=== PATIENT | female | born 1945 | race Caucasian/White ===

== ENCOUNTER 2016-09-24 10:52 | Emergency (ER) | payer MEDICARE, OTHER ==
[~2016-09-24] VITALS: Ht 152.4 cm; Wt 66.0 kg
[2016-09-24 11:04] VITALS: Ht 152.4 cm; Wt 66.0 kg
--- NOTE | 2016-09-24 12:03 | RADRPT ---
PROCEDURE: US Lower extremity Venous. CLINICAL INDICATION: Calf swelling TECHNIQUE: Multiple sonographic images of the bilateral lower extremity deep venous system was obt ained utilizing grayscale, color-flow, compressive sonography and doppler imaging with augmentation. The images were reviewed on a PACS workstation. COMPARISON: None. FINDINGS: There is normal compressibility and flow within the right common femoral, deep femoral, superficial femoral and popliteal veins. Normal respiratory variation and augmentation is seen. There is normal color flow and compressibility of right posterior tibial and peroneal veins IMPRESSION: No sonographic evidence for right lower extremity deep venous thrombosis. RPTAT: HH .Tariq Reddy MD, MD Date Time Electronically viewed and signed by .Tariq Reddy MD, on 09/24/2016 12:03 .W/
[2016-09-24 12:44] LABS: BASOPHILS % 0.6 % (0.0-2.0); EOSINOPHILS # 0.2 10^3/ul (0.0-0.5); HEMATOCRIT 32.8 % (37.0-47.0); HEMOGLOBIN 11.1 g/dl (12.0-16.0); LYMPHOCYTES % 39.5 % (15.0-51.0); MEAN CORPUSCULAR HEMOGLOBIN 31.2 pg (29.0-33.0); MEAN CORPUSCULAR HGB CONC 33.8 g/dl (32.0-37.0); MEAN CORPUSCULAR VOLUME 92.3 fl (82.0-101.0); MEAN PLATELET VOLUME 8.7 fl (7.4-10.4); MONOCYTE # 0.5 10^3/ul (0.3-0.9); MONOCYTES % 10.4 % (0.0-11.0); NEUTROPHIL # 2.4 10^3/ul (1.6-7.5); NEUTROPHILS % 46.5 % (39.0-77.0); PLATELET COUNT 156 10^3/UL (140-440); RED BLOOD COUNT 3.55 10^6/ul (4.20-5.40); RED CELL DISTRIBUTION WIDTH 16.1 % (11.5-14.5); UNCORRECTED WBC 5.1 10^3/ul (4.8-10.8); WHITE BLOOD COUNT 5.1 10^3/ul (4.8-10.8)
[2016-09-24 12:51] LABS: INR 0.92; PROTIME 12.4 Sec (12.2-14.2)
[2016-09-24 12:52] LABS: PARTIAL THROMBOPLASTIN TIME 28.2 Sec (25.0-35.0)
[2016-09-24 12:53] LABS: CONDITION 1; LH ANALYZER COMMENTS 1
[2016-09-24 12:55] LABS: CREATININE 4.75 mg/dl (0.44-1.00)
[2016-09-24 12:56] LABS: CALCIUM 8.5 mg/dl (8.4-10.2)
[2016-09-24] MEDS ORDERED: ALLO100T PO (13:06)
[2016-09-24] MEDS ORDERED: LYR75 PO (13:06)
[2016-09-24] MEDS ORDERED: ATOR40TA68 PO (13:06)
[2016-09-24] MEDS ORDERED: LANT3I SC (13:06)
[2016-09-24 13:08] LABS: POTASSIUM 6.4 mmol/L (3.5-5.1)
[2016-09-24] MEDS ORDERED: IBUP-1542 PO (13:19)
--- NOTE | 2016-09-24 13:21 | ERD ---
ER Documentation Chief Complaint Date/Time DATE: 09/24/16 TIME: 13:19 Chief Complaint RIGHT LEG SWOLLEN- DIALYSIS PT HPI 71-year-old female comes to the emergency department complaining of right leg pain. Patient states she has had a painful swollen right leg for some time now , possibly up to months. She reports no trauma. She reports that she is on ongoing swelling and saw her doctor and then became concerned and came to the emergency department for evaluation. She reports no new trauma, no fevers no chills no redness. ROS All systems reviewed and are negative except as per history of present illness. Medications Home Meds Active Scripts Ibuprofen* (Motrin*) 600 Mg Tab, 600 MG PO Q6H Y for PAIN AND OR ELEVATED TEMP, #30 TAB Prov:ADRIANO SOW 09/24/16 Reported Medications Pregabalin* (Lyrica*) 75 Mg Capsule, 75 MG PO DAILY, #60 09/24/16 Insulin Glargine* (Lantus*) 100 Unit/Ml Soln, SC DAILY, #1 VIAL 09/24/16 Allopurinol* (Allopurinol*) 100 Mg Tablet, 100 MG PO QHS, #90 09/24/16 Atorvastatin* (Atorvastatin*) 40 Mg Tablet, 40 MG PO QHS, #60 09/24/16 Allergies Allergies: Coded Allergies: No Known Allergy (Unverified , 09/24/16) PMhx/Soc Medical and Surgical Hx: Unable to obtain Hx Alcohol Use: No Hx Substance Use: No Hx Tobacco Use: No Smoking Status: Never smoker FmHx Noncontributory for chief complaint Physical Exam Vitals Vital Signs Date Time Temp Pulse Resp B/P Pulse Ox O2 Delivery O2 Flow Rate FiO2 09/24/16 13:27 98.3 71 20 170/58 97 Room Air 09/24/16 11:04 97.6 71 19 179/76 98 Physical Exam GENERAL: The patient is well developed and appropriate for usual state of health in no apparent distress HEENT: Pupils equal, round, and reactive to light. EOMI. There is no scleral icterus. NECK: C-spine is soft and supple, there is no meningismus. There is no cervical lymphadenopathy. LUNGS: Clear to auscultation bilaterally. There are no rales, wheezes or rhonchi. HEART: Regular rate and rhythm, no murmurs, clicks, rubs or gallops. ABDOMEN: Soft, non-tender, non-distended. There are bowel sounds in all four quadrants. No rebound or guarding. EXTREMITIES: The right lower extremity is just slightly more swollen than the left. There is no Homans sign. There is no evidence of infection or trauma. The other extremities appear normal NEURO: The patient moves all four extremities with 5/5 strength. Cranial nerves II - XII are intact. Normal gait. Alert and oriented SKIN: There is no apparent rash or petechiae. HEME/LYMPHATIC: There is no evidence of excessive bruising or lymphedema. PSYCHIATRIC: The patient does not appear anxious or depressed. PULSES: strong and equal bilaterally including the RLE w no pulse deficit. Result Diagram: 09/24/16 1215 09/24/16 1215 Results 24 hrs Laboratory Tests Test 09/24/16 12:15 Activated Partial Thromboplast Time 28.2Sec Anion Gap 19 Basophils # 0.010^3/ul Basophils % 0.6% Blood Morphology Comment Blood Urea Nitrogen 54mg/dl Calcium Level 8.5mg/dl Carbon Dioxide Level 30mmol/L Chloride Level 95mmol/L Creatinine 4.75mg/dl Eosinophils # 0.210^3/ul Eosinophils % 3.0% Glucose Level 229mg/dl Hematocrit 32.8% Hemoglobin 11.1g/dl INR International Normalized Ratio 0.92 Lymphocytes # 2.010^3/ul Lymphocytes % 39.5% Mean Corpuscular Hemoglobin 31.2pg Mean Corpuscular Hemoglobin Concent 33.8g/dl Mean Corpuscular Volume 92.3fl Mean Platelet Volume 8.7fl Monocytes # 0.510^3/ul Monocytes % 10.4% Neutrophils # 2.410^3/ul Neutrophils % 46.5% Nucleated Red Blood Cells # 0.010^3/ul Nucleated Red Blood Cells % 0.0/100WBC Platelet Count 67501^3/UL Potassium Level 6.4mmol/L Prothrombin Time 12.4Sec Prothrombin Time Ratio 1.0 Red Blood Count 3.5510^6/ul Red Cell Distribution Width 16.1% Sodium Level 138mmol/L White Blood Count 5.110^3/ul Procedures/MDM Patient was taken to a room, seen and evaluated. Comfort measures were initiated. Diagnostic tests were ordered and reviewed. 3 LEAD RHYTHM STRIP: Normal sinus rhythm without ectopy 12 lead EKG interpreted by myself: Rate/rhythm: Normal sinus rhythm [place]/intervals: Normal Ischemia: Nonspecific ST and T-wave changes with no ST elevation Impression: Nonspecific EKG RADIOLOGY: reviewed with the radiologist REEVALUATION: Patient remained comfortable and well-appearing MEDICAL DECISION MAKIN-year-old dialysis dependent patient presents the emergency department with right lower extremity edema that is subacute/chronic in nature. DVT has been ruled out, patient does not seem to have claudication based on clinical presentation and based on a normal arterial study. Patient is no evidence of active infection. Patient is due for dialysis tomorrow and feels fine. At this time, patient appears to be clinically well and is appropriate for outpatient care. Departure Diagnosis: Primary Impression: Pain of right leg Condition: Stable Patient Instructions: Possible Causes of Low Back or Leg Pain Referrals: GISSELL URRUTIA (PCP) Additional Instructions: See your doctor for follow-up as discussed. Take a copy of your test results, if appropriate, to this follow-up visit. See your doctor or return here if your symptoms do not improve as expected. At any time, please return to the emergency department for any change or worsening in her symptoms. ADRIANO SOW Sep 24, 2016 13:21
[2016-09-24 14:59] VITALS: BP 176/98; PULSE 74; RESP 19; TEMP 98.6
--- NOTE | 2016-09-24 15:00 | RADRPT ---
PROCEDURE: US bilateral lower extremity arteries. CLINICAL INDICATION: Bilateral leg pain. Claudication that interferes significantly with the herbert ent's lifestyle. TECHNIQUE: Multiple longitudinal and transverse images of the bilateral lower extremity arteries w ere obtained with jones scale, pulsed Doppler, and color Doppler imaging. COMPARISON: No prior studies are available for comparison. FINDINGS: Right PUTTY REMOVER:141 cm/sec PSFA:130 cm/sec MSFA:174 cm/sec DSFA:118 cm/sec POP:160 cm/sec COMMUNITY DEVELOPMENT SPECIALIST:62 cm/sec DPA:62 cm/sec Left PUTTY REMOVER:127 cm/sec PSFA:100 cm/sec MSFA:92 cm/sec DSFA:92 cm/sec POP:106 cm/sec COMMUNITY DEVELOPMENT SPECIALIST:96 cm/sec DPA:33 cm/sec The right ankle-brachial index is 1.1 and the left ankle-brachial index is 1.0. There is normal triphasic flow throughout both lower extremity arterial systems. There is no signif icant plaque, stenosis, or occlusion. IMPRESSION: 1. Normal bilateral lower extremity arterial Doppler. RPTAT: QQ .Vnetura Long MD, MD Date Time Electronically viewed and signed by .Ventura Long MD, on 09/24/2016 15:00 .R/
== END 2016-09-24 14:59 | disposition home or self-care (01) ==
LOC: E/R 10:52
DX: M79.604 Pain in right leg (principal); Z79.4 Long term (current) use of insulin
CPT/HCPCS: 36415; 80048; 85025; 85610; 85730; 93005; 93923; 93971

== ENCOUNTER 2016-12-09 09:17 | Inpatient (IN) | payer MEDICARE, OTHER ==
[~2016-12-09] VITALS: Ht 162.6 cm; Wt 65.0 kg
[2016-12-09] VITALS (11 sets, daily range): BP systolic 100–131; BP diastolic 49–62; PULSE 80–95; RESP 18; Ht 162.6 cm; Wt 65.0 kg
[~2016-12-09 09:17] MED LIST: ALLO100T PO; ATOR40TA68 PO; IBUP-1542 PO; LANT3I SC; LYR75 PO
[2016-12-09] MEDS ORDERED: VANCOMYCIN 1 GM (PMX) 250 ML IVPB STA (09:59)
[2016-12-09] MEDS ORDERED: SODIUM CHLORIDE 0.9% 1L BAG IV* STA (09:59)
[2016-12-09] MEDS ORDERED: PIPER-TAZO 3.375 GM IV (PMX) 100 ML IVPB STA (09:59)
[2016-12-09] MEDS ORDERED: ACETAMINOPHEN 500 MG TAB PO STA (10:03)
[2016-12-09] MEDS ORDERED: TRAM-40 PO (10:14)
[2016-12-09] MEDS ORDERED: ASPI81TA3 PO (10:15)
[2016-12-09] MEDS ORDERED: MULT-542 PO (10:15)
[2016-12-09] MEDS ORDERED: CHOL100062 PO (10:15)
[2016-12-09] MEDS ORDERED: CYAN100080 PO (10:16)
[2016-12-09] MEDS ORDERED: DOCU-159 PO (10:16)
[2016-12-09] MEDS ORDERED: NPH SQ (10:17)
[2016-12-09] MEDS ORDERED: LANT3I SC (10:17)
[2016-12-09] MEDS ORDERED: FAMOTIDINE 20 MG INJ IV STA (10:37)
[2016-12-09] MEDS ORDERED: PANTOPRAZOLE 40 MG INJ IV STA (10:37)
[2016-12-09 10:41] LABS: ADD SCAN DIFF NO
[2016-12-09 10:48] LABS: BASOPHILS % 0.2 % (0.0-2.0); EOSINOPHILS # 0.1 10^3/ul (0.0-0.5); EOSINOPHILS % 0.8 % (0.0-7.0); HEMATOCRIT 31.4 % (37.0-47.0); HEMOGLOBIN 10.5 g/dl (12.0-16.0); LYMPHOCYTES # 1.1 10^3/ul (0.8-2.9); LYMPHOCYTES % 8.3 % (15.0-51.0); MEAN CORPUSCULAR HEMOGLOBIN 31.6 pg (29.0-33.0); MEAN CORPUSCULAR HGB CONC 33.4 g/dl (32.0-37.0); MEAN CORPUSCULAR VOLUME 94.6 fl (82.0-101.0); MEAN PLATELET VOLUME 10.5 fl (7.4-10.4); MONOCYTE # 0.9 10^3/ul (0.3-0.9); NEUTROPHIL # 10.9 10^3/ul (1.6-7.5); NEUTROPHILS % 83.2 % (39.0-77.0); PLATELET COUNT 208 10^3/UL (140-415); RED BLOOD COUNT 3.32 10^6/ul (4.20-5.40); RED CELL DISTRIBUTION WIDTH 14.7 % (11.5-14.5); WHITE BLOOD COUNT 13.1 10^3/ul (4.8-10.8)
--- NOTE | 2016-12-09 10:51 | RADRPT ---
PROCEDURE: XR Chest. CLINICAL INDICATION: Chest pain, sepsis TECHNIQUE: Single frontal view of the chest was obtained. COMPARISON: None FINDINGS: The heart is within normal limits. The thoracic aorta is calcified. There is a right upper lobe infiltrate. There is also possible mild right lower lobe infiltrate. T here are ill-defined nodular opacities seen in the left mid lung. There is no pleural effusion or pneumothorax. RPTAT: AA IMPRESSION: Right upper lobe infiltrate and possible mild right lower lobe infiltrate. Ill-defined nodular opacities in the left mid lung. Neoplasm is not excluded. Follow-up CT chest i s recommended. Calcified aorta consistent with atherosclerotic disease. .Roni Sanchez MD, MD Date Time Electronically viewed and signed by .Roni Sanchez MD, on 12/09/2016 10:51 .S/
[2016-12-09 11:03] LABS: ALBUMIN/GLOBULIN RATIO 1.21; BILIRUBIN,INDIRECT 0.2 mg/dl (0-1.1); BILIRUBIN,TOTAL 0.2 mg/dl (0.2-1.3); CREATININE 6.89 mg/dl (0.44-1.00); TOTAL PROTEIN 7.3 g/dl (6.1-8.1)
[2016-12-09 11:04] LABS: CALCIUM 8.4 mg/dl (8.4-10.2)
[2016-12-09 11:09] LABS: ADD UMIC YES; URINE BILIRUBIN (Dip) NEGATIVE (NEGATIVE); URINE BLOOD (Dip) TRACE (NEGATIVE); URINE COLOR LT. YELLOW (YELLOW); URINE GLUCOSE (Dip) NEGATIVE (NEGATIVE); URINE KETONES (Dip) NEGATIVE (NEGATIVE); URINE LEUKOCYTE ESTERASE (Dip) NEGATIVE (NEGATIVE); URINE NITRITE (Dip) NEGATIVE (NEGATIVE); URINE TOTAL PROTEIN (Dip) 2+ (NEGATIVE); URINE UROBILINOGEN (Dip) 0.2 E.U./dL (0.1-1.0)
[2016-12-09 11:09] LABS: POTASSIUM 6.5 mmol/L (3.5-5.1)
[2016-12-09] MEDS ORDERED: NA BICARBONATE 8.4% 50 ML SYG IV STA (11:14)
[2016-12-09] MEDS ORDERED: NA POLYST SULFON 15 GM/60 ML BTL PO STA (11:14)
[2016-12-09] MEDS ORDERED: ALBUTEROL 0.5% (NEB) 2.5 MG/0.5 ML AMP INH STA (11:14)
[2016-12-09] MEDS ORDERED: CA GLUCONATE (GM) 10% 10ML INJ IV STA (11:14)
[2016-12-09 11:15] LABS: TROPONIN-I 0.109 ng/ml (0.00-0.12)
[2016-12-09 11:16] LABS: INR 1.01; PROTIME 13.3 Sec (12.2-14.2)
[2016-12-09 11:17] LABS: PARTIAL THROMBOPLASTIN TIME 26.9 Sec (25.0-35.0)
[2016-12-09 11:28] LABS: BACTERIA,URINE RARE; URINE RBCS 0-2 /HPF (0)
--- NOTE | 2016-12-09 11:42 | ERA ---
ER Documentation Chief Complaint Date/Time DATE: 12/09/16 TIME: 11:15 Chief Complaint sore throat and headache with fever since last night. no cough no dysuria HPI This is a 71-year-old Panamanian-speaking female with a known history of end-stage renal disease on hemodialysis every Friday and Friday. Her print press operator is Dr. Cho and she usually receives dialysis around 11:30 AM. Her last full run of dialysis was on Friday, 2 days prior to arrival. The patient presents to the emergency department today complaining generalized myalgias, bandlike headache, sore throat and a productive cough that have been present for roughly 12 hours. The patient awoke this morning with a fever at 2 AM of 103. Tylenol was given by her [id number]. Repeat temperature just prior to arrival taken on the auricle was 104. Tylenol had again been administered by her [id number]. The patient had been placed in a cold shower and continued to have a reductive cough and had hemoptysis of bright red blood of roughly the size of a quarter. She has not had any recent hospitalizations or travel. She denies any night sweats or weight loss. Patient denies any palpitation or chest pain or pressure. She has been compliant with her medications. She is an insulin-dependent diabetic and denies any polyuria or polydipsia. She does make a small amount of urine and has not complained of any frequency urgency or dysuria. She takes 81 mg on a daily basis of aspirin. She receives her dialysis that [facility]. ROS All systems reviewed and are negative except as per history of present illness. Medications Home Meds Reported Medications Insulin Glargine* (Lantus*) 100 Unit/Ml Soln, 10-30 UNIT SC DAILY, #1 VIAL 12/09/16 Insulin Human Nph (Novolin-N) 100 Units/Ml Susp, 0-30 UNIT SQ AC MEALS 12/09/16 Docusate Sodium* (Docusate Sodium*) 100 Mg Capsule, 100 MG PO BID, #60 CAP 12/09/16 Cyanocobalamin* (Vitamin B-12*) 1,000 Mcg Tablet.sa, 1000 MCG PO DAILY, TAB 12/09/16 Multivitamin* (Daily Value*) 1 Each Tablet, 1 TAB PO DAILY, TAB 12/09/16 Cholecalciferol* (Vitamin D3*) 1,000 Unit Tablet, 2000 UNIT PO DAILY, TAB 12/09/16 Aspirin* (Aspirin* Chew) 81 Mg Tab.chew, 81 MG PO DAILY, TAB.CHEW 12/09/16 Tramadol Hcl* (Ultram*) 50 Mg Tablet, 50 MG PO QHS Y for PAIN, TAB 12/09/16 Pregabalin* (Lyrica*) 75 Mg Capsule, 75 MG PO BID, #60 09/24/16 Allopurinol* (Allopurinol*) 100 Mg Tablet, 100 MG PO QHS, #90 09/24/16 Atorvastatin* (Atorvastatin*) 40 Mg Tablet, 40 MG PO QHS, #60 09/24/16 Discontinued Scripts Ibuprofen* (Motrin*) 600 Mg Tab, 600 MG PO Q6H Y for PAIN AND OR ELEVATED TEMP, #30 TAB Prov:ADRIANO SOW 09/24/16 Allergies Allergies: Coded Allergies: No Known Allergy (Unverified , 12/09/16) PMhx/Soc History of Surgery: Yes (dialysis catheter) Anesthesia Reaction: No Hx 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 Disorder: No Hx Respiratory Disorders: No Hx Cardiac Disorders: Yes (htn) Hx Psychiatric Problems: No Hx Miscellaneous Medical Probl: Yes (ESRD with dialysis (MWF), dm, neuropathy) Hx Alcohol Use: No Hx Substance Use: No Hx Tobacco Use: No Smoking Status: Never smoker Physical Exam Vitals Vital Signs Date Time Temp Pulse Resp B/P Pulse Ox O2 Delivery O2 Flow Rate FiO2 12/09/16 10:01 99.7 83 18 148/60 95 12/09/16 09:28 100.3 85 20 148/64 98 Physical Exam Constitutional:Well-developed. Well-nourished. HEENT:Normocephalic. Atraumatic.Pupils were equal round reactive to light. Moist mucous membranes.No tonsillar exudates. Neck: No nuchal rigidity. No lymphadenopathy. No posterior cervical spine tenderness or step-offs. Respiratory: Not using accessory muscles of respiration. Rhonchi heard in the right upper lung base with an inspiratory wheeze in the right upper lung base. No stridor. Cardiovascular: Regular rate regular rhythm.No murmurs. No rubs were appreciated.S1, S2 normal. Distal pulses are palpable 2+ bilaterally. GI: Abdomen was soft. Nontender. Non Distended. No pulsatile abdominal masses or bruits. No rebound. No guarding. Bowel sounds were present and normal. Muscle skeletal: Full range of motion of both the upper and lower extremities bilaterally.Normal muscle tone.No assymetrical calf tenderness or swelling. Skin: No petechia, no purpura. No lesions on the palms or the soles of the feet. No maculopapular rash. Positive thrill and bruit of the left upper extremity AV fistula NEURO: Patient was alert, awake, orientated x3.No facial droop. Gait observed and normal with no ataxia.Speech had regular rate and rhythm. No focal neurological deficits. Result Diagram: 12/09/16 0945 12/09/16 0945 Results 24 hrs Laboratory Tests Test 12/09/16 09:45 12/09/16 10:48 White Blood Count 13.110^3/ul Red Blood Count 3.3210^6/ul Hemoglobin 10.5g/dl Hematocrit 31.4% Mean Corpuscular Volume 94.6fl Mean Corpuscular Hemoglobin 31.6pg Mean Corpuscular Hemoglobin Concent 33.4g/dl Red Cell Distribution Width 14.7% Platelet Count 96006^3/UL Mean Platelet Volume 10.5fl Neutrophils % 83.2% Lymphocytes % 8.3% Monocytes % 7.0% Eosinophils % 0.8% Basophils % 0.2% Nucleated Red Blood Cells % 0.0/100WBC Neutrophils # 10.910^3/ul Lymphocytes # 1.110^3/ul Monocytes # 0.910^3/ul Eosinophils # 0.110^3/ul Basophils # 0.010^3/ul Nucleated Red Blood Cells # 0.010^3/ul Prothrombin Time 13.3Sec Prothrombin Time Ratio 1.0 INR International Normalized Ratio 1.01 Activated Partial Thromboplast Time 26.9Sec Sodium Level 134mmol/L Potassium Level 6.5mmol/L Chloride Level 98mmol/L Carbon Dioxide Level 23mmol/L Anion Gap 20 Blood Urea Nitrogen 88mg/dl Creatinine 6.89mg/dl Glucose Level 240mg/dl Lactic Acid Level 1.4mmol/L Calcium Level 8.4mg/dl Total Bilirubin 0.2mg/dl Direct Bilirubin 0.00mg/dl Indirect Bilirubin 0.2mg/dl Aspartate Amino Transf (AST/SGOT) 32IU/L Alanine Aminotransferase (ALT/SGPT) 19IU/L Alkaline Phosphatase 146IU/L Troponin I 0.109ng/ml Total Protein 7.3g/dl Albumin 4.0g/dl Globulin 3.30g/dl Albumin/Globulin Ratio 1.21 Amylase Level 108U/L Lipase 127U/L Urine Color LT. YELLOW Urine Clarity CLEAR Urine pH 7.0 Urine Specific [place] <=1.005 Urine Ketones NEGATIVE Urine Nitrite NEGATIVE Urine Bilirubin NEGATIVE Urine Urobilinogen 0.2 E.U./dL Urine Leukocyte Esterase NEGATIVE Urine Microscopic RBC 0-2/HPF Urine Microscopic WBC NONE SEEN/HPF Urine Epithelial Cells RARE Urine Bacteria RARE Urine Hemoglobin TRACE Urine Glucose NEGATIVE% Urine Total Protein 2+ Current Medications Medications (Trade) Dose Ordered Sig/Zaynab Route PRN Reason Start Time Stop Time Status Last Admin Dose Admin Sodium Chloride 2020 ml 2,020 ml BOLUS OVER 2 HOURS STAT IV* 12/09/16 09:59 12/09/16 10:04 DC 12/09/16 10:10 Vancomycin HCl 250 ml @ 125 mls/hr ONCE STAT IVPB 12/09/16 09:59 12/09/16 11:58 DC 12/09/16 10:58 Piperacillin Sod/ Tazobactam Sod (Zosyn 3.375gm/ 100 ml (Pmx)) 100 ml @ 200 mls/hr ONCE STAT IVPB 12/09/16 09:59 12/09/16 10:28 DC 12/09/16 10:11 Acetaminophen (Tylenol Tab) 1,000 mg ONCE STAT PO 12/09/16 10:03 12/09/16 10:06 DC Famotidine (Pepcid Iv) 20 mg ONCE STAT IV 12/09/16 10:37 12/09/16 10:38 DC 12/09/16 10:57 Pantoprazole (Protonix Iv) 40 mg ONCE STAT IV 12/09/16 10:37 12/09/16 10:38 DC 12/09/16 10:57 Sodium Polystyrene Sulfonate (Kayexalate) 30 gm ONCE STAT PO 12/09/16 11:14 12/09/16 11:20 DC Albuterol (Proventil 0.5% (Neb)) 15 mg ONCE STAT INH 12/09/16 11:14 12/09/16 11:20 DC Sodium Bicarbonate (Na Bicarb 8.4% Syg) 50 ml ONCE STAT IV 12/09/16 11:14 12/09/16 11:20 DC Calcium Gluconate (Ca Gluc) 1 gm ONCE STAT IV 12/09/16 11:14 12/09/16 11:22 DC Ondansetron HCl (Zofran Inj) 4 mg ER BRIDGE PRN IV NAUSEA AND/OR VOMITING 12/09/16 12:00 12/10/16 11:59 Acetaminophen (Tylenol Tab) 650 mg ER BRIDGE PRN PO MILD PAIN/FEVER 12/09/16 12:00 12/10/16 11:59 IV Flush 10 ml 10 ml STK-MED ONCE .ROUTE 12/09/16 11:51 12/09/16 11:52 DC Sodium Chloride (NS) 100 ml @ ud STK-MED ONCE .ROUTE 12/09/16 11:51 12/09/16 11:52 DC Iodixanol (Visipaque Locm) 100 ml STK-MED ONCE .ROUTE 12/09/16 11:51 12/09/16 11:52 DC Iodixanol (Visipaque Locm) 50 ml STK-MED ONCE .ROUTE 12/09/16 11:51 12/09/16 11:52 DC Procedures/MDM The patient presented to the emergency department with a presentation of hemoptysis. My differential diagnosis included but was not limited to peptic ulcer disease, gastric or esophageal erosions, lung cancer, tuberculosis, bronchitis, pneumonia. IV access was established by nursing staff. The patient been placed in a centrifugal wax molder continuous pulse oximetry. I obtained a chest radiograph due to the abnormal findings on the patient's respiratory examination. The chest radiograph reviewed by myself and the radiologist indicated the following: Right upper lobe infiltrate and possible mild right lower lobe infiltrate. Ill-defined nodular opacities in the left mid lung. Neoplasm is not excluded. Follow-up CT chest is recommended. Calcified aorta consistent with atherosclerotic disease. The patient presented to the emergency department with SIRS criteria of a well- documented history of fever but was afebrile upon arrival of antipyretics had just been given and the patient had leukocytosis of greater than 12,000. Therefore I did obtain a lactic acid but this was normal. However the patient was still treated for sepsis given that the patient had to sirs criteria plus a documented infection of pneumonia. The patient's infectious symptoms have not stabilized and the patient is at risk of rapid decompensation. The patient will be admitted for careful hydration, antibiotic therapy, and infectious source control. Severe Sepsis Assessment: Infectious Source: Pneumonia End organ damage indicated by: External Grinder > 2.0 INR > 1.5 Plt < 100 Severe Sepsis Managment: Blood Cultures X 2 before broad spectrum antibiotics initiated within 3 hours of recognition. 30 ml/kg NS bolus the patient was not given a complete 30 cc/kg bolus of normal saline due to the patient having a history of renal failure and concern for fluid overload Initial Lactate: normal Repeat Lactate not indicated as initial < 2.0 Septic Shock Assessment (1 hour post 30 ml/kg fluid bolus): Hypotension (SBP < 90 or 40 mmHg drop, MAP < 65): No Lactic acid > 4.0 No I considered further perfusion assessment with CVP measurement, SCVO2, bedside ultrasound volume assessment, passive leg raise, trial of further fluid bolus. And preceded with IV fluids The patient was hyperkalemic with a potassium of 6.5. The patient did not have peaked T waves on the EKG given that the patient has a history of renal failure this was treated with Kayexalate, an amp of bicarbonate amp of calcium chloride and albuterol. The patient will be admitted in serious condition under the care of Dr. Marcano. I will obtain a CT scan of the patient's chest for further evaluation to the possible neoplasm. The patient did not have any hematemesis that could suggest an upper GI bleed but was prophylactically given IV Pepcid and IV Protonix. The patient remained hemodynamically stable while in the emergency department and did not experience any hemoptysis while in the ER. 12 Lead EKG tracing ordered and reviewed by myself showed: Sinus rhythm 93 bpm and no arrhythmia. NC interval normal. QRS duration normal. Incomplete right bundle branch block with left axis deviation. Premature atrial complexes No ST segment elevation No ST segment depression. No changes consistent with acute ischemia. I did obtain a CT scan of the chest. This was done with IV contrast. The patient does have a known history of renal failure but will be undergoing emergent hemodialysis. I have placed a consult to her print press operator Dr. De La Cruz and Dr. Love is taking call for Dr. De La Cruz. I spoke with Kate at 12: 16 PM and he kindly stated he will arrange for emergent hemodialysis. CT scan showed that there is no evidence of a pulmonary embolism. The patient had already been started on broad-spectrum antibiotics for suspected healthcare acquired pneumonia given that she goes to a dialysis center on a regular basis. She was given IV vancomycin and IV Zosyn The patient had hyperglycemia without ketosis and did not require insulin while in the emergency department. Hypoglycemia was corrected with gentle IV hydration. Critical Care: Time: 55 minutes Treatments/Evaluations: Close monitoring and treatment of unstable vital signs, cardiorespiratory, and neurologic status, while maintaining tight balance of fluid, respiratory, and cardiac interventions. Time does not include performing any of the above billable procedures. Departure Diagnosis: Primary Impression: Pneumonia Qualified Code: J18.9 - Pneumonia of right upper lobe due to infectious organism Additional Impressions: Hyperkalemia Hyperglycemia without ketosis Sepsis Qualified Code: A41.9 - Sepsis, due to unspecified organism Condition: Serious JOSE RREYESA Dec 09, 2016 11:27
[2016-12-09] MEDS ORDERED: IODIXANOL LOCM 50 ML BTL ONE (11:51)
[2016-12-09] MEDS ORDERED: SOD CHLORIDE 0.9% 100 ML ONE (11:51)
[2016-12-09] MEDS ORDERED: IODIXANOL LOCM 100 ML BTL ONE (11:51)
[2016-12-09] MEDS ORDERED: ACETAMINOPHEN 325 MG TAB PO PRN (12:00)
[2016-12-09] MEDS ORDERED: ONDANSETRON 4 MG INJ IV PRN (12:00)
--- NOTE | 2016-12-09 12:42 | RADRPT ---
PROCEDURE: CTA Chest with contrast and with 3-D reconstructions CLINICAL INDICATION: Chest pain TECHNIQUE: The study was performed utilizing multidetector CT scanner. Direct spiral axial section s were obtained from the thoracic inlet to the upper abdomen with the use of intravenous contrast ma terial. Sagittal, coronal and 3-D reformations were obtained. The images were reviewed on a PACS wor kstation. DLP 491.04 mGycm CTDIvol 14.08, 13.28 mGy COMPARISON: No prior studies are available for comparison. FINDINGS: There are no pulmonary emboli. There are multifocal patchy and confluent ground-glass opacities throughout all lobes of the bilater al lungs consistent with multifocal pneumonia. There is no pleural fluid. There is no pneumothorax. Heart size is within normal limits. There is no pericardial fluid. There are atherosclerotic calcif ications involving the coronary arteries. There is mild narrowing at the origin of the SMA and bilat eral renal arteries. There are no enlarged axillary or mediastinal lymph nodes. There are calcificat ions in the right pulmonary hilum as well as in the spleen, likely from prior granulomatous disease. Thyroid gland is heterogeneous and sub-centimeter hypodensities are noted in the lower pole of the l eft thyroid lobe. The visualized portions of the upper abdomen demonstrate a 1.2 cm simple cyst projecting off the upp er pole of the left kidney. There are surgical clips in the gallbladder fossa consistent with prior cholecystectomy. IMPRESSION: No CT evidence for pulmonary embolus. Multifocal patchy and confluent opacities bilaterally consistent with multifocal pneumonia. Heterogeneous thyroid gland with sub-centimeter hypodensities in the left lobe can be further evalua tien with a non emergent thyroid sonogram. Status post cholecystectomy. RPTAT: EE Physician Dionicio Date Time Electronically viewed and signed by Physician Dionicio on 12/09/2016 12:41 /
--- NOTE | 2016-12-09 12:43 | RADRPT ---
PROCEDURE: CT Chest. CLINICAL INDICATION: productive cough with small amount of blood TECHNIQUE: CT scan of the chest without contrast was performed on multislice CT scanner. The herbert ent was scanned without administration of intravenous contrast. 3-D sagittal and coronal reformatte d images were obtained from the axial source images. CTDIvol 395.96 mGy DLP 10.59 mGy-cm COMPARISON: None FINDINGS: There are no pulmonary emboli. There are multifocal patchy and confluent ground-glass opacities throughout all lobes of the bilater al lungs consistent with multifocal pneumonia. There is no pleural fluid. There is no pneumothorax. Heart size is within normal limits. There is no pericardial fluid. There are atherosclerotic calcif ications involving the coronary arteries. There is mild narrowing at the origin of the SMA and bilat eral renal arteries. There are no enlarged axillary or mediastinal lymph nodes. There are calcificat ions in the right pulmonary hilum as well as in the spleen, likely from prior granulomatous disease. Thyroid gland is heterogeneous and sub-centimeter hypodensities are noted in the lower pole of the l eft thyroid lobe. The visualized portions of the upper abdomen demonstrate a 1.2 cm simple cyst projecting off the upp er pole of the left kidney. There are surgical clips in the gallbladder fossa consistent with prior cholecystectomy. IMPRESSION: No CT evidence for pulmonary embolus. Multifocal patchy and confluent opacities bilaterally consistent with multifocal pneumonia. Heterogeneous thyroid gland with sub-centimeter hypodensities in the left lobe can be further evalua tien with a non emergent thyroid sonogram. Status post cholecystectomy. RPTAT: EE Physician Dionicio Date Time Electronically viewed and signed by David Rhodes Physician on 12/09/2016 12:42 /
[2016-12-09] MEDS ORDERED: SOD CHLORIDE 0.9% 1,000 ML IV SCH (17:06)
[2016-12-09] MEDS ORDERED: BISACODYL 10 MG SUPP PR PRN (17:30)
[2016-12-09] MEDS ORDERED: VANCOMYCIN IV PER PHARMACY XX SCH (17:30)
[2016-12-09] MEDS ORDERED: MAGNESIUM HYDROXIDE 30ML CUP PO PRN (17:30)
[2016-12-09] MEDS ORDERED: NACL 0.9% 3 ML SYG IV SCH (17:30)
[2016-12-09] MEDS ORDERED: DOCUSATE SODIUM 100 MG CAP PO PRN (17:30)
[2016-12-09] MEDS ORDERED: GLUCOSE GEL 15 GRAM TUBE PO PRN ×2 (18:00)
[2016-12-09] MEDS ORDERED: GLUCOSE GEL 15 GRAM TUBE BUCCAL PRN (18:00)
[2016-12-09] MEDS ORDERED: GLUCAGON 1 MG INJ IM PRN (18:00)
[2016-12-09] MEDS ORDERED: DEXTROSE 50% 50 ML SYRINGE IV PRN ×2 (18:00)
[2016-12-09] MEDS: INSULIN ASPART [NOVOLOG] 3 ML PEN SC SCH ×2 (18:27→20:34)
[2016-12-09 18:42] LABS: POTASSIUM 5.9 mmol/L (3.5-5.1)
[2016-12-09 18:44] LABS: CREATININE 7.24 mg/dl (0.44-1.00)
[2016-12-09 18:45] LABS: CALCIUM 8.5 mg/dl (8.4-10.2)
[2016-12-09 18:54] LABS: CK-MB 5.28 ng/ml (0.0-2.4)
[2016-12-09 19:04] LABS: TROPONIN-I 0.78 ng/ml (0.00-0.12)
[2016-12-09] MEDS ORDERED: INSULIN GLARGINE [LANtus] 3 ML PEN SC SCH (20:00)
[2016-12-09] MEDS: ALLOPURINOL 100 MG TAB PO SCH (20:19)
[2016-12-09] MEDS: ATORVASTATIN 40 MG TAB PO SCH (20:19)
[2016-12-09] MEDS: DOCUSATE SODIUM 100 MG CAP PO SCH (20:20)
[2016-12-09] MEDS: ACETAMINOPHEN 325 MG TAB PO PRN (20:20)
[2016-12-09] MEDS: FAMOTIDINE 20 MG TAB PO SCH (20:20)
[2016-12-09] MEDS: HEPARIN 5,000 UNIT/0.5 ML VIAL SC SCH (20:35)
[2016-12-09] MEDS ORDERED: PREGABALIN 75 MG CAP PO SCH (21:00)
--- NOTE | 2016-12-09 21:02 | HP ---
DATE OF ADMISSION: 12/09/2016 PRIMARY CARE PHYSICIAN: Unknown. OUTPATIENT ESCORT BLIND: Dr. Cho CHIEF COMPLAINT ON ADMISSION: Fevers. HISTORY OF PRESENT ILLNESS: This is a 71-year-old female with history of end-stage renal disease on hemodialysis for the past 2 years, she now has a left upper extremity fistula; diabetes mellitus, i nsulin requiring; diabetic neuropathy; coronary artery disease and hyperlipidemia who presented in [facility] emergency department with reported fevers. According to the family member at the bedside, who is the son with whom she is living, the patient has been having upper respiratory infection symptoms f or the past 3 to 5 days. Apparently she was having some chest congestion, cough for the past 3 to 4 days. She started having fevers over the past 24 hours at least. Upon presentation here, she has a T-max of 100.3. The patient has been having an ongoing cough and started having hemoptysis, blood while coughing. According to the son at the bedside, no episodes of nausea, vomiting, hematochezia or melena. The patient seems to have chills currently at the bedside actually, and she does not fe el well. She is primarily Icelandic speaking. She denies any chest pain or chest pressure. She santy es any shortness of breath. She actually reports chest pain after coughing only. She is currently now afebrile. She is on IV antibiotics, IV fluids. She is a dialysis patient and has missed dialys is today so far. Her potassium is 6.5. Her agriscience technology instructor has been contacted for urgent dialysis topati boateng. She is otherwise hemodynamically stable. According to the son, she does have a history of chastity nary artery disease diagnosed around the time she started dialysis, and at first they were thinking about coronary artery bypass surgery, but then they were told that the patient is on dialysis and di d not need it anymore from what they are reporting. She is being admitted to telemetry with diagnos ed pneumonia and bronchitis on CAT scan. ALLERGIES: NO KNOWN ALLERGIES. PAST MEDICAL HISTORY: 1. End-stage renal disease on hemodialysis. 2. Diabetes mellitus, insulin requiring. 3. Diabetic neuropathy. 4. Likely diabetic nephropathy. 5. Coronary artery disease. 6. Hyperlipidemia. PAST SURGICAL HISTORY: Status post left upper extremity fistula placement 2 years ago. SOCIAL HISTORY: The patient lives with her son. No history of alcohol or tobacco use. REVIEW OF SYSTEMS: As per HPI. Again, most of it was obtained with the son translating. OUTPATIENT MEDICATIONS: 1. Atorvastatin 40 mg p.o. at bedtime. 2. Aspirin 81 mg p.o. daily. 3. Lyrica 75 mg p.o. b.i.d. 4. Tramadol 50 mg p.o. at bedtime p.r.n. pain. 5. Colace 100 mg p.o. b.i.d. 6. Lantus currently taking 7 units subcutaneously at bedtime. 7. Sliding scale insulin with Novolin N. 8. Vitamin D3 2000 units p.o. daily. 9. Vitamin B12 1000 mcg p.o. daily. 10. Multivitamin 1 tablet p.o. daily. 11. Allopurinol 100 mg p.o. at bedtime. PHYSICAL EXAMINATION: VITAL SIGNS: Temperature is 99.6 with a T-max of 100.3; heart rate of 104, sinus rhythm; respirator y rate of 20; blood pressure 143/54. The patient is satting 100% on 2 L nasal cannula. GENERAL: She is alert. She is oriented x4. She is primarily Icelandic speaking. She seems to be in some distress, seemingly having chills. HEENT: Pupils are equally round and reactive to light. Extraocular muscles are intact. Anicteric sclerae. NECK: No JVD, no thyromegaly noted. HEART: Regular rate and rhythm. Slightly tachycardic at time. LUNGS: She has decreased breath sounds at the bases, otherwise good air movement. No wheezes heard . No crackles or rales. ABDOMEN: Soft, nontender, nondistended. Bowel sounds are present. EXTREMITIES: She has a left upper extremity fistula for dialysis access. No edema, clubbing or cya nosis noted. NEUROLOGIC: Grossly intact with generalized weakness, 4+/5 muscle strength. LABORATORY DATA: White blood cell count is 13.1, hemoglobin 10.5, hematocrit 31.4, platelet count o f 208. She has a slight left shift with a neutrophil percentage of 83.2. Chemistry with sodium of 134, potassium 6.5, chloride 98, bicarbonate 23, BUN 88, creatinine 6.89, glucose of 240. Lactic ac id is up to 4.0. Calcium 8.4. Total bilirubin 0.2, AST 32, ALT 19, alkaline phosphatase 146. Trop onin 0.109. Total protein of 7.3, albumin 4.0, amylase 108, lipase 127. INR is 1.01, PT 13.3, PTT 26.9. Urinalysis is grossly mostly negative. EKG on admission shows sinus rhythm with possible PACs. No acute ST or T-wave abnormalities. RADIOLOGICAL DATA: 1. Chest x-ray shows right upper lobe infiltrate; possible mild right lower lobe infiltrate; ill-de fined nodular opacity, left mid lung. 2. Subsequent CT angiogram of the chest showed no evidence of pulmonary embolus. Multifocal patchy and confluent opacity bilaterally consistent with multifocal pneumonia. Status post cholecystectom y and heterogenous thyroid gland with subcentimeter hypodensity in the left lobe. Recommendation fo r thyroid sonogram on a nonurgent basis. ASSESSMENT AND PLAN: This is a 71-year-old female with: 1. Multifocal pneumonia and bronchitis with ongoing systemic inflammatory response syndrome and als o known end-stage renal disease. The patient will be maintained on vancomycin and Zosyn for broad s pectrum since she is a dialysis patient. She may actually have healthcare-associated pneumonia. Co ntinue gentle hydration at this point, and she is due for dialysis today, which will be arranged wit h her agriscience technology instructor. She is currently hemodynamically stable for a telemetry bed. Blood cultures ar e pending. Lactic acid, latest one was 4.0. We will continue to trend it. 2. End-stage renal disease on hemodialysis. She is due for dialysis today on an urgent basis. Her potassium is 6.5. 3. Hyperkalemia has been treated already in the ER. Will repeat her labs and planning for dialysis today. 4. Diabetes mellitus, insulin requiring. Will resume sliding scale insulin and Lantus at 5 units s ubQ at bedtime. Monitor her blood sugars and check hemoglobin A1c with a.m. labs. 5. Hyperlipidemia. Will check fasting lipid panel in the morning. Continue statin therapy. 6. Coronary artery disease. Will check a second set of cardiac enzymes 8 hours apart and monitor o n telemetry for now. She has no signs of acute coronary syndrome. 7. Diabetic neuropathy. Continue Lyrica. 8. Prophylaxis. Pepcid for GI prophylaxis and heparin subQ for DVT prophylaxis. DISPOSITION: Admit to telemetry inpatient with urgent dialysis to be done today. Dictated By: JOSHUA CORDOVA/DEEPALI Conf#: [id number] DID#: [id number]
[2016-12-09] MEDS ORDERED: PIPER-TAZO 3.375 GM IV (PMX) 100 ML IVPB SCH (22:00)
[2016-12-09] MEDS: PIPER-TAZO 2.25 GM (PMX) 50 ML IVPB SCH (22:20)
[2016-12-10] VITALS (31 sets, daily range): BP systolic 100–159; BP diastolic 48–78; PULSE 74–91; RESP 11–26
[2016-12-10 01:00] LABS: TROPONIN-I 8.01 ng/ml (0.00-0.12)
[2016-12-10] MEDS: PIPER-TAZO 2.25 GM (PMX) 50 ML IVPB SCH ×3 (05:40→22:33)
[2016-12-10] MEDS: traMADol 50 MG TAB PO PRN (05:45)
[2016-12-10 07:47] LABS: ADD SCAN DIFF NO
[2016-12-10 07:54] LABS: BASOPHILS % 0.3 % (0.0-2.0); EOSINOPHILS # 0.1 10^3/ul (0.0-0.5); EOSINOPHILS % 0.4 % (0.0-7.0); HEMATOCRIT 26.7 % (37.0-47.0); HEMOGLOBIN 8.9 g/dl (12.0-16.0); LYMPHOCYTES # 1.9 10^3/ul (0.8-2.9); LYMPHOCYTES % 16.3 % (15.0-51.0); MEAN CORPUSCULAR HGB CONC 33.3 g/dl (32.0-37.0); MEAN PLATELET VOLUME 10.6 fl (7.4-10.4); MONOCYTE # 1.1 10^3/ul (0.3-0.9); NEUTROPHIL # 8.6 10^3/ul (1.6-7.5); NEUTROPHILS % 73.5 % (39.0-77.0); PLATELET COUNT 172 10^3/UL (140-415); RED BLOOD COUNT 2.87 10^6/ul (4.20-5.40); RED CELL DISTRIBUTION WIDTH 15.1 % (11.5-14.5); WHITE BLOOD COUNT 11.7 10^3/ul (4.8-10.8)
[2016-12-10 08:19] LABS: CK-MB 16.9 ng/ml (0.0-2.4)
[2016-12-10 08:25] LABS: TROPONIN-I 17.3 ng/ml (0.00-0.12)
[2016-12-10 08:30] LABS: ALBUMIN 3.2 g/dl (3.3-4.9)
[2016-12-10 08:33] LABS: ALBUMIN/GLOBULIN RATIO 1.06; BILIRUBIN,INDIRECT 0.7 mg/dl (0-1.1); BILIRUBIN,TOTAL 0.7 mg/dl (0.2-1.3); CREATININE 4.64 mg/dl (0.44-1.00); TOTAL PROTEIN 6.2 g/dl (6.1-8.1)
[2016-12-10 08:34] LABS: CALCIUM 7.7 mg/dl (8.4-10.2); CHOL/HDL RATIO 2.2 RATIO; MAGNESIUM 1.9 mg/dl (1.7-2.5)
[2016-12-10] MEDS: DOCUSATE SODIUM 100 MG CAP PO SCH ×2 (08:43→22:28)
[2016-12-10] MEDS: PREGABALIN 25 MG CAP PO SCH ×2 (08:43→22:27)
[2016-12-10] MEDS: FAMOTIDINE 20 MG TAB PO SCH ×2 (08:43→22:28)
[2016-12-10] MEDS: MULTIVITAMINS THERAPEUTIC TAB PO SCH (08:43)
[2016-12-10] MEDS: CHOLECALCIFEROL 1,000 UNIT TAB PO SCH (08:43)
[2016-12-10] MEDS: CYANOCOBALAMIN 500 MCG TAB PO SCH (08:43)
[2016-12-10] MEDS: HEPARIN 5,000 UNIT/0.5 ML VIAL SC SCH (08:44)
[2016-12-10] MEDS: ASPIRIN 81 MG TAB PO SCH (08:48)
[2016-12-10] MEDS: INSULIN ASPART [NOVOLOG] 3 ML PEN SC SCH ×2 (08:52→12:11)
[2016-12-10 13:40] LABS: CK-MB 11.5 ng/ml (0.0-2.4)
[2016-12-10 13:45] LABS: TROPONIN-I 18.2 ng/ml (0.00-0.12)
[2016-12-10] MEDS ORDERED: LIDOCAINE 1% (MDV) 20 ML INJ ONE (14:05)
[2016-12-10] MEDS ORDERED: NITROGLYCERIN (IC) 100 MCG/ML INJ ONE (14:06)
[2016-12-10] MEDS ORDERED: IODIXANOL LOCM 100 ML BTL ONE (14:06)
[2016-12-10] MEDS ORDERED: VERAPAMIL 5 MG INJ ONE (14:06)
[2016-12-10] MEDS ORDERED: FENTAnyl 50 MCG/ML VIAL ONE (14:38)
[2016-12-10] MEDS ORDERED: MIDAZOLAM 1 MG/ML 2 ML INJ ONE (14:38)
--- NOTE | 2016-12-10 14:49 | RADRPT ---
Echocardiogram Report Patient Name: BENNY SCHNEIDER Gender: Female Date: 1945 Study Date: 10-Dec-2016 Reproductive Endocrinologist: Tyrone Hua [facility] Location: 5540 Ref. Physician: MICHELLE MATSON Quality: Good Procedures: Transthoracic echocardiogram with complete 2D, M-Mode, and doppler examination. Indications: elevated troponin. 2D/M Mode Doppler Measurement Value Normal Ranges Measurement Value Normal Ranges LVIDd 2D 4.8 3.5 - 5.6 cm AV Peak Shashank 1.7 m/sec LVIDs 2D 3.0 2.1 - 4.1 cm AV Peak PG 11.0 mmHg FS 2D 38.2 % LVOT Peak Shashank 0.9 m/sec LVPWd 2D 0.8 0.6 - 1.1 cm LVOT Peak PG 4.0 mmHg IVSd 2D 1.0 0.6 - 1.1 cm MV E Peak Shashank 0.9 m/sec IVS/LVPW 2D 1.2 MV A Peak Shashank 1.1 m/sec AoR Diam 2D 2.8 2.0 - 3.7 cm MV E/A 0.9 LA/Ao 2D 1 0 - 1 MV Decel Time 148 msec EDV 2D 113.0 cm3 MV E/A 0.9 ESV 2D 26.7 cm3 TR Peak Shashank 3.5 m/sec LA Dimen 2D 3.6 2.3 - 4.0 cm TR Peak PG 49.0 mmHg RVSP 52.0 mmHg Findings Left Ventricle: Normal left ventricular systolic function. Normal left ventricular cavity size. Normal left ventricular wall thickness. Ejection fraction is visually estimated at 55 %. Tissue Doppler/Mitral Doppler indices are consistent with impaired relaxation (Stage I diastolic dysfunction). Right Ventricle: Normal right ventricular size. Normal right ventricular systolic function. Left Atrium: The left atrium is normal in size. Right Atrium: The right atrium is normal in size. Mitral Valve: Normal appearance and function of the mitral valve with trace physiologic regurgitation. Aortic Valve: No significant aortic stenosis or insufficiency. Aortic cusps appear mildly calcified. Tricuspid Valve: Normal appearance of the tricuspid valve. Estimated peak PA systolic pressure 52 mmHg. There is moderate tricuspid regurgitation. Pulmonic Valve: Normal pulmonic valve appearance. Pericardium: Normal pericardium with no significant pericardial effusion. Aorta: Normal aortic root. IVC: Normal size and normal respiratory collapse consistent with normal right atrial pressure. Conclusions Normal left ventricular systolic function. Normal left ventricular cavity size. Normal left ventricular wall thickness. Ejection fraction is visually estimated at 55 %. Tissue Doppler/Mitral Doppler indices are consistent with impaired relaxation (Stage I diastolic dysfunction). Normal right ventricular size. Normal right ventricular systolic function. The left atrium is normal in size. The right atrium is normal in size. Estimated peak PA systolic pressure 52 mmHg. There is moderate tricuspid regurgitation. No significant aortic stenosis or insufficiency. Normal appearance and function of the mitral valve with trace physiologic regurgitation. Normal pericardium with no significant pericardial effusion. Electronically Signed By: Xiang Krishna 10-Dec-2016 14:48:51 -0700 Patient Name: BENNY SCHNEIDER Study Date: 10-Dec-2016 [id number]
--- NOTE | 2016-12-10 15:56 | PN ---
Date/Time of Note Date/Time of Note DATE: 12/10/16 TIME: 15:51 Assessment/Plan VTE Prophylaxis VTE Prophylaxis Intervention: heparin Lines/Catheters IV C[facility]ter Type (from [facility]): Peripheral IV Urinary Cath still in place: No Assessment/Plan Assessment/Plan 71-year-old female with: 1. NSTEMI with reported CAD s/p angiogram with evidence of triple-vessel disease including distal left main Appreciate assistance from Dr Krishna, Patient will need CABG once cleared by ID To be transferred to ICU on Heparin gtt 2. Multifocal pneumonia and bronchitis, likely HCAP Continue vancomycin and Zosyn for broad spectrum Gentle hydration Blood cultures NGTD 3. End-stage renal disease on hemodialysis. S/p HD yesterday, next HD per Nephrology. 4. Hyperkalemia resolved post HD. 5. Diabetes mellitus, insulin requiring. A1c 7.9 Continue SSI, increase Lantus back up to 7units subQ at bedtime and add Tradjenta Will also add premeal insulin per DM education recommendations 6. Hyperlipidemia. Continue statin therapy. 7. Diabetic neuropathy. Continue Lyrica. Prophylaxis. Pepcid for GI prophylaxis and heparin subQ for DVT prophylaxis. DISPOSITION: Admit to telemetry inpatient with urgent dialysis to be done today. Subjective 24 Hr Interval Summary Free Text/Dictation Patient stable post Angio with multiple vessel disease and will require CABG once treated for PNA Afebrile today Going to ICU and to be placed on Heparin gtt Exam/Review of Systems Vital Signs Vitals Vital Signs Date Time Temp Pulse Resp B/P Pulse Ox O2 Delivery O2 Flow Rate FiO2 12/10/16 12:35 98.2 57 20 112/56 97 12/10/16 10:39 Nasal Cannula 2.0 12/09/16 12:56 21 Intake and Output 12/09/16 12/09/16 12/10/16 14:59 22:59 06:59 Intake Total 400 ml Output Total 2500 ml Balance -2100 ml Exam Constitutional: alert, oriented, well developed Respiratory: diminished breath sounds (slightly bases bilaterally ), normal air movement Cardiovascular: nl pulses, regular rate and rhythm Gastrointestinal: non-tender, soft Musculoskeletal: nl extremities to inspection Extremities: normal pulses, other (no edema, clubibng or cyanosis ) 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: TUBE FORMER OPERATOR II-XII intact, nl mental status, nl speech, other ( generalised weakness ) Results Result Diagram: 12/10/1622 12/10/16 0622 Results 24 hrs Laboratory Tests Test 12/09/16 17:30 12/09/16 18:20 12/09/16 20:24 12/09/16 22:30 Sodium Level 136 Potassium Level 5.9 H Chloride Level 98 Carbon Dioxide Level 20 L Anion Gap 24 H Blood Urea Nitrogen 87 H Creatinine 7.24 H Glucose Level 314 H Lactic Acid Level 4.1 *H Calcium Level 8.5 Creatine Kinase 209 H 375 #H Creatine Kinase Index 2.5 5.9 Creatinine Kinase MB (Mass) 5.28 H 22.00 H Troponin I 0.780 *H 8.010 *H Bedside Glucose 279 H 269 H Test 12/10/16 06:22 12/10/16 07:20 12/10/16 11:30 12/10/16 12:55 White Blood Count 11.7 H Red Blood Count 2.87 L Hemoglobin 8.9 L Hematocrit 26.7 L Mean Corpuscular Volume 93.0 Mean Corpuscular Hemoglobin 31.0 Mean Corpuscular Hemoglobin Concent 33.3 Red Cell Distribution Width 15.1 H Platelet Count 172 Mean Platelet Volume 10.6 H Neutrophils % 73.5 Lymphocytes % 16.3 Monocytes % 9.0 Eosinophils % 0.4 Basophils % 0.3 Nucleated Red Blood Cells % 0.0 Neutrophils # 8.6 H Lymphocytes # 1.9 Monocytes # 1.1 H Eosinophils # 0.1 Basophils # 0.0 Nucleated Red Blood Cells # 0.0 Sodium Level 134 L Potassium Level 4.0 Chloride Level 96 L Carbon Dioxide Level 28 Anion Gap 14 # Blood Urea Nitrogen 47 #H Creatinine 4.64 #H Glucose Level 175 # Hemoglobin A1c 7.9 H Lactic Acid Level 0.8 Calcium Level 7.7 L Magnesium Level 1.9 Total Bilirubin 0.7 Direct Bilirubin 0.00 Indirect Bilirubin 0.7 Aspartate Amino Transf (AST/SGOT) 97 H Alanine Aminotransferase (ALT/SGPT) 36 Alkaline Phosphatase 97 Creatine Kinase 410 H 384 H Creatine Kinase Index 4.1 3.0 Creatinine Kinase MB (Mass) 16.90 H 11.50 H Troponin I 17.300 *H 18.200 *H Total Protein 6.2 # Albumin 3.2 L Globulin 3.00 Albumin/Globulin Ratio 1.06 Triglycerides Level 101 Cholesterol Level 93 L LDL Cholesterol, Calculated 31 HDL Cholesterol 42 Cholesterol/HDL Ratio 2.2 Bedside Glucose 177 195 Medications Medications Current Medications Ondansetron HCl (Zofran Inj) 4 mg Q6H PRN IV NAUSEA AND/OR VOMITING; Start at 17:30 Acetaminophen (Tylenol Tab) 650 mg Q6H PRN PO PAIN LEVEL 1-3 OR FEVER Last administered on 12/09/16 20:20; Admin Dose 650 MG; Start 12/09/16 at 17:30 Docusate Sodium (Colace) 100 mg Q12H PRN PO CONSTIPATION; Start 12/09/16 at 17: 30 Magnesium Hydroxide (Milk Of Mag) 30 ml DAILY PRN PO CONSTIPATION; Start at 17:30 Bisacodyl (Dulcolax Supp) 10 mg DAILY PRN MD CONSTIPATION; Start 12/09/16 at 17 :30 Famotidine (Pepcid) 20 mg Q12 PO Last administered on 12/10/16 08:43; Admin Dose 20 MG; Start 12/09/16 at 21:00 Heparin Sodium (Porcine) (Heparin (5000 Units/0.5 ml)) 5,000 unit Q12 SC Last administered on 12/10/16 08:44; Admin Dose 5,000 UNIT; Start 12/09/16 at 21:00 Allopurinol (Zyloprim) 100 mg QHS PO Last administered on 12/09/16 20:19; Admin Dose 100 MG; Start 12/09/16 at 21:00 Aspirin (Aspirin) 81 mg DAILY PO Last administered on 12/10/16 08:48; Admin Dose 81 MG; Start 12/10/16 at 09:00 Atorvastatin Calcium (Lipitor) 40 mg QHS PO Last administered on 12/09/16 20: 19; Admin Dose 40 MG; Start 12/09/16 at 21:00 Cholecalciferol (Vitamin D) 2,000 unit DAILY PO Last administered on 12/10/16 08:43; Admin Dose 2,000 UNIT; Start 12/10/16 at 09:00 Cyanocobalamin (Vitamin B12) 1,000 mcg DAILY PO Last administered on 12/10/16 08:43; Admin Dose 1,000 MCG; Start 12/10/16 at 09:00 Docusate Sodium (Colace) 100 mg BID PO Last administered on 12/10/16 08:43; Admin Dose 100 MG; Start 12/09/16 at 21:00 Multivitamins Therapeutic (Theragran) 1 tab DAILY PO Last administered on 08:43; Admin Dose 1 TAB; Start 12/10/16 at 09:00 Tramadol HCl (Ultram) 25 mg Q8 PRN PO PAIN Last administered on 12/10/16 05:45 ; Admin Dose 25 MG; Start 12/09/16 at 17:30 Insulin Glargine (Lantus) 5 unit DAILY@20 SC Last administered on 12/09/16 20: 33; Admin Dose 5 UNIT; Start 12/09/16 at 20:00 Miscellaneous Information 1 ea NOTE XX ; Start 12/09/16 at 18:00 Glucose (Glutose) 15 gm Q15M PRN PO DECREASED GLUCOSE; Start 12/09/16 at 18:00 Glucose (Glutose) 22.5 gm Q15M PRN PO DECREASED GLUCOSE; Start 12/09/16 at 18: 00 Dextrose (D50w Syringe) 25 ml Q15M PRN IV DECREASED GLUCOSE; Start 12/09/16 at 18:00 Dextrose (D50w Syringe) 50 ml Q15M PRN IV DECREASED GLUCOSE; Start 12/09/16 at 18:00 Glucagon (Glucagen) 1 mg Q15M PRN IM DECREASED GLUCOSE; Start 12/09/16 at 18:00 Glucose 15 gm 15 gm Q15M PRN BUCCAL DECREASED GLUCOSE; Start 12/09/16 at 18:00 Piperacillin Sod/ Tazobactam Sod (Zosyn 2.25gm/ 50ml (Pmx)) 50 ml @ 100 mls/hr Q8 IVPB Last administered on 12/10/16 05:40; Admin Dose 100 MLS/HR; Start at 22:00 Pregabalin (Lyrica) 75 mg BID PO Last administered on 12/10/16 08:43; Admin Dose 75 MG; Start 12/10/16 at 09:00 Miscellaneous Information (* Miscellaneous Pharmacy Order) HOLD all METFORMIN ... ONCE ONCE XX ; Start 12/10/16 at 16:00; Stop 12/10/16 at 16:01; Status JOSHUA HUSSEIN Dec 10, 2016 15:56
--- NOTE | 2016-12-10 16:21 | CONS ---
Date/Time of Note Date/Time of Note DATE: 12/10/16 TIME: 16:17 Assessment/Plan Assessment/Plan Additional Assessment/Plan Non-ST elevation ND Triple-vessel coronary artery disease including distal left main Preserved ejection fraction Diabetes Hypertension Pneumonia End-stage renal disease on hemodialysis -Patient status post cardiac catheterization with evidence of triple-vessel disease including distal left main. In discussion with patient's son, patient was recommended bypass surgery a few years ago but patient never followed up for further care. Would continue aspirin, statin therapy, beta-rob as blood pressure and heart rate permits. IV heparin, CT surgery evaluation. Antibiotics as per infectious disease. Consultation Date/Type/Reason Admit Date/Time Dec 09, 2016 at 11:49 Type of Consultation: cv Reason for Consultation Elevated troponin Hx of Present Illness This is a 71-year-old female with past medical history of coronary artery disease, end-stage renal disease on hemodialysis who presents with fevers chills , cough and chest pain. Symptoms have been progressing over the past 2-3 days. Patient also complaining of intermittent episodes of shortness of breath. Chest pain has been worsening over the past 24 hours and for this reason she came to the emergency room for further evaluation and care. She does feel better since her admission. She does complain of exertional chest pain prior to this episode. At times fatigue and shortness of breath. 12 point review of systems was performed with all pertinent positives and negatives mentioned above and all else is negative Past Medical History Medical History: coronary artery disease, diabetes, high cholesterol, hypertension, renal disease Past Surgical History Fistula Family History Significant Family History: no pertinent family hx Social History Alcohol Use: none Smoking Status: Never smoker Other Social History Lives at home Exam/Review of Systems Vital Signs Vitals Vital Signs Date Time Temp Pulse Resp B/P Pulse Ox O2 Delivery O2 Flow Rate FiO2 12/10/16 12:35 98.2 57 20 112/56 97 12/10/16 10:39 Nasal Cannula 2.0 12/09/16 12:56 21 Intake and Output 12/09/16 12/09/16 12/10/16 15:00 23:00 07:00 Intake Total 400 ml Output Total 2500 ml Balance -2100 ml Exam No apparent distress Constitutional: alert, oriented Head: normocephalic Neck: supple Respiratory: other (Coarse breath sounds bilaterally with scattered rhonchi, no wheezing) Cardiovascular: other (S1-S2 heard), regular rate and rhythm, systolic murmur Gastrointestinal: bowel sounds, non-tender, other (No guarding), soft Extremities: edema (Trace), other (No cyanosis) Results Result Diagram: 12/10/1622 12/10/16 0622 Results 24 hrs Laboratory Tests Test 12/09/16 17:30 12/09/16 18:20 12/09/16 20:24 12/09/16 22:30 Sodium Level 136 Potassium Level 5.9 H Chloride Level 98 Carbon Dioxide Level 20 L Anion Gap 24 H Blood Urea Nitrogen 87 H Creatinine 7.24 H Glucose Level 314 H Lactic Acid Level 4.1 *H Calcium Level 8.5 Creatine Kinase 209 H 375 #H Creatine Kinase Index 2.5 5.9 Creatinine Kinase MB (Mass) 5.28 H 22.00 H Troponin I 0.780 *H 8.010 *H Bedside Glucose 279 H 269 H Test 12/10/16 06:22 12/10/16 07:20 12/10/16 11:30 12/10/16 12:55 White Blood Count 11.7 H Red Blood Count 2.87 L Hemoglobin 8.9 L Hematocrit 26.7 L Mean Corpuscular Volume 93.0 Mean Corpuscular Hemoglobin 31.0 Mean Corpuscular Hemoglobin Concent 33.3 Red Cell Distribution Width 15.1 H Platelet Count 172 Mean Platelet Volume 10.6 H Neutrophils % 73.5 Lymphocytes % 16.3 Monocytes % 9.0 Eosinophils % 0.4 Basophils % 0.3 Nucleated Red Blood Cells % 0.0 Neutrophils # 8.6 H Lymphocytes # 1.9 Monocytes # 1.1 H Eosinophils # 0.1 Basophils # 0.0 Nucleated Red Blood Cells # 0.0 Sodium Level 134 L Potassium Level 4.0 Chloride Level 96 L Carbon Dioxide Level 28 Anion Gap 14 # Blood Urea Nitrogen 47 #H Creatinine 4.64 #H Glucose Level 175 # Hemoglobin A1c 7.9 H Lactic Acid Level 0.8 Calcium Level 7.7 L Magnesium Level 1.9 Total Bilirubin 0.7 Direct Bilirubin 0.00 Indirect Bilirubin 0.7 Aspartate Amino Transf (AST/SGOT) 97 H Alanine Aminotransferase (ALT/SGPT) 36 Alkaline Phosphatase 97 Creatine Kinase 410 H 384 H Creatine Kinase Index 4.1 3.0 Creatinine Kinase MB (Mass) 16.90 H 11.50 H Troponin I 17.300 *H 18.200 *H Total Protein 6.2 # Albumin 3.2 L Globulin 3.00 Albumin/Globulin Ratio 1.06 Triglycerides Level 101 Cholesterol Level 93 L LDL Cholesterol, Calculated 31 HDL Cholesterol 42 Cholesterol/HDL Ratio 2.2 Bedside Glucose 177 195 Medications Medications Current Medications Ondansetron HCl (Zofran Inj) 4 mg Q6H PRN IV NAUSEA AND/OR VOMITING; Start at 17:30 Acetaminophen (Tylenol Tab) 650 mg Q6H PRN PO PAIN LEVEL 1-3 OR FEVER Last administered on 12/09/16 20:20; Admin Dose 650 MG; Start 12/09/16 at 17:30 Docusate Sodium (Colace) 100 mg Q12H PRN PO CONSTIPATION; Start 12/09/16 at 17: 30 Magnesium Hydroxide (Milk Of Mag) 30 ml DAILY PRN PO CONSTIPATION; Start at 17:30 Bisacodyl (Dulcolax Supp) 10 mg DAILY PRN [place] CONSTIPATION; Start 12/09/16 at 17 :30 Famotidine (Pepcid) 20 mg Q12 PO Last administered on 12/10/16 08:43; Admin Dose 20 MG; Start 12/09/16 at 21:00 Heparin Sodium (Porcine) (Heparin (5000 Units/0.5 ml)) 5,000 unit Q12 SC Last administered on 12/10/16 08:44; Admin Dose 5,000 UNIT; Start 12/09/16 at 21:00 Allopurinol (Zyloprim) 100 mg QHS PO Last administered on 12/09/16 20:19; Admin Dose 100 MG; Start 12/09/16 at 21:00 Aspirin (Aspirin) 81 mg DAILY PO Last administered on 12/10/16 08:48; Admin Dose 81 MG; Start 12/10/16 at 09:00 Atorvastatin Calcium (Lipitor) 40 mg QHS PO Last administered on 12/09/16 20: 19; Admin Dose 40 MG; Start 12/09/16 at 21:00 Cholecalciferol (Vitamin D) 2,000 unit DAILY PO Last administered on 12/10/16 08:43; Admin Dose 2,000 UNIT; Start 12/10/16 at 09:00 Cyanocobalamin (Vitamin B12) 1,000 mcg DAILY PO Last administered on 12/10/16 08:43; Admin Dose 1,000 MCG; Start 12/10/16 at 09:00 Docusate Sodium (Colace) 100 mg BID PO Last administered on 12/10/16 08:43; Admin Dose 100 MG; Start 12/09/16 at 21:00 Multivitamins Therapeutic (Theragran) 1 tab DAILY PO Last administered on 08:43; Admin Dose 1 TAB; Start 12/10/16 at 09:00 Tramadol HCl (Ultram) 25 mg Q8 PRN PO PAIN Last administered on 12/10/16 05:45 ; Admin Dose 25 MG; Start 12/09/16 at 17:30 Insulin Glargine (Lantus) 5 unit DAILY@20 SC Last administered on 12/09/16 20: 33; Admin Dose 5 UNIT; Start 12/09/16 at 20:00 Miscellaneous Information 1 ea NOTE XX ; Start 12/09/16 at 18:00 Glucose (Glutose) 15 gm Q15M PRN PO DECREASED GLUCOSE; Start 12/09/16 at 18:00 Glucose (Glutose) 22.5 gm Q15M PRN PO DECREASED GLUCOSE; Start 12/09/16 at 18: 00 Dextrose (D50w Syringe) 25 ml Q15M PRN IV DECREASED GLUCOSE; Start 12/09/16 at 18:00 Dextrose (D50w Syringe) 50 ml Q15M PRN IV DECREASED GLUCOSE; Start 12/09/16 at 18:00 Glucagon (Glucagen) 1 mg Q15M PRN IM DECREASED GLUCOSE; Start 12/09/16 at 18:00 Glucose 15 gm 15 gm Q15M PRN BUCCAL DECREASED GLUCOSE; Start 12/09/16 at 18:00 Piperacillin Sod/ Tazobactam Sod (Zosyn 2.25gm/ 50ml (Pmx)) 50 ml @ 100 mls/hr Q8 IVPB Last administered on 12/10/16 05:40; Admin Dose 100 MLS/HR; Start at 22:00 Pregabalin (Lyrica) 75 mg BID PO Last administered on 12/10/16 08:43; Admin Dose 75 MG; Start 12/10/16 at 09:00 Procedures Procedures ECG demonstrates sinus rhythm at 93 bpm, incomplete right bundle branch block with QRS 102 ms, nonspecific STT wave abnormalities Xiang Krishna DO Dec 10, 2016 16:21
[2016-12-10 17:11] LABS: ADD SCAN DIFF NO
[2016-12-10 17:26] LABS: INR 1.17; PT RATIO 1.2
[2016-12-10 17:49] LABS: BASOPHILS % 0.3 % (0.0-2.0); EOSINOPHILS # 0.2 10^3/ul (0.0-0.5); EOSINOPHILS % 1.7 % (0.0-7.0); HEMATOCRIT 26.4 % (37.0-47.0); HEMOGLOBIN 8.6 g/dl (12.0-16.0); LYMPHOCYTES # 2.4 10^3/ul (0.8-2.9); LYMPHOCYTES % 20.9 % (15.0-51.0); MEAN CORPUSCULAR HEMOGLOBIN 31.3 pg (29.0-33.0); MEAN CORPUSCULAR HGB CONC 32.6 g/dl (32.0-37.0); MEAN PLATELET VOLUME 10.5 fl (7.4-10.4); MONOCYTE # 1.1 10^3/ul (0.3-0.9); MONOCYTES % 9.8 % (0.0-11.0); NEUTROPHIL # 7.6 10^3/ul (1.6-7.5); NEUTROPHILS % 66.9 % (39.0-77.0); PLATELET COUNT 148 10^3/UL (140-415); RED BLOOD COUNT 2.75 10^6/ul (4.20-5.40); RED CELL DISTRIBUTION WIDTH 15.3 % (11.5-14.5); WHITE BLOOD COUNT 11.3 10^3/ul (4.8-10.8)
--- NOTE | 2016-12-10 18:07 | CARRPT ---
DATE OF PROCEDURE: 12/10/2016 PROCEDURE PERFORMED: 1. Left heart catheterization. 2. Right and left coronary angiogram. 3. Interpretation and supervision of right and left coronary angiogram. 4. Left ventricular pressure measurements. 5. Right radial artery approach. PATIENT HISTORY: This is a 71-year-old female who presents with a non-ST elevation myocardial infarction. HEMODYNAMIC FINDINGS: 1. LV pressure was 120/4 with an EDP of 22. 2. Aortic pressure was 114/56. CORONARY ANATOMY: Left main is a medium caliber vessel with a distal 60% stenosis. Circumflex is a medium caliber vessel with an ostial of 40% to 50% stenosis. Mid vessel 20% stenosis. After the first medium caliber obtuse marginal, the true circumflex has 90% diffuse area of stenosis. The first medium caliber obtuse marginal with a proximal 40% stenosis. Left main is a medium caliber vessel with an ostial of 70% stenosis. LAD is a medium caliber vessel with ostial 60% to 70% stenosis, mid 80% stenosis, distal 20% stenosis. RCA is a medium caliber vessel and is dominant. There is a proximal 20% stenosis and a mid 80% to 90% stenosis. The ostium of the PDA has a 90% stenosis. DESCRIPTION OF PROCEDURE: The patient was brought to the analytical lab analyst after informed consent. The patient was prepped and draped as per protocol. Right radial access was obtained. The patient with significant tortuosity noted in the right subclavian and for this reason, a Glidewire was used to navigate this severe tortuosity. Using a 5-Trinidadian JL3.5 diagnostic catheter to engage the left main, angiogram was performed. We next used a 5-Trinidadian JR4 catheter into the left ventricle. Pressure measurements were obtained as well as pullback. We next engaged the RCA and angiogram was performed. The patient with triple vessel disease including distal left main disease, no intervention was performed within this setting. All catheters and wires were removed. The patient was transferred to recovery in stable condition with no immediate complications. DIAGNOSES: 1. Myocardial infarction. 2. Obstructive coronary artery disease. COMPLICATIONS: None. ESTIMATED BLOOD LOSS: Minimal. RECOMMENDATIONS: CT surgery evaluation for coronary artery bypass graft. Dictated By: SONU FARRIS/DEEPALI Conf#: [id number] DID#: [id number] MTDD
[2016-12-10 18:15] LABS: PARTIAL THROMBOPLASTIN TIME 132.9 Sec (25.0-35.0)
--- NOTE | 2016-12-10 20:03 | PN ---
Date/Time of Note Date/Time of Note DATE: 12/10/16 TIME: 20:01 Assessment/Plan Lines/Catheters IV Catheter Type (from Nrs): Peripheral IV Leroy in Place (from Nrs): No Assessment/Plan Assessment/Plan 71 year old female with ESRD, DM admitted with fevers, bilateral pneumonia and ruled in for NSTEMI with troponin up to 18. CT chest shows diffuse patchy infiltrates bilaterally. I discussed with son and his the risks and benefits of surgery. At this time would wait at least a week for lungs to improve and pneumonia to resolve. Continue abx and will discuss with team. Exam/Review of Systems Vital Signs Vitals Vital Signs Date Time Temp Pulse Resp B/P Pulse Ox O2 Delivery O2 Flow Rate FiO2 12/10/16 18:17 80 21 154/62 98 Room Air 12/10/16 16:17 98.0 12/10/16 10:39 2.0 12/09/16 12:56 21 Intake and Output 12/09/16 12/09/16 12/10/16 15:00 23:00 07:00 Intake Total 400 ml Output Total 2500 ml Balance -2100 ml Results Result Diagram: 12/10/16 1703 12/10/16 0622 LAKEISHA MURO MD Dec 10, 2016 20:03
[2016-12-10] MEDS: INSULIN GLARGINE [LANtus] 3 ML PEN SC SCH (22:12)
[2016-12-10] MEDS: ALLOPURINOL 100 MG TAB PO SCH (22:27)
[2016-12-10] MEDS: ATORVASTATIN 40 MG TAB PO SCH (22:27)
[2016-12-10] MEDS: HEPARIN 25000 UNITS/250 ML 250 ML IV SCH (22:52)
[2016-12-10] MEDS: HEPARIN 1000 UNITS/ML 10 ML INJ IV PRN (23:09)
[2016-12-11] VITALS (47 sets, daily range): BP systolic 87–159; BP diastolic 35–96; PULSE 66–81; RESP 10–25
[2016-12-11] MEDS: traMADol 50 MG TAB PO PRN (05:46)
[2016-12-11 05:49] LABS: ADD SCAN DIFF NO
[2016-12-11] MEDS: PIPER-TAZO 2.25 GM (PMX) 50 ML IVPB SCH ×3 (06:00→21:47)
[2016-12-11 06:06] LABS: BASOPHILS % 0.2 % (0.0-2.0); EOSINOPHILS # 0.2 10^3/ul (0.0-0.5); EOSINOPHILS % 2.7 % (0.0-7.0); HEMATOCRIT 25.5 % (37.0-47.0); HEMOGLOBIN 8.3 g/dl (12.0-16.0); LYMPHOCYTES # 2.3 10^3/ul (0.8-2.9); LYMPHOCYTES % 28.3 % (15.0-51.0); MEAN CORPUSCULAR HEMOGLOBIN 30.7 pg (29.0-33.0); MEAN CORPUSCULAR HGB CONC 32.5 g/dl (32.0-37.0); MEAN CORPUSCULAR VOLUME 94.4 fl (82.0-101.0); MEAN PLATELET VOLUME 10.8 fl (7.4-10.4); MONOCYTE # 0.9 10^3/ul (0.3-0.9); MONOCYTES % 11.4 % (0.0-11.0); NEUTROPHIL # 4.6 10^3/ul (1.6-7.5); NEUTROPHILS % 57.3 % (39.0-77.0); PLATELET COUNT 155 10^3/UL (140-415); RED CELL DISTRIBUTION WIDTH 14.7 % (11.5-14.5)
[2016-12-11 06:17] LABS: POTASSIUM 4.3 mmol/L (3.5-5.1)
[2016-12-11 06:20] LABS: CALCIUM 7.6 mg/dl (8.4-10.2); CREATININE 7.17 mg/dl (0.44-1.00)
[2016-12-11 06:59] LABS: PHOSPHORUS 7.5 mg/dl (2.5-4.9)
[2016-12-11] MEDS: INSULIN ASPART [NOVOLOG] 3 ML PEN SC SCH ×10 (08:14→20:29)
[2016-12-11] MEDS: METOPROLOL (XL) 50 MG TAB PO SCH ×2 (08:56→21:00)
[2016-12-11] MEDS: DOCUSATE SODIUM 100 MG CAP PO SCH ×2 (08:58→20:59)
[2016-12-11] MEDS: MULTIVITAMINS THERAPEUTIC TAB PO SCH (08:58)
[2016-12-11] MEDS: CYANOCOBALAMIN 500 MCG TAB PO SCH (08:58)
[2016-12-11] MEDS: FAMOTIDINE 20 MG TAB PO SCH ×2 (08:58→20:59)
[2016-12-11] MEDS: CHOLECALCIFEROL 1,000 UNIT TAB PO SCH (08:58)
[2016-12-11] MEDS: LINAGLIPTIN 5 MG TABLET PO SCH (08:58)
[2016-12-11] MEDS: ASPIRIN 81 MG TAB PO SCH (08:58)
[2016-12-11] MEDS: PREGABALIN 25 MG CAP PO SCH (08:58)
--- NOTE | 2016-12-11 09:33 | PN ---
Date/Time of Note Date/Time of Note DATE: 12/11/16 TIME: 09:22 Assessment/Plan VTE Prophylaxis VTE Prophylaxis Intervention: other (on Hepain gtt for AMI) Lines/Catheters IV Catheter Type (from Nrs): Peripheral IV Urinary Cath still in place: No Assessment/Plan Assessment/Plan 71-year-old female with: 1. NSTEMI with reported CAD s/p angiogram with evidence of triple-vessel disease including distal left main Appreciate assistance from Dr Krishna, follow up cardiac recommendations today Patient will need CABG once cleared by ID and recovered from PNA, appreciate evaluation and recs from Dr Trinh On Heparin gtt 2. Multifocal pneumonia and bronchitis, likely HCAP Continue vancomycin and Zosyn for broad spectrum WBC trending back down to normal, afebrile, will get sputum cx if possible Blood cultures NGTD ID consult 3. End-stage renal disease on hemodialysis. HD today Nephrology following. 4. Hyperkalemia resolved post HD. 5. Diabetes mellitus, insulin requiring. A1c 7.9 Continue SSI, increase Lantus back up to 7units subQ at bedtime premeal insulin and Tradjenta per DM education recommendations. 6. Hyperlipidemia. Continue statin therapy. 7. Diabetic neuropathy. Continue Lyrica. Prophylaxis. Pepcid for GI prophylaxis and on Heparin gtt now DISPOSITION: in ICU on heparin gtt, ID consult pending, remains stable on Heparin gtt. Subjective 24 Hr Interval Summary Free Text/Dictation Patient doing better this AM Some cough and mild chest pain No further complaints, on Heparin gtt and HD today Exam/Review of Systems Vital Signs Vitals Vital Signs Date Time Temp Pulse Resp B/P Pulse Ox O2 Delivery O2 Flow Rate FiO2 12/11/16 08:00 97.6 71 18 136/52 100 Nasal Cannula 2.0 12/09/16 12:56 21 Intake and Output 12/10/16 12/10/16 12/11/16 15:00 23:00 07:00 Intake Total 150 ml 114 ml Balance 150 ml 114 ml Exam Constitutional: alert, oriented, well developed Respiratory: diminished breath sounds (bases bilaterally ), normal air movement Cardiovascular: nl pulses, regular rate and rhythm Gastrointestinal: non-tender, soft Musculoskeletal: nl extremities to inspection Extremities: normal pulses, other (no edema. clubbing or cyanosis ) 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: KNOT CUTTER II-XII intact, nl mental status, nl speech, other ( genralised weakness, getting better ) Results Result Diagram: 12/11/16 0520 12/11/16 0520 Results 24 hrs Laboratory Tests Test 12/10/16 11:30 12/10/16 12:55 12/10/16 17:03 12/10/16 20:35 Bedside Glucose 195 Creatine Kinase 384 H Creatine Kinase Index 3.0 Creatinine Kinase MB (Mass) 11.50 H Troponin I 18.200 *H White Blood Count 11.3 H Red Blood Count 2.75 L Hemoglobin 8.6 L Hematocrit 26.4 L Mean Corpuscular Volume 96.0 Mean Corpuscular Hemoglobin 31.3 Mean Corpuscular Hemoglobin Concent 32.6 Red Cell Distribution Width 15.3 H Platelet Count 148 Mean Platelet Volume 10.5 H Neutrophils % 66.9 Lymphocytes % 20.9 Monocytes % 9.8 Eosinophils % 1.7 Basophils % 0.3 Nucleated Red Blood Cells % 0.0 Neutrophils # 7.6 H Lymphocytes # 2.4 Monocytes # 1.1 H Eosinophils # 0.2 Basophils # 0.0 Nucleated Red Blood Cells # 0.0 Prothrombin Time 15.0 H Prothrombin Time Ratio 1.2 INR International Normalized Ratio 1.17 Activated Partial Thromboplast Time 132.9 *H 36.0 H Test 12/10/16 22:09 12/11/16 05:20 12/11/16 07:41 Bedside Glucose 230 H 209 White Blood Count 8.0 # Red Blood Count 2.70 L Hemoglobin 8.3 L Hematocrit 25.5 L Mean Corpuscular Volume 94.4 Mean Corpuscular Hemoglobin 30.7 Mean Corpuscular Hemoglobin Concent 32.5 Red Cell Distribution Width 14.7 H Platelet Count 155 Mean Platelet Volume 10.8 H Neutrophils % 57.3 Lymphocytes % 28.3 Monocytes % 11.4 H Eosinophils % 2.7 Basophils % 0.2 Nucleated Red Blood Cells % 0.0 Neutrophils # 4.6 Lymphocytes # 2.3 Monocytes # 0.9 Eosinophils # 0.2 Basophils # 0.0 Nucleated Red Blood Cells # 0.0 Activated Partial Thromboplast Time 72.5 *H Sodium Level 136 Potassium Level 4.3 Chloride Level 96 L Carbon Dioxide Level 27 Anion Gap 17 H Blood Urea Nitrogen 64 H Creatinine 7.17 #H Glucose Level 184 Calcium Level 7.6 L Phosphorus Level 7.5 H Magnesium Level 2.0 Random Vancomycin Level 6.6 Medications Medications Current Medications Ondansetron HCl (Zofran Inj) 4 mg Q6H PRN IV NAUSEA AND/OR VOMITING; Start at 17:30 Acetaminophen (Tylenol Tab) 650 mg Q6H PRN PO PAIN LEVEL 1-3 OR FEVER Last administered on 12/09/16 20:20; Admin Dose 650 MG; Start 12/09/16 at 17:30 Docusate Sodium (Colace) 100 mg Q12H PRN PO CONSTIPATION; Start 12/09/16 at 17: 30 Magnesium Hydroxide (Milk Of Mag) 30 ml DAILY PRN PO CONSTIPATION; Start at 17:30 Bisacodyl (Dulcolax Supp) 10 mg DAILY PRN [place] CONSTIPATION; Start 12/09/16 at 17 :30 Famotidine (Pepcid) 20 mg Q12 PO Last administered on 12/11/16 08:58; Admin Dose 20 MG; Start 12/09/16 at 21:00 Allopurinol (Zyloprim) 100 mg QHS PO Last administered on 12/10/16 22:27; Admin Dose 100 MG; Start 12/09/16 at 21:00 Aspirin (Aspirin) 81 mg DAILY PO Last administered on 12/11/16 08:58; Admin Dose 81 MG; Start 12/10/16 at 09:00 Atorvastatin Calcium (Lipitor) 40 mg QHS PO Last administered on 12/10/16 22: 27; Admin Dose 40 MG; Start 12/09/16 at 21:00 Cholecalciferol (Vitamin D) 2,000 unit DAILY PO Last administered on 12/11/16 08:58; Admin Dose 2,000 UNIT; Start 12/10/16 at 09:00 Cyanocobalamin (Vitamin B12) 1,000 mcg DAILY PO Last administered on 12/11/16 08:58; Admin Dose 1,000 MCG; Start 12/10/16 at 09:00 Docusate Sodium (Colace) 100 mg BID PO Last administered on 12/11/16 08:58; Admin Dose 100 MG; Start 12/09/16 at 21:00 Multivitamins Therapeutic (Theragran) 1 tab DAILY PO Last administered on 08:58; Admin Dose 1 TAB; Start 12/10/16 at 09:00 Tramadol HCl (Ultram) 25 mg Q8 PRN PO PAIN Last administered on 12/11/16 05:46 ; Admin Dose 25 MG; Start 12/09/16 at 17:30 Miscellaneous Information 1 ea NOTE XX ; Start 12/09/16 at 18:00 Glucose (Glutose) 15 gm Q15M PRN PO DECREASED GLUCOSE; Start 12/09/16 at 18:00 Glucose (Glutose) 22.5 gm Q15M PRN PO DECREASED GLUCOSE; Start 12/09/16 at 18: 00 Dextrose (D50w Syringe) 25 ml Q15M PRN IV DECREASED GLUCOSE; Start 12/09/16 at 18:00 Dextrose (D50w Syringe) 50 ml Q15M PRN IV DECREASED GLUCOSE; Start 12/09/16 at 18:00 Glucagon (Glucagen) 1 mg Q15M PRN IM DECREASED GLUCOSE; Start 12/09/16 at 18:00 Glucose 15 gm 15 gm Q15M PRN BUCCAL DECREASED GLUCOSE; Start 12/09/16 at 18:00 Piperacillin Sod/ Tazobactam Sod (Zosyn 2.25gm/ 50ml (Pmx)) 50 ml @ 100 mls/hr Q8 IVPB Last administered on 12/11/16 06:00; Admin Dose 100 MLS/HR; Start at 22:00 Pregabalin (Lyrica) 75 mg BID PO Last administered on 12/11/16 08:58; Admin Dose 75 MG; Start 12/10/16 at 09:00 Insulin Glargine (Lantus) 7 unit DAILY@20 SC Last administered on 12/10/16 22: 12; Admin Dose 7 UNIT; Start 12/10/16 at 20:00 Linagliptin (Tradjenta) 5 mg DAILY PO Last administered on 12/11/16 08:58; Admin Dose 5 MG; Start 12/11/16 at 09:00 Metoprolol Succinate (Toprol Xl) 50 mg BID PO ; Start 12/11/16 at 07:01 JOSHUA MATSON Dec 11, 2016 09:33
--- NOTE | 2016-12-11 12:59 | CONS ---
Date/Time of Note Date/Time of Note DATE: 12/11/16 TIME: 12:58 Assessment/Plan Assessment/Plan Additional Assessment/Plan on-ST elevation ID Triple-vessel coronary artery disease including distal left main Preserved ejection fraction Diabetes Hypertension Pneumonia End-stage renal disease on hemodialysis -Patient to undergo CABG once infection issues resolve. Continue aspirin, statin therapy, beta-rob as heart rate and blood pressure permits, continue IV heparin. Fluid management via hemodialysis as per our nephrology colleagues. Consultation Date/Type/Reason Admit Date/Time Dec 09, 2016 at 11:49 Initial Consult Date Type of Consultation: cv 24 HR Interval Summary Free Text/Dictation Chest pain has improved, cough and shortness of breath is better. Denies dizziness, lightheadedness or palpitations Exam/Review of Systems Vital Signs Vitals Vital Signs Date Time Temp Pulse Resp B/P Pulse Ox O2 Delivery O2 Flow Rate FiO2 12/11/16 12:00 98.0 69 18 117/53 100 Nasal Cannula 2.0 12/09/16 12:56 21 Intake and Output 12/10/16 12/10/16 12/11/16 15:00 23:00 07:00 Intake Total 150 ml 171.5 ml Balance 150 ml 171.5 ml Exam Starting hemodialysis, no apparent distress Constitutional: alert, oriented Head: normocephalic Neck: supple Respiratory: other (Coarse breath sounds bilaterally, no wheezing) Cardiovascular: other (S1-S2 heard), regular rate and rhythm Gastrointestinal: bowel sounds, non-tender, other (No guarding), soft Extremities: other (Trace edema, no cyanosis) Results Result Diagram: 12/11/16 0520 12/11/16 0520 Results 24 hrs Laboratory Tests Test 12/10/16 17:03 12/10/16 20:35 12/10/16 22:09 12/11/16 05:20 White Blood Count 11.3 H 8.0 # Red Blood Count 2.75 L 2.70 L Hemoglobin 8.6 L 8.3 L Hematocrit 26.4 L 25.5 L Mean Corpuscular Volume 96.0 94.4 Mean Corpuscular Hemoglobin 31.3 30.7 Mean Corpuscular Hemoglobin Concent 32.6 32.5 Red Cell Distribution Width 15.3 H 14.7 H Platelet Count 148 155 Mean Platelet Volume 10.5 H 10.8 H Neutrophils % 66.9 57.3 Lymphocytes % 20.9 28.3 Monocytes % 9.8 11.4 H Eosinophils % 1.7 2.7 Basophils % 0.3 0.2 Nucleated Red Blood Cells % 0.0 0.0 Neutrophils # 7.6 H 4.6 Lymphocytes # 2.4 2.3 Monocytes # 1.1 H 0.9 Eosinophils # 0.2 0.2 Basophils # 0.0 0.0 Nucleated Red Blood Cells # 0.0 0.0 Prothrombin Time 15.0 H Prothrombin Time Ratio 1.2 INR International Normalized Ratio 1.17 Activated Partial Thromboplast Time 132.9 *H 36.0 H 72.5 *H Bedside Glucose 230 H Sodium Level 136 Potassium Level 4.3 Chloride Level 96 L Carbon Dioxide Level 27 Anion Gap 17 H Blood Urea Nitrogen 64 H Creatinine 7.17 #H Glucose Level 184 Calcium Level 7.6 L Phosphorus Level 7.5 H Magnesium Level 2.0 Random Vancomycin Level 6.6 Test 12/11/16 07:41 12/11/16 11:54 Bedside Glucose 209 176 Medications Medications Current Medications Ondansetron HCl (Zofran Inj) 4 mg Q6H PRN IV NAUSEA AND/OR VOMITING; Start at 17:30 Acetaminophen (Tylenol Tab) 650 mg Q6H PRN PO PAIN LEVEL 1-3 OR FEVER Last administered on 12/09/16 20:20; Admin Dose 650 MG; Start 12/09/16 at 17:30 Docusate Sodium (Colace) 100 mg Q12H PRN PO CONSTIPATION; Start 12/09/16 at 17: 30 Magnesium Hydroxide (Milk Of Mag) 30 ml DAILY PRN PO CONSTIPATION; Start at 17:30 Bisacodyl (Dulcolax Supp) 10 mg DAILY PRN [place] CONSTIPATION; Start 12/09/16 at 17 :30 Famotidine (Pepcid) 20 mg Q12 PO Last administered on 12/11/16 08:58; Admin Dose 20 MG; Start 12/09/16 at 21:00 Allopurinol (Zyloprim) 100 mg QHS PO Last administered on 12/10/16 22:27; Admin Dose 100 MG; Start 12/09/16 at 21:00 Aspirin (Aspirin) 81 mg DAILY PO Last administered on 12/11/16 08:58; Admin Dose 81 MG; Start 12/10/16 at 09:00 Atorvastatin Calcium (Lipitor) 40 mg QHS PO Last administered on 12/10/16 22: 27; Admin Dose 40 MG; Start 12/09/16 at 21:00 Cholecalciferol (Vitamin D) 2,000 unit DAILY PO Last administered on 12/11/16 08:58; Admin Dose 2,000 UNIT; Start 12/10/16 at 09:00 Cyanocobalamin (Vitamin B12) 1,000 mcg DAILY PO Last administered on 12/11/16 08:58; Admin Dose 1,000 MCG; Start 12/10/16 at 09:00 Docusate Sodium (Colace) 100 mg BID PO Last administered on 12/11/16 08:58; Admin Dose 100 MG; Start 12/09/16 at 21:00 Multivitamins Therapeutic (Theragran) 1 tab DAILY PO Last administered on 08:58; Admin Dose 1 TAB; Start 12/10/16 at 09:00 Tramadol HCl (Ultram) 25 mg Q8 PRN PO PAIN Last administered on 12/11/16 05:46 ; Admin Dose 25 MG; Start 12/09/16 at 17:30 Miscellaneous Information 1 ea NOTE XX ; Start 12/09/16 at 18:00 Glucose (Glutose) 15 gm Q15M PRN PO DECREASED GLUCOSE; Start 12/09/16 at 18:00 Glucose (Glutose) 22.5 gm Q15M PRN PO DECREASED GLUCOSE; Start 12/09/16 at 18: 00 Dextrose (D50w Syringe) 25 ml Q15M PRN IV DECREASED GLUCOSE; Start 12/09/16 at 18:00 Dextrose (D50w Syringe) 50 ml Q15M PRN IV DECREASED GLUCOSE; Start 12/09/16 at 18:00 Glucagon (Glucagen) 1 mg Q15M PRN IM DECREASED GLUCOSE; Start 12/09/16 at 18:00 Glucose 15 gm 15 gm Q15M PRN BUCCAL DECREASED GLUCOSE; Start 12/09/16 at 18:00 Piperacillin Sod/ Tazobactam Sod (Zosyn 2.25gm/ 50ml (Pmx)) 50 ml @ 100 mls/hr Q8 IVPB Last administered on 12/11/16 06:00; Admin Dose 100 MLS/HR; Start at 22:00 Insulin Glargine (Lantus) 7 unit DAILY@20 SC Last administered on 12/10/16 22: 12; Admin Dose 7 UNIT; Start 12/10/16 at 20:00 Linagliptin (Tradjenta) 5 mg DAILY PO Last administered on 12/11/16 08:58; Admin Dose 5 MG; Start 12/11/16 at 09:00 Metoprolol Succinate (Toprol Xl) 50 mg BID PO ; Start 12/11/16 at 07:01 Pregabalin 75 mg 75 mg BID PO ; Start 12/11/16 at 21:00 Vancomycin HCl/ Sodium Chloride (Vancocin/NS) 250 ml @ 83.333 mls/ hr ONCE IVPB ; Start 12/11/16 at 13:30; Stop 12/11/16 at 15:30 Xiang Krishna DO Dec 11, 2016 12:59
[2016-12-11] MEDS ORDERED: VANCOMYCIN 1.25 GM in SOD CHLORIDE 0.9% 250 ML IVPB SCH (13:30)
--- NOTE | 2016-12-11 15:54 | CONS ---
DATE OF ADMISSION: 12/09/2016 DATE OF CONSULTATION: 12/11/2016 TYPE OF CONSULTATION: Infectious Disease. REASON FOR CONSULTATION: Antibiotic management. HISTORY OF PRESENT ILLNESS: Shadia Mazariegos is a 71-year-old female who was admitted with fevers and is being seen for antibiotic management. Her past problems include: 1. End-stage renal disease on hemodialysis. 2. Insulin-dependent diabetes mellitus. 3. Diabetic neuropathy. 4. Diabetic nephropathy. 5. Coronary artery disease. 6. Hyperlipidemia. 7. Status post left upper extremity fistula placement 2 years ago. The patient now has a left upper extremity fistula. She presents to the emergency room with fevers as well as upper respiratory tract infection symptoms of infection for the past 3 to 5 days. She esquivel d cough and congestion and a temperature of 100.3. She had ongoing cough. She began to have hemopt ysis while coughing. She had chills. She primarily speaks Upper Sorbian. She reports no shortness of br eath. She missed dialysis on 12/09/2016 when she came to the emergency room. She required urgent d ialysis today. She was admitted with diagnosis of pneumonia and bronchitis on CAT scan. On admissi on, white count 13.1, H and H of 10.5 and 31.4, platelet count 208,000. She had a slight left shift with 83% neutrophils. BUN and creatinine were 88/6.89, glucose 240, lactic acid 4.0. Urinalysis i s mostly negative. Chest x-ray showed a right upper lobe infiltrate, possible right mild right lowe r lobe infiltrate, ill-defined nodular opacity in the left mid lung. A CT angiogram of the chest sh owed no evidence of pulmonary embolus. Multifocal patchy and confluent opacities bilaterally consis tent with multifocal pneumonia. She is status post cholecystectomy, has a heterogenous thyroid glan d with subcentimeter hypodensity in the left lobe. Recommendation for thyroid sonogram on a nonurge nt basis. PAST MEDICAL HISTORY: Operations as outlined. FAMILY HISTORY: Noncontributory. SOCIAL HISTORY: She does not smoke, drink, or abuse drugs. ALLERGIES: NONE TO PENICILLIN, SULFA, OR FOODS. MEDICATIONS: Per chart. REVIEW OF SYSTEMS: As per HPI. PHYSICAL EXAMINATION: GENERAL: The patient is a well-developed, well-nourished female who looks chronically ill, in no ac [place] distress. VITAL SIGNS: On admission, her temperature was 100.3. Currently, she is afebrile. SKIN: Without generalized rash. HEENT: Within normal limits. NECK: Supple. LYMPH NODES: None palpable. CHEST: Decreased breath sounds at the bases. HEART: Without murmur or gallop. ABDOMEN: Soft, nontender, without organosplenomegaly or masses. EXTREMITIES: She has a left upper extremity fistula for dialysis access. There is no cyanosis, clu bbing, or edema. RECTAL AND GENITAL: Deferred. NEUROLOGIC: No focal neurological abnormalities. IMPRESSION AND PLAN: The patient presents with multifocal pneumonia and bronchitis with ongoing sys temic inflammatory response as well as end-stage renal disease. She is started on vancomycin and Zo syn. She was also seen in consultation by Dr. Krishna in cardiology consultation for chest pain whic h she had and improved. She is on statins, beta rob, aspirin, heparin. We will continue vancom ycin and Zosyn. I will dictate my findings to Dr. Marcano. Dictated By: CLIFFORD SNYDER MD, JD/DEEPALI Conf#: [id number] DID#: [id number]
[2016-12-11] MEDS: INSULIN GLARGINE [LANtus] 3 ML PEN SC SCH (20:27)
[2016-12-11] MEDS: ALLOPURINOL 100 MG TAB PO SCH (20:59)
[2016-12-11] MEDS: ATORVASTATIN 40 MG TAB PO SCH (20:59)
[2016-12-11] MEDS: PREGABALIN 75 MG CAP PO SCH (21:01)
[2016-12-11] MEDS: ACETAMINOPHEN 325 MG TAB PO PRN (21:47)
[2016-12-11] MEDS: ARTIFICIAL TEARS 15 ML OPH BOTH EYES PRN (21:48)
--- NOTE | 2016-12-11 23:59 | CONS ---
Date/Time of Note Date/Time of Note DATE: 12/11/16 TIME: 23:57 Consultation Date/Type/Reason Admit Date/Time Dec 09, 2016 at 11:49 Type of Consultation: NEPHROLOGY Hx of Present Illness This patient has ESRD on dialysis and we did dialysis today and removed 3000 cc fluid and she had cardiac cath yesterday she feels ok i spokeot both sons at bedisde ESRD on dialysis s/p cardiac cath yesterday next dialysis will be friday renal diet Past Medical History Medical History: coronary artery disease, diabetes, high cholesterol, hypertension, renal disease Social History Alcohol Use: none Smoking Status: Never smoker Exam/Review of Systems Vital Signs Vitals Vital Signs Date Time Temp Pulse Resp B/P Pulse Ox O2 Delivery O2 Flow Rate FiO2 12/11/16 20:00 75 12/11/16 20:00 98.3 19 95/38 100 Nasal Cannula 12/11/16 20:00 2.0 12/09/16 12:56 21 Intake and Output 12/10/16 12/10/16 12/11/16 15:00 23:00 07:00 Intake Total 150 ml 171.5 ml Balance 150 ml 171.5 ml Results Result Diagram: 12/11/16 0520 12/11/16 0520 Results 24 hrs Laboratory Tests Test 12/11/16 05:20 12/11/16 07:41 12/11/16 11:54 12/11/16 13:15 White Blood Count 8.0 # Red Blood Count 2.70 L Hemoglobin 8.3 L Hematocrit 25.5 L Mean Corpuscular Volume 94.4 Mean Corpuscular Hemoglobin 30.7 Mean Corpuscular Hemoglobin Concent 32.5 Red Cell Distribution Width 14.7 H Platelet Count 155 Mean Platelet Volume 10.8 H Neutrophils % 57.3 Lymphocytes % 28.3 Monocytes % 11.4 H Eosinophils % 2.7 Basophils % 0.2 Nucleated Red Blood Cells % 0.0 Neutrophils # 4.6 Lymphocytes # 2.3 Monocytes # 0.9 Eosinophils # 0.2 Basophils # 0.0 Nucleated Red Blood Cells # 0.0 Activated Partial Thromboplast Time 72.5 *H 57.9 H Sodium Level 136 Potassium Level 4.3 Chloride Level 96 L Carbon Dioxide Level 27 Anion Gap 17 H Blood Urea Nitrogen 64 H Creatinine 7.17 #H Glucose Level 184 Calcium Level 7.6 L Phosphorus Level 7.5 H Magnesium Level 2.0 Random Vancomycin Level 6.6 Bedside Glucose 209 176 Troponin I 16.200 *H Test 12/11/16 14:57 12/11/16 17:42 12/11/16 20:19 12/11/16 21:15 Bedside Glucose 190 166 189 Activated Partial Thromboplast Time 54.5 H Medications Medications Current Medications Ondansetron HCl (Zofran Inj) 4 mg Q6H PRN IV NAUSEA AND/OR VOMITING; Start at 17:30 Acetaminophen (Tylenol Tab) 650 mg Q6H PRN PO PAIN LEVEL 1-3 OR FEVER Last administered on 12/11/16 21:47; Admin Dose 650 MG; Start 12/09/16 at 17:30 Docusate Sodium (Colace) 100 mg Q12H PRN PO CONSTIPATION; Start 12/09/16 at 17: 30 Magnesium Hydroxide (Milk Of Mag) 30 ml DAILY PRN PO CONSTIPATION; Start at 17:30 Bisacodyl (Dulcolax Supp) 10 mg DAILY PRN [place] CONSTIPATION; Start 12/09/16 at 17 :30 Famotidine (Pepcid) 20 mg Q12 PO Last administered on 12/11/16 20:59; Admin Dose 20 MG; Start 12/09/16 at 21:00 Allopurinol (Zyloprim) 100 mg QHS PO Last administered on 12/11/16 20:59; Admin Dose 100 MG; Start 12/09/16 at 21:00 Aspirin (Aspirin) 81 mg DAILY PO Last administered on 12/11/16 08:58; Admin Dose 81 MG; Start 12/10/16 at 09:00 Atorvastatin Calcium (Lipitor) 40 mg QHS PO Last administered on 12/11/16 20: 59; Admin Dose 40 MG; Start 12/09/16 at 21:00 Cholecalciferol (Vitamin D) 2,000 unit DAILY PO Last administered on 12/11/16 08:58; Admin Dose 2,000 UNIT; Start 12/10/16 at 09:00 Cyanocobalamin (Vitamin B12) 1,000 mcg DAILY PO Last administered on 12/11/16 08:58; Admin Dose 1,000 MCG; Start 12/10/16 at 09:00 Docusate Sodium (Colace) 100 mg BID PO Last administered on 12/11/16 20:59; Admin Dose 100 MG; Start 12/09/16 at 21:00 Multivitamins Therapeutic (Theragran) 1 tab DAILY PO Last administered on 08:58; Admin Dose 1 TAB; Start 12/10/16 at 09:00 Tramadol HCl (Ultram) 25 mg Q8 PRN PO PAIN Last administered on 12/11/16 05:46 ; Admin Dose 25 MG; Start 12/09/16 at 17:30 Miscellaneous Information 1 ea NOTE XX ; Start 12/09/16 at 18:00 Glucose (Glutose) 15 gm Q15M PRN PO DECREASED GLUCOSE; Start 12/09/16 at 18:00 Glucose (Glutose) 22.5 gm Q15M PRN PO DECREASED GLUCOSE; Start 12/09/16 at 18: 00 Dextrose (D50w Syringe) 25 ml Q15M PRN IV DECREASED GLUCOSE; Start 12/09/16 at 18:00 Dextrose (D50w Syringe) 50 ml Q15M PRN IV DECREASED GLUCOSE; Start 12/09/16 at 18:00 Glucagon (Glucagen) 1 mg Q15M PRN IM DECREASED GLUCOSE; Start 12/09/16 at 18:00 Glucose 15 gm 15 gm Q15M PRN BUCCAL DECREASED GLUCOSE; Start 12/09/16 at 18:00 Piperacillin Sod/ Tazobactam Sod (Zosyn 2.25gm/ 50ml (Pmx)) 50 ml @ 100 mls/hr Q8 IVPB Last administered on 12/11/16 21:47; Admin Dose 100 MLS/HR; Start at 22:00 Insulin Glargine (Lantus) 7 unit DAILY@20 SC Last administered on 12/11/16 20: 27; Admin Dose 7 UNIT; Start 12/10/16 at 20:00 Linagliptin (Tradjenta) 5 mg DAILY PO Last administered on 12/11/16 08:58; Admin Dose 5 MG; Start 12/11/16 at 09:00 Metoprolol Succinate (Toprol Xl) 50 mg BID PO ; Start 12/11/16 at 07:01 Pregabalin (Lyrica) 75 mg BID PO Last administered on 12/11/16 21:01; Admin Dose 75 MG; Start 12/11/16 at 21:00 Eye Lubricant (Artificial Tears Oph) 2 drop Q6H PRN BOTH EYES DRY EYES Last administered on 12/11/16t 21:48; Admin Dose 2 DROP; Start 12/11/16 at 20:30 ARNULFO GIORDANO MD Dec 11, 2016 23:59
[2016-12-12] VITALS (22 sets, daily range): BP systolic 105–150; BP diastolic 40–58; PULSE 61–75; RESP 11–20
[2016-12-12 05:41] LABS: ADD SCAN DIFF NO
[2016-12-12] MEDS: PIPER-TAZO 2.25 GM (PMX) 50 ML IVPB SCH ×3 (05:42→22:02)
[2016-12-12 05:55] LABS: BASOPHILS % 0.6 % (0.0-2.0); EOSINOPHILS # 0.4 10^3/ul (0.0-0.5); EOSINOPHILS % 9.1 % (0.0-7.0); HEMATOCRIT 28.8 % (37.0-47.0); HEMOGLOBIN 9.2 g/dl (12.0-16.0); LYMPHOCYTES # 1.4 10^3/ul (0.8-2.9); LYMPHOCYTES % 28.8 % (15.0-51.0); MEAN CORPUSCULAR HEMOGLOBIN 30.7 pg (29.0-33.0); MEAN CORPUSCULAR HGB CONC 31.9 g/dl (32.0-37.0); MEAN PLATELET VOLUME 11.8 fl (7.4-10.4); MONOCYTE # 0.7 10^3/ul (0.3-0.9); MONOCYTES % 15.2 % (0.0-11.0); NEUTROPHIL # 2.2 10^3/ul (1.6-7.5); NEUTROPHILS % 46.1 % (39.0-77.0); RED CELL DISTRIBUTION WIDTH 14.7 % (11.5-14.5); WHITE BLOOD COUNT 4.8 10^3/ul (4.8-10.8)
[2016-12-12 06:08] LABS: POTASSIUM 4.2 mmol/L (3.5-5.1)
[2016-12-12 06:11] LABS: PHOSPHORUS 6.7 mg/dl (2.5-4.9)
[2016-12-12 06:11] LABS: CALCIUM 8.1 mg/dl (8.4-10.2); CREATININE 5.63 mg/dl (0.44-1.00)
[2016-12-12 06:12] LABS: MAGNESIUM 2.1 mg/dl (1.7-2.5)
[2016-12-12] MEDS: HEPARIN 25000 UNITS/250 ML 250 ML IV SCH ×2 (06:13→20:11)
[2016-12-12 06:23] LABS: PLATELET COUNT 111 10^3/UL (140-415)
[2016-12-12] MEDS: DOCUSATE SODIUM 100 MG CAP PO SCH ×2 (08:02→20:44)
[2016-12-12] MEDS: FAMOTIDINE 20 MG TAB PO SCH (08:02)
[2016-12-12] MEDS: ASPIRIN 81 MG TAB PO SCH (08:02)
[2016-12-12] MEDS: LINAGLIPTIN 5 MG TABLET PO SCH (08:02)
[2016-12-12] MEDS: CHOLECALCIFEROL 1,000 UNIT TAB PO SCH (08:02)
[2016-12-12] MEDS: PREGABALIN 75 MG CAP PO SCH ×2 (08:02→20:44)
[2016-12-12] MEDS: MULTIVITAMINS THERAPEUTIC TAB PO SCH (08:02)
[2016-12-12] MEDS: CYANOCOBALAMIN 500 MCG TAB PO SCH (08:03)
[2016-12-12] MEDS: METOPROLOL (XL) 50 MG TAB PO SCH ×2 (08:03→20:45)
[2016-12-12] MEDS: INSULIN ASPART [NOVOLOG] 3 ML PEN SC SCH ×7 (08:05→20:43)
[2016-12-12] MEDS ORDERED: BISACODYL (EC) 5 MG TAB PO PRN (10:00)
[2016-12-12] MEDS: POLYETHYLENE GLYCOL 17 GM PACKET PO SCH ×2 (10:00→20:44)
[2016-12-12] MEDS ORDERED: MAGNESIUM HYDROXIDE 30ML CUP PO PRN (10:00)
--- NOTE | 2016-12-12 10:03 | PN ---
Date/Time of Note Date/Time of Note DATE: 12/12/16 TIME: 09:43 Assessment/Plan VTE Prophylaxis VTE Prophylaxis Intervention: heparin (gtt) Lines/Catheters IV Catheter Type (from [facility]): Peripheral IV Urinary Cath still in place: No Assessment/Plan Assessment/Plan 71-year-old female with: 1. NSTEMI with reported CAD s/p angiogram with evidence of triple-vessel disease including distal left main Appreciate assistance from Dr Krishna, follow up cardiac recommendations today Patient will need CABG once recovered from PNA, appreciate evaluation and recs from Dr Trinh, plan for CABG 12/17 if ID clears patient. On Heparin gtt 2. Multifocal pneumonia and bronchitis, likely HCAP Continue vancomycin and Zosyn for broad spectrum WBC trended back down to normal, afebrile, Sputum cx if possible Blood cultures NGTD Appreciate ID recommendations 3. End-stage renal disease on hemodialysis. Next HD tomorrow Nephrology following. 4. Hyperkalemia resolved post HD. 5. Diabetes mellitus, insulin requiring. A1c 7.9 Continue SSI, increase Lantus back up to 7units subQ at bedtime premeal insulin and Tradjenta per DM education recommendations. 6. Hyperlipidemia. Continue statin therapy. 7. Diabetic neuropathy. Continue Lyrica. Prophylaxis. Pepcid for GI prophylaxis and on heparin gtt now. DISPOSITION: on Heparin gtt and awaiting CABG next week hopefully. Transfer to [facility] if OK with cardiology. Subjective 24 Hr Interval Summary Free Text/Dictation Patient doing well today VSS and s/p HD yesterday On Heparin gtt for now IV abx for PNA Exam/Review of Systems Vital Signs Vitals Vital Signs Date Time Temp Pulse Resp B/P Pulse Ox O2 Delivery O2 Flow Rate FiO2 12/12/16 08:00 67 12/12/16 08:00 Nasal Cannula 2.0 12/12/16 06:00 15 146/54 100 12/12/16 04:00 96.5 12/09/16 12:56 21 Intake and Output 12/11/16 12/11/16 12/12/16 15:00 23:00 07:00 Intake Total 1033.0 ml 675.0 ml 169.5 ml Output Total 3500 ml Balance -2467.0 ml 675.0 ml 169.5 ml Exam Constitutional: alert, frail, oriented Respiratory: diminished breath sounds, normal air movement Cardiovascular: regular rate and rhythm Gastrointestinal: non-tender, soft Musculoskeletal: nl extremities to inspection Extremities: normal pulses, other (no edema, clubbing or cyanosis ) 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, nl mental status, nl speech, nl strength Results Result Diagram: 12/12/16 0520 12/12/16 0500 Results 24 hrs Laboratory Tests Test 12/11/16 11:54 12/11/16 13:15 12/11/16 14:57 12/11/16 17:42 Bedside Glucose 176 190 166 Activated Partial Thromboplast Time 57.9 H Troponin I 16.200 *H Test 12/11/16 20:19 12/11/16 21:15 12/12/16 05:00 12/12/16 05:20 Bedside Glucose 189 Activated Partial Thromboplast Time 54.5 H 47.9 H Sodium Level 137 Potassium Level 4.2 Chloride Level 100 Carbon Dioxide Level 26 Anion Gap 15 Blood Urea Nitrogen 41 #H Creatinine 5.63 H Glucose Level 158 Calcium Level 8.1 L White Blood Count 4.8 # Red Blood Count 3.00 L Hemoglobin 9.2 L Hematocrit 28.8 L Mean Corpuscular Volume 96.0 Mean Corpuscular Hemoglobin 30.7 Mean Corpuscular Hemoglobin Concent 31.9 L Red Cell Distribution Width 14.7 H Platelet Count 111 #L Mean Platelet Volume 11.8 H Neutrophils % 46.1 Lymphocytes % 28.8 Monocytes % 15.2 H Eosinophils % 9.1 H Basophils % 0.6 Nucleated Red Blood Cells % 0.0 Neutrophils # 2.2 Lymphocytes # 1.4 Monocytes # 0.7 Eosinophils # 0.4 Basophils # 0.0 Nucleated Red Blood Cells # 0.0 Phosphorus Level 6.7 H Magnesium Level 2.1 Test 12/12/16 07:56 Bedside Glucose 161 Medications Medications Current Medications Ondansetron HCl (Zofran Inj) 4 mg Q6H PRN IV NAUSEA AND/OR VOMITING; Start at 17:30 Acetaminophen (Tylenol Tab) 650 mg Q6H PRN PO PAIN LEVEL 1-3 OR FEVER Last administered on 12/11/16t 21:47; Admin Dose 650 MG; Start 12/09/16 at 17:30 Docusate Sodium (Colace) 100 mg Q12H PRN PO CONSTIPATION; Start 12/09/16 at 17: 30 Magnesium Hydroxide (Milk Of Mag) 30 ml DAILY PRN PO CONSTIPATION; Start at 17:30 Bisacodyl (Dulcolax Supp) 10 mg DAILY PRN [place] CONSTIPATION; Start 12/09/16 at 17 :30 Famotidine (Pepcid) 20 mg Q12 PO Last administered on 12/12/16 08:02; Admin Dose 20 MG; Start 12/09/16 at 21:00 Allopurinol (Zyloprim) 100 mg QHS PO Last administered on 12/11/16 20:59; Admin Dose 100 MG; Start 12/09/16 at 21:00 Aspirin (Aspirin) 81 mg DAILY PO Last administered on 12/12/16 08:02; Admin Dose 81 MG; Start 12/10/16 at 09:00 Atorvastatin Calcium (Lipitor) 40 mg QHS PO Last administered on 12/11/16 20: 59; Admin Dose 40 MG; Start 12/09/16 at 21:00 Cholecalciferol (Vitamin D) 2,000 unit DAILY PO Last administered on 12/12/16 08:02; Admin Dose 2,000 UNIT; Start 12/10/16 at 09:00 Cyanocobalamin (Vitamin B12) 1,000 mcg DAILY PO Last administered on 12/12/16 08:03; Admin Dose 1,000 MCG; Start 12/10/16 at 09:00 Docusate Sodium (Colace) 100 mg BID PO Last administered on 12/12/16 08:02; Admin Dose 100 MG; Start 12/09/16 at 21:00 Multivitamins Therapeutic (Theragran) 1 tab DAILY PO Last administered on 08:02; Admin Dose 1 TAB; Start 12/10/16 at 09:00 Tramadol HCl (Ultram) 25 mg Q8 PRN PO PAIN Last administered on 12/11/16 05:46 ; Admin Dose 25 MG; Start 12/09/16 at 17:30 Miscellaneous Information 1 ea NOTE XX ; Start 12/09/16 at 18:00 Glucose (Glutose) 15 gm Q15M PRN PO DECREASED GLUCOSE; Start 12/09/16 at 18:00 Glucose (Glutose) 22.5 gm Q15M PRN PO DECREASED GLUCOSE; Start 12/09/16 at 18: 00 Dextrose (D50w Syringe) 25 ml Q15M PRN IV DECREASED GLUCOSE; Start 12/09/16 at 18:00 Dextrose (D50w Syringe) 50 ml Q15M PRN IV DECREASED GLUCOSE; Start 12/09/16 at 18:00 Glucagon (Glucagen) 1 mg Q15M PRN IM DECREASED GLUCOSE; Start 12/09/16 at 18:00 Glucose 15 gm 15 gm Q15M PRN BUCCAL DECREASED GLUCOSE; Start 12/09/16 at 18:00 Piperacillin Sod/ Tazobactam Sod (Zosyn 2.25gm/ 50ml (Pmx)) 50 ml @ 100 mls/hr Q8 IVPB Last administered on 12/12/16 05:42; Admin Dose 100 MLS/HR; Start at 22:00 Insulin Glargine (Lantus) 7 unit DAILY@20 SC Last administered on 12/11/16 20: 27; Admin Dose 7 UNIT; Start 12/10/16 at 20:00 Linagliptin (Tradjenta) 5 mg DAILY PO Last administered on 12/12/16 08:02; Admin Dose 5 MG; Start 12/11/16 at 09:00 Metoprolol Succinate (Toprol Xl) 50 mg BID PO Last administered on 12/12/16 08 :03; Admin Dose 50 MG; Start 12/11/16 at 07:01 Pregabalin (Lyrica) 75 mg BID PO Last administered on 12/12/16 08:02; Admin Dose 75 MG; Start 12/11/16 at 21:00 Eye Lubricant (Artificial Tears Oph) 2 drop Q6H PRN BOTH EYES DRY EYES Last administered on 12/11/16 21:48; Admin Dose 2 DROP; Start 12/11/16 at 20:30 JOSHUA MATSON Dec 12, 2016 09:53
--- NOTE | 2016-12-12 11:44 | PN ---
DATE: 12/12/2016 INFECTIOUS DISEASE PROGRESS NOTE SUBJECTIVE: No events overnight. The patient is awake, lying comfortably in bed. Denies pain. No fevers. WBC 4.8, H and H 9.7 and 28.8, platelets 111. INDWELLINGS: Left chest Port-A-Cath. ANTIMICROBIALS: The patient is on: 1. IV vancomycin. 2. IV Zosyn. PHYSICAL EXAMINATION: GENERAL: This is a fragile, elderly woman, who is alert, in no distress. HEENT: Head atraumatic, normocephalic. Sclerae are anicteric. Buccal mucosa dry. NECK: Supple. CHEST: Chest rise is symmetrical. Breath sounds diminished to the bases. HEART: S1, S2. ABDOMEN: Soft, bowel tones present. EXTREMITIES: Without cyanosis. A left AV fistula, with dressing intact. ASSESSMENT: 1. Sepsis. 2. Bilateral multifocal pneumonia. Remains on vancomycin and Zosyn, with white blood cell count tr acing down. 3. End-stage renal disease, hemodialysis dependent. 4. Diabetes. 5. Non-ST elevation myocardial infarction, status post angiogram. Cardiology follows. PLAN: The patient remains stable, on appropriate antimicrobials. White blood cell count is tracing down. We will continue her on the current regimen. Dictated By: ED OWENS MICROMATIC HONE OPERATOR for CLIFFORD HONG/DEEPALI Conf#: [id number] DID#: [id number]
--- NOTE | 2016-12-12 13:42 | CONS ---
Date/Time of Note Date/Time of Note DATE: 12/12/16 TIME: 13:40 Assessment/Plan Assessment/Plan Additional Assessment/Plan Non-ST elevation ME Triple-vessel coronary artery disease including distal left main Preserved ejection fraction Diabetes Hypertension Pneumonia End-stage renal disease on hemodialysis -Patient to undergo CABG once infection issues resolve. Continue aspirin, statin therapy, beta-rob as heart rate and blood pressure permits, continue IV heparin. Fluid management via hemodialysis as per our nephrology colleagues. Consultation Date/Type/Reason Admit Date/Time Dec 09, 2016 at 11:49 Type of Consultation: cv 24 HR Interval Summary Free Text/Dictation Shortness of breath is improving, denies chest pain Exam/Review of Systems Vital Signs Vitals Vital Signs Date Time Temp Pulse Resp B/P Pulse Ox O2 Delivery O2 Flow Rate FiO2 12/12/16 13:00 66 15 111/40 100 Nasal Cannula 2.0 12/12/16 12:00 98.6 12/09/16 12:56 21 Intake and Output 12/11/16 12/11/16 12/12/16 15:00 23:00 07:00 Intake Total 1033.0 ml 675.0 ml 169.5 ml Output Total 3500 ml Balance -2467.0 ml 675.0 ml 169.5 ml Exam No apparent distress Constitutional: alert, oriented Head: normocephalic Neck: supple Respiratory: other (Coarse breath sounds bilaterally, no wheezing) Cardiovascular: other (S1-S2 heard), regular rate and rhythm Gastrointestinal: bowel sounds, non-tender, other (No guarding), soft Extremities: edema (Trace), other (No cyanosis) Results Result Diagram: 12/12/16 0520 12/12/16 0500 Results 24 hrs Laboratory Tests Test 12/11/16 14:57 12/11/16 17:42 12/11/16 20:19 12/11/16 21:15 Bedside Glucose 190 166 189 Activated Partial Thromboplast Time 54.5 H Test 12/12/16 05:00 12/12/16 05:20 12/12/16 07:56 12/12/16 11:44 Sodium Level 137 Potassium Level 4.2 Chloride Level 100 Carbon Dioxide Level 26 Anion Gap 15 Blood Urea Nitrogen 41 #H Creatinine 5.63 H Glucose Level 158 Calcium Level 8.1 L White Blood Count 4.8 # Red Blood Count 3.00 L Hemoglobin 9.2 L Hematocrit 28.8 L Mean Corpuscular Volume 96.0 Mean Corpuscular Hemoglobin 30.7 Mean Corpuscular Hemoglobin Concent 31.9 L Red Cell Distribution Width 14.7 H Platelet Count 111 #L Mean Platelet Volume 11.8 H Neutrophils % 46.1 Lymphocytes % 28.8 Monocytes % 15.2 H Eosinophils % 9.1 H Basophils % 0.6 Nucleated Red Blood Cells % 0.0 Neutrophils # 2.2 Lymphocytes # 1.4 Monocytes # 0.7 Eosinophils # 0.4 Basophils # 0.0 Nucleated Red Blood Cells # 0.0 Activated Partial Thromboplast Time 47.9 H Phosphorus Level 6.7 H Magnesium Level 2.1 Bedside Glucose 161 215 Test 12/12/16 12:18 Activated Partial Thromboplast Time 71.8 *H Medications Medications Current Medications Ondansetron HCl (Zofran Inj) 4 mg Q6H PRN IV NAUSEA AND/OR VOMITING; Start at 17:30 Acetaminophen (Tylenol Tab) 650 mg Q6H PRN PO PAIN LEVEL 1-3 OR FEVER Last administered on 12/11/16 21:47; Admin Dose 650 MG; Start 12/09/16 at 17:30 Docusate Sodium (Colace) 100 mg Q12H PRN PO CONSTIPATION; Start 12/09/16 at 17: 30 Bisacodyl (Dulcolax Supp) 10 mg DAILY PRN [place] CONSTIPATION; Start 12/09/16 at 17 :30 Allopurinol (Zyloprim) 100 mg QHS PO Last administered on 12/11/16 20:59; Admin Dose 100 MG; Start 12/09/16 at 21:00 Aspirin (Aspirin) 81 mg DAILY PO Last administered on 12/12/16 08:02; Admin Dose 81 MG; Start 12/10/16 at 09:00 Atorvastatin Calcium (Lipitor) 40 mg QHS PO Last administered on 12/11/16 20: 59; Admin Dose 40 MG; Start 12/09/16 at 21:00 Cholecalciferol (Vitamin D) 2,000 unit DAILY PO Last administered on 12/12/16 08:02; Admin Dose 2,000 UNIT; Start 12/10/16 at 09:00 Cyanocobalamin (Vitamin B12) 1,000 mcg DAILY PO Last administered on 12/12/16 08:03; Admin Dose 1,000 MCG; Start 12/10/16 at 09:00 Docusate Sodium (Colace) 100 mg BID PO Last administered on 12/12/16 08:02; Admin Dose 100 MG; Start 12/09/16 at 21:00 Multivitamins Therapeutic (Theragran) 1 tab DAILY PO Last administered on 08:02; Admin Dose 1 TAB; Start 12/10/16 at 09:00 Tramadol HCl (Ultram) 25 mg Q8 PRN PO PAIN Last administered on 12/11/16 05:46 ; Admin Dose 25 MG; Start 12/09/16 at 17:30 Miscellaneous Information 1 ea NOTE XX ; Start 12/09/16 at 18:00 Glucose (Glutose) 15 gm Q15M PRN PO DECREASED GLUCOSE; Start 12/09/16 at 18:00 Glucose (Glutose) 22.5 gm Q15M PRN PO DECREASED GLUCOSE; Start 12/09/16 at 18: 00 Dextrose (D50w Syringe) 25 ml Q15M PRN IV DECREASED GLUCOSE; Start 12/09/16 at 18:00 Dextrose (D50w Syringe) 50 ml Q15M PRN IV DECREASED GLUCOSE; Start 12/09/16 at 18:00 Glucagon (Glucagen) 1 mg Q15M PRN IM DECREASED GLUCOSE; Start 12/09/16 at 18:00 Glucose 15 gm 15 gm Q15M PRN BUCCAL DECREASED GLUCOSE; Start 12/09/16 at 18:00 Piperacillin Sod/ Tazobactam Sod (Zosyn 2.25gm/ 50ml (Pmx)) 50 ml @ 100 mls/hr Q8 IVPB Last administered on 12/12/16 13:29; Admin Dose 100 MLS/HR; Start at 22:00 Insulin Glargine (Lantus) 7 unit DAILY@20 SC Last administered on 12/11/16 20: 27; Admin Dose 7 UNIT; Start 12/10/16 at 20:00 Linagliptin (Tradjenta) 5 mg DAILY PO Last administered on 12/12/16 08:02; Admin Dose 5 MG; Start 12/11/16 at 09:00 Metoprolol Succinate (Toprol Xl) 50 mg BID PO Last administered on 12/12/16 08 :03; Admin Dose 50 MG; Start 12/11/16 at 07:01 Pregabalin (Lyrica) 75 mg BID PO Last administered on 12/12/16 08:02; Admin Dose 75 MG; Start 12/11/16 at 21:00 Eye Lubricant (Artificial Tears Oph) 2 drop Q6H PRN BOTH EYES DRY EYES Last administered on 12/11/16 21:48; Admin Dose 2 DROP; Start 12/11/16 at 20:30 Bisacodyl (Dulcolax) 5 mg DAILY PRN PO CONSTIPATION Last administered on 10:15; Admin Dose 5 MG; Start 12/12/16 at 10:00 Polyethylene Glycol (Miralax) 17 gm BID PO ; Start 12/12/16 at 10:00 Magnesium Hydroxide (Milk Of Mag) 30 ml DAILY PRN PO CONSTIPATION; Start at 10:00 Famotidine (Pepcid) 20 mg DAILY PO ; Start 12/13/16 at 09:00 Miscellaneous Information (*Rx Drug Level Order Reminder*) 1 ONCE ONCE XX ; Start 12/13/16 at 05:00; Stop 12/13/16 at 05:01 Xiang Krishna DO Dec 12, 2016 13:42
--- NOTE | 2016-12-12 17:45 | CONS ---
Date/Time of Note Date/Time of Note DATE: 12/12/16 TIME: 17:44 Assessment/Plan Assessment/Plan Chief Complaint/Hosp Course - ESRD Hemodialysis dependent - ANEMIA - HYPERTENSION - NSTEMI - PNEMONIA - DIABETES - CAD PLAN: Had dialysis yesterday Tolerated well Plan noted for CABG once her infection clears up Continue with antibiotics Plan for dialysis in AM Follow up with H/H Problems: Consultation Date/Type/Reason Admit Date/Time Dec 09, 2016 at 11:49 Initial Consult Date Type of Consultation: NEPHROLOGY Reason for Consultation ESRD on Hemodialysis 24 HR Interval Summary Constitutional: improved Exam/Review of Systems Vital Signs Vitals Vital Signs Date Time Temp Pulse Resp B/P Pulse Ox O2 Delivery O2 Flow Rate FiO2 12/12/16 16:00 63 12/12/16 15:00 12 124/50 100 Nasal Cannula 2.0 12/12/16 12:00 98.6 12/09/16 12:56 21 Intake and Output 12/11/16 12/11/16 12/12/16 15:00 23:00 07:00 Intake Total 1033.0 ml 675.0 ml 169.5 ml Output Total 3500 ml Balance -2467.0 ml 675.0 ml 169.5 ml Exam Constitutional: alert, oriented Psych: no complaints Head: normocephalic Eyes: nl conjunctiva Neck: supple Respiratory: crackles/rales Cardiovascular: edema, regular rate and rhythm, systolic murmur Gastrointestinal: soft Results Result Diagram: 12/12/16 0520 12/12/16 0500 Results 24 hrs Laboratory Tests Test 12/11/16 20:19 12/11/16 21:15 12/12/16 05:00 12/12/16 05:20 Bedside Glucose 189 Activated Partial Thromboplast Time 54.5 H 47.9 H Sodium Level 137 Potassium Level 4.2 Chloride Level 100 Carbon Dioxide Level 26 Anion Gap 15 Blood Urea Nitrogen 41 #H Creatinine 5.63 H Glucose Level 158 Calcium Level 8.1 L White Blood Count 4.8 # Red Blood Count 3.00 L Hemoglobin 9.2 L Hematocrit 28.8 L Mean Corpuscular Volume 96.0 Mean Corpuscular Hemoglobin 30.7 Mean Corpuscular Hemoglobin Concent 31.9 L Red Cell Distribution Width 14.7 H Platelet Count 111 #L Mean Platelet Volume 11.8 H Neutrophils % 46.1 Lymphocytes % 28.8 Monocytes % 15.2 H Eosinophils % 9.1 H Basophils % 0.6 Nucleated Red Blood Cells % 0.0 Neutrophils # 2.2 Lymphocytes # 1.4 Monocytes # 0.7 Eosinophils # 0.4 Basophils # 0.0 Nucleated Red Blood Cells # 0.0 Phosphorus Level 6.7 H Magnesium Level 2.1 Test 12/12/16 07:56 12/12/16 11:44 12/12/16 12:18 12/12/16 16:53 Bedside Glucose 161 215 261 H Activated Partial Thromboplast Time 71.8 *H Medications Medications Current Medications Ondansetron HCl (Zofran Inj) 4 mg Q6H PRN IV NAUSEA AND/OR VOMITING; Start at 17:30 Acetaminophen (Tylenol Tab) 650 mg Q6H PRN PO PAIN LEVEL 1-3 OR FEVER Last administered on 12/11/16 21:47; Admin Dose 650 MG; Start 12/09/16 at 17:30 Docusate Sodium (Colace) 100 mg Q12H PRN PO CONSTIPATION; Start 12/09/16 at 17: 30 Bisacodyl (Dulcolax Supp) 10 mg DAILY PRN [place] CONSTIPATION; Start 12/09/16 at 17 :30 Allopurinol (Zyloprim) 100 mg QHS PO Last administered on 12/11/16 20:59; Admin Dose 100 MG; Start 12/09/16 at 21:00 Aspirin (Aspirin) 81 mg DAILY PO Last administered on 12/12/16 08:02; Admin Dose 81 MG; Start 12/10/16 at 09:00 Atorvastatin Calcium (Lipitor) 40 mg QHS PO Last administered on 12/11/16 20: 59; Admin Dose 40 MG; Start 12/09/16 at 21:00 Cholecalciferol (Vitamin D) 2,000 unit DAILY PO Last administered on 12/12/16 08:02; Admin Dose 2,000 UNIT; Start 12/10/16 at 09:00 Cyanocobalamin (Vitamin B12) 1,000 mcg DAILY PO Last administered on 12/12/16 08:03; Admin Dose 1,000 MCG; Start 12/10/16 at 09:00 Docusate Sodium (Colace) 100 mg BID PO Last administered on 12/12/16 08:02; Admin Dose 100 MG; Start 12/09/16 at 21:00 Multivitamins Therapeutic (Theragran) 1 tab DAILY PO Last administered on 08:02; Admin Dose 1 TAB; Start 12/10/16 at 09:00 Tramadol HCl (Ultram) 25 mg Q8 PRN PO PAIN Last administered on 12/11/16 05:46 ; Admin Dose 25 MG; Start 12/09/16 at 17:30 Miscellaneous Information 1 ea NOTE XX ; Start 12/09/16 at 18:00 Glucose (Glutose) 15 gm Q15M PRN PO DECREASED GLUCOSE; Start 12/09/16 at 18:00 Glucose (Glutose) 22.5 gm Q15M PRN PO DECREASED GLUCOSE; Start 12/09/16 at 18: 00 Dextrose (D50w Syringe) 25 ml Q15M PRN IV DECREASED GLUCOSE; Start 12/09/16 at 18:00 Dextrose (D50w Syringe) 50 ml Q15M PRN IV DECREASED GLUCOSE; Start 12/09/16 at 18:00 Glucagon (Glucagen) 1 mg Q15M PRN IM DECREASED GLUCOSE; Start 12/09/16 at 18:00 Glucose 15 gm 15 gm Q15M PRN BUCCAL DECREASED GLUCOSE; Start 12/09/16 at 18:00 Piperacillin Sod/ Tazobactam Sod (Zosyn 2.25gm/ 50ml (Pmx)) 50 ml @ 100 mls/hr Q8 IVPB Last administered on 12/12/16 13:29; Admin Dose 100 MLS/HR; Start at 22:00 Insulin Glargine (Lantus) 7 unit DAILY@20 SC Last administered on 12/11/16 20: 27; Admin Dose 7 UNIT; Start 12/10/16 at 20:00 Linagliptin (Tradjenta) 5 mg DAILY PO Last administered on 12/12/16 08:02; Admin Dose 5 MG; Start 12/11/16 at 09:00 Metoprolol Succinate (Toprol Xl) 50 mg BID PO Last administered on 12/12/16 08 :03; Admin Dose 50 MG; Start 12/11/16 at 07:01 Pregabalin (Lyrica) 75 mg BID PO Last administered on 12/12/16 08:02; Admin Dose 75 MG; Start 12/11/16 at 21:00 Eye Lubricant (Artificial Tears Oph) 2 drop Q6H PRN BOTH EYES DRY EYES Last administered on 12/11/16 21:48; Admin Dose 2 DROP; Start 12/11/16 at 20:30 Bisacodyl (Dulcolax) 5 mg DAILY PRN PO CONSTIPATION Last administered on 10:15; Admin Dose 5 MG; Start 12/12/16 at 10:00 Polyethylene Glycol (Miralax) 17 gm BID PO ; Start 12/12/16 at 10:00 Magnesium Hydroxide (Milk Of Mag) 30 ml DAILY PRN PO CONSTIPATION; Start at 10:00 Famotidine (Pepcid) 20 mg DAILY PO ; Start 12/13/16 at 09:00 Miscellaneous Information (*Rx Drug Level Order Reminder*) 1 ONCE ONCE XX ; Start 12/13/16 at 05:00; Stop 12/13/16 at 05:01 TANIA THAPA MD Dec 12, 2016 17:45
[2016-12-12] MEDS: ACETAMINOPHEN 325 MG TAB PO PRN (18:54)
[2016-12-12] MEDS: INSULIN GLARGINE [LANtus] 3 ML PEN SC SCH (20:17)
[2016-12-12] MEDS: ATORVASTATIN 40 MG TAB PO SCH (20:44)
[2016-12-12] MEDS: ALLOPURINOL 100 MG TAB PO SCH (20:44)
[2016-12-13] VITALS (19 sets, daily range): BP systolic 122–154; BP diastolic 54–73; PULSE 66–77; RESP 16–18
[2016-12-13] MEDS: HEPARIN 25000 UNITS/250 ML 250 ML IV SCH (03:37)
[2016-12-13] MEDS: PIPER-TAZO 2.25 GM (PMX) 50 ML IVPB SCH ×3 (05:55→22:19)
[2016-12-13 07:17] LABS: ADD SCAN DIFF NO
[2016-12-13 07:23] LABS: BASOPHILS % 0.4 % (0.0-2.0); EOSINOPHILS # 0.4 10^3/ul (0.0-0.5); EOSINOPHILS % 7.7 % (0.0-7.0); HEMOGLOBIN 8.6 g/dl (12.0-16.0); LYMPHOCYTES # 1.3 10^3/ul (0.8-2.9); LYMPHOCYTES % 27.2 % (15.0-51.0); MEAN CORPUSCULAR HGB CONC 33.1 g/dl (32.0-37.0); MEAN CORPUSCULAR VOLUME 93.9 fl (82.0-101.0); MEAN PLATELET VOLUME 10.6 fl (7.4-10.4); MONOCYTE # 0.6 10^3/ul (0.3-0.9); MONOCYTES % 12.3 % (0.0-11.0); NEUTROPHIL # 2.5 10^3/ul (1.6-7.5); PLATELET COUNT 159 10^3/UL (140-415); RED BLOOD COUNT 2.77 10^6/ul (4.20-5.40); RED CELL DISTRIBUTION WIDTH 14.2 % (11.5-14.5); WHITE BLOOD COUNT 4.8 10^3/ul (4.8-10.8)
[2016-12-13 07:37] LABS: POTASSIUM 4.1 mmol/L (3.5-5.1)
[2016-12-13 07:40] LABS: CREATININE 7.85 mg/dl (0.44-1.00)
[2016-12-13 07:41] LABS: CALCIUM 7.7 mg/dl (8.4-10.2)
[2016-12-13 08:56] LABS: PHOSPHORUS 7.8 mg/dl (2.5-4.9)
[2016-12-13] MEDS: METOPROLOL (XL) 50 MG TAB PO SCH ×2 (09:00→20:55)
[2016-12-13] MEDS: DOCUSATE SODIUM 100 MG CAP PO SCH ×2 (09:00→20:52)
[2016-12-13] MEDS: ASPIRIN 81 MG TAB PO SCH (09:00)
[2016-12-13] MEDS: POLYETHYLENE GLYCOL 17 GM PACKET PO SCH ×2 (09:01→20:52)
[2016-12-13] MEDS: FAMOTIDINE 20 MG TAB PO SCH (09:01)
[2016-12-13] MEDS: MULTIVITAMINS THERAPEUTIC TAB PO SCH (09:01)
[2016-12-13] MEDS: CYANOCOBALAMIN 500 MCG TAB PO SCH (09:02)
[2016-12-13] MEDS: CHOLECALCIFEROL 1,000 UNIT TAB PO SCH (09:02)
[2016-12-13] MEDS: LINAGLIPTIN 5 MG TABLET PO SCH (09:02)
[2016-12-13] MEDS: PREGABALIN 75 MG CAP PO SCH ×2 (09:03→20:54)
[2016-12-13] MEDS: INSULIN ASPART [NOVOLOG] 3 ML PEN SC SCH ×7 (09:05→21:03)
--- NOTE | 2016-12-13 11:42 | PN ---
Date/Time of Note Date/Time of Note DATE: 12/13/16 TIME: 11:27 Assessment/Plan VTE Prophylaxis VTE Prophylaxis Intervention: other (on Heparin gtt ) Lines/Catheters IV Catheter Type (from Nrs): Peripheral IV Urinary Cath still in place: No Assessment/Plan Assessment/Plan 71-year-old female with: 1. NSTEMI with reported CAD s/p angiogram with evidence of triple-vessel disease including distal left main Appreciate assistance from Dr Krishna, follow up cardiac recommendations today Patient will need CABG once recovered from pneumonia, appreciate evaluation and recs from Dr Trinh, plan for CABG 12/17 if ID clears patient. On Heparin gtt 2. Multifocal pneumonia and bronchitis, likely HCAP Continue vancomycin and Zosyn for broad spectrum coverage WBC trended back down to normal, afebrile, Sputum cx if possible Blood cultures NGTD Appreciate ID recommendations 3. End-stage renal disease on hemodialysis. Getting HD today. On M/W/F Nephrology following. 4. Diabetes mellitus, insulin requiring. A1c 7.9 Appreciate recommendations from clinical educator. Continue SSI, change Lantus to 5 units subQ bid, premeal insulin and Tradjenta per DM education recommendations. 5. Hyperlipidemia. Continue statin therapy. 6. Diabetic neuropathy. Continue Lyrica. Prophylaxis. Pepcid for GI prophylaxis and on heparin gtt now. DISPOSITION: on Heparin gtt and awaiting CABG next week hopefully. On Telemetry and remains stable. Subjective 24 Hr Interval Summary Free Text/Dictation Patient doing well on RA and afebrile, non complaints and tolerating HD well In heparin gtt currently Exam/Review of Systems Vital Signs Vitals Vital Signs Date Time Temp Pulse Resp B/P Pulse Ox O2 Delivery O2 Flow Rate FiO2 12/13/16 11:22 98.0 71 18 127/59 96 12/12/16 18:48 Room Air 12/12/16 18:00 2.0 12/09/16 12:56 21 Intake and Output 12/12/16 12/12/16 12/13/16 14:59 22:59 06:59 Intake Total 687.5 ml 383.0 ml 388.0 ml Balance 687.5 ml 383.0 ml 388.0 ml Exam Constitutional: alert, oriented, other (tamazight speaking ), well developed Respiratory: diminished breath sounds (bases slightly ) Cardiovascular: nl pulses, regular rate and rhythm Gastrointestinal: non-tender, soft Musculoskeletal: nl extremities to inspection Extremities: normal pulses, other (no edema, clubibng or cyanosis ) 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: DOCTOR OF OSTEOPATHY II-XII intact, nl mental status, nl speech, nl strength Results Result Diagram: 12/13/16 0655 12/13/16 0655 Results 24 hrs Laboratory Tests Test 12/12/16 11:44 12/12/16 12:18 12/12/16 16:53 12/12/16 19:30 Bedside Glucose 215 261 H Activated Partial Thromboplast Time 71.8 *H 76.5 *H Test 12/12/16 20:42 12/13/16 02:20 12/13/16 06:55 12/13/16 08:18 Bedside Glucose 148 158 Activated Partial Thromboplast Time 77.2 *H White Blood Count 4.8 Red Blood Count 2.77 L Hemoglobin 8.6 L Hematocrit 26.0 L Mean Corpuscular Volume 93.9 Mean Corpuscular Hemoglobin 31.0 Mean Corpuscular Hemoglobin Concent 33.1 Red Cell Distribution Width 14.2 Platelet Count 159 # Mean Platelet Volume 10.6 H Neutrophils % 52.0 Lymphocytes % 27.2 Monocytes % 12.3 H Eosinophils % 7.7 H Basophils % 0.4 Nucleated Red Blood Cells % 0.0 Neutrophils # 2.5 Lymphocytes # 1.3 Monocytes # 0.6 Eosinophils # 0.4 Basophils # 0.0 Nucleated Red Blood Cells # 0.0 Sodium Level 136 Potassium Level 4.1 Chloride Level 98 Carbon Dioxide Level 25 Anion Gap 17 H Blood Urea Nitrogen 57 H Creatinine 7.85 #H Glucose Level 174 Calcium Level 7.7 L Phosphorus Level 7.8 H Magnesium Level 2.0 Random Vancomycin Level 16.7 Test 12/13/16 10:22 Activated Partial Thromboplast Time 64.1 H Medications Medications Current Medications Ondansetron HCl (Zofran Inj) 4 mg Q6H PRN IV NAUSEA AND/OR VOMITING; Start at 17:30 Acetaminophen (Tylenol Tab) 650 mg Q6H PRN PO PAIN LEVEL 1-3 OR FEVER Last administered on 12/12/16t 18:54; Admin Dose 650 MG; Start 12/09/16 at 17:30 Docusate Sodium (Colace) 100 mg Q12H PRN PO CONSTIPATION; Start 12/09/16 at 17: 30 Bisacodyl (Dulcolax Supp) 10 mg DAILY PRN [place] CONSTIPATION; Start 12/09/16 at 17 :30 Allopurinol (Zyloprim) 100 mg QHS PO Last administered on 12/12/16 20:44; Admin Dose 100 MG; Start 12/09/16 at 21:00 Aspirin (Aspirin) 81 mg DAILY PO Last administered on 12/13/16 09:00; Admin Dose 81 MG; Start 12/10/16 at 09:00 Atorvastatin Calcium (Lipitor) 40 mg QHS PO Last administered on 12/12/16 20: 44; Admin Dose 40 MG; Start 12/09/16 at 21:00 Cholecalciferol (Vitamin D) 2,000 unit DAILY PO Last administered on 12/13/16 09:02; Admin Dose 2,000 UNIT; Start 12/10/16 at 09:00 Cyanocobalamin (Vitamin B12) 1,000 mcg DAILY PO Last administered on 12/13/16 09:02; Admin Dose 1,000 MCG; Start 12/10/16 at 09:00 Docusate Sodium (Colace) 100 mg BID PO Last administered on 12/13/16 09:00; Admin Dose 100 MG; Start 12/09/16 at 21:00 Multivitamins Therapeutic (Theragran) 1 tab DAILY PO Last administered on 09:01; Admin Dose 1 TAB; Start 12/10/16 at 09:00 Tramadol HCl (Ultram) 25 mg Q8 PRN PO PAIN Last administered on 12/11/16 05:46 ; Admin Dose 25 MG; Start 12/09/16 at 17:30 Miscellaneous Information 1 ea NOTE XX ; Start 12/09/16 at 18:00 Glucose (Glutose) 15 gm Q15M PRN PO DECREASED GLUCOSE; Start 12/09/16 at 18:00 Glucose (Glutose) 22.5 gm Q15M PRN PO DECREASED GLUCOSE; Start 12/09/16 at 18: 00 Dextrose (D50w Syringe) 25 ml Q15M PRN IV DECREASED GLUCOSE; Start 12/09/16 at 18:00 Dextrose (D50w Syringe) 50 ml Q15M PRN IV DECREASED GLUCOSE; Start 12/09/16 at 18:00 Glucagon (Glucagen) 1 mg Q15M PRN IM DECREASED GLUCOSE; Start 12/09/16 at 18:00 Glucose 15 gm 15 gm Q15M PRN BUCCAL DECREASED GLUCOSE; Start 12/09/16 at 18:00 Piperacillin Sod/ Tazobactam Sod (Zosyn 2.25gm/ 50ml (Pmx)) 50 ml @ 100 mls/hr Q8 IVPB Last administered on 12/13/16 05:55; Admin Dose 100 MLS/HR; Start at 22:00 Linagliptin (Tradjenta) 5 mg DAILY PO Last administered on 12/13/16 09:02; Admin Dose 5 MG; Start 12/11/16 at 09:00 Metoprolol Succinate (Toprol Xl) 50 mg BID PO Last administered on 12/12/16 20 :45; Admin Dose 50 MG; Start 12/11/16 at 07:01 Pregabalin (Lyrica) 75 mg BID PO Last administered on 12/13/16 09:03; Admin Dose 75 MG; Start 12/11/16 at 21:00 Eye Lubricant (Artificial Tears Oph) 2 drop Q6H PRN BOTH EYES DRY EYES Last administered on 12/11/16 21:48; Admin Dose 2 DROP; Start 12/11/16 at 20:30 Bisacodyl (Dulcolax) 5 mg DAILY PRN PO CONSTIPATION Last administered on 10:15; Admin Dose 5 MG; Start 12/12/16 at 10:00 Polyethylene Glycol (Miralax) 17 gm BID PO Last administered on 12/13/16 09:01 ; Admin Dose 17 GM; Start 12/12/16 at 10:00 Magnesium Hydroxide (Milk Of Mag) 30 ml DAILY PRN PO CONSTIPATION; Start at 10:00 Famotidine (Pepcid) 20 mg DAILY PO Last administered on 12/13/16 09:01; Admin Dose 20 MG; Start 12/13/16 at 09:00 Insulin Glargine (Lantus) 5 unit BID SC ; Start 12/13/16 at 12:00 JOSHUA MATSON Dec 13, 2016 11:42
--- NOTE | 2016-12-13 11:57 | CONS ---
Date/Time of Note Date/Time of Note DATE: 12/13/16 TIME: 11:55 Assessment/Plan Assessment/Plan Chief Complaint/Hosp Course - ESRD Hemodialysis dependent - ANEMIA - HYPERTENSION - NSTEMI - PNEMONIA - DIABETES - CAD PLAN: On Bedside dialysis Tolerating well Plan noted for CABG once her infection clears up ( Probably by Friday ) Continue with antibiotics Plan for next HD on Friday Follow up with H/H Problems: Consultation Date/Type/Reason Admit Date/Time Dec 09, 2016 at 11:49 Type of Consultation: NEPHROLOGY Reason for Consultation ESRD on Dialysis 24 HR Interval Summary Constitutional: improved, no complaints Exam/Review of Systems Vital Signs Vitals Vital Signs Date Time Temp Pulse Resp B/P Pulse Ox O2 Delivery O2 Flow Rate FiO2 12/13/16 11:22 98.0 71 18 127/59 96 12/12/16 18:48 Room Air 12/12/16 18:00 2.0 12/09/16 12:56 21 Intake and Output 12/12/16 12/12/16 12/13/16 15:00 23:00 07:00 Intake Total 587.0 ml 382.5 ml 378.0 ml Balance 587.0 ml 382.5 ml 378.0 ml Exam Constitutional: alert, oriented Psych: no complaints Head: normocephalic Eyes: nl conjunctiva Respiratory: crackles/rales Cardiovascular: systolic murmur Gastrointestinal: soft Results Result Diagram: 12/13/16 0655 12/13/16 0655 Results 24 hrs Laboratory Tests Test 12/12/16 12:18 12/12/16 16:53 12/12/16 19:30 12/12/16 20:42 Activated Partial Thromboplast Time 71.8 *H 76.5 *H Bedside Glucose 261 H 148 Test 12/13/16 02:20 12/13/16 06:55 12/13/16 08:18 12/13/16 10:22 Activated Partial Thromboplast Time 77.2 *H 64.1 H White Blood Count 4.8 Red Blood Count 2.77 L Hemoglobin 8.6 L Hematocrit 26.0 L Mean Corpuscular Volume 93.9 Mean Corpuscular Hemoglobin 31.0 Mean Corpuscular Hemoglobin Concent 33.1 Red Cell Distribution Width 14.2 Platelet Count 159 # Mean Platelet Volume 10.6 H Neutrophils % 52.0 Lymphocytes % 27.2 Monocytes % 12.3 H Eosinophils % 7.7 H Basophils % 0.4 Nucleated Red Blood Cells % 0.0 Neutrophils # 2.5 Lymphocytes # 1.3 Monocytes # 0.6 Eosinophils # 0.4 Basophils # 0.0 Nucleated Red Blood Cells # 0.0 Sodium Level 136 Potassium Level 4.1 Chloride Level 98 Carbon Dioxide Level 25 Anion Gap 17 H Blood Urea Nitrogen 57 H Creatinine 7.85 #H Glucose Level 174 Calcium Level 7.7 L Phosphorus Level 7.8 H Magnesium Level 2.0 Random Vancomycin Level 16.7 Bedside Glucose 158 Medications Medications Current Medications Ondansetron HCl (Zofran Inj) 4 mg Q6H PRN IV NAUSEA AND/OR VOMITING; Start at 17:30 Acetaminophen (Tylenol Tab) 650 mg Q6H PRN PO PAIN LEVEL 1-3 OR FEVER Last administered on 12/12/16 18:54; Admin Dose 650 MG; Start 12/09/16 at 17:30 Docusate Sodium (Colace) 100 mg Q12H PRN PO CONSTIPATION; Start 12/09/16 at 17: 30 Bisacodyl (Dulcolax Supp) 10 mg DAILY PRN [place] CONSTIPATION; Start 12/09/16 at 17 :30 Allopurinol (Zyloprim) 100 mg QHS PO Last administered on 12/12/16 20:44; Admin Dose 100 MG; Start 12/09/16 at 21:00 Aspirin (Aspirin) 81 mg DAILY PO Last administered on 12/13/16 09:00; Admin Dose 81 MG; Start 12/10/16 at 09:00 Atorvastatin Calcium (Lipitor) 40 mg QHS PO Last administered on 12/12/16 20: 44; Admin Dose 40 MG; Start 12/09/16 at 21:00 Cholecalciferol (Vitamin D) 2,000 unit DAILY PO Last administered on 12/13/16 09:02; Admin Dose 2,000 UNIT; Start 12/10/16 at 09:00 Cyanocobalamin (Vitamin B12) 1,000 mcg DAILY PO Last administered on 12/13/16 09:02; Admin Dose 1,000 MCG; Start 12/10/16 at 09:00 Docusate Sodium (Colace) 100 mg BID PO Last administered on 12/13/16 09:00; Admin Dose 100 MG; Start 12/09/16 at 21:00 Multivitamins Therapeutic (Theragran) 1 tab DAILY PO Last administered on 09:01; Admin Dose 1 TAB; Start 12/10/16 at 09:00 Tramadol HCl (Ultram) 25 mg Q8 PRN PO PAIN Last administered on 12/11/16 05:46 ; Admin Dose 25 MG; Start 12/09/16 at 17:30 Miscellaneous Information 1 ea NOTE XX ; Start 12/09/16 at 18:00 Glucose (Glutose) 15 gm Q15M PRN PO DECREASED GLUCOSE; Start 12/09/16 at 18:00 Glucose (Glutose) 22.5 gm Q15M PRN PO DECREASED GLUCOSE; Start 12/09/16 at 18: 00 Dextrose (D50w Syringe) 25 ml Q15M PRN IV DECREASED GLUCOSE; Start 12/09/16 at 18:00 Dextrose (D50w Syringe) 50 ml Q15M PRN IV DECREASED GLUCOSE; Start 12/09/16 at 18:00 Glucagon (Glucagen) 1 mg Q15M PRN IM DECREASED GLUCOSE; Start 12/09/16 at 18:00 Glucose 15 gm 15 gm Q15M PRN BUCCAL DECREASED GLUCOSE; Start 12/09/16 at 18:00 Piperacillin Sod/ Tazobactam Sod (Zosyn 2.25gm/ 50ml (Pmx)) 50 ml @ 100 mls/hr Q8 IVPB Last administered on 12/13/16 05:55; Admin Dose 100 MLS/HR; Start at 22:00 Linagliptin (Tradjenta) 5 mg DAILY PO Last administered on 12/13/16 09:02; Admin Dose 5 MG; Start 12/11/16 at 09:00 Metoprolol Succinate (Toprol Xl) 50 mg BID PO Last administered on 12/12/16 20 :45; Admin Dose 50 MG; Start 12/11/16 at 07:01 Pregabalin (Lyrica) 75 mg BID PO Last administered on 12/13/16 09:03; Admin Dose 75 MG; Start 12/11/16 at 21:00 Eye Lubricant (Artificial Tears Oph) 2 drop Q6H PRN BOTH EYES DRY EYES Last administered on 12/11/16 21:48; Admin Dose 2 DROP; Start 12/11/16 at 20:30 Bisacodyl (Dulcolax) 5 mg DAILY PRN PO CONSTIPATION Last administered on 10:15; Admin Dose 5 MG; Start 12/12/16 at 10:00 Polyethylene Glycol (Miralax) 17 gm BID PO Last administered on 12/13/16 09:01 ; Admin Dose 17 GM; Start 12/12/16 at 10:00 Magnesium Hydroxide (Milk Of Mag) 30 ml DAILY PRN PO CONSTIPATION; Start at 10:00 Famotidine (Pepcid) 20 mg DAILY PO Last administered on 12/13/16 09:01; Admin Dose 20 MG; Start 12/13/16 at 09:00 Insulin Glargine (Lantus) 5 unit BID SC ; Start 12/13/16 at 12:00 TANIA THAPA MD Dec 13, 2016 11:56
--- NOTE | 2016-12-13 12:50 | CONS ---
Date/Time of Note Date/Time of Note DATE: 12/13/16 TIME: 12:48 Assessment/Plan Assessment/Plan Additional Assessment/Plan Non-ST elevation NM Triple-vessel coronary artery disease including distal left main Preserved ejection fraction Diabetes Hypertension Pneumonia End-stage renal disease on hemodialysis -Patient to undergo CABG once infection issues resolve. Continue aspirin, statin therapy, beta-rob as heart rate and blood pressure permits, continue IV heparin. Fluid management via hemodialysis as per our nephrology colleagues. Patient tentatively planned for CABG on December 17. Consultation Date/Type/Reason Admit Date/Time Dec 09, 2016 at 11:49 Type of Consultation: cv 24 HR Interval Summary Free Text/Dictation Feeling better, less shortness of breath. Denies chest pain, still with cough Exam/Review of Systems Vital Signs Vitals Vital Signs Date Time Temp Pulse Resp B/P Pulse Ox O2 Delivery O2 Flow Rate FiO2 12/13/16 12:07 69 12/13/16 11:22 98.0 18 127/59 96 12/12/16 18:48 Room Air 12/12/16 18:00 2.0 12/09/16 12:56 21 Intake and Output 12/12/16 12/12/16 12/13/16 15:00 23:00 07:00 Intake Total 587.0 ml 382.5 ml 378.0 ml Balance 587.0 ml 382.5 ml 378.0 ml Exam No apparent distress, undergoing hemodialysis Constitutional: alert, oriented Head: normocephalic Neck: supple Respiratory: other (Coarse breath sounds bilaterally, no wheezing) Cardiovascular: other (S1-S2 heard), regular rate and rhythm Gastrointestinal: bowel sounds, non-tender, other (No guarding), soft Extremities: edema (Trace), other (No cyanosis) Results Result Diagram: 12/13/16 0655 12/13/16 0655 Results 24 hrs Laboratory Tests Test 12/12/16 16:53 12/12/16 19:30 12/12/16 20:42 12/13/16 02:20 Bedside Glucose 261 H 148 Activated Partial Thromboplast Time 76.5 *H 77.2 *H Test 12/13/16 06:55 12/13/16 08:18 12/13/16 10:22 12/13/16 12:00 White Blood Count 4.8 Red Blood Count 2.77 L Hemoglobin 8.6 L Hematocrit 26.0 L Mean Corpuscular Volume 93.9 Mean Corpuscular Hemoglobin 31.0 Mean Corpuscular Hemoglobin Concent 33.1 Red Cell Distribution Width 14.2 Platelet Count 159 # Mean Platelet Volume 10.6 H Neutrophils % 52.0 Lymphocytes % 27.2 Monocytes % 12.3 H Eosinophils % 7.7 H Basophils % 0.4 Nucleated Red Blood Cells % 0.0 Neutrophils # 2.5 Lymphocytes # 1.3 Monocytes # 0.6 Eosinophils # 0.4 Basophils # 0.0 Nucleated Red Blood Cells # 0.0 Sodium Level 136 Potassium Level 4.1 Chloride Level 98 Carbon Dioxide Level 25 Anion Gap 17 H Blood Urea Nitrogen 57 H Creatinine 7.85 #H Glucose Level 174 Calcium Level 7.7 L Phosphorus Level 7.8 H Magnesium Level 2.0 Random Vancomycin Level 16.7 Bedside Glucose 158 229 H Activated Partial Thromboplast Time 64.1 H Medications Medications Current Medications Ondansetron HCl (Zofran Inj) 4 mg Q6H PRN IV NAUSEA AND/OR VOMITING; Start at 17:30 Acetaminophen (Tylenol Tab) 650 mg Q6H PRN PO PAIN LEVEL 1-3 OR FEVER Last administered on 12/12/16 18:54; Admin Dose 650 MG; Start 12/09/16 at 17:30 Docusate Sodium (Colace) 100 mg Q12H PRN PO CONSTIPATION; Start 12/09/16 at 17: 30 Bisacodyl (Dulcolax Supp) 10 mg DAILY PRN [place] CONSTIPATION; Start 12/09/16 at 17 :30 Allopurinol (Zyloprim) 100 mg QHS PO Last administered on 12/12/16 20:44; Admin Dose 100 MG; Start 12/09/16 at 21:00 Aspirin (Aspirin) 81 mg DAILY PO Last administered on 12/13/16 09:00; Admin Dose 81 MG; Start 12/10/16 at 09:00 Atorvastatin Calcium (Lipitor) 40 mg QHS PO Last administered on 12/12/16 20: 44; Admin Dose 40 MG; Start 12/09/16 at 21:00 Cholecalciferol (Vitamin D) 2,000 unit DAILY PO Last administered on 12/13/16 09:02; Admin Dose 2,000 UNIT; Start 12/10/16 at 09:00 Cyanocobalamin (Vitamin B12) 1,000 mcg DAILY PO Last administered on 12/13/16 09:02; Admin Dose 1,000 MCG; Start 12/10/16 at 09:00 Docusate Sodium (Colace) 100 mg BID PO Last administered on 12/13/16 09:00; Admin Dose 100 MG; Start 12/09/16 at 21:00 Multivitamins Therapeutic (Theragran) 1 tab DAILY PO Last administered on 09:01; Admin Dose 1 TAB; Start 12/10/16 at 09:00 Tramadol HCl (Ultram) 25 mg Q8 PRN PO PAIN Last administered on 12/11/16 05:46 ; Admin Dose 25 MG; Start 12/09/16 at 17:30 Miscellaneous Information 1 ea NOTE XX ; Start 12/09/16 at 18:00 Glucose (Glutose) 15 gm Q15M PRN PO DECREASED GLUCOSE; Start 12/09/16 at 18:00 Glucose (Glutose) 22.5 gm Q15M PRN PO DECREASED GLUCOSE; Start 12/09/16 at 18: 00 Dextrose (D50w Syringe) 25 ml Q15M PRN IV DECREASED GLUCOSE; Start 12/09/16 at 18:00 Dextrose (D50w Syringe) 50 ml Q15M PRN IV DECREASED GLUCOSE; Start 12/09/16 at 18:00 Glucagon (Glucagen) 1 mg Q15M PRN IM DECREASED GLUCOSE; Start 12/09/16 at 18:00 Glucose 15 gm 15 gm Q15M PRN BUCCAL DECREASED GLUCOSE; Start 12/09/16 at 18:00 Piperacillin Sod/ Tazobactam Sod (Zosyn 2.25gm/ 50ml (Pmx)) 50 ml @ 100 mls/hr Q8 IVPB Last administered on 12/13/16 05:55; Admin Dose 100 MLS/HR; Start at 22:00 Linagliptin (Tradjenta) 5 mg DAILY PO Last administered on 12/13/16 09:02; Admin Dose 5 MG; Start 12/11/16 at 09:00 Metoprolol Succinate (Toprol Xl) 50 mg BID PO Last administered on 12/12/16 20 :45; Admin Dose 50 MG; Start 12/11/16 at 07:01 Pregabalin (Lyrica) 75 mg BID PO Last administered on 12/13/16 09:03; Admin Dose 75 MG; Start 12/11/16 at 21:00 Eye Lubricant (Artificial Tears Oph) 2 drop Q6H PRN BOTH EYES DRY EYES Last administered on 12/11/16 21:48; Admin Dose 2 DROP; Start 12/11/16 at 20:30 Bisacodyl (Dulcolax) 5 mg DAILY PRN PO CONSTIPATION Last administered on 10:15; Admin Dose 5 MG; Start 12/12/16 at 10:00 Polyethylene Glycol (Miralax) 17 gm BID PO Last administered on 12/13/16 09:01 ; Admin Dose 17 GM; Start 12/12/16 at 10:00 Magnesium Hydroxide (Milk Of Mag) 30 ml DAILY PRN PO CONSTIPATION; Start at 10:00 Famotidine (Pepcid) 20 mg DAILY PO Last administered on 12/13/16 09:01; Admin Dose 20 MG; Start 12/13/16 at 09:00 Insulin Glargine (Lantus) 5 unit BID SC ; Start 12/13/16 at 12:00 Xiang Krishna DO Dec 13, 2016 12:49
[2016-12-13] MEDS: INSULIN GLARGINE [LANtus] 3 ML PEN SC SCH ×2 (14:21→21:02)
--- NOTE | 2016-12-13 15:41 | PN ---
DATE: 12/13/2016 SUBJECTIVE: Patient is alert, in hemodialysis, looks comfortable, still with cough, but overall doi ng better. No fevers. WBC today 4.8, platelets 159, no shift, no bands. INDWELLINGS: AV fistula. MICROBIOLOGY: Sputum culture negative. ANTIMICROBIALS: The patient is on: 1. Vancomycin. 2. Zosyn. PHYSICAL EXAMINATION: GENERAL: Fragile, elderly woman who is alert, in no distress. HEENT: Head atraumatic, normocephalic. Sclerae anicteric. Buccal mucosa pink, dry. NECK: Supple. CHEST: Rise symmetrical. Breath sounds diminished to bases. HEART: S1, S2. ABDOMEN: Soft, bowel tones present. EXTREMITIES: Without cyanosis. ASSESSMENT: 1. Resolving sepsis. 2. Pneumonia. 3. End-stage renal disease, on hemodialysis. 4. Diabetes. 5. Non-ST elevation myocardial infarction, status post angiography. PLAN: The patient remains stable, overall improving on current antimicrobials. No fevers. Culture s have been negative. Pending CABG next week. Cleared from ID standpoint. Dictated By: ED OWENS HOUSING INSPECTOR for CLIFFORD SNYDER MD NI/NTS Conf#: [id number] DID#: [id number]
[2016-12-13] MEDS ORDERED: VANCOMYCIN 1 GM in NS 250 ML IVPB SCH (18:00)
[2016-12-13] MEDS: ATORVASTATIN 40 MG TAB PO SCH (20:53)
[2016-12-13] MEDS: ACETAMINOPHEN 325 MG TAB PO PRN (20:53)
[2016-12-13] MEDS: ALLOPURINOL 100 MG TAB PO SCH (20:53)
[2016-12-13] MEDS: ARTIFICIAL TEARS 15 ML OPH BOTH EYES PRN (22:35)
[2016-12-14] VITALS (15 sets, daily range): BP systolic 119–152; BP diastolic 58–70; PULSE 60–111; RESP 18–20
[2016-12-14] MEDS: PIPER-TAZO 2.25 GM (PMX) 50 ML IVPB SCH ×3 (05:37→22:00)
[2016-12-14] MEDS: HEPARIN 25000 UNITS/250 ML 250 ML IV SCH ×2 (08:29→16:21)
[2016-12-14 08:31] LABS: POTASSIUM 4.1 mmol/L (3.5-5.1)
[2016-12-14] MEDS: PREGABALIN 75 MG CAP PO SCH ×2 (08:31→20:30)
[2016-12-14] MEDS: DOCUSATE SODIUM 100 MG CAP PO SCH ×2 (08:31→20:28)
[2016-12-14] MEDS: ASPIRIN 81 MG TAB PO SCH (08:31)
[2016-12-14] MEDS: FAMOTIDINE 20 MG TAB PO SCH (08:32)
[2016-12-14] MEDS: MULTIVITAMINS THERAPEUTIC TAB PO SCH (08:32)
[2016-12-14 08:34] LABS: CREATININE 6.43 mg/dl (0.44-1.00)
[2016-12-14] MEDS: METOPROLOL (XL) 50 MG TAB PO SCH ×2 (08:34→20:31)
[2016-12-14] MEDS: LINAGLIPTIN 5 MG TABLET PO SCH (08:34)
[2016-12-14 08:35] LABS: CALCIUM 8.4 mg/dl (8.4-10.2)
[2016-12-14] MEDS: CHOLECALCIFEROL 1,000 UNIT TAB PO SCH (08:35)
[2016-12-14] MEDS: CYANOCOBALAMIN 500 MCG TAB PO SCH (08:35)
[2016-12-14] MEDS: INSULIN ASPART [NOVOLOG] 3 ML PEN SC SCH ×7 (08:39→20:28)
[2016-12-14] MEDS: INSULIN GLARGINE [LANtus] 3 ML PEN SC SCH ×2 (08:40→20:39)
[2016-12-14] MEDS: POLYETHYLENE GLYCOL 17 GM PACKET PO SCH ×2 (08:41→20:29)
[2016-12-14 09:05] LABS: PHOSPHORUS 6.9 mg/dl (2.5-4.9)
--- NOTE | 2016-12-14 10:27 | CONS ---
Date/Time of Note Date/Time of Note DATE: 12/14/16 TIME: 10:25 Assessment/Plan Assessment/Plan Chief Complaint/Hosp Course Non-ST elevation CO Triple-vessel coronary artery disease including distal left main Preserved ejection fraction Diabetes Hypertension Pneumonia End-stage renal disease on hemodialysis Preserved LV function Problems: Additional Assessment/Plan 1) CABG tentatively Friday 2) continue beta rob Consultation Date/Type/Reason Admit Date/Time Dec 09, 2016 at 11:49 Initial Consult Date Type of Consultation: cv 24 HR Interval Summary Free Text/Dictation no chest pain, no sob, no palpitations, earlier NSVT was noted, 7 beats Detailed Summary Respiratory: no complaints Cardiovascular: no complaints Gastrointestinal: no complaints Musculoskeletal: no complaints Skin: no complaints Neurologic: no complaints Exam/Review of Systems Vital Signs Vitals Vital Signs Date Time Temp Pulse Resp B/P Pulse Ox O2 Delivery O2 Flow Rate FiO2 12/14/16 08:15 63 12/14/16 07:47 97.5 19 152/70 99 12/14/16 06:52 Room Air 12/12/16 18:00 2.0 Intake and Output 12/13/16 12/13/16 12/14/16 15:00 23:00 07:00 Intake Total 550 ml 920 ml 230 ml Output Total 3500 ml 3000 ml Balance -2950 ml -2080 ml 230 ml Exam Constitutional: alert, oriented Head: atraumatic, normocephalic ENMT: nl external ears & nose Neck: supple Respiratory: clear to auscultation Cardiovascular: regular rate and rhythm Gastrointestinal: soft Musculoskeletal: nl extremities to inspection Results Result Diagram: 12/13/16 0655 12/14/16 0609 Results 24 hrs Laboratory Tests Test 12/13/16 12:00 12/13/16 15:00 12/13/16 17:52 12/13/16 20:50 Bedside Glucose 229 H 260 H 210 Activated Partial Thromboplast Time 58.5 H Test 12/14/16 02:50 12/14/16 06:09 12/14/16 07:43 Bedside Glucose 174 160 Activated Partial Thromboplast Time 69.5 H Sodium Level 143 Potassium Level 4.1 Chloride Level 101 Carbon Dioxide Level 26 Anion Gap 20 H Blood Urea Nitrogen 40 #H Creatinine 6.43 H Glucose Level 185 Calcium Level 8.4 Phosphorus Level 6.9 H Magnesium Level 2.0 Medications Medications Current Medications Ondansetron HCl (Zofran Inj) 4 mg Q6H PRN IV NAUSEA AND/OR VOMITING; Start at 17:30 Acetaminophen (Tylenol Tab) 650 mg Q6H PRN PO PAIN LEVEL 1-3 OR FEVER Last administered on 12/13/16 20:53; Admin Dose 650 MG; Start 12/09/16 at 17:30 Docusate Sodium (Colace) 100 mg Q12H PRN PO CONSTIPATION; Start 12/09/16 at 17: 30 Bisacodyl (Dulcolax Supp) 10 mg DAILY PRN [place] CONSTIPATION; Start 12/09/16 at 17 :30 Allopurinol (Zyloprim) 100 mg QHS PO Last administered on 12/13/16 20:53; Admin Dose 100 MG; Start 12/09/16 at 21:00 Aspirin (Aspirin) 81 mg DAILY PO Last administered on 12/14/16 08:31; Admin Dose 81 MG; Start 12/10/16 at 09:00 Atorvastatin Calcium (Lipitor) 40 mg QHS PO Last administered on 12/13/16 20: 53; Admin Dose 40 MG; Start 12/09/16 at 21:00 Cholecalciferol (Vitamin D) 2,000 unit DAILY PO Last administered on 12/14/16 08:35; Admin Dose 2,000 UNIT; Start 12/10/16 at 09:00 Cyanocobalamin (Vitamin B12) 1,000 mcg DAILY PO Last administered on 12/14/16 08:35; Admin Dose 1,000 MCG; Start 12/10/16 at 09:00 Docusate Sodium (Colace) 100 mg BID PO Last administered on 12/14/16 08:31; Admin Dose 100 MG; Start 12/09/16 at 21:00 Multivitamins Therapeutic (Theragran) 1 tab DAILY PO Last administered on 08:32; Admin Dose 1 TAB; Start 12/10/16 at 09:00 Tramadol HCl (Ultram) 25 mg Q8 PRN PO PAIN Last administered on 12/11/16 05:46 ; Admin Dose 25 MG; Start 12/09/16 at 17:30 Miscellaneous Information 1 ea NOTE XX ; Start 12/09/16 at 18:00 Glucose (Glutose) 15 gm Q15M PRN PO DECREASED GLUCOSE; Start 12/09/16 at 18:00 Glucose (Glutose) 22.5 gm Q15M PRN PO DECREASED GLUCOSE; Start 12/09/16 at 18: 00 Dextrose (D50w Syringe) 25 ml Q15M PRN IV DECREASED GLUCOSE; Start 12/09/16 at 18:00 Dextrose (D50w Syringe) 50 ml Q15M PRN IV DECREASED GLUCOSE; Start 12/09/16 at 18:00 Glucagon (Glucagen) 1 mg Q15M PRN IM DECREASED GLUCOSE; Start 12/09/16 at 18:00 Glucose 15 gm 15 gm Q15M PRN BUCCAL DECREASED GLUCOSE; Start 12/09/16 at 18:00 Piperacillin Sod/ Tazobactam Sod (Zosyn 2.25gm/ 50ml (Pmx)) 50 ml @ 100 mls/hr Q8 IVPB Last administered on 12/14/16 05:37; Admin Dose 100 MLS/HR; Start 12/09 at 22:00 Linagliptin (Tradjenta) 5 mg DAILY PO Last administered on 12/14/16 08:34; Admin Dose 5 MG; Start 12/11/16 at 09:00 Metoprolol Succinate (Toprol Xl) 50 mg BID PO Last administered on 12/14/16 08: 34; Admin Dose 50 MG; Start 12/11/16 at 07:01 Pregabalin (Lyrica) 75 mg BID PO Last administered on 12/14/16 08:31; Admin Dose 75 MG; Start 12/11/16 at 21:00 Eye Lubricant (Artificial Tears Oph) 2 drop Q6H PRN BOTH EYES DRY EYES Last administered on 12/13/16 22:35; Admin Dose 2 DROP; Start 12/11/16 at 20:30 Bisacodyl (Dulcolax) 5 mg DAILY PRN PO CONSTIPATION Last administered on 10:15; Admin Dose 5 MG; Start 12/12/16 at 10:00 Polyethylene Glycol (Miralax) 17 gm BID PO Last administered on 12/13/16 20:52 ; Admin Dose 17 GM; Start 12/12/16 at 10:00 Magnesium Hydroxide (Milk Of Mag) 30 ml DAILY PRN PO CONSTIPATION; Start at 10:00 Famotidine (Pepcid) 20 mg DAILY PO Last administered on 12/14/16 08:32; Admin Dose 20 MG; Start 12/13/16 at 09:00 Insulin Glargine 5 unit 5 unit BID SC Last administered on 12/14/16 08:40; Admin Dose 5 UNIT; Start 12/13/16 at 12:00 Vancomycin HCl (Vancocin) 250 ml @ 125 mls/hr Q96H IVPB Last administered on 18:34; Admin Dose 125 MLS/HR; Start 12/13/16 at 18:00 CARLITO CAPELLAN MD Dec 14, 2016 10:26
--- NOTE | 2016-12-14 10:31 | PN ---
Date/Time of Note Date/Time of Note DATE: 12/14/16 TIME: 10:27 Assessment/Plan VTE Prophylaxis VTE Prophylaxis Intervention: SCD's Lines/Catheters IV Catheter Type (from Nrs): Peripheral IV Urinary Cath still in place: No Assessment/Plan Assessment/Plan 71-year-old female with: 1. NSTEMI with reported CAD s/p angiogram with evidence of triple-vessel disease including distal left main Appreciate assistance from Dr Krishna, plan to remeian on Heparin gtt until CABG , so far plan for CABG 12/17, discussed with ID. Appreciate evaluation and recs from Dr Trinh. 2. Multifocal pneumonia and bronchitis, likely HCAP Continue vancomycin and Zosyn for broad spectrum coverage WBC trended back down to normal, afebrile, Sputum cx with GNR, on RA and stable Blood cultures negatives Appreciate ID recommendations 3. End-stage renal disease on hemodialysis. On M/W/F Nephrology following. 4. Diabetes mellitus, insulin requiring. A1c 7.9. BG stable. Appreciate recommendations from simulation educator. Continue SSI, change Lantus to 5 units subQ bid, premeal insulin and Tradjenta per DM education recommendations. 5. Hyperlipidemia. Continue statin therapy. 6. Diabetic neuropathy. Continue Lyrica. Prophylaxis. Pepcid for GI prophylaxis and on heparin gtt now. DISPOSITION: on Heparin gtt and awaiting CABG next week hopefully. On Telemetry and remains stable. Subjective 24 Hr Interval Summary Free Text/Dictation Patient doing well, on IV abx No complaints today and on Heparin gtt On RA and hopefully CABG 12/17 Exam/Review of Systems Vital Signs Vitals Vital Signs Date Time Temp Pulse Resp B/P Pulse Ox O2 Delivery O2 Flow Rate FiO2 12/14/16 08:15 63 12/14/16 07:47 97.5 19 152/70 99 12/14/16 06:52 Room Air 12/12/16 18:00 2.0 Intake and Output 12/13/16 12/13/16 12/14/16 15:00 23:00 07:00 Intake Total 550 ml 920 ml 230 ml Output Total 3500 ml 3000 ml Balance -2950 ml -2080 ml 230 ml Exam Constitutional: alert, oriented, other (czech speaking ) Respiratory: clear to auscultation, normal air movement Cardiovascular: nl pulses, regular rate and rhythm Gastrointestinal: non-tender, soft Musculoskeletal: nl extremities to inspection Extremities: normal pulses, other (no edema, clubbing or cyanosis ) 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: ABSORPTION OPERATOR II-XII intact, nl mental status, nl speech, nl strength Results Result Diagram: 12/13/16 0655 12/14/16 0609 Results 24 hrs Laboratory Tests Test 12/13/16 12:00 12/13/16 15:00 12/13/16 17:52 12/13/16 20:50 Bedside Glucose 229 H 260 H 210 Activated Partial Thromboplast Time 58.5 H Test 12/14/16 02:50 12/14/16 06:09 12/14/16 07:43 Bedside Glucose 174 160 Activated Partial Thromboplast Time 69.5 H Sodium Level 143 Potassium Level 4.1 Chloride Level 101 Carbon Dioxide Level 26 Anion Gap 20 H Blood Urea Nitrogen 40 #H Creatinine 6.43 H Glucose Level 185 Calcium Level 8.4 Phosphorus Level 6.9 H Magnesium Level 2.0 Medications Medications Current Medications Ondansetron HCl (Zofran Inj) 4 mg Q6H PRN IV NAUSEA AND/OR VOMITING; Start at 17:30 Acetaminophen (Tylenol Tab) 650 mg Q6H PRN PO PAIN LEVEL 1-3 OR FEVER Last administered on 12/13/16 20:53; Admin Dose 650 MG; Start 12/09/16 at 17:30 Docusate Sodium (Colace) 100 mg Q12H PRN PO CONSTIPATION; Start 12/09/16 at 17: 30 Bisacodyl (Dulcolax Supp) 10 mg DAILY PRN [place] CONSTIPATION; Start 12/09/16 at 17 :30 Allopurinol (Zyloprim) 100 mg QHS PO Last administered on 12/13/16 20:53; Admin Dose 100 MG; Start 12/09/16 at 21:00 Aspirin (Aspirin) 81 mg DAILY PO Last administered on 12/14/16 08:31; Admin Dose 81 MG; Start 12/10/16 at 09:00 Atorvastatin Calcium (Lipitor) 40 mg QHS PO Last administered on 12/13/16 20: 53; Admin Dose 40 MG; Start 12/09/16 at 21:00 Cholecalciferol (Vitamin D) 2,000 unit DAILY PO Last administered on 12/14/16 08:35; Admin Dose 2,000 UNIT; Start 12/10/16 at 09:00 Cyanocobalamin (Vitamin B12) 1,000 mcg DAILY PO Last administered on 12/14/16 08:35; Admin Dose 1,000 MCG; Start 12/10/16 at 09:00 Docusate Sodium (Colace) 100 mg BID PO Last administered on 12/14/16 08:31; Admin Dose 100 MG; Start 12/09/16 at 21:00 Multivitamins Therapeutic (Theragran) 1 tab DAILY PO Last administered on 08:32; Admin Dose 1 TAB; Start 12/10/16 at 09:00 Tramadol HCl (Ultram) 25 mg Q8 PRN PO PAIN Last administered on 12/11/16 05:46 ; Admin Dose 25 MG; Start 12/09/16 at 17:30 Miscellaneous Information 1 ea NOTE XX ; Start 12/09/16 at 18:00 Glucose (Glutose) 15 gm Q15M PRN PO DECREASED GLUCOSE; Start 12/09/16 at 18:00 Glucose (Glutose) 22.5 gm Q15M PRN PO DECREASED GLUCOSE; Start 12/09/16 at 18: 00 Dextrose (D50w Syringe) 25 ml Q15M PRN IV DECREASED GLUCOSE; Start 12/09/16 at 18:00 Dextrose (D50w Syringe) 50 ml Q15M PRN IV DECREASED GLUCOSE; Start 12/09/16 at 18:00 Glucagon (Glucagen) 1 mg Q15M PRN IM DECREASED GLUCOSE; Start 12/09/16 at 18:00 Glucose 15 gm 15 gm Q15M PRN BUCCAL DECREASED GLUCOSE; Start 12/09/16 at 18:00 Piperacillin Sod/ Tazobactam Sod (Zosyn 2.25gm/ 50ml (Pmx)) 50 ml @ 100 mls/hr Q8 IVPB Last administered on 12/14/16 05:37; Admin Dose 100 MLS/HR; Start 12/09 at 22:00 Linagliptin (Tradjenta) 5 mg DAILY PO Last administered on 12/14/16 08:34; Admin Dose 5 MG; Start 12/11/16 at 09:00 Metoprolol Succinate (Toprol Xl) 50 mg BID PO Last administered on 12/14/16 08: 34; Admin Dose 50 MG; Start 12/11/16 at 07:01 Pregabalin (Lyrica) 75 mg BID PO Last administered on 12/14/16 08:31; Admin Dose 75 MG; Start 12/11/16 at 21:00 Eye Lubricant (Artificial Tears Oph) 2 drop Q6H PRN BOTH EYES DRY EYES Last administered on 12/13/16 22:35; Admin Dose 2 DROP; Start 12/11/16 at 20:30 Bisacodyl (Dulcolax) 5 mg DAILY PRN PO CONSTIPATION Last administered on 10:15; Admin Dose 5 MG; Start 12/12/16 at 10:00 Polyethylene Glycol (Miralax) 17 gm BID PO Last administered on 12/13/16 20:52 ; Admin Dose 17 GM; Start 12/12/16 at 10:00 Magnesium Hydroxide (Milk Of Mag) 30 ml DAILY PRN PO CONSTIPATION; Start at 10:00 Famotidine (Pepcid) 20 mg DAILY PO Last administered on 12/14/16 08:32; Admin Dose 20 MG; Start 12/13/16 at 09:00 Insulin Glargine 5 unit 5 unit BID SC Last administered on 12/14/16 08:40; Admin Dose 5 UNIT; Start 12/13/16 at 12:00 Vancomycin HCl (Vancocin) 250 ml @ 125 mls/hr Q96H IVPB Last administered on 18:34; Admin Dose 125 MLS/HR; Start 12/13/16 at 18:00 JOSHUA MATSON Dec 14, 2016 10:31
--- NOTE | 2016-12-14 10:34 | RADRPT ---
PROCEDURE: XR Chest. CLINICAL INDICATION: Follow-up of pneumonia in a 71-year-old female. TECHNIQUE: Single frontal view of the chest was obtained COMPARISON: Chest x-ray 12/09/2016 10:30 a.m. FINDINGS: The soft tissues are normal. There are degenerative osteophytes in the thoracic spine. The heart i s mildly enlarged. The cardiomediastinal silhouette and hilar structures are normal. The pulmonary vasculature is increased. There are vascular calcifications in the left-sided aorta. There are bilat eral mixed interstitial and alveolar infiltrates extending from the perihilar areas which are slight ly worse in the left lung and right. There is some clearing of confluent infiltrate in the lower as pect of the right upper lobe compared to the prior study. The costophrenic angles are normal. IMPRESSION: 1. Cardiomegaly with shifting asymmetric interstitial pulmonary edema. 2. Resolution of the nodular infiltrate in the lower aspect of the right upper lobe when compared t o 12/09/2016. 3. Atherosclerotic vascular disease. 4. Interval improvement of the pulmonary hyperinflation seen on the prior study. RPTAT:AAJJ Physician Casie Date Time Electronically viewed and signed by Physician Casie on 12/14/2016 10:34 JM/
--- NOTE | 2016-12-14 11:03 | CONS ---
Date/Time of Note Date/Time of Note DATE: 12/14/16 TIME: 11:01 Assessment/Plan Assessment/Plan Chief Complaint/Hosp Course - ESRD Hemodialysis dependent - ANEMIA - HYPERTENSION - NSTEMI - PNEMONIA - DIABETES - CAD PLAN: Had bedside dialysis yesterday Tolerated well Plan noted for CABG once her infection clears up ( Probably by Friday ) Continue with antibiotics Plan for next HD on Friday Follow up with H/H Problems: Consultation Date/Type/Reason Admit Date/Time Dec 09, 2016 at 11:49 Type of Consultation: NEPHROLOGY Reason for Consultation ESRD 24 HR Interval Summary Constitutional: improved, no complaints Exam/Review of Systems Vital Signs Vitals Vital Signs Date Time Temp Pulse Resp B/P Pulse Ox O2 Delivery O2 Flow Rate FiO2 12/14/16 08:15 63 12/14/16 07:47 97.5 19 152/70 99 12/14/16 06:52 Room Air 12/12/16 18:00 2.0 Intake and Output 12/13/16 12/13/16 12/14/16 15:00 23:00 07:00 Intake Total 550 ml 920 ml 230 ml Output Total 3500 ml 3000 ml Balance -2950 ml -2080 ml 230 ml Exam Constitutional: alert, oriented Psych: no complaints Head: normocephalic Neck: supple Respiratory: crackles/rales Cardiovascular: systolic murmur Gastrointestinal: soft Results Result Diagram: 12/13/16 0655 12/14/16 0609 Results 24 hrs Laboratory Tests Test 12/13/16 12:00 12/13/16 15:00 12/13/16 17:52 12/13/16 20:50 Bedside Glucose 229 H 260 H 210 Activated Partial Thromboplast Time 58.5 H Test 12/14/16 02:50 12/14/16 06:09 12/14/16 07:43 Bedside Glucose 174 160 Activated Partial Thromboplast Time 69.5 H Sodium Level 143 Potassium Level 4.1 Chloride Level 101 Carbon Dioxide Level 26 Anion Gap 20 H Blood Urea Nitrogen 40 #H Creatinine 6.43 H Glucose Level 185 Calcium Level 8.4 Phosphorus Level 6.9 H Magnesium Level 2.0 Medications Medications Current Medications Ondansetron HCl (Zofran Inj) 4 mg Q6H PRN IV NAUSEA AND/OR VOMITING; Start at 17:30 Acetaminophen (Tylenol Tab) 650 mg Q6H PRN PO PAIN LEVEL 1-3 OR FEVER Last administered on 12/13/16 20:53; Admin Dose 650 MG; Start 12/09/16 at 17:30 Docusate Sodium (Colace) 100 mg Q12H PRN PO CONSTIPATION; Start 12/09/16 at 17: 30 Bisacodyl (Dulcolax Supp) 10 mg DAILY PRN [place] CONSTIPATION; Start 12/09/16 at 17 :30 Allopurinol (Zyloprim) 100 mg QHS PO Last administered on 12/13/16 20:53; Admin Dose 100 MG; Start 12/09/16 at 21:00 Aspirin (Aspirin) 81 mg DAILY PO Last administered on 12/14/16 08:31; Admin Dose 81 MG; Start 12/10/16 at 09:00 Atorvastatin Calcium (Lipitor) 40 mg QHS PO Last administered on 12/13/16 20: 53; Admin Dose 40 MG; Start 12/09/16 at 21:00 Cholecalciferol (Vitamin D) 2,000 unit DAILY PO Last administered on 12/14/16 08:35; Admin Dose 2,000 UNIT; Start 12/10/16 at 09:00 Cyanocobalamin (Vitamin B12) 1,000 mcg DAILY PO Last administered on 12/14/16 08:35; Admin Dose 1,000 MCG; Start 12/10/16 at 09:00 Docusate Sodium (Colace) 100 mg BID PO Last administered on 12/14/16 08:31; Admin Dose 100 MG; Start 12/09/16 at 21:00 Multivitamins Therapeutic (Theragran) 1 tab DAILY PO Last administered on 08:32; Admin Dose 1 TAB; Start 12/10/16 at 09:00 Tramadol HCl (Ultram) 25 mg Q8 PRN PO PAIN Last administered on 12/11/16 05:46 ; Admin Dose 25 MG; Start 12/09/16 at 17:30 Miscellaneous Information 1 ea NOTE XX ; Start 12/09/16 at 18:00 Glucose (Glutose) 15 gm Q15M PRN PO DECREASED GLUCOSE; Start 12/09/16 at 18:00 Glucose (Glutose) 22.5 gm Q15M PRN PO DECREASED GLUCOSE; Start 12/09/16 at 18: 00 Dextrose (D50w Syringe) 25 ml Q15M PRN IV DECREASED GLUCOSE; Start 12/09/16 at 18:00 Dextrose (D50w Syringe) 50 ml Q15M PRN IV DECREASED GLUCOSE; Start 12/09/16 at 18:00 Glucagon (Glucagen) 1 mg Q15M PRN IM DECREASED GLUCOSE; Start 12/09/16 at 18:00 Glucose 15 gm 15 gm Q15M PRN BUCCAL DECREASED GLUCOSE; Start 12/09/16 at 18:00 Piperacillin Sod/ Tazobactam Sod (Zosyn 2.25gm/ 50ml (Pmx)) 50 ml @ 100 mls/hr Q8 IVPB Last administered on 12/14/16 05:37; Admin Dose 100 MLS/HR; Start 12/09 at 22:00 Linagliptin (Tradjenta) 5 mg DAILY PO Last administered on 12/14/16 08:34; Admin Dose 5 MG; Start 12/11/16 at 09:00 Metoprolol Succinate (Toprol Xl) 50 mg BID PO Last administered on 12/14/16 08: 34; Admin Dose 50 MG; Start 12/11/16 at 07:01 Pregabalin (Lyrica) 75 mg BID PO Last administered on 12/14/16 08:31; Admin Dose 75 MG; Start 12/11/16 at 21:00 Eye Lubricant (Artificial Tears Oph) 2 drop Q6H PRN BOTH EYES DRY EYES Last administered on 12/13/16 22:35; Admin Dose 2 DROP; Start 12/11/16 at 20:30 Bisacodyl (Dulcolax) 5 mg DAILY PRN PO CONSTIPATION Last administered on 10:15; Admin Dose 5 MG; Start 12/12/16 at 10:00 Polyethylene Glycol (Miralax) 17 gm BID PO Last administered on 12/13/16 20:52 ; Admin Dose 17 GM; Start 12/12/16 at 10:00 Magnesium Hydroxide (Milk Of Mag) 30 ml DAILY PRN PO CONSTIPATION; Start at 10:00 Famotidine (Pepcid) 20 mg DAILY PO Last administered on 12/14/16 08:32; Admin Dose 20 MG; Start 12/13/16 at 09:00 Insulin Glargine 5 unit 5 unit BID SC Last administered on 12/14/16 08:40; Admin Dose 5 UNIT; Start 12/13/16 at 12:00 Vancomycin HCl (Vancocin) 250 ml @ 125 mls/hr Q96H IVPB Last administered on 18:34; Admin Dose 125 MLS/HR; Start 12/13/16 at 18:00 TANIA THAPA MD Dec 14, 2016 11:03
[2016-12-14] MEDS: HEPARIN 1000 UNITS/ML 10 ML INJ IV PRN (16:20)
[2016-12-14] MEDS ORDERED: EPOETIN 4000 UNITS/1 ML INJ (ESRD) SC SCH (17:00)
--- NOTE | 2016-12-14 20:18 | CONS ---
Date/Time of Note Date/Time of Note DATE: 12/14/16 TIME: 20:17 Assessment/Plan Assessment/Plan Chief Complaint/Hosp Course SUBJECTIVE: Patient is alert, feels better. No fevers. INDWELLINGS: AV fistula. MICROBIOLOGY: Sputum culture negative. ANTIMICROBIALS: The patient is on: 1. Vancomycin. 2. Zosyn. PHYSICAL EXAMINATION: GENERAL: Fragile, elderly woman who is alert, in no distress. HEENT: Head atraumatic, normocephalic. Sclerae anicteric. Buccal mucosa pink , dry. NECK: Supple. CHEST: Rise symmetrical. Breath sounds diminished to bases. HEART: S1, S2. ABDOMEN: Soft, bowel tones present. EXTREMITIES: Without cyanosis. ASSESSMENT: 1. Resolving sepsis. 2. Pneumonia. 3. End-stage renal disease, on hemodialysis. 4. Diabetes. 5. Non-ST elevation myocardial infarction, status post angiography. PLAN: Improving on current antimicrobials. No fevers. Cultures have been negative. Pending CABG next week. Cleared from ID standpoint. DW staff/family at bedside Problems: Consultation Date/Type/Reason Admit Date/Time Dec 09, 2016 at 11:49 Initial Consult Date Type of Consultation: ID Exam/Review of Systems Vital Signs Vitals Vital Signs Date Time Temp Pulse Resp B/P Pulse Ox O2 Delivery O2 Flow Rate FiO2 12/14/16 19:52 98.2 65 20 143/65 99 12/14/16 06:52 Room Air 12/12/16 18:00 2.0 Intake and Output 12/13/16 12/13/16 12/14/16 15:00 23:00 07:00 Intake Total 550 ml 920 ml 230 ml Output Total 3500 ml 3000 ml Balance -2950 ml -2080 ml 230 ml Results Result Diagram: 12/13/16 0655 12/14/16 0609 Results 24 hrs Laboratory Tests Test 12/13/16 20:50 12/14/16 02:50 12/14/16 06:09 12/14/16 07:43 Bedside Glucose 210 174 160 Activated Partial Thromboplast Time 69.5 H Sodium Level 143 Potassium Level 4.1 Chloride Level 101 Carbon Dioxide Level 26 Anion Gap 20 H Blood Urea Nitrogen 40 #H Creatinine 6.43 H Glucose Level 185 Calcium Level 8.4 Phosphorus Level 6.9 H Magnesium Level 2.0 Test 12/14/16 11:14 12/14/16 13:50 12/14/16 15:20 12/14/16 18:02 Bedside Glucose 209 171 Activated Partial Thromboplast Time 32.6 35.7 H Medications Medications Current Medications Ondansetron HCl (Zofran Inj) 4 mg Q6H PRN IV NAUSEA AND/OR VOMITING; Start at 17:30 Acetaminophen (Tylenol Tab) 650 mg Q6H PRN PO PAIN LEVEL 1-3 OR FEVER Last administered on 12/13/16 20:53; Admin Dose 650 MG; Start 12/09/16 at 17:30 Docusate Sodium (Colace) 100 mg Q12H PRN PO CONSTIPATION; Start 12/09/16 at 17: 30 Bisacodyl (Dulcolax Supp) 10 mg DAILY PRN [place] CONSTIPATION; Start 12/09/16 at 17 :30 Allopurinol (Zyloprim) 100 mg QHS PO Last administered on 12/13/16 20:53; Admin Dose 100 MG; Start 12/09/16 at 21:00 Aspirin (Aspirin) 81 mg DAILY PO Last administered on 12/14/16 08:31; Admin Dose 81 MG; Start 12/10/16 at 09:00 Atorvastatin Calcium (Lipitor) 40 mg QHS PO Last administered on 12/13/16 20: 53; Admin Dose 40 MG; Start 12/09/16 at 21:00 Cholecalciferol (Vitamin D) 2,000 unit DAILY PO Last administered on 12/14/16 08:35; Admin Dose 2,000 UNIT; Start 12/10/16 at 09:00 Cyanocobalamin (Vitamin B12) 1,000 mcg DAILY PO Last administered on 12/14/16 08:35; Admin Dose 1,000 MCG; Start 12/10/16 at 09:00 Docusate Sodium (Colace) 100 mg BID PO Last administered on 12/14/16 08:31; Admin Dose 100 MG; Start 12/09/16 at 21:00 Multivitamins Therapeutic (Theragran) 1 tab DAILY PO Last administered on 08:32; Admin Dose 1 TAB; Start 12/10/16 at 09:00 Tramadol HCl (Ultram) 25 mg Q8 PRN PO PAIN Last administered on 12/11/16 05:46 ; Admin Dose 25 MG; Start 12/09/16 at 17:30 Miscellaneous Information 1 ea NOTE XX ; Start 12/09/16 at 18:00 Glucose (Glutose) 15 gm Q15M PRN PO DECREASED GLUCOSE; Start 12/09/16 at 18:00 Glucose (Glutose) 22.5 gm Q15M PRN PO DECREASED GLUCOSE; Start 12/09/16 at 18: 00 Dextrose (D50w Syringe) 25 ml Q15M PRN IV DECREASED GLUCOSE; Start 12/09/16 at 18:00 Dextrose (D50w Syringe) 50 ml Q15M PRN IV DECREASED GLUCOSE; Start 12/09/16 at 18:00 Glucagon (Glucagen) 1 mg Q15M PRN IM DECREASED GLUCOSE; Start 12/09/16 at 18:00 Glucose 15 gm 15 gm Q15M PRN BUCCAL DECREASED GLUCOSE; Start 12/09/16 at 18:00 Piperacillin Sod/ Tazobactam Sod (Zosyn 2.25gm/ 50ml (Pmx)) 50 ml @ 100 mls/hr Q8 IVPB Last administered on 12/14/16 13:27; Admin Dose 100 MLS/HR; Start 12/09 at 22:00 Linagliptin (Tradjenta) 5 mg DAILY PO Last administered on 12/14/16 08:34; Admin Dose 5 MG; Start 12/11/16 at 09:00 Metoprolol Succinate (Toprol Xl) 50 mg BID PO Last administered on 12/14/16 08: 34; Admin Dose 50 MG; Start 12/11/16 at 07:01 Pregabalin (Lyrica) 75 mg BID PO Last administered on 12/14/16 08:31; Admin Dose 75 MG; Start 12/11/16 at 21:00 Eye Lubricant (Artificial Tears Oph) 2 drop Q6H PRN BOTH EYES DRY EYES Last administered on 12/13/16 22:35; Admin Dose 2 DROP; Start 12/11/16 at 20:30 Bisacodyl (Dulcolax) 5 mg DAILY PRN PO CONSTIPATION Last administered on 10:15; Admin Dose 5 MG; Start 12/12/16 at 10:00 Polyethylene Glycol (Miralax) 17 gm BID PO Last administered on 12/13/16 20:52 ; Admin Dose 17 GM; Start 12/12/16 at 10:00 Magnesium Hydroxide (Milk Of Mag) 30 ml DAILY PRN PO CONSTIPATION; Start at 10:00 Famotidine (Pepcid) 20 mg DAILY PO Last administered on 12/14/16 08:32; Admin Dose 20 MG; Start 12/13/16 at 09:00 Insulin Glargine 5 unit 5 unit BID SC Last administered on 12/14/16 08:40; Admin Dose 5 UNIT; Start 12/13/16 at 12:00 Vancomycin HCl (Vancocin) 250 ml @ 125 mls/hr Q96H IVPB Last administered on 18:34; Admin Dose 125 MLS/HR; Start 12/13/16 at 18:00 Epoetin Louis (Epogen (Esrd)) 8,000 units TuThSa@17 SC Last administered on 18:04; Admin Dose 8,000 UNITS; Start 12/14/16 at 17:00 ED OWENS NP Dec 14, 2016 20:18
[2016-12-14] MEDS: ALLOPURINOL 100 MG TAB PO SCH (20:29)
[2016-12-14] MEDS: ACETAMINOPHEN 325 MG TAB PO PRN (20:30)
[2016-12-14] MEDS: ATORVASTATIN 40 MG TAB PO SCH (20:30)
[2016-12-14] MEDS: ARTIFICIAL TEARS 15 ML OPH BOTH EYES PRN (20:34)
[2016-12-15] VITALS (12 sets, daily range): BP systolic 110–141; BP diastolic 42–63; PULSE 58–80; RESP 16–20
[2016-12-15] MEDS: HEPARIN 25000 UNITS/250 ML 250 ML IV SCH ×3 (01:18→17:40)
[2016-12-15] MEDS: PIPER-TAZO 2.25 GM (PMX) 50 ML IVPB SCH (05:29)
[2016-12-15] MEDS: ASPIRIN 81 MG TAB PO SCH (09:57)
[2016-12-15] MEDS: PREGABALIN 75 MG CAP PO SCH ×2 (09:57→21:37)
[2016-12-15] MEDS: MULTIVITAMINS THERAPEUTIC TAB PO SCH (09:57)
[2016-12-15] MEDS: FAMOTIDINE 20 MG TAB PO SCH (09:57)
[2016-12-15] MEDS: METOPROLOL (XL) 50 MG TAB PO SCH ×2 (09:59→21:33)
[2016-12-15] MEDS: CHOLECALCIFEROL 1,000 UNIT TAB PO SCH (10:01)
[2016-12-15] MEDS: CYANOCOBALAMIN 500 MCG TAB PO SCH (10:01)
[2016-12-15] MEDS: LINAGLIPTIN 5 MG TABLET PO SCH (10:01)
[2016-12-15] MEDS: ACETAMINOPHEN 325 MG TAB PO PRN ×2 (10:04→21:32)
[2016-12-15] MEDS: INSULIN ASPART [NOVOLOG] 3 ML PEN SC SCH ×7 (10:10→21:00)
[2016-12-15] MEDS: INSULIN GLARGINE [LANtus] 3 ML PEN SC SCH ×2 (10:19→21:35)
[2016-12-15] MEDS: DOCUSATE SODIUM 100 MG CAP PO SCH ×2 (10:19→21:00)
[2016-12-15] MEDS: POLYETHYLENE GLYCOL 17 GM PACKET PO SCH ×2 (10:20→21:00)
--- NOTE | 2016-12-15 10:54 | PN ---
Date/Time of Note Date/Time of Note DATE: 12/15/16 TIME: 10:49 Assessment/Plan VTE Prophylaxis VTE Prophylaxis Intervention: other (on heparin gtt ) Lines/Catheters IV Catheter Type (from Nrs): Peripheral IV Urinary Cath still in place: No Assessment/Plan Assessment/Plan 71-year-old female with: 1. NSTEMI with reported CAD s/p angiogram with evidence of triple-vessel disease including distal left main Appreciate assistance from Dr Krishna, plan to remeian on Heparin gtt until CABG , so far plan for CABG 12/17, discussed with ID and cleared per ID . Appreciate evaluation and recs from Dr Trinh. 2. Multifocal pneumonia and bronchitis, likely HCAP Continue vancomycin and Zosyn for broad spectrum coverage WBC trended back down to normal, afebrile, Sputum cx with Enterobacter, on RA and repeat CXR better and stable Blood cultures negatives Appreciate ID recommendations 3. End-stage renal disease on hemodialysis. On // Nephrology following. 4. Diabetes mellitus, insulin requiring. A1c 7.9. BG stable. Appreciate recommendations from life skills educator. Continue SSI, change Lantus to 5 units subQ bid, premeal insulin and Tradjenta per DM education recommendations. 5. Hyperlipidemia. Continue statin therapy. 6. Diabetic neuropathy. Continue Lyrica. Prophylaxis. Pepcid for GI prophylaxis and on heparin gtt now. DISPOSITION: on Heparin gtt and awaiting CABG Friday hopefully. On Telemetry and remains stable. Subjective 24 Hr Interval Summary Free Text/Dictation Patient doing well No complaints today, on RA On HD // Exam/Review of Systems Vital Signs Vitals Vital Signs Date Time Temp Pulse Resp B/P Pulse Ox O2 Delivery O2 Flow Rate FiO2 12/15/16 08:25 80 12/15/16 07:56 97.3 18 140/42 99 12/14/16 06:52 Room Air 12/12/16 18:00 2.0 Intake and Output 12/14/16 12/14/16 12/15/16 15:00 23:00 07:00 Intake Total 1130 ml 50 ml Balance 1130 ml 50 ml Exam Constitutional: alert, oriented, well developed Respiratory: clear to auscultation, normal air movement, other (on RA) Cardiovascular: nl pulses, regular rate and rhythm Gastrointestinal: non-tender, soft Musculoskeletal: nl extremities to inspection Extremities: normal pulses, other (no edema, clubbing or cyanosis ) 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: NIGHT STOCKER II-XII intact, nl mental status, nl speech, nl strength Results Result Diagram: 12/13/16 0655 12/14/16 0609 Results 24 hrs Laboratory Tests Test 12/14/16 11:14 12/14/16 13:50 12/14/16 15:20 12/14/16 18:02 Bedside Glucose 209 171 Activated Partial Thromboplast Time 32.6 35.7 H Test 12/14/16 20:27 12/14/16 22:45 12/15/16 07:14 12/15/16 07:26 Bedside Glucose 149 172 Activated Partial Thromboplast Time 98.0 *H 53.1 H Medications Medications Current Medications Ondansetron HCl (Zofran Inj) 4 mg Q6H PRN IV NAUSEA AND/OR VOMITING; Start at 17:30 Acetaminophen (Tylenol Tab) 650 mg Q6H PRN PO PAIN LEVEL 1-3 OR FEVER Last administered on 12/15/16 10:04; Admin Dose 650 MG; Start 12/09/16 at 17:30 Docusate Sodium (Colace) 100 mg Q12H PRN PO CONSTIPATION; Start 12/09/16 at 17: 30 Bisacodyl (Dulcolax Supp) 10 mg DAILY PRN [place] CONSTIPATION; Start 12/09/16 at 17 :30 Allopurinol (Zyloprim) 100 mg QHS PO Last administered on 12/14/16 20:29; Admin Dose 100 MG; Start 12/09/16 at 21:00 Aspirin (Aspirin) 81 mg DAILY PO Last administered on 12/15/16 09:57; Admin Dose 81 MG; Start 12/10/16 at 09:00 Atorvastatin Calcium (Lipitor) 40 mg QHS PO Last administered on 12/14/16 20:30 ; Admin Dose 40 MG; Start 12/09/16 at 21:00 Cholecalciferol (Vitamin D) 2,000 unit DAILY PO Last administered on 12/15/16 10:01; Admin Dose 2,000 UNIT; Start 12/10/16 at 09:00 Cyanocobalamin (Vitamin B12) 1,000 mcg DAILY PO Last administered on 12/15/16 10:01; Admin Dose 1,000 MCG; Start 12/10/16 at 09:00 Docusate Sodium (Colace) 100 mg BID PO Last administered on 12/14/16 20:28; Admin Dose 100 MG; Start 12/09/16 at 21:00 Multivitamins Therapeutic (Theragran) 1 tab DAILY PO Last administered on 09:57; Admin Dose 1 TAB; Start 12/10/16 at 09:00 Tramadol HCl (Ultram) 25 mg Q8 PRN PO PAIN Last administered on 12/11/16 05:46 ; Admin Dose 25 MG; Start 12/09/16 at 17:30 Miscellaneous Information 1 ea NOTE XX ; Start 12/09/16 at 18:00 Glucose (Glutose) 15 gm Q15M PRN PO DECREASED GLUCOSE; Start 12/09/16 at 18:00 Glucose (Glutose) 22.5 gm Q15M PRN PO DECREASED GLUCOSE; Start 12/09/16 at 18: 00 Dextrose (D50w Syringe) 25 ml Q15M PRN IV DECREASED GLUCOSE; Start 12/09/16 at 18:00 Dextrose (D50w Syringe) 50 ml Q15M PRN IV DECREASED GLUCOSE; Start 12/09/16 at 18:00 Glucagon (Glucagen) 1 mg Q15M PRN IM DECREASED GLUCOSE; Start 12/09/16 at 18:00 Glucose 15 gm 15 gm Q15M PRN BUCCAL DECREASED GLUCOSE; Start 12/09/16 at 18:00 Piperacillin Sod/ Tazobactam Sod (Zosyn 2.25gm/ 50ml (Pmx)) 50 ml @ 100 mls/hr Q8 IVPB Last administered on 12/15/16 05:29; Admin Dose 100 MLS/HR; Start 12/09 at 22:00 Linagliptin (Tradjenta) 5 mg DAILY PO Last administered on 12/15/16 10:01; Admin Dose 5 MG; Start 12/11/16 at 09:00 Metoprolol Succinate (Toprol Xl) 50 mg BID PO Last administered on 12/15/16 09: 59; Admin Dose 50 MG; Start 12/11/16 at 07:01 Pregabalin (Lyrica) 75 mg BID PO Last administered on 12/15/16 09:57; Admin Dose 75 MG; Start 12/11/16 at 21:00 Eye Lubricant (Artificial Tears Oph) 2 drop Q6H PRN BOTH EYES DRY EYES Last administered on 12/14/16 20:34; Admin Dose 2 DROP; Start 12/11/16 at 20:30 Bisacodyl (Dulcolax) 5 mg DAILY PRN PO CONSTIPATION Last administered on 10:15; Admin Dose 5 MG; Start 12/12/16 at 10:00 Polyethylene Glycol (Miralax) 17 gm BID PO Last administered on 12/14/16 20:29 ; Admin Dose 17 GM; Start 12/12/16 at 10:00 Magnesium Hydroxide (Milk Of Mag) 30 ml DAILY PRN PO CONSTIPATION; Start at 10:00 Famotidine (Pepcid) 20 mg DAILY PO Last administered on 12/15/16 09:57; Admin Dose 20 MG; Start 12/13/16 at 09:00 Insulin Glargine 5 unit 5 unit BID SC Last administered on 12/15/16 10:19; Admin Dose 5 UNIT; Start 12/13/16 at 12:00 Vancomycin HCl (Vancocin) 250 ml @ 125 mls/hr Q96H IVPB Last administered on 18:34; Admin Dose 125 MLS/HR; Start 12/13/16 at 18:00 Epoetin Louis (Epogen (Esrd)) 8,000 units TuThSa@17 SC Last administered on 18:04; Admin Dose 8,000 UNITS; Start 12/14/16 at 17:00 JOSHUA MATSON Dec 15, 2016 10:54
[2016-12-15] MEDS ORDERED: AMIKACIN IV PER PHARMACY XX SCH (12:30)
[2016-12-15] MEDS ORDERED: AMIKACIN 425 MG in SOD CHLORIDE 0.9% 100 ML IVPB ONE (14:00)
[2016-12-15] MEDS ORDERED: LEVOFLOXACIN 250 MG TAB PO SCH (14:00)
--- NOTE | 2016-12-15 14:08 | CONS ---
Date/Time of Note Date/Time of Note DATE: 12/15/16 TIME: 14:06 Assessment/Plan Assessment/Plan Additional Assessment/Plan Non-ST elevation [place] Triple-vessel coronary artery disease including distal left main Preserved ejection fraction Diabetes Hypertension Pneumonia End-stage renal disease on hemodialysis -Patient with progressive improvement. Continue IV heparin until planned CABG. Continue aspirin, statin, beta-rob. Fluid management via hemodialysis as per our nephrology colleagues Consultation Date/Type/Reason Admit Date/Time Dec 09, 2016 at 11:49 Type of Consultation: cv 24 HR Interval Summary Free Text/Dictation Denies shortness of breath or chest pain. Feeling better Exam/Review of Systems Vital Signs Vitals Vital Signs Date Time Temp Pulse Resp B/P Pulse Ox O2 Delivery O2 Flow Rate FiO2 12/15/16 12:08 69 12/15/16 12:03 98.2 19 135/63 99 12/14/16 06:52 Room Air 12/12/16 18:00 2.0 Intake and Output 12/14/16 12/14/16 12/15/16 15:00 23:00 07:00 Intake Total 1130 ml 50 ml Balance 1130 ml 50 ml Exam No apparent distress, eating lunch Constitutional: alert, oriented Head: normocephalic Neck: supple Respiratory: other (Coarse breath sounds bilaterally, no wheezing) Cardiovascular: other (S1-S2 heard), regular rate and rhythm Gastrointestinal: bowel sounds, non-tender, other (No guarding), soft Extremities: edema (Trace), other (No cyanosis) Results Result Diagram: 12/13/16 0655 12/14/16 0609 Results 24 hrs Laboratory Tests Test 12/14/16 15:20 12/14/16 18:02 12/14/16 20:27 12/14/16 22:45 Activated Partial Thromboplast Time 35.7 H 98.0 *H Bedside Glucose 171 149 Test 12/15/16 07:14 12/15/16 07:26 12/15/16 11:33 Activated Partial Thromboplast Time 53.1 H Bedside Glucose 172 281 H Medications Medications Current Medications Ondansetron HCl (Zofran Inj) 4 mg Q6H PRN IV NAUSEA AND/OR VOMITING; Start at 17:30 Acetaminophen (Tylenol Tab) 650 mg Q6H PRN PO PAIN LEVEL 1-3 OR FEVER Last administered on 12/15/16 10:04; Admin Dose 650 MG; Start 12/09/16 at 17:30 Docusate Sodium (Colace) 100 mg Q12H PRN PO CONSTIPATION; Start 12/09/16 at 17: 30 Bisacodyl (Dulcolax Supp) 10 mg DAILY PRN [place] CONSTIPATION; Start 12/09/16 at 17 :30 Allopurinol (Zyloprim) 100 mg QHS PO Last administered on 12/14/16 20:29; Admin Dose 100 MG; Start 12/09/16 at 21:00 Aspirin (Aspirin) 81 mg DAILY PO Last administered on 12/15/16 09:57; Admin Dose 81 MG; Start 12/10/16 at 09:00 Atorvastatin Calcium (Lipitor) 40 mg QHS PO Last administered on 12/14/16 20:30 ; Admin Dose 40 MG; Start 12/09/16 at 21:00 Cholecalciferol (Vitamin D) 2,000 unit DAILY PO Last administered on 12/15/16 10:01; Admin Dose 2,000 UNIT; Start 12/10/16 at 09:00 Cyanocobalamin (Vitamin B12) 1,000 mcg DAILY PO Last administered on 12/15/16 10:01; Admin Dose 1,000 MCG; Start 12/10/16 at 09:00 Docusate Sodium (Colace) 100 mg BID PO Last administered on 12/14/16 20:28; Admin Dose 100 MG; Start 12/09/16 at 21:00 Multivitamins Therapeutic (Theragran) 1 tab DAILY PO Last administered on 09:57; Admin Dose 1 TAB; Start 12/10/16 at 09:00 Tramadol HCl (Ultram) 25 mg Q8 PRN PO PAIN Last administered on 12/11/16 05:46 ; Admin Dose 25 MG; Start 12/09/16 at 17:30 Miscellaneous Information 1 ea NOTE XX ; Start 12/09/16 at 18:00 Glucose (Glutose) 15 gm Q15M PRN PO DECREASED GLUCOSE; Start 12/09/16 at 18:00 Glucose (Glutose) 22.5 gm Q15M PRN PO DECREASED GLUCOSE; Start 12/09/16 at 18: 00 Dextrose (D50w Syringe) 25 ml Q15M PRN IV DECREASED GLUCOSE; Start 12/09/16 at 18:00 Dextrose (D50w Syringe) 50 ml Q15M PRN IV DECREASED GLUCOSE; Start 12/09/16 at 18:00 Glucagon (Glucagen) 1 mg Q15M PRN IM DECREASED GLUCOSE; Start 12/09/16 at 18:00 Glucose (Glutose) 15 gm Q15M PRN BUCCAL DECREASED GLUCOSE; Start 12/09/16 at 18 :00 Linagliptin (Tradjenta) 5 mg DAILY PO Last administered on 12/15/16 10:01; Admin Dose 5 MG; Start 12/11/16 at 09:00 Metoprolol Succinate (Toprol Xl) 50 mg BID PO Last administered on 12/15/16 09: 59; Admin Dose 50 MG; Start 12/11/16 at 07:01 Pregabalin (Lyrica) 75 mg BID PO Last administered on 12/15/16 09:57; Admin Dose 75 MG; Start 12/11/16 at 21:00 Eye Lubricant (Artificial Tears Oph) 2 drop Q6H PRN BOTH EYES DRY EYES Last administered on 12/14/16 20:34; Admin Dose 2 DROP; Start 12/11/16 at 20:30 Bisacodyl (Dulcolax) 5 mg DAILY PRN PO CONSTIPATION Last administered on 10:15; Admin Dose 5 MG; Start 12/12/16 at 10:00 Polyethylene Glycol (Miralax) 17 gm BID PO Last administered on 12/14/16 20:29 ; Admin Dose 17 GM; Start 12/12/16 at 10:00 Magnesium Hydroxide (Milk Of Mag) 30 ml DAILY PRN PO CONSTIPATION; Start at 10:00 Famotidine (Pepcid) 20 mg DAILY PO Last administered on 12/15/16 09:57; Admin Dose 20 MG; Start 12/13/16 at 09:00 Insulin Glargine (Lantus) 5 unit BID SC Last administered on 12/15/16 10:19; Admin Dose 5 UNIT; Start 12/13/16 at 12:00 Epoetin Louis (Epogen (Esrd)) 8,000 units TuThSa@17 SC Last administered on 18:04; Admin Dose 8,000 UNITS; Start 12/14/16 at 17:00 Levofloxacin (Levaquin) 250 mg Q48H PO ; Start 12/15/16 at 14:00 Amikacin Sulfate AMIKACIN PER PHARMACY NOTE XX ; Start 12/15/16 at 12:30 Amikacin Sulfate/ Sodium Chloride (Amikacin/NS) 101.7 ml @ 102 mls/hr ONCE ONCE IVPB ; Start 12/15/16 at 14:00; Stop 12/15/16 at 14:59 Xiang Krishna DO Dec 15, 2016 14:08
--- NOTE | 2016-12-15 18:03 | CONS ---
Date/Time of Note Date/Time of Note DATE: 12/15/16 TIME: 18:01 Assessment/Plan Assessment/Plan Chief Complaint/Hosp Course SUBJECTIVE: Patient is alert, feels better. No fevers. INDWELLINGS: AV fistula. MICROBIOLOGY: Sputum culture + Enterobacter. ANTIMICROBIALS: The patient is on: 1. Vancomycin. 2. Zosyn. PHYSICAL EXAMINATION: GENERAL: Fragile, elderly woman who is alert, in no distress. HEENT: Head atraumatic, normocephalic. Sclerae anicteric. Buccal mucosa pink , dry. NECK: Supple. CHEST: Rise symmetrical. Breath sounds diminished to bases. HEART: S1, S2. ABDOMEN: Soft, bowel tones present. EXTREMITIES: Without cyanosis. ASSESSMENT: 1. Resolving sepsis. 2. Pneumonia. 3. End-stage renal disease, on hemodialysis. 4. Diabetes. 5. Non-ST elevation myocardial infarction, status post angiography. PLAN: Improving, change abx to Amikacin and Levaquin. Pending CABG next week. Cleared from ID standpoint. DW staff Problems: Consultation Date/Type/Reason Admit Date/Time Dec 09, 2016 at 11:49 Type of Consultation: ID Exam/Review of Systems Vital Signs Vitals Vital Signs Date Time Temp Pulse Resp B/P Pulse Ox O2 Delivery O2 Flow Rate FiO2 12/15/16 16:09 58 12/15/16 16:01 97.3 18 121/60 98 12/14/16 06:52 Room Air 12/12/16 18:00 2.0 Intake and Output 12/14/16 12/14/16 12/15/16 15:00 23:00 07:00 Intake Total 1130 ml 50 ml Balance 1130 ml 50 ml Results Result Diagram: 12/13/16 0655 12/14/16 0609 Results 24 hrs Laboratory Tests Test 12/14/16 18:02 12/14/16 20:27 12/14/16 22:45 12/15/16 07:14 Bedside Glucose 171 149 Activated Partial Thromboplast Time 98.0 *H 53.1 H Test 12/15/16 07:26 12/15/16 11:33 12/15/16 16:20 12/15/16 17:25 Bedside Glucose 172 281 H 163 Activated Partial Thromboplast Time 52.8 H Medications Medications Current Medications Ondansetron HCl (Zofran Inj) 4 mg Q6H PRN IV NAUSEA AND/OR VOMITING; Start at 17:30 Acetaminophen (Tylenol Tab) 650 mg Q6H PRN PO PAIN LEVEL 1-3 OR FEVER Last administered on 12/15/16 10:04; Admin Dose 650 MG; Start 12/09/16 at 17:30 Docusate Sodium (Colace) 100 mg Q12H PRN PO CONSTIPATION; Start 12/09/16 at 17: 30 Bisacodyl (Dulcolax Supp) [address] CONSTIPATION; Start 12/09/16 at 17 :30 Allopurinol (Zyloprim) 100 mg QHS PO Last administered on 12/14/16 20:29; Admin Dose 100 MG; Start 12/09/16 at 21:00 Aspirin (Aspirin) 81 mg DAILY PO Last administered on 12/15/16 09:57; Admin Dose 81 MG; Start 12/10/16 at 09:00 Atorvastatin Calcium (Lipitor) 40 mg QHS PO Last administered on 12/14/16 20:30 ; Admin Dose 40 MG; Start 12/09/16 at 21:00 Cholecalciferol (Vitamin D) 2,000 unit DAILY PO Last administered on 12/15/16 10:01; Admin Dose 2,000 UNIT; Start 12/10/16 at 09:00 Cyanocobalamin (Vitamin B12) 1,000 mcg DAILY PO Last administered on 12/15/16 10:01; Admin Dose 1,000 MCG; Start 12/10/16 at 09:00 Docusate Sodium (Colace) 100 mg BID PO Last administered on 12/14/16 20:28; Admin Dose 100 MG; Start 12/09/16 at 21:00 Multivitamins Therapeutic (Theragran) 1 tab DAILY PO Last administered on 09:57; Admin Dose 1 TAB; Start 12/10/16 at 09:00 Tramadol HCl (Ultram) 25 mg Q8 PRN PO PAIN Last administered on 12/11/16 05:46 ; Admin Dose 25 MG; Start 12/09/16 at 17:30 Miscellaneous Information 1 ea NOTE XX ; Start 12/09/16 at 18:00 Glucose (Glutose) 15 gm Q15M PRN PO DECREASED GLUCOSE; Start 12/09/16 at 18:00 Glucose (Glutose) 22.5 gm Q15M PRN PO DECREASED GLUCOSE; Start 12/09/16 at 18: 00 Dextrose (D50w Syringe) 25 ml Q15M PRN IV DECREASED GLUCOSE; Start 12/09/16 at 18:00 Dextrose (D50w Syringe) 50 ml Q15M PRN IV DECREASED GLUCOSE; Start 12/09/16 at 18:00 Glucagon (Glucagen) 1 mg Q15M PRN IM DECREASED GLUCOSE; Start 12/09/16 at 18:00 Glucose (Glutose) 15 gm Q15M PRN BUCCAL DECREASED GLUCOSE; Start 12/09/16 at 18 :00 Linagliptin (Tradjenta) 5 mg DAILY PO Last administered on 12/15/16 10:01; Admin Dose 5 MG; Start 12/11/16 at 09:00 Metoprolol Succinate (Toprol Xl) 50 mg BID PO Last administered on 12/15/16 09: 59; Admin Dose 50 MG; Start 12/11/16 at 07:01 Pregabalin (Lyrica) 75 mg BID PO Last administered on 12/15/16 09:57; Admin Dose 75 MG; Start 12/11/16 at 21:00 Eye Lubricant (Artificial Tears Oph) 2 drop Q6H PRN BOTH EYES DRY EYES Last administered on 12/14/16 20:34; Admin Dose 2 DROP; Start 12/11/16 at 20:30 Bisacodyl (Dulcolax) 5 mg DAILY PRN PO CONSTIPATION Last administered on 10:15; Admin Dose 5 MG; Start 12/12/16 at 10:00 Polyethylene Glycol (Miralax) 17 gm BID PO Last administered on 12/14/16 20:29 ; Admin Dose 17 GM; Start 12/12/16 at 10:00 Magnesium Hydroxide (Milk Of Mag) 30 ml DAILY PRN PO CONSTIPATION; Start at 10:00 Famotidine (Pepcid) 20 mg DAILY PO Last administered on 12/15/16 09:57; Admin Dose 20 MG; Start 12/13/16 at 09:00 Insulin Glargine (Lantus) 5 unit BID SC Last administered on 12/15/16 10:19; Admin Dose 5 UNIT; Start 12/13/16 at 12:00 Epoetin Louis (Epogen (Esrd)) 8,000 units TuThSa@17 SC Last administered on 18:04; Admin Dose 8,000 UNITS; Start 12/14/16 at 17:00 Levofloxacin (Levaquin) 250 mg Q48H PO Last administered on 12/15/16 14:39; Admin Dose 250 MG; Start 12/15/16 at 14:00 Amikacin Sulfate (Amikacin Iv Per Pharmacy) AMIKACIN PER PHARMACY NOTE XX ; Start 12/15/16 at 12:30 ED OWENS NP Dec 15, 2016 18:02
[2016-12-15] MEDS: ATORVASTATIN 40 MG TAB PO SCH (21:32)
[2016-12-15] MEDS: ALLOPURINOL 100 MG TAB PO SCH (21:37)
[2016-12-15] MEDS: ARTIFICIAL TEARS 15 ML OPH BOTH EYES PRN (21:37)
[2016-12-16] VITALS (16 sets, daily range): BP systolic 98–146; BP diastolic 45–75; PULSE 55–68; RESP 16–20
[2016-12-16 07:09] LABS: ADD SCAN DIFF NO
[2016-12-16 07:15] LABS: BASOPHILS % 0.6 % (0.0-2.0); EOSINOPHILS # 0.4 10^3/ul (0.0-0.5); EOSINOPHILS % 5.2 % (0.0-7.0); HEMATOCRIT 24.9 % (37.0-47.0); HEMOGLOBIN 8.3 g/dl (12.0-16.0); LYMPHOCYTES # 2.4 10^3/ul (0.8-2.9); LYMPHOCYTES % 33.7 % (15.0-51.0); MEAN CORPUSCULAR HEMOGLOBIN 31.1 pg (29.0-33.0); MEAN CORPUSCULAR HGB CONC 33.3 g/dl (32.0-37.0); MEAN CORPUSCULAR VOLUME 93.3 fl (82.0-101.0); MEAN PLATELET VOLUME 10.5 fl (7.4-10.4); MONOCYTE # 0.8 10^3/ul (0.3-0.9); MONOCYTES % 11.2 % (0.0-11.0); NEUTROPHIL # 3.4 10^3/ul (1.6-7.5); NEUTROPHILS % 47.1 % (39.0-77.0); PLATELET COUNT 208 10^3/UL (140-415); RED BLOOD COUNT 2.67 10^6/ul (4.20-5.40); RED CELL DISTRIBUTION WIDTH 14.1 % (11.5-14.5); WHITE BLOOD COUNT 7.2 10^3/ul (4.8-10.8)
[2016-12-16 07:40] LABS: POTASSIUM 4.5 mmol/L (3.5-5.1)
[2016-12-16 07:41] LABS: PHOSPHORUS 8.7 mg/dl (2.5-4.9)
[2016-12-16 07:43] LABS: CREATININE 8.85 mg/dl (0.44-1.00)
[2016-12-16] MEDS: MULTIVITAMINS THERAPEUTIC TAB PO SCH (08:31)
[2016-12-16] MEDS: DOCUSATE SODIUM 100 MG CAP PO SCH ×2 (08:31→21:00)
[2016-12-16] MEDS: FAMOTIDINE 20 MG TAB PO SCH (08:31)
[2016-12-16] MEDS: ASPIRIN 81 MG TAB PO SCH (08:31)
[2016-12-16] MEDS: METOPROLOL (XL) 50 MG TAB PO SCH ×2 (08:32→21:00)
[2016-12-16] MEDS: LINAGLIPTIN 5 MG TABLET PO SCH (08:32)
[2016-12-16] MEDS: CYANOCOBALAMIN 500 MCG TAB PO SCH (08:32)
[2016-12-16] MEDS: CHOLECALCIFEROL 1,000 UNIT TAB PO SCH (08:32)
[2016-12-16] MEDS: PREGABALIN 75 MG CAP PO SCH ×2 (08:34→21:07)
[2016-12-16] MEDS: INSULIN GLARGINE [LANtus] 3 ML PEN SC SCH ×2 (08:39→21:16)
[2016-12-16] MEDS: INSULIN ASPART [NOVOLOG] 3 ML PEN SC SCH ×7 (08:40→21:00)
[2016-12-16] MEDS: POLYETHYLENE GLYCOL 17 GM PACKET PO SCH ×2 (08:41→21:00)
[2016-12-16] MEDS: HEPARIN 25000 UNITS/250 ML 250 ML IV SCH ×2 (09:26→19:26)
--- NOTE | 2016-12-16 09:30 | CONS ---
Date/Time of Note Date/Time of Note DATE: 12/16/16 TIME: 09:28 Assessment/Plan Assessment/Plan Chief Complaint/Hosp Course - ESRD Hemodialysis dependent - ANEMIA - HYPERTENSION - NSTEMI - PNEMONIA - DIABETES - CAD PLAN: Bedside dialysis Plan noted for CABG once her infection clears up ( Probably by Friday ) Continue with antibiotics Follow up with H/H EPOGEN to keep Hgb ~ 10 Problems: Consultation Date/Type/Reason Admit Date/Time Dec 09, 2016 at 11:49 Type of Consultation: NEPHROLOGY Reason for Consultation ESRD on dialysis 24 HR Interval Summary Constitutional: improved, no complaints Exam/Review of Systems Vital Signs Vitals Vital Signs Date Time Temp Pulse Resp B/P Pulse Ox O2 Delivery O2 Flow Rate FiO2 12/16/16 09:06 65 12/16/16 07:35 97.3 16 133/65 97 12/14/16 06:52 Room Air 12/12/16 18:00 2.0 Intake and Output 12/15/16 12/15/16 12/16/16 15:00 23:00 07:00 Intake Total 1020 ml 210 ml Output Total 900 ml Balance 120 ml 210 ml Exam Constitutional: alert, oriented Psych: no complaints Head: normocephalic Eyes: nl conjunctiva Neck: supple Respiratory: crackles/rales Cardiovascular: regular rate and rhythm, systolic murmur Gastrointestinal: soft Results Result Diagram: 12/16/16 0655 12/16/16 0655 Results 24 hrs Laboratory Tests Test 12/15/16 11:33 12/15/16 16:20 12/15/16 17:25 12/15/16 21:29 Bedside Glucose 281 H 163 153 Activated Partial Thromboplast Time 52.8 H Test 12/15/16 23:43 12/16/16 06:55 12/16/16 08:14 Activated Partial Thromboplast Time 61.0 H 173.0 *H White Blood Count 7.2 # Red Blood Count 2.67 L Hemoglobin 8.3 L Hematocrit 24.9 L Mean Corpuscular Volume 93.3 Mean Corpuscular Hemoglobin 31.1 Mean Corpuscular Hemoglobin Concent 33.3 Red Cell Distribution Width 14.1 Platelet Count 208 # Mean Platelet Volume 10.5 H Neutrophils % 47.1 Lymphocytes % 33.7 Monocytes % 11.2 H Eosinophils % 5.2 Basophils % 0.6 Nucleated Red Blood Cells % 0.0 Neutrophils # 3.4 Lymphocytes # 2.4 Monocytes # 0.8 Eosinophils # 0.4 Basophils # 0.0 Nucleated Red Blood Cells # 0.0 Sodium Level 133 L Potassium Level 4.5 Chloride Level 99 Carbon Dioxide Level 20 L Anion Gap 19 H Blood Urea Nitrogen 68 H Creatinine 8.85 H Glucose Level 115 Calcium Level 8.0 L Phosphorus Level 8.7 H Magnesium Level 2.0 Bedside Glucose 145 Medications Medications Current Medications Ondansetron HCl (Zofran Inj) 4 mg Q6H PRN IV NAUSEA AND/OR VOMITING; Start at 17:30 Acetaminophen (Tylenol Tab) 650 mg Q6H PRN PO PAIN LEVEL 1-3 OR FEVER Last administered on 12/15/16 21:32; Admin Dose 650 MG; Start 12/09/16 at 17:30 Docusate Sodium (Colace) 100 mg Q12H PRN PO CONSTIPATION; Start 12/09/16 at 17: 30 Bisacodyl (Dulcolax Supp) 10 mg DAILY PRN [place] CONSTIPATION; Start 12/09/16 at 17 :30 Allopurinol (Zyloprim) 100 mg QHS PO Last administered on 12/15/16 21:37; Admin Dose 100 MG; Start 12/09/16 at 21:00 Aspirin (Aspirin) 81 mg DAILY PO Last administered on 12/16/16 08:31; Admin Dose 81 MG; Start 12/10/16 at 09:00 Atorvastatin Calcium (Lipitor) 40 mg QHS PO Last administered on 12/15/16 21:32 ; Admin Dose 40 MG; Start 12/09/16 at 21:00 Cholecalciferol (Vitamin D) 2,000 unit DAILY PO Last administered on 12/16/16 08:32; Admin Dose 2,000 UNIT; Start 12/10/16 at 09:00 Cyanocobalamin (Vitamin B12) 1,000 mcg DAILY PO Last administered on 12/16/16 08:32; Admin Dose 1,000 MCG; Start 12/10/16 at 09:00 Docusate Sodium (Colace) 100 mg BID PO Last administered on 12/16/16 08:31; Admin Dose 100 MG; Start 12/09/16 at 21:00 Multivitamins Therapeutic (Theragran) 1 tab DAILY PO Last administered on 08:31; Admin Dose 1 TAB; Start 12/10/16 at 09:00 Tramadol HCl (Ultram) 25 mg Q8 PRN PO PAIN Last administered on 12/11/16 05:46 ; Admin Dose 25 MG; Start 12/09/16 at 17:30 Miscellaneous Information 1 ea NOTE XX ; Start 12/09/16 at 18:00 Glucose (Glutose) 15 gm Q15M PRN PO DECREASED GLUCOSE; Start 12/09/16 at 18:00 Glucose (Glutose) 22.5 gm Q15M PRN PO DECREASED GLUCOSE; Start 12/09/16 at 18: 00 Dextrose (D50w Syringe) 25 ml Q15M PRN IV DECREASED GLUCOSE; Start 12/09/16 at 18:00 Dextrose (D50w Syringe) 50 ml Q15M PRN IV DECREASED GLUCOSE; Start 12/09/16 at 18:00 Glucagon (Glucagen) 1 mg Q15M PRN IM DECREASED GLUCOSE; Start 12/09/16 at 18:00 Glucose (Glutose) 15 gm Q15M PRN BUCCAL DECREASED GLUCOSE; Start 12/09/16 at 18 :00 Linagliptin (Tradjenta) 5 mg DAILY PO Last administered on 12/16/16 08:32; Admin Dose 5 MG; Start 12/11/16 at 09:00 Metoprolol Succinate (Toprol Xl) 50 mg BID PO Last administered on 12/16/16 08: 32; Admin Dose 50 MG; Start 12/11/16 at 07:01 Pregabalin (Lyrica) 75 mg BID PO Last administered on 12/16/16 08:34; Admin Dose 75 MG; Start 12/11/16 at 21:00 Eye Lubricant (Artificial Tears Oph) 2 drop Q6H PRN BOTH EYES DRY EYES Last administered on 12/15/16 21:37; Admin Dose 2 DROP; Start 12/11/16 at 20:30 Bisacodyl (Dulcolax) 5 mg DAILY PRN PO CONSTIPATION Last administered on 10:15; Admin Dose 5 MG; Start 12/12/16 at 10:00 Polyethylene Glycol (Miralax) 17 gm BID PO Last administered on 12/14/16 20:29 ; Admin Dose 17 GM; Start 12/12/16 at 10:00 Magnesium Hydroxide (Milk Of Mag) 30 ml DAILY PRN PO CONSTIPATION; Start at 10:00 Famotidine (Pepcid) 20 mg DAILY PO Last administered on 12/16/16 08:31; Admin Dose 20 MG; Start 12/13/16 at 09:00 Insulin Glargine (Lantus) 5 unit BID SC Last administered on 12/16/16 08:39; Admin Dose 5 UNIT; Start 12/13/16 at 12:00 Epoetin Louis (Epogen (Esrd)) 8,000 units TuThSa@17 SC Last administered on 18:04; Admin Dose 8,000 UNITS; Start 12/14/16 at 17:00 Levofloxacin (Levaquin) 250 mg Q48H PO Last administered on 12/15/16 14:39; Admin Dose 250 MG; Start 12/15/16 at 14:00 Amikacin Sulfate (Amikacin Iv Per Pharmacy) AMIKACIN PER PHARMACY NOTE XX ; Start 12/15/16 at 12:30 TANIA THAPA MD Dec 16, 2016 09:30
--- NOTE | 2016-12-16 11:05 | PN ---
Date/Time of Note Date/Time of Note DATE: 12/16/16 TIME: 10:58 Assessment/Plan VTE Prophylaxis VTE Prophylaxis Intervention: other (on Heparin gtt ) Lines/Catheters IV [facility] Type (from [facility]): Peripheral IV Urinary Cath still in place: No Assessment/Plan Assessment/Plan 71-year-old female with: 1. NSTEMI with reported CAD s/p angiogram with evidence of triple-vessel disease including distal left main Appreciate assistance from Dr Krishna, plan to remain on Heparin gtt until CABG, which is planned for tomorrow 12/17 so far, discussed with ID and cleared per ID . Appreciate evaluation and recs from Dr Trinh. 2. Multifocal pneumonia and bronchitis, likely HCAP. Blood cultures negatives Antibiotics changed to Levaquin and Amikacin per ID, WBC trended back down to normal, afebrile, Sputum cx with Enterobacter, on RA and repeat CXR better and stable Appreciate ID recommendations 3. End-stage renal disease on hemodialysis. On M/W/F Nephrology following. HD today 4. Diabetes mellitus, insulin requiring. A1c 7.9. BG stable. Appreciate recommendations from visual educator. Continue SSI, change Lantus to 5 units subQ bid, premeal insulin and Tradjenta per DM education recommendations. 5. Chronic Anemia: patient likely to require transfusion marvin operatively 6. Hyperlipidemia. Continue statin therapy. 7. Diabetic neuropathy. Continue Lyrica. Prophylaxis. Pepcid for GI prophylaxis and on heparin gtt now. DISPOSITION: on Heparin gtt and awaiting CABG Tomorrow hopefully. On Telemetry and remains stable. Subjective 24 Hr Interval Summary Free Text/Dictation Patient remains stable, HD today and plan for CABG tomorrow Stable form respiratory standpoint Exam/Review of Systems Vital Signs Vitals Vital Signs Date Time Temp Pulse Resp B/P Pulse Ox O2 Delivery O2 Flow Rate FiO2 12/16/16 09:06 65 12/16/16 07:35 97.3 16 133/65 97 12/14/16 06:52 Room Air 12/12/16 18:00 2.0 Intake and Output 12/15/16 12/15/16 12/16/16 15:00 23:00 07:00 Intake Total 1020 ml 210 ml Output Total 900 ml Balance 120 ml 210 ml Exam Constitutional: alert, oriented, other (monegasque speaking ), well developed Respiratory: clear to auscultation, normal air movement Cardiovascular: nl pulses, regular rate and rhythm Gastrointestinal: non-tender, soft Musculoskeletal: nl extremities to inspection, other (no edema, clubbing or cyanosis ) Extremities: normal pulses 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, nl mental status, nl speech, nl strength Results Result Diagram: 12/16/16 0655 12/16/16 0655 Results 24 hrs Laboratory Tests Test 12/15/16 11:33 12/15/16 16:20 12/15/16 17:25 12/15/16 21:29 Bedside Glucose 281 H 163 153 Activated Partial Thromboplast Time 52.8 H Test 12/15/16 23:43 12/16/16 06:55 12/16/16 08:14 Activated Partial Thromboplast Time 61.0 H 173.0 *H White Blood Count 7.2 # Red Blood Count 2.67 L Hemoglobin 8.3 L Hematocrit 24.9 L Mean Corpuscular Volume 93.3 Mean Corpuscular Hemoglobin 31.1 Mean Corpuscular Hemoglobin Concent 33.3 Red Cell Distribution Width 14.1 Platelet Count 208 # Mean Platelet Volume 10.5 H Neutrophils % 47.1 Lymphocytes % 33.7 Monocytes % 11.2 H Eosinophils % 5.2 Basophils % 0.6 Nucleated Red Blood Cells % 0.0 Neutrophils # 3.4 Lymphocytes # 2.4 Monocytes # 0.8 Eosinophils # 0.4 Basophils # 0.0 Nucleated Red Blood Cells # 0.0 Sodium Level 133 L Potassium Level 4.5 Chloride Level 99 Carbon Dioxide Level 20 L Anion Gap 19 H Blood Urea Nitrogen 68 H Creatinine 8.85 H Glucose Level 115 Calcium Level 8.0 L Phosphorus Level 8.7 H Magnesium Level 2.0 Bedside Glucose 145 Medications Medications Current Medications Ondansetron HCl (Zofran Inj) 4 mg Q6H PRN IV NAUSEA AND/OR VOMITING; Start at 17:30 Acetaminophen (Tylenol Tab) 650 mg Q6H PRN PO PAIN LEVEL 1-3 OR FEVER Last administered on 12/15/16t 21:32; Admin Dose 650 MG; Start 12/09/16 at 17:30 Docusate Sodium (Colace) 100 mg Q12H PRN PO CONSTIPATION; Start 12/09/16 at 17: 30 Bisacodyl (Dulcolax Supp) 10 mg DAILY PRN [place] CONSTIPATION; Start 12/09/16 at 17 :30 Allopurinol (Zyloprim) 100 mg QHS PO Last administered on 12/15/16 21:37; Admin Dose 100 MG; Start 12/09/16 at 21:00 Aspirin (Aspirin) 81 mg DAILY PO Last administered on 12/16/16 08:31; Admin Dose 81 MG; Start 12/10/16 at 09:00 Atorvastatin Calcium (Lipitor) 40 mg QHS PO Last administered on 12/15/16 21:32 ; Admin Dose 40 MG; Start 12/09/16 at 21:00 Cholecalciferol (Vitamin D) 2,000 unit DAILY PO Last administered on 12/16/16 08:32; Admin Dose 2,000 UNIT; Start 12/10/16 at 09:00 Cyanocobalamin (Vitamin B12) 1,000 mcg DAILY PO Last administered on 12/16/16 08:32; Admin Dose 1,000 MCG; Start 12/10/16 at 09:00 Docusate Sodium (Colace) 100 mg BID PO Last administered on 12/16/16 08:31; Admin Dose 100 MG; Start 12/09/16 at 21:00 Multivitamins Therapeutic (Theragran) 1 tab DAILY PO Last administered on 08:31; Admin Dose 1 TAB; Start 12/10/16 at 09:00 Tramadol HCl (Ultram) 25 mg Q8 PRN PO PAIN Last administered on 12/11/16 05:46 ; Admin Dose 25 MG; Start 12/09/16 at 17:30 Miscellaneous Information 1 ea NOTE XX ; Start 12/09/16 at 18:00 Glucose (Glutose) 15 gm Q15M PRN PO DECREASED GLUCOSE; Start 12/09/16 at 18:00 Glucose (Glutose) 22.5 gm Q15M PRN PO DECREASED GLUCOSE; Start 12/09/16 at 18: 00 Dextrose (D50w Syringe) 25 ml Q15M PRN IV DECREASED GLUCOSE; Start 12/09/16 at 18:00 Dextrose (D50w Syringe) 50 ml Q15M PRN IV DECREASED GLUCOSE; Start 12/09/16 at 18:00 Glucagon (Glucagen) 1 mg Q15M PRN IM DECREASED GLUCOSE; Start 12/09/16 at 18:00 Glucose (Glutose) 15 gm Q15M PRN BUCCAL DECREASED GLUCOSE; Start 12/09/16 at 18 :00 Linagliptin (Tradjenta) 5 mg DAILY PO Last administered on 12/16/16 08:32; Admin Dose 5 MG; Start 12/11/16 at 09:00 Metoprolol Succinate (Toprol Xl) 50 mg BID PO Last administered on 12/16/16 08: 32; Admin Dose 50 MG; Start 12/11/16 at 07:01 Pregabalin (Lyrica) 75 mg BID PO Last administered on 12/16/16 08:34; Admin Dose 75 MG; Start 12/11/16 at 21:00 Eye Lubricant (Artificial Tears Oph) 2 drop Q6H PRN BOTH EYES DRY EYES Last administered on 12/15/16 21:37; Admin Dose 2 DROP; Start 12/11/16 at 20:30 Bisacodyl (Dulcolax) 5 mg DAILY PRN PO CONSTIPATION Last administered on 10:15; Admin Dose 5 MG; Start 12/12/16 at 10:00 Polyethylene Glycol (Miralax) 17 gm BID PO Last administered on 12/14/16 20:29 ; Admin Dose 17 GM; Start 12/12/16 at 10:00 Magnesium Hydroxide (Milk Of Mag) 30 ml DAILY PRN PO CONSTIPATION; Start at 10:00 Famotidine (Pepcid) 20 mg DAILY PO Last administered on 12/16/16 08:31; Admin Dose 20 MG; Start 12/13/16 at 09:00 Insulin Glargine (Lantus) 5 unit BID SC Last administered on 12/16/16 08:39; Admin Dose 5 UNIT; Start 12/13/16 at 12:00 Epoetin Louis (Epogen (Esrd)) 8,000 units TuThSa@17 SC Last administered on 18:04; Admin Dose 8,000 UNITS; Start 12/14/16 at 17:00 Levofloxacin (Levaquin) 250 mg Q48H PO Last administered on 12/15/16 14:39; Admin Dose 250 MG; Start 12/15/16 at 14:00 Amikacin Sulfate (Amikacin Iv Per Pharmacy) AMIKACIN PER PHARMACY NOTE XX ; Start 12/15/16 at 12:30 JOSHUA MATSON Dec 16, 2016 11:04
--- NOTE | 2016-12-16 12:28 | RADRPT ---
PROCEDURE: XR Chest. CLINICAL INDICATION: Shortness of breath. TECHNIQUE: Single frontal view. COMPARISON: 12/14/2016. FINDINGS: There is mild interstitial disease bilaterally consistent with pulmonary edema, unchanged. The lung s are otherwise clear. The heart is mildly enlarged. There is calcification in the aorta consistent with atherosclerosis. There is no pleural effusion. There is no pneumothorax. IMPRESSION: 1. Mild pulmonary edema, unchanged. 2. Mild cardiomegaly and atherosclerosis. RPTAT: QQ .Ventura Long MD, MD Date Time Electronically viewed and signed by .Ventura Long MD, MD on 12/16/2016 12:28 .R/
--- NOTE | 2016-12-16 14:37 | CONS ---
Date/Time of Note Date/Time of Note DATE: 12/16/16 TIME: 14:36 Assessment/Plan Assessment/Plan Chief Complaint/Hosp Course SUBJECTIVE: Patient is alert, feels better. No fevers. INDWELLINGS: AV fistula. MICROBIOLOGY: Sputum culture + Enterobacter. ANTIMICROBIALS: The patient is on: 1. Amikacin. 2. Cipro. PHYSICAL EXAMINATION: GENERAL: Fragile, elderly woman who is alert, in no distress. HEENT: Head atraumatic, normocephalic. Sclerae anicteric. Buccal mucosa pink , dry. NECK: Supple. CHEST: Rise symmetrical. Breath sounds diminished to bases. HEART: S1, S2. ABDOMEN: Soft, bowel tones present. EXTREMITIES: Without cyanosis. ASSESSMENT: 1. Resolving sepsis. 2. Pneumonia. 3. End-stage renal disease, on hemodialysis. 4. Diabetes. 5. Non-ST elevation myocardial infarction, status post angiography. PLAN: Improving, continue abx. Pending CABG DW staff Problems: Consultation Date/Type/Reason Admit Date/Time Dec 09, 2016 at 11:49 Type of Consultation: id Exam/Review of Systems Vital Signs Vitals Vital Signs Date Time Temp Pulse Resp B/P Pulse Ox O2 Delivery O2 Flow Rate FiO2 12/16/16 12:15 60 12/16/16 11:38 97.6 16 116/75 100 12/14/16 06:52 Room Air 12/12/16 18:00 2.0 Intake and Output 12/15/16 12/15/16 12/16/16 15:00 23:00 07:00 Intake Total 1020 ml 210 ml Output Total 900 ml Balance 120 ml 210 ml Results Result Diagram: 12/16/16 0655 12/16/16 0655 Results 24 hrs Laboratory Tests Test 12/15/16 16:20 12/15/16 17:25 12/15/16 21:29 12/15/16 23:43 Activated Partial Thromboplast Time 52.8 H 61.0 H Bedside Glucose 163 153 Test 12/16/16 06:55 12/16/16 08:14 12/16/16 12:14 White Blood Count 7.2 # Red Blood Count 2.67 L Hemoglobin 8.3 L Hematocrit 24.9 L Mean Corpuscular Volume 93.3 Mean Corpuscular Hemoglobin 31.1 Mean Corpuscular Hemoglobin Concent 33.3 Red Cell Distribution Width 14.1 Platelet Count 208 # Mean Platelet Volume 10.5 H Neutrophils % 47.1 Lymphocytes % 33.7 Monocytes % 11.2 H Eosinophils % 5.2 Basophils % 0.6 Nucleated Red Blood Cells % 0.0 Neutrophils # 3.4 Lymphocytes # 2.4 Monocytes # 0.8 Eosinophils # 0.4 Basophils # 0.0 Nucleated Red Blood Cells # 0.0 Activated Partial Thromboplast Time 173.0 *H Sodium Level 133 L Potassium Level 4.5 Chloride Level 99 Carbon Dioxide Level 20 L Anion Gap 19 H Blood Urea Nitrogen 68 H Creatinine 8.85 H Glucose Level 115 Calcium Level 8.0 L Phosphorus Level 8.7 H Magnesium Level 2.0 Bedside Glucose 145 197 Medications Medications Current Medications Ondansetron HCl (Zofran Inj) 4 mg Q6H PRN IV NAUSEA AND/OR VOMITING; Start at 17:30 Acetaminophen (Tylenol Tab) 650 mg Q6H PRN PO PAIN LEVEL 1-3 OR FEVER Last administered on 12/15/16 21:32; Admin Dose 650 MG; Start 12/09/16 at 17:30 Docusate Sodium (Colace) 100 mg Q12H PRN PO CONSTIPATION; Start 12/09/16 at 17: 30 Bisacodyl (Dulcolax Supp) 10 mg DAILY PRN [place] CONSTIPATION; Start 12/09/16 at 17 :30 Allopurinol (Zyloprim) 100 mg QHS PO Last administered on 12/15/16 21:37; Admin Dose 100 MG; Start 12/09/16 at 21:00 Aspirin (Aspirin) 81 mg DAILY PO Last administered on 12/16/16 08:31; Admin Dose 81 MG; Start 12/10/16 at 09:00 Atorvastatin Calcium (Lipitor) 40 mg QHS PO Last administered on 12/15/16 21:32 ; Admin Dose 40 MG; Start 12/09/16 at 21:00 Cholecalciferol (Vitamin D) 2,000 unit DAILY PO Last administered on 12/16/16 08:32; Admin Dose 2,000 UNIT; Start 12/10/16 at 09:00 Cyanocobalamin (Vitamin B12) 1,000 mcg DAILY PO Last administered on 12/16/16 08:32; Admin Dose 1,000 MCG; Start 12/10/16 at 09:00 Docusate Sodium (Colace) 100 mg BID PO Last administered on 12/16/16 08:31; Admin Dose 100 MG; Start 12/09/16 at 21:00 Multivitamins Therapeutic (Theragran) 1 tab DAILY PO Last administered on 08:31; Admin Dose 1 TAB; Start 12/10/16 at 09:00 Tramadol HCl (Ultram) 25 mg Q8 PRN PO PAIN Last administered on 12/11/16 05:46 ; Admin Dose 25 MG; Start 12/09/16 at 17:30 Miscellaneous Information 1 ea NOTE XX ; Start 12/09/16 at 18:00 Glucose (Glutose) 15 gm Q15M PRN PO DECREASED GLUCOSE; Start 12/09/16 at 18:00 Glucose (Glutose) 22.5 gm Q15M PRN PO DECREASED GLUCOSE; Start 12/09/16 at 18: 00 Dextrose (D50w Syringe) 25 ml Q15M PRN IV DECREASED GLUCOSE; Start 12/09/16 at 18:00 Dextrose (D50w Syringe) 50 ml Q15M PRN IV DECREASED GLUCOSE; Start 12/09/16 at 18:00 Glucagon (Glucagen) 1 mg Q15M PRN IM DECREASED GLUCOSE; Start 12/09/16 at 18:00 Glucose (Glutose) 15 gm Q15M PRN BUCCAL DECREASED GLUCOSE; Start 12/09/16 at 18 :00 Linagliptin (Tradjenta) 5 mg DAILY PO Last administered on 12/16/16 08:32; Admin Dose 5 MG; Start 12/11/16 at 09:00 Metoprolol Succinate (Toprol Xl) 50 mg BID PO Last administered on 12/16/16 08: 32; Admin Dose 50 MG; Start 12/11/16 at 07:01 Pregabalin (Lyrica) 75 mg BID PO Last administered on 12/16/16 08:34; Admin Dose 75 MG; Start 12/11/16 at 21:00 Eye Lubricant (Artificial Tears Oph) 2 drop Q6H PRN BOTH EYES DRY EYES Last administered on 12/15/16 21:37; Admin Dose 2 DROP; Start 12/11/16 at 20:30 Bisacodyl (Dulcolax) 5 mg DAILY PRN PO CONSTIPATION Last administered on 10:15; Admin Dose 5 MG; Start 12/12/16 at 10:00 Polyethylene Glycol (Miralax) 17 gm BID PO Last administered on 12/14/16 20:29 ; Admin Dose 17 GM; Start 12/12/16 at 10:00 Magnesium Hydroxide (Milk Of Mag) 30 ml DAILY PRN PO CONSTIPATION; Start at 10:00 Famotidine (Pepcid) 20 mg DAILY PO Last administered on 12/16/16 08:31; Admin Dose 20 MG; Start 12/13/16 at 09:00 Insulin Glargine (Lantus) 5 unit BID SC Last administered on 12/16/16 08:39; Admin Dose 5 UNIT; Start 12/13/16 at 12:00 Epoetin Louis (Epogen (Esrd)) 8,000 units TuThSa@17 SC Last administered on 18:04; Admin Dose 8,000 UNITS; Start 12/14/16 at 17:00 Levofloxacin (Levaquin) 250 mg Q48H PO Last administered on 12/15/16 14:39; Admin Dose 250 MG; Start 12/15/16 at 14:00 Amikacin Sulfate (Amikacin Iv Per Pharmacy) AMIKACIN PER PHARMACY NOTE XX ; Start 12/15/16 at 12:30 ED OWENS NP Dec 16, 2016 14:36
--- NOTE | 2016-12-16 14:45 | PN ---
Date/Time of Note Date/Time of Note DATE: 12/16/16 TIME: 14:45 Assessment/Plan Lines/Catheters IV Catheter Type (from Nrs): Peripheral IV Leroy in Place (from Nrsg): No Assessment/Plan Assessment/Plan pt feels better, cleared by ID, cxr improved will plan for CABG in AM Exam/Review of Systems Vital Signs Vitals Vital Signs Date Time Temp Pulse Resp B/P Pulse Ox O2 Delivery O2 Flow Rate FiO2 12/16/16 12:15 60 12/16/16 11:38 97.6 16 116/75 100 12/14/16 06:52 Room Air 12/12/16 18:00 2.0 Intake and Output 12/15/16 12/15/16 12/16/16 15:00 23:00 07:00 Intake Total 1020 ml 210 ml Output Total 900 ml Balance 120 ml 210 ml Results Result Diagram: 12/16/16 0655 12/16/16 0655 LAKEISHA MURO MD Dec 16, 2016 14:45
--- NOTE | 2016-12-16 16:22 | CONS ---
DATE OF ADMISSION: 12/09/2016 DATE OF CONSULTATION: 12/10/2016 REQUESTING PHYSICIAN: Dr. Krishna. CONSULTING PHYSICIAN: Chaitanya Trinh MD. REASON FOR CONSULTATION: Evaluate for coronary revascularization. HISTORY OF PRESENT ILLNESS: The patient is a 71-year-old female with end-stage renal disease, on he modialysis who presented with respiratory tract infections and had a troponin done which showed elev ation to 18. She underwent coronary angiogram which shows severe 3-vessel coronary artery disease. She was admitted and treated for bilateral pulmonary infiltrates and pneumonia. PAST MEDICAL HISTORY: Significant for end-stage renal disease, on hemodialysis; diabetes; diabetic neuropathy; coronary artery disease; hyperlipidemia. PAST SURGICAL HISTORY: Status post left upper extremity fistula placed 2 years ago. SOCIAL HISTORY: She lives with her son. No alcohol or tobacco use. REVIEW OF SYSTEMS: A 12-point review of systems was performed. Her only complaint is shortness of breath. OUTPATIENT MEDICATIONS: Included: 1. Atorvastatin. 2. Aspirin. 3. Lyrica. 4. Tramadol. 5. Colace. 6. Lantus. 7. Multivitamins. 8. Allopurinol. She has been on antibiotics since admission. PHYSICAL EXAMINATION: GENERAL APPEARANCE: The patient is awake, alert. VITAL SIGNS: Temperature is 99, sinus rhythm at 80, respiratory rate is 20, blood pressure 140/60. HEENT: Pupils equal, round, react to light. NECK: Supple, no adenopathy, no bruits. LUNGS: Clear to auscultation except for the bases which have rales. ABDOMEN: Soft, nontender. EXTREMITIES: She has a left upper extremity fistula. NEUROLOGIC: Grossly intact. No weakness. 4/5 muscle strength. ASSESSMENT AND PLAN: This is a 71-year-old female with end-stage renal failure, status post non-ST elevation myocardial infarction. She will need coronary revascularization. Because of diffuse patc hy infiltrates seen on the CAT scan, I would recommend 1 weeks' worth of antibiotics prior to surger y. Once her pneumonia has cleared up we would recommend coronary artery bypass grafting. I explain ed the benefits, the risks, alternatives to her son; the risks are but not limited to bleeding, infe ction, stroke, myocardial infarction, respiratory failure and . He translated this to his [facility] er, and they agreed to surgery in a weeks' time. Dictated By: CHAITANYA BELLA/DEEPALI Conf#: [id number] DID#: [id number]
[2016-12-16] MEDS: ACETAMINOPHEN 325 MG TAB PO PRN (21:06)
[2016-12-16] MEDS: ARTIFICIAL TEARS 15 ML OPH BOTH EYES PRN (21:07)
[2016-12-16] MEDS: ATORVASTATIN 40 MG TAB PO SCH (21:07)
[2016-12-16] MEDS: ALLOPURINOL 100 MG TAB PO SCH (21:08)
[2016-12-16] MEDS ORDERED: ALBUMIN HUMAN 25% 100 ML IV ONE (23:00)
[2016-12-17] VITALS (58 sets, daily range): BP systolic 87–147; BP diastolic 34–67; PULSE 63–93; RESP 10–29; TEMP 97.9–99.9
[2016-12-17] MEDS ORDERED: PHENYLephrine 20MG IN 250 ML 250 ML IV ONE (06:30)
[2016-12-17] MEDS ORDERED: NORepinephrine 8MG/250 ML (PMX 250 ML IV ONE (06:30)
[2016-12-17] MEDS ORDERED: INSULIN REGULAR, HUMAN 100 UNIT in SOD CHLORIDE 0.9% 99 ML IVPB ONE ×2 (06:30)
[2016-12-17] MEDS ORDERED: EPINEPHrine 4 MG in DEXTROSE 5% 246 ML IV ONE (06:30)
[2016-12-17] MEDS ORDERED: ASPIRIN 600 MG SUPP PR ONE (06:30)
[2016-12-17] MEDS ORDERED: HEPARIN (10000 UNITS/ML) 10,000 UNIT, MILRINONE LACTATE 10 MG in SOD CHLORIDE 0.9% 1,00... SC ONE (06:30)
[2016-12-17] MEDS ORDERED: MILRINONE LACTATE 2 MG in SOD CHLORIDE 0.9% 50 ML IV ONE (06:30)
[2016-12-17] MEDS ORDERED: HEPARIN 1000 UNITS/ML 10 ML INJ ONE ×3 (06:38→08:45)
[2016-12-17] MEDS ORDERED: VANCOMYCIN 1 GM INJ ONE (06:38)
[2016-12-17] MEDS ORDERED: THROMBIN 5000 UNIT VIAL ONE (06:38)
[2016-12-17] MEDS ORDERED: GELATIN SIZE 100 SPONGE ONE (06:38)
[2016-12-17] MEDS ORDERED: PAPAVERINE 60 MG INJ ONE (06:38)
--- NOTE | 2016-12-17 06:52 | HPN ---
Date/Time of Note Date/Time of Note DATE: 12/17/16 TIME: 06:52 Interval H&P Admission Note Pt. seen H&P reviewed: Systems changes noted below improved pulmonary status LAKEISHA MURO MD Dec 17, 2016 06:52
[2016-12-17] MEDS ORDERED: DOPamine-D5W 1.6 MG/ML 250 ML ONE (07:00)
[2016-12-17] MEDS ORDERED: NA BICARBONATE 8.4% 50 ML SYG ONE ×2 (07:00→07:19)
[2016-12-17] MEDS ORDERED: NITROGLYCERIN 50 MG/D5W 250 ML BTL ONE (07:00)
[2016-12-17] MEDS ORDERED: INSULIN REGULAR, HUMAN 100 UNIT/1 ML 3ML VIAL ONE (07:00)
[2016-12-17] MEDS ORDERED: AMINOCAPROIC ACID 5 GM INJ ONE ×4 (07:16→10:29)
[2016-12-17] MEDS ORDERED: ALBUMIN HUMAN 25% 300 ML ONE (07:16)
[2016-12-17] MEDS ORDERED: CA CHLORIDE 10% 10 ML SYRINGE ONE (07:17)
[2016-12-17] MEDS ORDERED: POTASSIUM CHLORIDE 40 MEQ INJ ONE (07:18)
[2016-12-17] MEDS ORDERED: LIDOCAINE 100 MG SYRINGE ONE (07:19)
[2016-12-17] MEDS ORDERED: MAGNESIUM SULFATE (MG) 50% 10 ML INJ ONE (07:19)
[2016-12-17] MEDS ORDERED: PHENYLephrine 10 MG INJ ONE (07:20)
[2016-12-17] MEDS ORDERED: PHENYLephrine (100 MCG/ML) 5ML SYG ONE ×3 (07:20→10:28)
[2016-12-17] MEDS ORDERED: MIDAZOLAM 5 ML ONE ×2 (07:21→09:18)
[2016-12-17 07:33] LABS: ADD SCAN DIFF NO
[2016-12-17 07:41] LABS: BASOPHIL # 0.1 10^3/ul (0.0-0.1); BASOPHILS % 0.7 % (0.0-2.0); EOSINOPHILS # 0.3 10^3/ul (0.0-0.5); EOSINOPHILS % 4.3 % (0.0-7.0); HEMATOCRIT 26.4 % (37.0-47.0); HEMOGLOBIN 8.7 g/dl (12.0-16.0); LYMPHOCYTES % 30.3 % (15.0-51.0); MEAN CORPUSCULAR HEMOGLOBIN 30.7 pg (29.0-33.0); MEAN CORPUSCULAR VOLUME 93.3 fl (82.0-101.0); MEAN PLATELET VOLUME 10.9 fl (7.4-10.4); MONOCYTE # 0.9 10^3/ul (0.3-0.9); MONOCYTES % 13.4 % (0.0-11.0); NEUTROPHIL # 3.3 10^3/ul (1.6-7.5); NEUTROPHILS % 48.6 % (39.0-77.0); PLATELET COUNT 213 10^3/UL (140-415); RED BLOOD COUNT 2.83 10^6/ul (4.20-5.40); RED CELL DISTRIBUTION WIDTH 14.3 % (11.5-14.5); WHITE BLOOD COUNT 6.7 10^3/ul (4.8-10.8)
[2016-12-17] MEDS ORDERED: MANNITOL 25% 150 ML ONE (07:50)
[2016-12-17 08:05] LABS: POTASSIUM 4.3 mmol/L (3.5-5.1)
[2016-12-17 08:08] LABS: CREATININE 6.26 mg/dl (0.44-1.00)
[2016-12-17 08:09] LABS: CALCIUM 8.6 mg/dl (8.4-10.2)
[2016-12-17] MEDS ORDERED: CEFAZOLIN 1 GM INJ ONE ×2 (08:26→10:29)
[2016-12-17] MEDS: PREGABALIN 75 MG CAP PO SCH ×2 (09:00→21:00)
[2016-12-17] MEDS: METOPROLOL (XL) 50 MG TAB PO SCH ×2 (09:00→21:00)
[2016-12-17] MEDS: ASPIRIN 81 MG TAB PO SCH (09:00)
[2016-12-17] MEDS ORDERED: FUROSEMIDE 20 MG INJ ONE (09:07)
[2016-12-17] MEDS ORDERED: FUROSEMIDE 10 ML ONE ×2 (09:32→10:58)
--- NOTE | 2016-12-17 10:13 | CONS ---
Date/Time of Note Date/Time of Note DATE: 12/17/16 TIME: 10:10 Assessment/Plan Assessment/Plan Chief Complaint/Hosp Course - ESRD Hemodialysis dependent - ANEMIA - HYPERTENSION - NSTEMI - PNEMONIA - DIABETES - CAD PLAN: Bedside dialysis WAS DONE YESTERDAY HEMODYNAMICALLY STABLE GOING FOR CABG TODAY WILL MONITOR : H/H & POTASSIUM & VOLUME STATUS POST SURGERY EPOGEN to keep Hgb ~ 10 Problems: Consultation Date/Type/Reason Admit Date/Time Dec 09, 2016 at 11:49 Type of Consultation: NEPHROLOGY Reason for Consultation ESRD ON HEMODIALYSIS 24 HR Interval Summary Constitutional: improved, no complaints Exam/Review of Systems Vital Signs Vitals Vital Signs Date Time Temp Pulse Resp B/P Pulse Ox O2 Delivery O2 Flow Rate FiO2 12/17/16 04:35 98.2 64 18 140/64 100 12/14/16 06:52 Room Air Intake and Output 12/16/16 12/16/16 12/17/16 15:00 23:00 07:00 Intake Total 824.5 ml Output Total 800 ml Balance 24.5 ml Exam Constitutional: alert, oriented Psych: no complaints Neck: supple Respiratory: crackles/rales Cardiovascular: regular rate and rhythm, systolic murmur Results Result Diagram: 12/17/16 0633 12/17/16 0633 Results 24 hrs Laboratory Tests Test 12/16/16 12:14 12/16/16 16:10 12/16/16 17:21 12/16/16 21:05 Bedside Glucose 197 183 151 Activated Partial Thromboplast Time 53.0 H Test 12/17/16 00:50 12/17/16 05:58 12/17/16 06:33 Activated Partial Thromboplast Time 89.2 *H Bedside Glucose 140 White Blood Count 6.7 Red Blood Count 2.83 L Hemoglobin 8.7 L Hematocrit 26.4 L Mean Corpuscular Volume 93.3 Mean Corpuscular Hemoglobin 30.7 Mean Corpuscular Hemoglobin Concent 33.0 Red Cell Distribution Width 14.3 Platelet Count 213 Mean Platelet Volume 10.9 H Neutrophils % 48.6 Lymphocytes % 30.3 Monocytes % 13.4 H Eosinophils % 4.3 Basophils % 0.7 Nucleated Red Blood Cells % 0.0 Neutrophils # 3.3 Lymphocytes # 2.0 Monocytes # 0.9 Eosinophils # 0.3 Basophils # 0.1 Nucleated Red Blood Cells # 0.0 Sodium Level 134 L Potassium Level 4.3 Chloride Level 97 Carbon Dioxide Level 24 Anion Gap 17 H Blood Urea Nitrogen 41 #H Creatinine 6.26 #H Glucose Level 132 Calcium Level 8.6 Phosphorus Level 6.0 #H Magnesium Level 2.0 Medications Medications Current Medications Ondansetron HCl (Zofran Inj) 4 mg Q6H PRN IV NAUSEA AND/OR VOMITING; Start at 17:30 Acetaminophen (Tylenol Tab) 650 mg Q6H PRN PO PAIN LEVEL 1-3 OR FEVER Last administered on 12/16/16 21:06; Admin Dose 650 MG; Start 12/09/16 at 17:30 Docusate Sodium (Colace) 100 mg Q12H PRN PO CONSTIPATION; Start 12/09/16 at 17: 30 Bisacodyl (Dulcolax Supp) 10 mg DAILY PRN [place] CONSTIPATION; Start 12/09/16 at 17 :30 Allopurinol (Zyloprim) 100 mg QHS PO Last administered on 12/16/16 21:08; Admin Dose 100 MG; Start 12/09/16 at 21:00 Aspirin (Aspirin) 81 mg DAILY PO Last administered on 12/16/16 08:31; Admin Dose 81 MG; Start 12/10/16 at 09:00 Atorvastatin Calcium (Lipitor) 40 mg QHS PO Last administered on 12/16/16 21:07 ; Admin Dose 40 MG; Start 12/09/16 at 21:00 Cholecalciferol (Vitamin D) 2,000 unit DAILY PO Last administered on 12/16/16 08:32; Admin Dose 2,000 UNIT; Start 12/10/16 at 09:00 Cyanocobalamin (Vitamin B12) 1,000 mcg DAILY PO Last administered on 12/16/16 08:32; Admin Dose 1,000 MCG; Start 12/10/16 at 09:00 Docusate Sodium (Colace) 100 mg BID PO Last administered on 12/16/16 08:31; Admin Dose 100 MG; Start 12/09/16 at 21:00 Multivitamins Therapeutic (Theragran) 1 tab DAILY PO Last administered on 08:31; Admin Dose 1 TAB; Start 12/10/16 at 09:00 Tramadol HCl (Ultram) 25 mg Q8 PRN PO PAIN Last administered on 12/11/16 05:46 ; Admin Dose 25 MG; Start 12/09/16 at 17:30 Miscellaneous Information 1 ea NOTE XX ; Start 12/09/16 at 18:00 Glucose (Glutose) 15 gm Q15M PRN PO DECREASED GLUCOSE; Start 12/09/16 at 18:00 Glucose (Glutose) 22.5 gm Q15M PRN PO DECREASED GLUCOSE; Start 12/09/16 at 18: 00 Dextrose (D50w Syringe) 25 ml Q15M PRN IV DECREASED GLUCOSE; Start 12/09/16 at 18:00 Dextrose (D50w Syringe) 50 ml Q15M PRN IV DECREASED GLUCOSE; Start 12/09/16 at 18:00 Glucagon (Glucagen) 1 mg Q15M PRN IM DECREASED GLUCOSE; Start 12/09/16 at 18:00 Glucose (Glutose) 15 gm Q15M PRN BUCCAL DECREASED GLUCOSE; Start 12/09/16 at 18 :00 Linagliptin (Tradjenta) 5 mg DAILY PO Last administered on 12/16/16 08:32; Admin Dose 5 MG; Start 12/11/16 at 09:00 Metoprolol Succinate (Toprol Xl) 50 mg BID PO Last administered on 12/16/16 08: 32; Admin Dose 50 MG; Start 12/11/16 at 07:01 Pregabalin (Lyrica) 75 mg BID PO Last administered on 12/16/16 21:07; Admin Dose 75 MG; Start 12/11/16 at 21:00 Eye Lubricant (Artificial Tears Oph) 2 drop Q6H PRN BOTH EYES DRY EYES Last administered on 12/16/16 21:07; Admin Dose 2 DROP; Start 12/11/16 at 20:30 Bisacodyl (Dulcolax) 5 mg DAILY PRN PO CONSTIPATION Last administered on 10:15; Admin Dose 5 MG; Start 12/12/16 at 10:00 Polyethylene Glycol (Miralax) 17 gm BID PO Last administered on 12/14/16 20:29 ; Admin Dose 17 GM; Start 12/12/16 at 10:00 Magnesium Hydroxide (Milk Of Mag) 30 ml DAILY PRN PO CONSTIPATION; Start at 10:00 Famotidine (Pepcid) 20 mg DAILY PO Last administered on 12/16/16 08:31; Admin Dose 20 MG; Start 12/13/16 at 09:00 Insulin Glargine (Lantus) 5 unit BID SC Last administered on 12/16/16 21:16; Admin Dose 5 UNIT; Start 12/13/16 at 12:00 Epoetin Louis (Epogen (Esrd)) 8,000 units TuThSa@17 SC Last administered on 18:04; Admin Dose 8,000 UNITS; Start 12/14/16 at 17:00 Levofloxacin (Levaquin) 250 mg Q48H PO Last administered on 12/15/16 14:39; Admin Dose 250 MG; Start 12/15/16 at 14:00 Amikacin Sulfate (Amikacin Iv Per Pharmacy) AMIKACIN PER PHARMACY NOTE XX ; Start 12/15/16 at 12:30 TANIA THAPA MD Dec 17, 2016 10:13
[2016-12-17] MEDS ORDERED: PROTAMINE 250 MG INJ ONE (10:32)
--- NOTE | 2016-12-17 10:42 | PN ---
Date/Time of Note Date/Time of Note DATE: 12/17/16 TIME: 10:38 Assessment/Plan VTE Prophylaxis VTE Prophylaxis Intervention: other (heparin gtt ) Lines/Catheters IV Catheter Type (from Nrs): Peripheral IV Urinary Cath still in place: No Assessment/Plan Assessment/Plan 71-year-old female with: 1. NSTEMI with reported CAD s/p angiogram with evidence of triple-vessel disease including distal left main Appreciate assistance from Dr Krishna, CABG this AM with Dr Trinh. 2. Multifocal pneumonia and bronchitis, likely HCAP. Blood cultures negatives Antibiotics changed to Levaquin and Amikacin per ID, WBC trended back down to normal, afebrile, Sputum cx with Enterobacter, on RA and repeat CXR better and stable for CABG today Appreciate ID recommendations and continued follow up 3. End-stage renal disease on hemodialysis. On M/W/F Nephrology following. S/p HD yesterday 4. Diabetes mellitus, insulin requiring. A1c 7.9. BG stable. Appreciate recommendations from nurses educator. On SSI, change Lantus to 5 units subQ bid, premeal insulin and Tradjenta per DM education recommendations. Will adjust post op further 5. Chronic Anemia: patient likely to require transfusion marvin operatively 6. Hyperlipidemia. Continue statin therapy. 7. Diabetic neuropathy. Continue Lyrica. Prophylaxis. Pepcid for GI prophylaxis and on heparin gtt now. DISPOSITION: CABG Today and yo ICU post op. Subjective 24 Hr Interval Summary Free Text/Dictation Patient remains stable TO OR for CABG Exam/Review of Systems Vital Signs Vitals Vital Signs Date Time Temp Pulse Resp B/P Pulse Ox O2 Delivery O2 Flow Rate FiO2 12/17/16 04:35 98.2 64 18 140/64 100 12/14/16 06:52 Room Air Intake and Output 12/16/16 12/16/16 12/17/16 15:00 23:00 07:00 Intake Total 824.5 ml 0 ml Output Total 800 ml Balance 24.5 ml 0 ml Exam Constitutional: alert, oriented, other (german speaking ), well developed Respiratory: clear to auscultation, normal air movement Cardiovascular: nl pulses, regular rate and rhythm Gastrointestinal: non-tender, soft Musculoskeletal: nl extremities to inspection Extremities: normal pulses, other (no edema, clubbing or cyanosis ) 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: PLATE COLORER II-XII intact, nl mental status, nl speech, nl strength Results Result Diagram: 12/17/16 0633 12/17/16 0633 Results 24 hrs Laboratory Tests Test 12/16/16 12:14 12/16/16 16:10 12/16/16 17:21 12/16/16 21:05 Bedside Glucose 197 183 151 Activated Partial Thromboplast Time 53.0 H Test 12/17/16 00:50 12/17/16 05:58 12/17/16 06:33 Activated Partial Thromboplast Time 89.2 *H Bedside Glucose 140 White Blood Count 6.7 Red Blood Count 2.83 L Hemoglobin 8.7 L Hematocrit 26.4 L Mean Corpuscular Volume 93.3 Mean Corpuscular Hemoglobin 30.7 Mean Corpuscular Hemoglobin Concent 33.0 Red Cell Distribution Width 14.3 Platelet Count 213 Mean Platelet Volume 10.9 H Neutrophils % 48.6 Lymphocytes % 30.3 Monocytes % 13.4 H Eosinophils % 4.3 Basophils % 0.7 Nucleated Red Blood Cells % 0.0 Neutrophils # 3.3 Lymphocytes # 2.0 Monocytes # 0.9 Eosinophils # 0.3 Basophils # 0.1 Nucleated Red Blood Cells # 0.0 Sodium Level 134 L Potassium Level 4.3 Chloride Level 97 Carbon Dioxide Level 24 Anion Gap 17 H Blood Urea Nitrogen 41 #H Creatinine 6.26 #H Glucose Level 132 Calcium Level 8.6 Phosphorus Level 6.0 #H Magnesium Level 2.0 Medications Medications Current Medications Ondansetron HCl (Zofran Inj) 4 mg Q6H PRN IV NAUSEA AND/OR VOMITING; Start at 17:30 Acetaminophen (Tylenol Tab) 650 mg Q6H PRN PO PAIN LEVEL 1-3 OR FEVER Last administered on 12/16/16 21:06; Admin Dose 650 MG; Start 12/09/16 at 17:30 Docusate Sodium (Colace) 100 mg Q12H PRN PO CONSTIPATION; Start 12/09/16 at 17: 30 Bisacodyl (Dulcolax Supp) 10 mg DAILY PRN [place] CONSTIPATION; Start 12/09/16 at 17 :30 Allopurinol (Zyloprim) 100 mg QHS PO Last administered on 12/16/16 21:08; Admin Dose 100 MG; Start 12/09/16 at 21:00 Aspirin (Aspirin) 81 mg DAILY PO Last administered on 12/16/16 08:31; Admin Dose 81 MG; Start 12/10/16 at 09:00 Atorvastatin Calcium (Lipitor) 40 mg QHS PO Last administered on 12/16/16 21:07 ; Admin Dose 40 MG; Start 12/09/16 at 21:00 Cholecalciferol (Vitamin D) 2,000 unit DAILY PO Last administered on 12/16/16 08:32; Admin Dose 2,000 UNIT; Start 12/10/16 at 09:00 Cyanocobalamin (Vitamin B12) 1,000 mcg DAILY PO Last administered on 12/16/16 08:32; Admin Dose 1,000 MCG; Start 12/10/16 at 09:00 Docusate Sodium (Colace) 100 mg BID PO Last administered on 12/16/16 08:31; Admin Dose 100 MG; Start 12/09/16 at 21:00 Multivitamins Therapeutic (Theragran) 1 tab DAILY PO Last administered on 08:31; Admin Dose 1 TAB; Start 12/10/16 at 09:00 Tramadol HCl (Ultram) 25 mg Q8 PRN PO PAIN Last administered on 12/11/16 05:46 ; Admin Dose 25 MG; Start 12/09/16 at 17:30 Miscellaneous Information 1 ea NOTE XX ; Start 12/09/16 at 18:00 Glucose (Glutose) 15 gm Q15M PRN PO DECREASED GLUCOSE; Start 12/09/16 at 18:00 Glucose (Glutose) 22.5 gm Q15M PRN PO DECREASED GLUCOSE; Start 12/09/16 at 18: 00 Dextrose (D50w Syringe) 25 ml Q15M PRN IV DECREASED GLUCOSE; Start 12/09/16 at 18:00 Dextrose (D50w Syringe) 50 ml Q15M PRN IV DECREASED GLUCOSE; Start 12/09/16 at 18:00 Glucagon (Glucagen) 1 mg Q15M PRN IM DECREASED GLUCOSE; Start 12/09/16 at 18:00 Glucose (Glutose) 15 gm Q15M PRN BUCCAL DECREASED GLUCOSE; Start 12/09/16 at 18 :00 Linagliptin (Tradjenta) 5 mg DAILY PO Last administered on 12/16/16 08:32; Admin Dose 5 MG; Start 12/11/16 at 09:00 Metoprolol Succinate (Toprol Xl) 50 mg BID PO Last administered on 12/16/16 08: 32; Admin Dose 50 MG; Start 12/11/16 at 07:01 Pregabalin (Lyrica) 75 mg BID PO Last administered on 12/16/16 21:07; Admin Dose 75 MG; Start 12/11/16 at 21:00 Eye Lubricant (Artificial Tears Oph) 2 drop Q6H PRN BOTH EYES DRY EYES Last administered on 12/16/16 21:07; Admin Dose 2 DROP; Start 12/11/16 at 20:30 Bisacodyl (Dulcolax) 5 mg DAILY PRN PO CONSTIPATION Last administered on 10:15; Admin Dose 5 MG; Start 12/12/16 at 10:00 Polyethylene Glycol (Miralax) 17 gm BID PO Last administered on 12/14/16 20:29 ; Admin Dose 17 GM; Start 12/12/16 at 10:00 Magnesium Hydroxide (Milk Of Mag) 30 ml DAILY PRN PO CONSTIPATION; Start at 10:00 Famotidine (Pepcid) 20 mg DAILY PO Last administered on 12/16/16 08:31; Admin Dose 20 MG; Start 12/13/16 at 09:00 Insulin Glargine (Lantus) 5 unit BID SC Last administered on 12/16/16 21:16; Admin Dose 5 UNIT; Start 12/13/16 at 12:00 Epoetin Louis (Epogen (Esrd)) 8,000 units TuThSa@17 SC Last administered on 18:04; Admin Dose 8,000 UNITS; Start 12/14/16 at 17:00 Levofloxacin (Levaquin) 250 mg Q48H PO Last administered on 12/15/16 14:39; Admin Dose 250 MG; Start 12/15/16 at 14:00 Amikacin Sulfate (Amikacin Iv Per Pharmacy) AMIKACIN PER PHARMACY NOTE XX ; Start 12/15/16 at 12:30 JOSHUA MATSON Dec 17, 2016 10:41
[2016-12-17] MEDS ORDERED: LIDOCAINE 2% (SDV) 5 ML INJ ONE (11:22)
[2016-12-17] MEDS ORDERED: ETOMIDATE 20 MG INJ ONE (11:22)
[2016-12-17] MEDS ORDERED: ROCURONIUM 50 MG INJ ONE (11:22)
--- NOTE | 2016-12-17 11:44 | RADRPT ---
PROCEDURE: XR Chest. CLINICAL INDICATION: Shortness of breath. Postop. TECHNIQUE: Single frontal view. COMPARISON: 12/16/2016. FINDINGS: The endotracheal tube tip is in the origin of the right mainstem bronchus and should be withdrawn ap proximately 2 cm. The right internal jugular vein [place]Kendra catheter tip is in the right main pulmo nary artery. Mediastinal drains and bilateral chest tubes are in satisfactory position. The right lung is clear. There is atelectasis throughout most of the left lung, likely due to endotracheal tu be position. The heart size is normal. There is calcification in the aorta consistent with atherosclerosis. Ther e are sternal wires. There is no pleural effusion. There is no pneumothorax. IMPRESSION: 1. The endotracheal tube should be withdrawn approximately 2 cm as the tip is in the right mainstem bronchus and there is collapse of most of the left lung. 2. Otherwise satisfactory postoperative appearance of the chest. Call report: A call report of the findings was made to the operating room on 12/17/2016 at 1125 teri rs. RPTAT: QQ .Ventura Long MD, MD Date Time Electronically viewed and signed by .Ventura Long MD, MD on 12/17/2016 11:43 .R/
[2016-12-17] MEDS: ACCU-CHEK XX SCH ×12 (12:00→23:03)
[2016-12-17] MEDS ORDERED: ALBUMIN HUMAN 5% 250 ML IV PRN (12:00)
[2016-12-17] MEDS ORDERED: DOPamine-D5W 1.6 MG/ML 250 ML IV SCH (12:00)
[2016-12-17] MEDS ORDERED: NITROGLYCERIN 50 MG/D5W (PMX) 250 ML IV SCH (12:00)
[2016-12-17] MEDS ORDERED: ACETAMINOPHEN 325 MG TAB PO PRN (12:00)
[2016-12-17] MEDS ORDERED: OXYCODONE/ACETAMINOPHEN (5/325) TAB PO PRN (12:00)
[2016-12-17] MEDS ORDERED: DEXTROSE 50% 50 ML SYRINGE IV PRN ×2 (12:00)
[2016-12-17] MEDS: DEXTROSE 5%-0.45% NACL 1,000 ML IV SCH (12:30)
[2016-12-17] MEDS ORDERED: DEXTROSE 5%-0.45% NACL 1,000 ML IV SCH (12:30)
--- NOTE | 2016-12-17 12:42 | OPR ---
DATE OF OPERATION: 12/17/2016 PREOPERATIVE DIAGNOSIS: Non-ST elevation myocardial infarction, 3-vessel coronary artery disease. POSTOPERATIVE DIAGNOSIS: Non-ST elevation myocardial infarction, 3-vessel coronary artery disease. PROCEDURE PERFORMED: Coronary artery bypass graft x3, left internal mammary artery to left anterior descending, saphenous vein graft to distal right coronary artery, saphenous vein graft to obtuse ma rginal artery #2, endoscopic vein harvesting, epiaortic scanning of the ascending aorta. SURGEON: Lakeisha Muro MD CARRY OUT CLERK AND SHELF STOCKER: Jake Martinez MD SECOND INTERN PRODUCT MARKETING MANAGER: SARAH Paredes ANESTHESIOLOGIST: Fly Alvarado MD ANESTHESIA: General endotracheal. AORTIC CROSSCLAMP TIME: 47 minutes. CARDIOPULMONARY BYPASS TIME: 75 minutes. LOWEST TEMPERATURE: 34 degrees. FINDINGS: LV function has improved after revascularization. There was some inferior hypokinesis pr eoperatively. The flow in the COVINGTON to LAD was 65 mL/minute and the LAD was a 2.25 mm vessel. The R CA was a 2.5 mm vessel and the flow in this was 50 mL/minute and the flow in OM2 was 50 mL/minute. There were no atheromas or plaques noted in the ascending aorta. INDICATION: The patient is a 71-year-old female who was initially admitted with pneumonia and ruled in for a myocardial infarction. She was treated with antibiotics for her pneumonia and referred fo r urgent CABG. Benefits, risks and alternatives were explained. She understood and consented. DESCRIPTION OF PROCEDURE: The patient was brought to the operating room. She was placed in the sup ine position. She was induced and underwent general endotracheal intubation without complications. Lines were placed. Antibiotics were given. She was prepped and draped in the usual sterile fashio n. Median sternotomy was made, simultaneous endoscopic vein harvesting of the saphenous vein from the r ight lower extremity. COVINGTON was taken down using clips and cautery. Heparin was given. A pericardi al was established. The ascending aorta was scanned. There were no atheromas or plaques. A purses tring was placed in the ascending aorta followed by the right atrium. We cannulated the ascending a janette followed by a 2-stage venous cannula in the right atrium. We then placed an ascending aortic v ent. Once all of our lines were in place, we commenced cardiopulmonary bypass. We placed a crosscl amp on the ascending aorta and arrested the heart using antegrade cardioplegia and topical ice to co ol the patient down to 34 degrees Celsius. One the heart was arrested, we identified the distal RCA. We made an arteriotomy, extended it with Funk scissors and anastomosed our vein graft using 7-0 Prolene in a running fashion in end-to-side manner. The vein graft was cut to length. Cardioplegia was given. We then identified the OM2. We made our arteriotomy, extended with Funk scissors and anastomosed our vein graft using 7-0 Prolene in a running fashion in end-to-side manner. We then identified the mid LAD, made our arteriotomy, extended with Funk scissors, and anastomosed to our COVINGTON using 7-0 Prolene in a running fashion in end-to-side manner. At this time, we rewarmed the patient. We removed the crossclamp, cardioverted to normal sinus rhythm, placed a ventricular pacing wire. We then placed a partial clamp on the as cending aorta, made 2 aortotomies and anastomosed our right vein graft to the distal aortotomy using 5-0 Prolene in a running fashion in end-to-side manner. The same was done for the other vein graft . The partial clamp was removed. The vein grafts were deaired. Distal hemostasis was achieved. We then began ventilating the patient and weaned her off cardiopulmonary bypass. She weaned off wit hout difficulty. Protamine was given and then we de-lined the patient. We placed left and right pl eural tubes and an anterior mediastinal tube. Once hemostasis was achieved, we closed the chest usi ng interrupted cables, followed by closure of the fascia using 0 Vicryl, followed by closure of skin using 4-0 Monocryl in subcuticular fashion. Lower extremity incisions were closed using 3-0 Vicryl for the deep layer and 4-0 Monocryl for the skin. Dressings were applied. The patient did receive 3 units of blood, 1 unit of FFP, and 1 unit of platelets. She was taken to the ICU in critical but stable condition. Dictated By: LAKEISHA BELLA/DEEPALI Conf#: [id number] DID#: [id number] CC: LAKEISHA MURO MD; SONU LAZAR DO;*[facility]*
[2016-12-17 12:44] LABS: AADO2 Arterial 200.8 mmHg (7.0-24.0); Arterial Base Excess -1.3 mmol/L (-3.0-3); Arterial COHb 0.3 % (0.0-3.0); Arterial Fraction of Oxyhgb 97.7 % (93.0-99.0); Arterial HCO3 22.1 mmol/L (22.0-26.0); Arterial MetHb 0.4 % (0.0-1.5); Arterial Total Hemglobin 11.3 g/dl (12.0-18.0); MODE VENT - AC
[2016-12-17 12:48] LABS: MODE VENT - AC; MetHgb Mixed Venous 0.7 %; Mixed Venous COHb 0.3 %; Mixed Venous Fraction OxyHgb 78.7 %; Mixed Venous Oxygen Sat 79.5 mmHG (65.0-75.0); Mixed Venous Total Hemglobin 9.8 g/dl; Sample Type BLMV
[2016-12-17] MEDS ORDERED: INSULIN ASPART [NOVOLOG] 3 ML PEN SC SCH ×2 (13:00)
[2016-12-17 13:03] LABS: ADD SCAN DIFF NO
[2016-12-17 13:08] LABS: BASOPHILS % 0.2 % (0.0-2.0); EOSINOPHILS # 0.1 10^3/ul (0.0-0.5); EOSINOPHILS % 0.7 % (0.0-7.0); HEMATOCRIT 26.7 % (37.0-47.0); HEMOGLOBIN 8.8 g/dl (12.0-16.0); LYMPHOCYTES # 1.5 10^3/ul (0.8-2.9); LYMPHOCYTES % 13.5 % (15.0-51.0); MEAN CORPUSCULAR HEMOGLOBIN 29.9 pg (29.0-33.0); MEAN CORPUSCULAR VOLUME 90.8 fl (82.0-101.0); MONOCYTE # 0.5 10^3/ul (0.3-0.9); MONOCYTES % 4.8 % (0.0-11.0); NEUTROPHIL # 8.4 10^3/ul (1.6-7.5); PLATELET COUNT 119 10^3/UL (140-415); RED BLOOD COUNT 2.94 10^6/ul (4.20-5.40); RED CELL DISTRIBUTION WIDTH 14.4 % (11.5-14.5); WHITE BLOOD COUNT 10.9 10^3/ul (4.8-10.8)
[2016-12-17 13:23] LABS: POTASSIUM 3.2 mmol/L (3.5-5.1)
[2016-12-17 13:24] LABS: INR 1.38; PARTIAL THROMBOPLASTIN TIME 31.7 Sec (25.0-35.0); PT RATIO 1.3
[2016-12-17 13:25] LABS: CREATININE 5.46 mg/dl (0.44-1.00)
[2016-12-17 13:26] LABS: CALCIUM 8.5 mg/dl (8.4-10.2); MAGNESIUM 2.5 mg/dl (1.7-2.5)
--- NOTE | 2016-12-17 13:38 | CONS ---
Date/Time of Note Date/Time of Note DATE: 12/17/16 TIME: 13:36 Assessment/Plan Assessment/Plan Chief Complaint/Hosp Course SUBJECTIVE: In ICU s/p CABG, intubated, on multiple gtts, nad INDWELLINGS: AV fistula. MICROBIOLOGY: Sputum culture + Enterobacter. ANTIMICROBIALS: The patient is on: 1. Amikacin. 2. Cipro. PHYSICAL EXAMINATION: GENERAL: Fragile, elderly woman who is alert, in no distress. HEENT: Head atraumatic, normocephalic. Sclerae anicteric. Buccal mucosa pink , dry. NECK: Supple. CHEST: Rise symmetrical. Breath sounds diminished to bases. HEART: S1, S2. ABDOMEN: Soft, bowel tones present. EXTREMITIES: Without cyanosis. ASSESSMENT: 1. Resolving sepsis. 2. Pneumonia. 3. End-stage renal disease, on hemodialysis. 4. Diabetes. 5. Non-ST elevation myocardial infarction, status post angiography. 6. S/p CABG this am PLAN: Continue abx, f/u CTS rec-s, vent per pulmonary, doyle cx prn DW staff Problems: Consultation Date/Type/Reason Admit Date/Time Dec 09, 2016 at 11:49 Type of Consultation: id Exam/Review of Systems Vital Signs Vitals Vital Signs Date Time Temp Pulse Resp B/P Pulse Ox O2 Delivery O2 Flow Rate FiO2 12/17/16 12:35 98.7 12/17/16 12:00 93 12/17/16 04:35 18 140/64 100 12/14/16 06:52 Room Air Intake and Output 12/16/16 12/16/16 12/17/16 15:00 23:00 07:00 Intake Total 824.5 ml Output Total 800 ml Balance 24.5 ml Results Result Diagram: 12/17/16 1256 12/17/16 1256 Results 24 hrs Laboratory Tests Test 12/16/16 16:10 12/16/16 17:21 12/16/16 21:05 12/17/16 00:50 Activated Partial Thromboplast Time 53.0 H 89.2 *H Bedside Glucose 183 151 Test 12/17/16 05:58 12/17/16 06:33 12/17/16 11:43 12/17/16 12:15 Bedside Glucose 140 179 White Blood Count 6.7 Red Blood Count 2.83 L Hemoglobin 8.7 L Hematocrit 26.4 L Mean Corpuscular Volume 93.3 Mean Corpuscular Hemoglobin 30.7 Mean Corpuscular Hemoglobin Concent 33.0 Red Cell Distribution Width 14.3 Platelet Count 213 Mean Platelet Volume 10.9 H Neutrophils % 48.6 Lymphocytes % 30.3 Monocytes % 13.4 H Eosinophils % 4.3 Basophils % 0.7 Nucleated Red Blood Cells % 0.0 Neutrophils # 3.3 Lymphocytes # 2.0 Monocytes # 0.9 Eosinophils # 0.3 Basophils # 0.1 Nucleated Red Blood Cells # 0.0 Sodium Level 134 L Potassium Level 4.3 Chloride Level 97 Carbon Dioxide Level 24 Anion Gap 17 H Blood Urea Nitrogen 41 #H Creatinine 6.26 #H Glucose Level 132 Calcium Level 8.6 Phosphorus Level 6.0 #H Magnesium Level 2.0 Blood Gas Specimen Source Blood arterial Arterial Blood Date Drawn 12/17/2016 12:20:35 PM Arterial Blood pH (Temp corrected) 7.448 Arterial Blood pCO2 (Temp correct) 32.7 L Arterial Blood pO2 (Temp corrected) 191.0 H Arterial Blood HCO3 22.1 Arterial Blood Base Excess -1.3 Arterial Blood Oxygen Saturation 98.4 H [place] Test N/A Arterial Blood Gas Puncture Site A-Line Arterial Blood Carboxyhemoglobin 0.3 Arterial Blood Methemoglobin 0.4 Blood Gas A-a O2 Differential 200.8 H Oxyhemoglobin Percent 97.7 Total Hemoglobin 11.3 L Blood Gas Temperature 37.0 Blood Gas Respiration Rate 14.0 Blood Gas Actual Respiration Rate 18 Blood Gas Modality VENT - AC FiO2 60.0 Blood Gas Tidal Volume 500.0 Blood Gas Low PEEP Setting 5.0 Blood Gas Notified Whom JLD Blood Gas Notified Time 12/17/2016 12:44:40 PM Test 12/17/16 12:16 12/17/16 12:56 Blood Gas Specimen Source BLMV Arterial Blood Date Drawn 12/17/2016 12:25:40 PM Arterial Blood Gas Puncture Site PUL ART LINE [place] Test N/A Mixed Venous Blood PO2 43.4 H Mixed Venous Blood O2 Saturation 79.5 H Mixed Venous Blood Total Hemoglobin 9.8 Mixed Venous Blood Oxyhemoglobin 78.7 Mixed Venous Bld Carboxyhemoglobin 0.3 Mixed Venous Blood Methemoglobin 0.7 Blood Gas Temperature 37.0 Blood Gas Respiration Rate 14.0 Blood Gas Actual Respiration Rate 18 Blood Gas Modality VENT - AC FiO2 60.0 Blood Gas Tidal Volume 500.0 Blood Gas Low PEEP Setting 5.0 Blood Gas Notified Whom JLD Blood Gas Notified Time 12/17/2016 12:48:40 PM White Blood Count 10.9 #H Red Blood Count 2.94 L Hemoglobin 8.8 L Hematocrit 26.7 L Mean Corpuscular Volume 90.8 Mean Corpuscular Hemoglobin 29.9 Mean Corpuscular Hemoglobin Concent 33.0 Red Cell Distribution Width 14.4 Platelet Count 119 #L Mean Platelet Volume 11.0 H Neutrophils % 77.0 Lymphocytes % 13.5 L Monocytes % 4.8 Eosinophils % 0.7 Basophils % 0.2 Nucleated Red Blood Cells % 0.0 Neutrophils # 8.4 H Lymphocytes # 1.5 Monocytes # 0.5 Eosinophils # 0.1 Basophils # 0.0 Nucleated Red Blood Cells # 0.0 Prothrombin Time 17.0 H Prothrombin Time Ratio 1.3 INR International Normalized Ratio 1.38 Activated Partial Thromboplast Time 31.7 Sodium Level 139 Potassium Level 3.2 L Chloride Level 100 Carbon Dioxide Level 21 Anion Gap 21 H Blood Urea Nitrogen 38 H Creatinine 5.46 H Glucose Level 110 Bedside Glucose 115 Calcium Level 8.5 Magnesium Level 2.5 Medications Medications Current Medications Ondansetron HCl (Zofran Inj) 4 mg Q6H PRN IV NAUSEA AND/OR VOMITING; Start at 17:30 Aspirin (Aspirin) 81 mg DAILY PO Last administered on 12/16/16 08:31; Admin Dose 81 MG; Start 12/10/16 at 09:00 Atorvastatin Calcium (Lipitor) 40 mg QHS PO Last administered on 12/16/16 21:07 ; Admin Dose 40 MG; Start 12/09/16 at 21:00 Metoprolol Succinate (Toprol Xl) 50 mg BID PO Last administered on 12/16/16 08: 32; Admin Dose 50 MG; Start 12/11/16 at 07:01 Pregabalin (Lyrica) 75 mg BID PO Last administered on 12/16/16 21:07; Admin Dose 75 MG; Start 12/11/16 at 21:00 Eye Lubricant (Artificial Tears Oph) 2 drop Q6H PRN BOTH EYES DRY EYES Last administered on 12/16/16 21:07; Admin Dose 2 DROP; Start 12/11/16 at 20:30 Amikacin Sulfate AMIKACIN PER PHARMACY NOTE XX ; Start 12/15/16 at 12:30 Albumin Human 250 ml @ 500 mls/hr PRN PRN IV CVP< 8, OR SBP<90; Start 12/17/16 at 12:00 Cefazolin Sodium (Ancef 1 Gm/50 ml (Pmx)) 50 ml @ 100 mls/hr Q12H IVPB ; Start 12/17/16 at 14:00; Stop 12/18/16 at 02:29 Hydromorphone HCl (Dilaudid) 0.2 mg Q15M PRN IV PAIN LEVEL 1-5; Start 12/17/16 at 12:00 Hydromorphone HCl (Dilaudid) 0.4 mg Q15M PRN IV PAIN LEVEL 6-10; Start 12/17/16 at 12:00 Oxycodone/ Acetaminophen (Percocet (5/ 325)) 1 tab Q3H PRN PO PAIN LEVEL 1-5; Start 12/17/16 at 12:00 Oxycodone/ Acetaminophen (Percocet (5/ 325)) 2 tab Q3H PRN PO PAIN LEVEL 6-10; Start 12/17/16 at 12:00 Famotidine (Pepcid Iv) 20 mg BID@08,20 IV ; Start 12/17/16 at 20:00 Acetaminophen (Tylenol Tab) 650 mg Q3H PRN PO ELEVATED TEMPERATURE; Start at 12:00 Diagnostic Test (Pha) (Accu-Chek) 1 ea Q1H XX ; Start 12/17/16 at 12:00 Dextrose (D50w Syringe) 25 ml Q15M PRN IV Till BS 80 mg/dL or above x2; Start 12/17/16 at 12:00 Dextrose 50 ml 50 ml Q15M PRN IV Till BS 80 mg/dL or above x2; Start 12/17/16 at 12:00 Dextrose/Sodium Chloride (D5-1/2ns) 1,000 ml @ 40 mls/hr Q24H IV ; Start at 12:30 ED OWENS NP Dec 17, 2016 13:38
[2016-12-17] MEDS: CEFAZOLIN 1 GM/50 ML (PMX) 50 ML IVPB SCH (13:43)
[2016-12-17] MEDS: INSULIN REGULAR, HUMAN 100 UNIT in SOD CHLORIDE 0.9% 99 ML IV SCH ×2 (13:45)
[2016-12-17] MEDS ORDERED: POTASSIUM CHLORIDE 50 ML IVPB ONE (14:00)
--- NOTE | 2016-12-17 14:00 | CONS ---
Date/Time of Note Date/Time of Note DATE: 12/17/16 TIME: 13:55 Assessment/Plan Assessment/Plan Additional Assessment/Plan Non-ST elevation PA Triple-vessel coronary artery disease including distal left main s/p CABG 12/17/16 Preserved ejection fraction Diabetes Hypertension Pneumonia End-stage renal disease on hemodialysis -pt s/p cabg. Retsart asa, and statin. Hold off on BB and GAYLA-I until BP stable. Fluid managementg via HD as per renal. Consultation Date/Type/Reason Admit Date/Time Dec 09, 2016 at 11:49 Type of Consultation: cv 24 HR Interval Summary Free Text/Dictation pt s/p cabg Exam/Review of Systems Vital Signs Vitals Vital Signs Date Time Temp Pulse Resp B/P Pulse Ox O2 Delivery O2 Flow Rate FiO2 12/17/16 12:35 98.7 12/17/16 12:00 93 12/17/16 04:35 18 140/64 100 12/14/16 06:52 Room Air Intake and Output 12/16/16 12/16/16 12/17/16 15:00 23:00 07:00 Intake Total 824.5 ml Output Total 800 ml Balance 24.5 ml Exam sedated and intubated Head: normocephalic ENMT: intubated Respiratory: other (course bs, no wheeze) Cardiovascular: other (s1s2), regular rate and rhythm Gastrointestinal: bowel sounds, non-tender, other (no grimacing with palpation) , soft Extremities: edema (tr), other (no cyanosis) Results Result Diagram: 12/17/16 1256 12/17/16 1256 Results 24 hrs Laboratory Tests Test 12/16/16 16:10 12/16/16 17:21 12/16/16 21:05 12/17/16 00:50 Activated Partial Thromboplast Time 53.0 H 89.2 *H Bedside Glucose 183 151 Test 12/17/16 05:58 12/17/16 06:33 12/17/16 11:43 12/17/16 12:15 Bedside Glucose 140 179 White Blood Count 6.7 Red Blood Count 2.83 L Hemoglobin 8.7 L Hematocrit 26.4 L Mean Corpuscular Volume 93.3 Mean Corpuscular Hemoglobin 30.7 Mean Corpuscular Hemoglobin Concent 33.0 Red Cell Distribution Width 14.3 Platelet Count 213 Mean Platelet Volume 10.9 H Neutrophils % 48.6 Lymphocytes % 30.3 Monocytes % 13.4 H Eosinophils % 4.3 Basophils % 0.7 Nucleated Red Blood Cells % 0.0 Neutrophils # 3.3 Lymphocytes # 2.0 Monocytes # 0.9 Eosinophils # 0.3 Basophils # 0.1 Nucleated Red Blood Cells # 0.0 Sodium Level 134 L Potassium Level 4.3 Chloride Level 97 Carbon Dioxide Level 24 Anion Gap 17 H Blood Urea Nitrogen 41 #H Creatinine 6.26 #H Glucose Level 132 Calcium Level 8.6 Phosphorus Level 6.0 #H Magnesium Level 2.0 Blood Gas Specimen Source Blood arterial Arterial Blood Date Drawn 12/17/2016 12:20:35 PM Arterial Blood pH (Temp corrected) 7.448 Arterial Blood pCO2 (Temp correct) 32.7 L Arterial Blood pO2 (Temp corrected) 191.0 H Arterial Blood HCO3 22.1 Arterial Blood Base Excess -1.3 Arterial Blood Oxygen Saturation 98.4 H [place] Test N/A Arterial Blood Gas Puncture Site A-Line Arterial Blood Carboxyhemoglobin 0.3 Arterial Blood Methemoglobin 0.4 Blood Gas A-a O2 Differential 200.8 H Oxyhemoglobin Percent 97.7 Total Hemoglobin 11.3 L Blood Gas Temperature 37.0 Blood Gas Respiration Rate 14.0 Blood Gas Actual Respiration Rate 18 Blood Gas Modality VENT - AC FiO2 60.0 Blood Gas Tidal Volume 500.0 Blood Gas Low PEEP Setting 5.0 Blood Gas Notified Whom JLD Blood Gas Notified Time 12/17/2016 12:44:40 PM Test 12/17/16 12:16 12/17/16 12:56 Blood Gas Specimen [facility] Arter[facility] Blood Date Drawn 12/17/2016 12:25:40 PM Arterial Blood Gas Puncture Site PUL ART LINE [place] Test N/A Mixed Venous Blood PO2 43.4 H Mixed Venous Blood O2 Saturation 79.5 H Mixed Venous Blood Total Hemoglobin 9.8 Mixed Venous Blood Oxyhemoglobin 78.7 Mixed Venous Bld Carboxyhemoglobin 0.3 Mixed Venous Blood Methemoglobin 0.7 Blood Gas Temperature 37.0 Blood Gas Respiration Rate 14.0 Blood Gas Actual Respiration Rate 18 Blood Gas Modality VENT - AC FiO2 60.0 Blood Gas Tidal Volume 500.0 Blood Gas Low PEEP Setting 5.0 Blood Gas Notified Whom JLD Blood Gas Notified Time 12/17/2016 12:48:40 PM White Blood Count 10.9 #H Red Blood Count 2.94 L Hemoglobin 8.8 L Hematocrit 26.7 L Mean Corpuscular Volume 90.8 Mean Corpuscular Hemoglobin 29.9 Mean Corpuscular Hemoglobin Concent 33.0 Red Cell Distribution Width 14.4 Platelet Count 119 #L Mean Platelet Volume 11.0 H Neutrophils % 77.0 Lymphocytes % 13.5 L Monocytes % 4.8 Eosinophils % 0.7 Basophils % 0.2 Nucleated Red Blood Cells % 0.0 Neutrophils # 8.4 H Lymphocytes # 1.5 Monocytes # 0.5 Eosinophils # 0.1 Basophils # 0.0 Nucleated Red Blood Cells # 0.0 Prothrombin Time 17.0 H Prothrombin Time Ratio 1.3 INR International Normalized Ratio 1.38 Activated Partial Thromboplast Time 31.7 Sodium Level 139 Potassium Level 3.2 L Chloride Level 100 Carbon Dioxide Level 21 Anion Gap 21 H Blood Urea Nitrogen 38 H Creatinine 5.46 H Glucose Level 110 Bedside Glucose 115 Calcium Level 8.5 Magnesium Level 2.5 Medications Medications Current Medications Ondansetron HCl (Zofran Inj) 4 mg Q6H PRN IV NAUSEA AND/OR VOMITING; Start at 17:30 Aspirin (Aspirin) 81 mg DAILY PO Last administered on 12/16/16 08:31; Admin Dose 81 MG; Start 12/10/16 at 09:00 Atorvastatin Calcium (Lipitor) 40 mg QHS PO Last administered on 12/16/16 21:07 ; Admin Dose 40 MG; Start 12/09/16 at 21:00 Metoprolol Succinate (Toprol Xl) 50 mg BID PO Last administered on 12/16/16 08: 32; Admin Dose 50 MG; Start 12/11/16 at 07:01 Pregabalin (Lyrica) 75 mg BID PO Last administered on 12/16/16 21:07; Admin Dose 75 MG; Start 12/11/16 at 21:00 Eye Lubricant (Artificial Tears Oph) 2 drop Q6H PRN BOTH EYES DRY EYES Last administered on 12/16/16 21:07; Admin Dose 2 DROP; Start 12/11/16 at 20:30 Amikacin Sulfate AMIKACIN PER PHARMACY NOTE XX ; Start 12/15/16 at 12:30 Albumin Human 250 ml @ 500 mls/hr PRN PRN IV CVP< 8, OR SBP<90; Start 12/17/16 at 12:00 Cefazolin Sodium (Ancef 1 Gm/50 ml (Pmx)) 50 ml @ 100 mls/hr Q12H IVPB Last administered on 12/17/16 13:43; Admin Dose 100 MLS/HR; Start 12/17/16 at 14:00; Stop 12/18/16 at 02:29 Hydromorphone HCl (Dilaudid) 0.2 mg Q15M PRN IV PAIN LEVEL 1-5; Start 12/17/16 at 12:00 Hydromorphone HCl (Dilaudid) 0.4 mg Q15M PRN IV PAIN LEVEL 6-10; Start 12/17/16 at 12:00 Oxycodone/ Acetaminophen (Percocet (5/ 325)) 1 tab Q3H PRN PO PAIN LEVEL 1-5; Start 12/17/16 at 12:00 Oxycodone/ Acetaminophen (Percocet (5/ 325)) 2 tab Q3H PRN PO PAIN LEVEL 6-10; Start 12/17/16 at 12:00 Famotidine (Pepcid Iv) 20 mg BID@08,20 IV ; Start 12/17/16 at 20:00 Acetaminophen (Tylenol Tab) 650 mg Q3H PRN PO ELEVATED TEMPERATURE; Start at 12:00 Diagnostic Test (Pha) (Accu-Chek) 1 ea Q1H XX Last administered on 12/17/16 13: 41; Admin Dose 1 EA; Start 12/17/16 at 12:00 Dextrose (D50w Syringe) 25 ml Q15M PRN IV Till BS 80 mg/dL or above x2; Start 12/17/16 at 12:00 Dextrose 50 ml 50 ml Q15M PRN IV Till BS 80 mg/dL or above x2; Start 12/17/16 at 12:00 Dextrose/Sodium Chloride 1,000 ml @ 40 mls/hr Q24H IV Last administered on 12/17 12:30; Admin Dose 40 MLS/HR; Start 12/17/16 at 12:30 Potassium Chloride (KCl 10 MEQ/50 ML SW) 50 ml @ 50 mls/hr ONCE ONCE IVPB ; Start 12/17/16 at 14:00; Stop 12/17/16 at 14:59 Xiang Krishna DO Dec 17, 2016 14:00
[2016-12-17] MEDS: HYDROmorphONE 1 MG/ML SYG IV PRN ×3 (15:35→20:23)
[2016-12-17] MEDS: AMIKACIN 275 MG in SOD CHLORIDE 0.9% 100 ML IVPB SCH (19:24)
[2016-12-17] MEDS: FAMOTIDINE 20 MG INJ IV SCH (20:10)
[2016-12-17 20:14] LABS: ADD SCAN DIFF NO
[2016-12-17 20:15] LABS: BASOPHILS % 0.2 % (0.0-2.0); EOSINOPHILS # 0.2 10^3/ul (0.0-0.5); EOSINOPHILS % 1.6 % (0.0-7.0); HEMATOCRIT 26.9 % (37.0-47.0); HEMOGLOBIN 9.2 g/dl (12.0-16.0); LYMPHOCYTES # 1.3 10^3/ul (0.8-2.9); LYMPHOCYTES % 10.5 % (15.0-51.0); MEAN CORPUSCULAR HEMOGLOBIN 31.2 pg (29.0-33.0); MEAN CORPUSCULAR HGB CONC 34.2 g/dl (32.0-37.0); MEAN CORPUSCULAR VOLUME 91.2 fl (82.0-101.0); MEAN PLATELET VOLUME 10.7 fl (7.4-10.4); MONOCYTE # 1.3 10^3/ul (0.3-0.9); MONOCYTES % 10.8 % (0.0-11.0); NEUTROPHIL # 8.8 10^3/ul (1.6-7.5); NEUTROPHILS % 72.5 % (39.0-77.0); PLATELET COUNT 155 10^3/UL (140-415); RED BLOOD COUNT 2.95 10^6/ul (4.20-5.40); RED CELL DISTRIBUTION WIDTH 14.7 % (11.5-14.5); WHITE BLOOD COUNT 12.2 10^3/ul (4.8-10.8)
[2016-12-17 20:27] LABS: INR 1.15; PARTIAL THROMBOPLASTIN TIME 32.8 Sec (25.0-35.0); POTASSIUM 4.4 mmol/L (3.5-5.1); PROTIME 14.7 Sec (12.2-14.2); PT RATIO 1.1
[2016-12-17 20:30] LABS: CALCIUM 8.6 mg/dl (8.4-10.2); CREATININE 6.12 mg/dl (0.44-1.00)
[2016-12-17 20:31] LABS: MAGNESIUM 2.5 mg/dl (1.7-2.5)
[2016-12-17 20:34] LABS: AADO2 Arterial 79.5 mmHg (7.0-24.0); Arterial Base Excess -4.1 mmol/L (-3.0-3); Arterial COHb 0.3 % (0.0-3.0); Arterial Fraction of Oxyhgb 94.5 % (93.0-99.0); Arterial MetHb 0.3 % (0.0-1.5); Arterial Total Hemglobin 10.8 g/dl (12.0-18.0); Blood Gas Mean Airway Pressure 11; MODE VENT - AC
[2016-12-17] MEDS: ATORVASTATIN 40 MG TAB NGT SCH (21:00)
[2016-12-17 23:24] LABS: AADO2 Arterial 78.1 mmHg (7.0-24.0); Arterial Base Excess -4.6 mmol/L (-3.0-3); Arterial COHb 0.3 % (0.0-3.0); Arterial Fraction of Oxyhgb 93.8 % (93.0-99.0); Arterial HCO3 21.1 mmol/L (22.0-26.0); Arterial MetHb 0.4 % (0.0-1.5); Arterial Total Hemglobin 9.5 g/dl (12.0-18.0); Blood Gas PS 5; MODE VENT - CPAP
[2016-12-18] VITALS (58 sets, daily range): BP systolic 85–132; BP diastolic 33–62; PULSE 76–91; RESP 12–25; TEMP 98.4–100.2
[2016-12-18] MEDS ORDERED: NA BICARBONATE 8.4% 50 ML SYG IV ONE
--- NOTE | 2016-12-18 00:53 | RADRPT ---
PROCEDURE: XR Chest. CLINICAL INDICATION: Confirm endotracheal intubation. TECHNIQUE: Single frontal view of the chest was obtained COMPARISON: 12/17/2016. FINDINGS: Endotracheal intubation is again seen with tip above the lidia by about 1 and 2 mm, and directed to the right mainstem bronchus. Recommend withdrawing same about 10 mm and re-imaging. Right central venous [place]-Kendra catheter is seen with tip in the distal main versus proximal right pu lmonary artery. Bilateral lung base chest tubes. Mediastinal drain. Cardiomegaly. Atherosclerotic calcifications in the thoracic aorta. Improved aeration in the left lung with persistent left lung air space disease at the mid lung and lung base, and small left pleur al effusion. IMPRESSION: 1. Recommend withdrawing endotracheal intubation about 10 mm and re-imaging. 2. Improved aeration left lung with persistent left lung air space disease, pleural effusion. RPTAT: [facility] Physician Aimee Date Time Electronically viewed and signed by Physician Aimee on 12/18/2016 00:53 RS/
[2016-12-18] MEDS: ACCU-CHEK XX SCH ×24 (01:04→23:00)
[2016-12-18] MEDS: CEFAZOLIN 1 GM/50 ML (PMX) 50 ML IVPB SCH (01:34)
[2016-12-18] MEDS: OXYCODONE/ACETAMINOPHEN (5/325) TAB PO PRN ×6 (01:44→19:48)
[2016-12-18 04:58] LABS: ADD SCAN DIFF NO
[2016-12-18 05:03] LABS: BASOPHILS % 0.1 % (0.0-2.0); EOSINOPHILS # 0.1 10^3/ul (0.0-0.5); EOSINOPHILS % 1.6 % (0.0-7.0); HEMATOCRIT 24.5 % (37.0-47.0); HEMOGLOBIN 7.8 g/dl (12.0-16.0); LYMPHOCYTES # 1.2 10^3/ul (0.8-2.9); LYMPHOCYTES % 13.7 % (15.0-51.0); MEAN CORPUSCULAR HGB CONC 31.8 g/dl (32.0-37.0); MEAN CORPUSCULAR VOLUME 94.2 fl (82.0-101.0); MEAN PLATELET VOLUME 11.6 fl (7.4-10.4); MONOCYTE # 0.9 10^3/ul (0.3-0.9); MONOCYTES % 10.7 % (0.0-11.0); NEUTROPHIL # 6.2 10^3/ul (1.6-7.5); NEUTROPHILS % 72.6 % (39.0-77.0); PLATELET COUNT 136 10^3/UL (140-415); RED CELL DISTRIBUTION WIDTH 15.4 % (11.5-14.5); WHITE BLOOD COUNT 8.5 10^3/ul (4.8-10.8)
[2016-12-18 05:26] LABS: INR 1.16; PROTIME 14.9 Sec (12.2-14.2); PT RATIO 1.2
[2016-12-18 05:27] LABS: PARTIAL THROMBOPLASTIN TIME 30.3 Sec (25.0-35.0)
[2016-12-18 05:28] LABS: POTASSIUM 5.4 mmol/L (3.5-5.1)
[2016-12-18 05:30] LABS: CREATININE 6.64 mg/dl (0.44-1.00)
[2016-12-18 05:31] LABS: CALCIUM 8.5 mg/dl (8.4-10.2); MAGNESIUM 2.5 mg/dl (1.7-2.5)
[2016-12-18] MEDS: ONDANSETRON 4 MG INJ IV PRN ×2 (06:38→14:24)
--- NOTE | 2016-12-18 07:12 | PN ---
Date/Time of Note Date/Time of Note DATE: 12/18/16 TIME: 07:07 Assessment/Plan Lines/Catheters IV Catheter Type (from Nrsg): [place] Kendra Leroy in Place (from Nrsg): Yes Assessment/Plan Chief Complaint/Hosp Course s/p cabg esrd needs dialysis mobilize Problems: Subjective 24 Hr Interval Summary extubated nausea Constitutional: other Feeding: NPO Pain Control: well controlled Exam/Review of Systems Vital Signs Vitals Vital Signs Date Time Temp Pulse Resp B/P Pulse Ox O2 Delivery O2 Flow Rate FiO2 12/18/16 06:00 98.9 81 23 90/36 98 12/18/16 04:00 Nasal Cannula 2.0 12/18/16 00:00 30 Intake and Output 12/17/16 12/17/16 12/18/16 15:00 23:00 07:00 Intake Total 2889.702 ml 713.975 ml 282.438 ml Output Total 519 ml 625 ml 323 ml Balance 2370.702 ml 88.975 ml -40.562 ml Exam Constitutional: alert Psych: no complaints Head: normocephalic ENMT: nl external ears & nose Neck: supple Respiratory: other (2 liters n/c mediastinal 500 cc pleural 120 cc cxr left atelectasis) Cardiovascular: regular rate and rhythm Musculoskeletal: nl extremities to inspection 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: [employer] II-XII intact Results Result Diagram: 12/18/1639912/18/16399 HUSSEIN MASCORRO MD Dec 18, 2016 07:11
--- NOTE | 2016-12-18 07:34 | RADRPT ---
PROCEDURE: XR Chest. CLINICAL INDICATION: Status post open heart surgery. TECHNIQUE: A single AP view of the chest was obtained. COMPARISON: Chest x-ray dated 12/17/2016 FINDINGS: There are postoperative changes with sternotomy wires. The endotracheal tube has been removed. Ther e is a [place]-Kendra catheter from a right internal jugular approach with tip in the region of the right ventricular outflow tract. The tip of the enteric tube extends below the left diaphragm. Bilateral chest tubes are in place. There is diffuse prominence of the interstitial markings. There are left lower lobe and lingular i nterstitial opacities marvin No pneumothorax is seen. The cardiomediastinal silhouette is mildly enlar ged. Calcifications are seen within the aortic arch. The osseous structures are unremarkable. IMPRESSION: 1. Low lung volumes with mild interstitial edema. there left lower lobe and lingular interstitial opacities, likely reflecting atelectasis, increased when compared to the prior examination. 2. Expected post cardiac surgery changes. 3. Mild cardiomegaly and aortic atherosclerosis. 4. Tubes and lines, as described above. RPTAT: HH .Gunjan Hernandez MD, Date Time Electronically viewed and signed by .Gunjan Hernandez MD, on 12/18/2016 07:34 .G/
[2016-12-18 07:45] LABS: AADO2 Arterial 39.2 mmHg (7.0-24.0); Arterial Base Excess -1.4 mmol/L (-3.0-3); Arterial COHb 0.3 % (0.0-3.0); Arterial HCO3 22.4 mmol/L (22.0-26.0); Arterial MetHb 0.5 % (0.0-1.5); Arterial Total Hemglobin 10.6 g/dl (12.0-18.0); MODE NASAL CANNULA
[2016-12-18] MEDS: FAMOTIDINE 20 MG INJ IV SCH ×2 (07:57→19:48)
[2016-12-18] MEDS: METOPROLOL (XL) 50 MG TAB PO SCH ×2 (08:01→21:00)
[2016-12-18] MEDS: ASPIRIN 81 MG TAB NGT SCH (08:21)
[2016-12-18] MEDS: PREGABALIN 75 MG CAP PO SCH ×2 (08:21→21:36)
--- NOTE | 2016-12-18 10:03 | PN ---
Date/Time of Note Date/Time of Note DATE: 12/18/16 TIME: 09:35 Assessment/Plan VTE Prophylaxis VTE Prophylaxis Intervention: SCD's Lines/Catheters IV Catheter Type (from Nrsg): A Line Urinary Cath still in place: Yes Reason Cath still needed: other (indicate) (will d/c soon ) Assessment/Plan Assessment/Plan 71-year-old female with: 1.Severe CAD, s/p NSTEMI on admission and now POD#1 s/p triple-vessel CABG. Appreciate assistance from Dr Krishna, Debra this AM and already extubated and on HD Also on Insulin gtt marvin op. 2. Multifocal pneumonia and bronchitis, likely HCAP. Blood cultures negatives Continue current antibiotics, Levaquin and Amikacin per ID, Sputum cx with Enterobacter. Appreciate ID recommendations and continued follow up 3. End-stage renal disease on hemodialysis. On M/W/ Nephrology following. S/p HD yesterday 4. Diabetes mellitus, insulin requiring. A1c 7.9. BG stable. Appreciate recommendations from clinical unit educator. On SSI, change Lantus to 5 units subQ bid, premeal insulin and Tradjenta per DM education recommendations. Will adjust post op further 5. Chronic Anemia with acute post op anemia, patient likely to require transfusion marvin operatively. Hb 7.8 today, f/u CTS recs 6. Hyperlipidemia. Continue statin therapy. 7. Diabetic neuropathy. Continue Lyrica. Prophylaxis. Pepcid for GI prophylaxis and on heparin gtt now. DISPOSITION: CABG Today and yo ICU post op. Subjective 24 Hr Interval Summary Free Text/Dictation Patient doing well on POD#1 Extubated and doing well on 2L NC, chest tubes in place On HD this AM, on insulin gtt marvin op Tolerating po Exam/Review of Systems Vital Signs Vitals Vital Signs Date Time Temp Pulse Resp B/P Pulse Ox O2 Delivery O2 Flow Rate FiO2 12/18/16 09:15 85 18 117/39 100 12/18/16 09:00 98.4 12/18/16 09:00 Nasal Cannula 2.0 12/18/16 00:00 30 Intake and Output 12/17/16 12/17/16 12/18/16 15:00 23:00 07:00 Intake Total 2889.702 ml 713.975 ml 365.438 ml Output Total 519 ml 625 ml 323 ml Balance 2370.702 ml 88.975 ml 42.438 ml Exam Constitutional: alert, oriented (x3) Respiratory: diminished breath sounds (bilateral bases ), normal air movement, other (2x chest tubes in place ) Cardiovascular: nl pulses, regular rate and rhythm Gastrointestinal: non-tender, soft Musculoskeletal: nl extremities to inspection Extremities: normal pulses, other (no edema, clubbing or cyanosis ) 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: DISTRICT COURT ADMINISTRATOR II-XII intact, nl mental status, nl speech, other ( generalized weakness ) Results Result Diagram: 12/18/16 0400 12/18/16 0400 Results 24 hrs Laboratory Tests Test 12/17/16 11:43 12/17/16 12:15 12/17/16 12:16 12/17/16 12:56 Bedside Glucose 179 115 Blood Gas Specimen Source Blood arterial BLMV Arterial Blood Date Drawn 12/17/2016 12:20:35 PM 12/17/2016 12:25:40 PM Arterial Blood pH (Temp corrected) 7.448 Arterial Blood pCO2 (Temp correct) 32.7 L Arterial Blood pO2 (Temp corrected) 191.0 H Arterial Blood HCO3 22.1 Arterial Blood Base Excess -1.3 Arterial Blood Oxygen Saturation 98.4 H Carlton Test N/A N/A Arterial Blood Gas Puncture Site A-Line PUL ART LINE Arterial Blood Carboxyhemoglobin 0.3 Arterial Blood Methemoglobin 0.4 Blood Gas A-a O2 Differential 200.8 H Oxyhemoglobin Percent 97.7 Total Hemoglobin 11.3 L Blood Gas Temperature 37.0 37.0 Blood Gas Respiration Rate 14.0 14.0 Blood Gas Actual Respiration Rate 18 18 Blood Gas Modality VENT - AC VENT - AC FiO2 60.0 60.0 Blood Gas Tidal Volume 500.0 500.0 Blood Gas Low PEEP Setting 5.0 5.0 Blood Gas Notified Whom JLD JLD Blood Gas Notified Time 12/17/2016 12:44:40 PM 12/17/2016 12:48:40 PM Mixed Venous Blood PO2 43.4 H Mixed Venous Blood O2 Saturation 79.5 H Mixed Venous Blood Total Hemoglobin 9.8 Mixed Venous Blood Oxyhemoglobin 78.7 Mixed Venous Bld Carboxyhemoglobin 0.3 Mixed Venous Blood Methemoglobin 0.7 White Blood Count 10.9 #H Red Blood Count 2.94 L Hemoglobin 8.8 L Hematocrit 26.7 L Mean Corpuscular Volume 90.8 Mean Corpuscular Hemoglobin 29.9 Mean Corpuscular Hemoglobin Concent 33.0 Red Cell Distribution Width 14.4 Platelet Count 119 #L Mean Platelet Volume 11.0 H Neutrophils % 77.0 Lymphocytes % 13.5 L Monocytes % 4.8 Eosinophils % 0.7 Basophils % 0.2 Nucleated Red Blood Cells % 0.0 Neutrophils # 8.4 H Lymphocytes # 1.5 Monocytes # 0.5 Eosinophils # 0.1 Basophils # 0.0 Nucleated Red Blood Cells # 0.0 Prothrombin Time 17.0 H Prothrombin Time Ratio 1.3 INR International Normalized Ratio 1.38 Activated Partial Thromboplast Time 31.7 Sodium Level 139 Potassium Level 3.2 L Chloride Level 100 Carbon Dioxide Level 21 Anion Gap 21 H Blood Urea Nitrogen 38 H Creatinine 5.46 H Glucose Level 110 Calcium Level 8.5 Magnesium Level 2.5 Test 12/17/16 14:01 12/17/16 14:53 12/17/16 15:14 12/17/16 15:29 Bedside Glucose 87 55 L 160 126 Test 12/17/16 15:57 12/17/16 16:54 12/17/16 17:57 12/17/16 18:51 Bedside Glucose 123 101 95 98 Test 12/17/16 20:00 12/17/16 20:04 12/17/16 20:08 12/17/16 21:25 Blood Gas Specimen Source Blood arterial Arterial Blood Date Drawn 12/17/2016 8:15:19 PM Arterial Blood pH (Temp corrected) 7.357 Arterial Blood pCO2 (Temp correct) 38.3 Arterial Blood pO2 (Temp corrected) 89.4 Arterial Blood HCO3 21.0 L Arterial Blood Base Excess -4.1 L Arterial Blood Oxygen Saturation 95.1 Carlton Test N/A Arterial Blood Gas Puncture Site A-Line Arterial Blood Carboxyhemoglobin 0.3 Arterial Blood Methemoglobin 0.3 Blood Gas A-a O2 Differential 79.5 H Oxyhemoglobin Percent 94.5 Total Hemoglobin 10.8 L Blood Gas Temperature 37.0 Blood Gas Respiration Rate 14.0 Blood Gas Actual Respiration Rate 14 Blood Gas Modality VENT - AC FiO2 30.0 Blood Gas Tidal Volume 500.0 Blood Gas Mean Airway Pressure 11 Blood Gas Low PEEP Setting 5.0 Blood Gas Inspiratory Pressure 25.0 Blood Gas Critical Value Read Back Lorne HORN RN. Blood Gas Notified Whom BL Blood Gas Notified Time 12/17/2016 8:33:19 PM White Blood Count 12.2 H Red Blood Count 2.95 L Hemoglobin 9.2 L Hematocrit 26.9 L Mean Corpuscular Volume 91.2 Mean Corpuscular Hemoglobin 31.2 Mean Corpuscular Hemoglobin Concent 34.2 Red Cell Distribution Width 14.7 H Platelet Count 155 # Mean Platelet Volume 10.7 H Neutrophils % 72.5 Lymphocytes % 10.5 L Monocytes % 10.8 Eosinophils % 1.6 Basophils % 0.2 Nucleated Red Blood Cells % 0.0 Neutrophils # 8.8 H Lymphocytes # 1.3 Monocytes # 1.3 H Eosinophils # 0.2 Basophils # 0.0 Nucleated Red Blood Cells # 0.0 Prothrombin Time 14.7 H Prothrombin Time Ratio 1.1 INR International Normalized Ratio 1.15 Activated Partial Thromboplast Time 32.8 Sodium Level 139 Potassium Level 4.4 Chloride Level 98 Carbon Dioxide Level 22 Anion Gap 23 H Blood Urea Nitrogen 41 H Creatinine 6.12 H Glucose Level 154 Calcium Level 8.6 Magnesium Level 2.5 Bedside Glucose 112 141 Test 12/17/16 22:06 12/17/16 23:02 12/17/16 23:06 12/18/16 01:01 Bedside Glucose 158 156 137 Blood Gas Specimen Source Blood arterial Arterial Blood Date Drawn 12/17/2016 11:08:49 PM Arterial Blood pH (Temp corrected) 7.322 L Arterial Blood pCO2 (Temp correct) 41.7 Arterial Blood pO2 (Temp corrected) 86.8 Arterial Blood HCO3 21.1 L Arterial Blood Base Excess -4.6 L Arterial Blood Oxygen Saturation 94.5 L Carlton Test N/A Arterial Blood Gas Puncture Site A-Line Arterial Blood Carboxyhemoglobin 0.3 Arterial Blood Methemoglobin 0.4 Blood Gas A-a O2 Differential 78.1 H Oxyhemoglobin Percent 93.8 Total Hemoglobin 9.5 L Blood Gas Temperature 37.0 Blood Gas Actual Respiration Rate 17 Blood Gas Modality VENT - CPAP FiO2 30.0 Blood Gas Tidal Volume 360.0 Blood Gas Low PEEP Setting 5.0 Blood Gas Pressure Support 5 Blood Gas Critical Value Read Back Lorne PENA RN Blood Gas Notified Whom BL Blood Gas Notified Time 12/17/2016 11:23:51 PM Test 12/18/16 03:04 12/18/16 04:00 12/18/16 05:00 12/18/16 05:04 Bedside Glucose 142 139 White Blood Count 8.5 # Red Blood Count 2.60 L Hemoglobin 7.8 L Hematocrit 24.5 L Mean Corpuscular Volume 94.2 Mean Corpuscular Hemoglobin 30.0 Mean Corpuscular Hemoglobin Concent 31.8 L Red Cell Distribution Width 15.4 H Platelet Count 136 L Mean Platelet Volume 11.6 H Neutrophils % 72.6 Lymphocytes % 13.7 L Monocytes % 10.7 Eosinophils % 1.6 Basophils % 0.1 Nucleated Red Blood Cells % 0.0 Neutrophils # 6.2 Lymphocytes # 1.2 Monocytes # 0.9 Eosinophils # 0.1 Basophils # 0.0 Nucleated Red Blood Cells # 0.0 Prothrombin Time 14.9 H Prothrombin Time Ratio 1.2 INR International Normalized Ratio 1.16 Activated Partial Thromboplast Time 30.3 Sodium Level 140 Potassium Level 5.4 H Chloride Level 99 Carbon Dioxide Level 23 Anion Gap 23 H Blood Urea Nitrogen 44 H Creatinine 6.64 H Glucose Level 139 Calcium Level 8.5 Magnesium Level 2.5 Blood Gas Specimen Source Blood arterial Arterial Blood Date Drawn 12/18/2016 7:30:23 AM Arterial Blood pH (Temp corrected) 7.434 Arterial Blood pCO2 (Temp correct) 34.2 L Arterial Blood pO2 (Temp corrected) 112.9 H Arterial Blood HCO3 22.4 Arterial Blood Base Excess -1.4 Arterial Blood Oxygen Saturation 97.8 Carlton Test N/A Arterial Blood Gas Puncture Site A-Line Arterial Blood Carboxyhemoglobin 0.3 Arterial Blood Methemoglobin 0.5 Blood Gas A-a O2 Differential 39.2 H Oxyhemoglobin Percent 97.0 Total Hemoglobin 10.6 L Blood Gas Temperature 37.0 Blood Gas Modality NASAL CANNULA FiO2 27.0 Blood Gas Notified Whom JLD Blood Gas Notified Time 12/18/2016 7:45:02 AM Test 12/18/16 06:49 12/18/16 08:53 Bedside Glucose 148 140 Medications Medications Current Medications Ondansetron HCl (Zofran Inj) 4 mg Q6H PRN IV NAUSEA AND/OR VOMITING Last administered on 12/18/16 06:38; Admin Dose 4 MG; Start 12/09/16 at 17:30 Metoprolol Succinate (Toprol Xl) 50 mg BID PO Last administered on 12/16/16 08: 32; Admin Dose 50 MG; Start 12/11/16 at 07:01 Pregabalin (Lyrica) 75 mg BID PO Last administered on 12/18/16 08:21; Admin Dose 75 MG; Start 12/11/16 at 21:00 Eye Lubricant (Artificial Tears Oph) 2 drop Q6H PRN BOTH EYES DRY EYES Last administered on 12/16/16 21:07; Admin Dose 2 DROP; Start 12/11/16 at 20:30 Amikacin Sulfate AMIKACIN PER PHARMACY NOTE XX ; Start 12/15/16 at 12:30 Albumin Human 250 ml @ 500 mls/hr PRN PRN IV CVP< 8, OR SBP<90 Last administered on 12/17/16 21:22; Admin Dose 500 MLS/HR; Start 12/17/16 at 12:00 Hydromorphone HCl (Dilaudid) 0.2 mg Q15M PRN IV PAIN LEVEL 1-5 Last administered on 12/17/16 20:23; Admin Dose 0.2 MG; Start 12/17/16 at 12:00 Hydromorphone HCl (Dilaudid) 0.4 mg Q15M PRN IV PAIN LEVEL 6-10 Last administered on 12/17/16 16:49; Admin Dose 0.4 MG; Start 12/17/16 at 12:00 Oxycodone/ Acetaminophen (Percocet (5/ 325)) 1 tab Q3H PRN PO PAIN LEVEL 1-5; Start 12/17/16 at 12:00 Oxycodone/ Acetaminophen (Percocet (5/ 325)) 2 tab Q3H PRN PO PAIN LEVEL 6-10 Last administered on 12/18/16 07:57; Admin Dose 2 TAB; Start 12/17/16 at 12:00 Famotidine (Pepcid Iv) 20 mg BID@08,20 IV Last administered on 12/18/16 07:57; Admin Dose 20 MG; Start 12/17/16 at 20:00 Acetaminophen (Tylenol Tab) 650 mg Q3H PRN PO ELEVATED TEMPERATURE; Start at 12:00 Diagnostic Test (Pha) (Accu-Chek) 1 ea Q1H XX Last administered on 12/18/16 09: 07; Admin Dose 1 EA; Start 12/17/16 at 12:00 Dextrose (D50w Syringe) 25 ml Q15M PRN IV Till BS 80 mg/dL or above x2 Last administered on 12/17/16 15:01; Admin Dose 25 ML; Start 12/17/16 at 12:00 Dextrose 50 ml 50 ml Q15M PRN IV Till BS 80 mg/dL or above x2; Start 12/17/16 at 12:00 Dextrose/Sodium Chloride (D5-1/2ns) 1,000 ml @ 40 mls/hr Q24H IV Last administered on 12/17/16 12:30; Admin Dose 40 MLS/HR; Start 12/17/16 at 12:30 Aspirin (Aspirin) 81 mg DAILY NGT Last administered on 12/18/16 08:21; Admin Dose 81 MG; Start 12/18/16 at 09:00 Atorvastatin Calcium (Lipitor) 40 mg HS NGT ; Start 12/17/16 at 21:00 JOSHUA MATSON Dec 18, 2016 09:59
[2016-12-18] MEDS: LEVOFLOXACIN 250MG/D5W (PMX) 50 ML IVPB SCH (11:44)
--- NOTE | 2016-12-18 12:22 | CONS ---
Date/Time of Note Date/Time of Note DATE: 12/18/16 TIME: 12:20 Assessment/Plan Assessment/Plan Additional Assessment/Plan Non-ST elevation [place] Triple-vessel coronary artery disease including distal left main s/p CABG 12/17/16 Preserved ejection fraction Diabetes Hypertension Pneumonia End-stage renal disease on hemodialysis -Patient status post CABG yesterday and extubated. Continue aspirin and statin therapy. Blood pressure remains borderline low and would hold off initiation of beta-rob or GAYLA inhibitor at the current time. Fluid management via hemodialysis as per our nephrology colleagues. Encourage incentive spirometry. Consultation Date/Type/Reason Admit Date/Time Dec 09, 2016 at 11:49 Type of Consultation: cv 24 HR Interval Summary Free Text/Dictation Patient extubated, undergoing hemodialysis. Denies shortness of breath, has mild chest wall pain Exam/Review of Systems Vital Signs Vitals Vital Signs Date Time Temp Pulse Resp B/P Pulse Ox O2 Delivery O2 Flow Rate FiO2 12/18/16 11:45 86 16 12/18/16 11:00 88/44 100 Nasal Cannula 2.0 12/18/16 09:00 98.4 12/18/16 00:00 30 Intake and Output 12/17/16 12/17/16 12/18/16 15:00 23:00 07:00 Intake Total 2889.702 ml 713.975 ml 365.438 ml Output Total 519 ml 625 ml 323 ml Balance 2370.702 ml 88.975 ml 42.438 ml Exam Undergoing hemodialysis Constitutional: alert, oriented Head: normocephalic Respiratory: other (Coarse breath sounds bilaterally, no wheezing) Cardiovascular: other (S1-S2 heard), regular rate and rhythm Gastrointestinal: bowel sounds, non-tender, other (No guarding), soft Extremities: edema (Trace) Results Result Diagram: 12/18/16 0400 12/18/16 0400 Results 24 hrs Laboratory Tests Test 12/17/16 12:56 12/17/16 14:01 12/17/16 14:53 12/17/16 15:14 White Blood Count 10.9 #H Red Blood Count 2.94 L Hemoglobin 8.8 L Hematocrit 26.7 L Mean Corpuscular Volume 90.8 Mean Corpuscular Hemoglobin 29.9 Mean Corpuscular Hemoglobin Concent 33.0 Red Cell Distribution Width 14.4 Platelet Count 119 #L Mean Platelet Volume 11.0 H Neutrophils % 77.0 Lymphocytes % 13.5 L Monocytes % 4.8 Eosinophils % 0.7 Basophils % 0.2 Nucleated Red Blood Cells % 0.0 Neutrophils # 8.4 H Lymphocytes # 1.5 Monocytes # 0.5 Eosinophils # 0.1 Basophils # 0.0 Nucleated Red Blood Cells # 0.0 Prothrombin Time 17.0 H Prothrombin Time Ratio 1.3 INR International Normalized Ratio 1.38 Activated Partial Thromboplast Time 31.7 Sodium Level 139 Potassium Level 3.2 L Chloride Level 100 Carbon Dioxide Level 21 Anion Gap 21 H Blood Urea Nitrogen 38 H Creatinine 5.46 H Glucose Level 110 Bedside Glucose 115 87 55 L 160 Calcium Level 8.5 Magnesium Level 2.5 Test 12/17/16 15:29 12/17/16 15:57 12/17/16 16:54 12/17/16 17:57 Bedside Glucose 126 123 101 95 Test 12/17/16 18:51 12/17/16 20:00 12/17/16 20:04 12/17/16 20:08 Bedside Glucose 98 112 Blood Gas Specimen Source Blood arterial Arterial Blood Date Drawn 12/17/2016 8:15:19 PM Arterial Blood pH (Temp corrected) 7.357 Arterial Blood pCO2 (Temp correct) 38.3 Arterial Blood pO2 (Temp corrected) 89.4 Arterial Blood HCO3 21.0 L Arterial Blood Base Excess -4.1 L Arterial Blood Oxygen Saturation 95.1 Carlton Test N/A Arterial Blood Gas Puncture Site A-Line Arterial Blood Carboxyhemoglobin 0.3 Arterial Blood Methemoglobin 0.3 Blood Gas A-a O2 Differential 79.5 H Oxyhemoglobin Percent 94.5 Total Hemoglobin 10.8 L Blood Gas Temperature 37.0 Blood Gas Respiration Rate 14.0 Blood Gas Actual Respiration Rate 14 Blood Gas Modality VENT - AC FiO2 30.0 Blood Gas Tidal Volume 500.0 Blood Gas Mean Airway Pressure 11 Blood Gas Low PEEP Setting 5.0 Blood Gas Inspiratory Pressure 25.0 Blood Gas Critical Value Read Back Lorne HORN RN. Blood Gas Notified Whom BL Blood Gas Notified Time 12/17/2016 8:33:19 PM White Blood Count 12.2 H Red Blood Count 2.95 L Hemoglobin 9.2 L Hematocrit 26.9 L Mean Corpuscular Volume 91.2 Mean Corpuscular Hemoglobin 31.2 Mean Corpuscular Hemoglobin Concent 34.2 Red Cell Distribution Width 14.7 H Platelet Count 155 # Mean Platelet Volume 10.7 H Neutrophils % 72.5 Lymphocytes % 10.5 L Monocytes % 10.8 Eosinophils % 1.6 Basophils % 0.2 Nucleated Red Blood Cells % 0.0 Neutrophils # 8.8 H Lymphocytes # 1.3 Monocytes # 1.3 H Eosinophils # 0.2 Basophils # 0.0 Nucleated Red Blood Cells # 0.0 Prothrombin Time 14.7 H Prothrombin Time Ratio 1.1 INR International Normalized Ratio 1.15 Activated Partial Thromboplast Time 32.8 Sodium Level 139 Potassium Level 4.4 Chloride Level 98 Carbon Dioxide Level 22 Anion Gap 23 H Blood Urea Nitrogen 41 H Creatinine 6.12 H Glucose Level 154 Calcium Level 8.6 Magnesium Level 2.5 Test 12/17/16 21:25 12/17/16 22:06 12/17/16 23:02 12/17/16 23:06 Bedside Glucose 141 158 156 Blood Gas Specimen Source Blood arterial Arterial Blood Date Drawn 12/17/2016 11:08:49 PM Arterial Blood pH (Temp corrected) 7.322 L Arterial Blood pCO2 (Temp correct) 41.7 Arterial Blood pO2 (Temp corrected) 86.8 Arterial Blood HCO3 21.1 L Arterial Blood Base Excess -4.6 L Arterial Blood Oxygen Saturation 94.5 L Carl[place] Test N/A Arterial Blood Gas Puncture Site A-Line Arterial Blood Carboxyhemoglobin 0.3 Arterial Blood Methemoglobin 0.4 Blood Gas A-a O2 Differential 78.1 H Oxyhemoglobin Percent 93.8 Total Hemoglobin 9.5 L Blood Gas Temperature 37.0 Blood Gas Actual Respiration Rate 17 Blood Gas Modality VENT - CPAP FiO2 30.0 Blood Gas Tidal Volume 360.0 Blood Gas Low PEEP Setting 5.0 Blood Gas Pressure Support 5 Blood Gas Critical Value Read Back Lorne PENA RN Blood Gas Notified Whom BL Blood Gas Notified Time 12/17/2016 11:23:51 PM Test 12/18/16 01:01 12/18/16 03:04 12/18/16 04:00 12/18/16 05:00 Bedside Glucose 137 142 White Blood Count 8.5 # Red Blood Count 2.60 L Hemoglobin 7.8 L Hematocrit 24.5 L Mean Corpuscular Volume 94.2 Mean Corpuscular Hemoglobin 30.0 Mean Corpuscular Hemoglobin Concent 31.8 L Red Cell Distribution Width 15.4 H Platelet Count 136 L Mean Platelet Volume 11.6 H Neutrophils % 72.6 Lymphocytes % 13.7 L Monocytes % 10.7 Eosinophils % 1.6 Basophils % 0.1 Nucleated Red Blood Cells % 0.0 Neutrophils # 6.2 Lymphocytes # 1.2 Monocytes # 0.9 Eosinophils # 0.1 Basophils # 0.0 Nucleated Red Blood Cells # 0.0 Prothrombin Time 14.9 H Prothrombin Time Ratio 1.2 INR International Normalized Ratio 1.16 Activated Partial Thromboplast Time 30.3 Sodium Level 140 Potassium Level 5.4 H Chloride Level 99 Carbon Dioxide Level 23 Anion Gap 23 H Blood Urea Nitrogen 44 H Creatinine 6.64 H Glucose Level 139 Calcium Level 8.5 Magnesium Level 2.5 Blood Gas Specimen Source Blood arterial Arterial Blood Date Drawn 12/18/2016 7:30:23 AM Arterial Blood pH (Temp corrected) 7.434 Arterial Blood pCO2 (Temp correct) 34.2 L Arterial Blood pO2 (Temp corrected) 112.9 H Arterial Blood HCO3 22.4 Arterial Blood Base Excess -1.4 Arterial Blood Oxygen Saturation 97.8 Carlton Test N/A Arterial Blood Gas Puncture Site A-Line Arterial Blood Carboxyhemoglobin 0.3 Arterial Blood Methemoglobin 0.5 Blood Gas A-a O2 Differential 39.2 H Oxyhemoglobin Percent 97.0 Total Hemoglobin 10.6 L Blood Gas Temperature 37.0 Blood Gas Modality NASAL CANNULA FiO2 27.0 Blood Gas Notified Whom JLD Blood Gas Notified Time 12/18/2016 7:45:02 AM Test 12/18/16 05:04 12/18/16 06:49 12/18/16 08:53 12/18/16 10:50 Bedside Glucose 139 148 140 184 Medications Medications Current Medications Ondansetron HCl (Zofran Inj) 4 mg Q6H PRN IV NAUSEA AND/OR VOMITING Last administered on 12/18/16 06:38; Admin Dose 4 MG; Start 12/09/16 at 17:30 Metoprolol Succinate (Toprol Xl) 50 mg BID PO Last administered on 12/16/16 08: 32; Admin Dose 50 MG; Start 12/11/16 at 07:01 Pregabalin (Lyrica) 75 mg BID PO Last administered on 12/18/16 08:21; Admin Dose 75 MG; Start 12/11/16 at 21:00 Eye Lubricant (Artificial Tears Oph) 2 drop Q6H PRN BOTH EYES DRY EYES Last administered on 12/16/16 21:07; Admin Dose 2 DROP; Start 12/11/16 at 20:30 Amikacin Sulfate AMIKACIN PER PHARMACY NOTE XX ; Start 12/15/16 at 12:30 Albumin Human 250 ml @ 500 mls/hr PRN PRN IV CVP< 8, OR SBP<90 Last administered on 12/17/16 21:22; Admin Dose 500 MLS/HR; Start 12/17/16 at 12:00 Hydromorphone HCl (Dilaudid) 0.2 mg Q15M PRN IV PAIN LEVEL 1-5 Last administered on 12/17/16 20:23; Admin Dose 0.2 MG; Start 12/17/16 at 12:00 Hydromorphone HCl (Dilaudid) 0.4 mg Q15M PRN IV PAIN LEVEL 6-10 Last administered on 12/17/16 16:49; Admin Dose 0.4 MG; Start 12/17/16 at 12:00 Oxycodone/ Acetaminophen (Percocet (5/ 325)) 1 tab Q3H PRN PO PAIN LEVEL 1-5; Start 12/17/16 at 12:00 Oxycodone/ Acetaminophen (Percocet (5/ 325)) 2 tab Q3H PRN PO PAIN LEVEL 6-10 Last administered on 12/18/16 11:54; Admin Dose 2 TAB; Start 12/17/16 at 12:00 Famotidine (Pepcid Iv) 20 mg BID@08,20 IV Last administered on 12/18/16 07:57; Admin Dose 20 MG; Start 12/17/16 at 20:00 Acetaminophen (Tylenol Tab) 650 mg Q3H PRN PO ELEVATED TEMPERATURE; Start at 12:00 Diagnostic Test (Pha) (Accu-Chek) 1 ea Q1H XX Last administered on 12/18/16 11: 59; Admin Dose 1 EA; Start 12/17/16 at 12:00 Dextrose (D50w Syringe) 25 ml Q15M PRN IV Till BS 80 mg/dL or above x2 Last administered on 12/17/16 15:01; Admin Dose 25 ML; Start 12/17/16 at 12:00 Dextrose 50 ml 50 ml Q15M PRN IV Till BS 80 mg/dL or above x2; Start 12/17/16 at 12:00 Dextrose/Sodium Chloride (D5-1/2ns) 1,000 ml @ 40 mls/hr Q24H IV Last administered on 12/17/16 12:30; Admin Dose 40 MLS/HR; Start 12/17/16 at 12:30 Aspirin (Aspirin) 81 mg DAILY NGT Last administered on 12/18/16 08:21; Admin Dose 81 MG; Start 12/18/16 at 09:00 Atorvastatin Calcium 40 mg 40 mg HS NGT ; Start 12/17/16 at 21:00 Levofloxacin/ Dextrose (Levaquin 250 Mg/ D5W 50 ml (Pmx)) 50 ml @ 50 mls/hr Q48H IVPB Last administered on 12/18/16 11:44; Admin Dose 50 MLS/HR; Start 12/18 at 11:00 Xiang Krishna DO Dec 18, 2016 12:22
[2016-12-18] MEDS: DEXTROSE 5%-0.45% NACL 1,000 ML IV SCH (12:43)
[2016-12-18] MEDS: AMIKACIN 275 MG in SOD CHLORIDE 0.9% 100 ML IVPB SCH (12:43)
[2016-12-18] MEDS: INSULIN REGULAR, HUMAN 100 UNIT in SOD CHLORIDE 0.9% 99 ML IV SCH ×2 (12:46)
--- NOTE | 2016-12-18 13:47 | PN ---
DATE: 12/18/2016 SUBJECTIVE: No acute changes. Patient was extubated, alert, looks comfortable. Family at bedside. VITAL SIGNS: Temperature 97.4, pulse 91, respirations 16, blood pressure 112/43, saturation 100 on 2 liters nasal cannula. WBC 8.5, H and H 7.8 and 24.5, platelets 136, neutrophils 72.6. INDWELLINGS: Right IJ introducer, chest tube, Leroy catheter, left upper extremity AV fistula. ANTIMICROBIALS: The patient is on: 1. Levaquin. 2. Amikacin. PHYSICAL EXAMINATION: GENERAL: This is a fragile, elderly woman who is awake, in no distress. HEENT: Head atraumatic, normocephalic. Sclerae anicteric. Buccal mucosa pink, dry. NECK: Supple, trachea midline. CHEST: Rise symmetrical. Breath sounds diminished to bases. HEART: S1, S2. ABDOMEN: Soft. Bowel tones present. EXTREMITIES: No cyanosis. Bilateral trace edema. ASSESSMENT: 1. Status post coronary artery bypass graft, postop day #1. 2. Resolving pneumonia with sputum culture grew Enterobacter species. 3. End-stage renal disease, hemodialysis dependent. 4. Diabetes. 5. Non-ST elevation myocardial infarction. PLAN: The patient remains stable. postop day #1. We will continue her on current antimicrobials. Follow recommendations of consultants. Dictated By: ED OWENS CORRECTION WORKER for [employer]IFFORD HONG/DEEPALI Conf#: [id number] DID#: [id number]
--- NOTE | 2016-12-18 15:20 | CONS ---
Date/Time of Note Date/Time of Note DATE: 12/18/16 TIME: 15:18 Assessment/Plan Assessment/Plan Chief Complaint/Hosp Course - ESRD Hemodialysis dependent - ANEMIA - HYPERTENSION - NSTEMI - PNEMONIA - DIABETES - CAD PLAN: Bedside dialysis In ICU , post CABG HEMODYNAMICALLY STABLE WILL MONITOR : H/H & POTASSIUM & VOLUME STATUS POST SURGERY EPOGEN to keep Hgb ~ 10 Problems: Consultation Date/Type/Reason Admit Date/Time Dec 09, 2016 at 11:49 Type of Consultation: NEPHROLOGY 24 HR Interval Summary Constitutional: improved, no complaints Exam/Review of Systems Vital Signs Vitals Vital Signs Date Time Temp Pulse Resp B/P Pulse Ox O2 Delivery O2 Flow Rate FiO2 12/18/16 12:00 90 12/18/16 12:00 97.4 16 112/43 100 Nasal Cannula 2.0 12/18/16 00:00 30 Intake and Output 12/17/16 12/17/16 12/18/16 15:00 23:00 07:00 Intake Total 2889.702 ml 713.975 ml 365.438 ml Output Total 519 ml 625 ml 323 ml Balance 2370.702 ml 88.975 ml 42.438 ml Exam Constitutional: alert, oriented Psych: no complaints Respiratory: crackles/rales Cardiovascular: edema, regular rate and rhythm, systolic murmur Results Result Diagram: 12/18/16 0400 12/18/16 0400 Results 24 hrs Laboratory Tests Test 12/17/16 15:29 12/17/16 15:57 12/17/16 16:54 12/17/16 17:57 Bedside Glucose 126 123 101 95 Test 12/17/16 18:51 12/17/16 20:00 12/17/16 20:04 12/17/16 20:08 Bedside Glucose 98 112 Blood Gas Specimen Source Blood arterial Arterial Blood Date Drawn 12/17/2016 8:15:19 PM Arterial Blood pH (Temp corrected) 7.357 Arterial Blood pCO2 (Temp correct) 38.3 Arterial Blood pO2 (Temp corrected) 89.4 Arterial Blood HCO3 21.0 L Arterial Blood Base Excess -4.1 L Arterial Blood Oxygen Saturation 95.1 Carlton Test N/A Arterial Blood Gas Puncture Site A-Line Arterial Blood Carboxyhemoglobin 0.3 Arterial Blood Methemoglobin 0.3 Blood Gas A-a O2 Differential 79.5 H Oxyhemoglobin Percent 94.5 Total Hemoglobin 10.8 L Blood Gas Temperature 37.0 Blood Gas Respiration Rate 14.0 Blood Gas Actual Respiration Rate 14 Blood Gas Modality VENT - AC FiO2 30.0 Blood Gas Tidal Volume 500.0 Blood Gas Mean Airway Pressure 11 Blood Gas Low PEEP Setting 5.0 Blood Gas Inspiratory Pressure 25.0 Blood Gas Critical Value Read Back Lorne HORN RN. Blood Gas Notified Whom BL Blood Gas Notified Time 12/17/2016 8:33:19 PM White Blood Count 12.2 H Red Blood Count 2.95 L Hemoglobin 9.2 L Hematocrit 26.9 L Mean Corpuscular Volume 91.2 Mean Corpuscular Hemoglobin 31.2 Mean Corpuscular Hemoglobin Concent 34.2 Red Cell Distribution Width 14.7 H Platelet Count 155 # Mean Platelet Volume 10.7 H Neutrophils % 72.5 Lymphocytes % 10.5 L Monocytes % 10.8 Eosinophils % 1.6 Basophils % 0.2 Nucleated Red Blood Cells % 0.0 Neutrophils # 8.8 H Lymphocytes # 1.3 Monocytes # 1.3 H Eosinophils # 0.2 Basophils # 0.0 Nucleated Red Blood Cells # 0.0 Prothrombin Time 14.7 H Prothrombin Time Ratio 1.1 INR International Normalized Ratio 1.15 Activated Partial Thromboplast Time 32.8 Sodium Level 139 Potassium Level 4.4 Chloride Level 98 Carbon Dioxide Level 22 Anion Gap 23 H Blood Urea Nitrogen 41 H Creatinine 6.12 H Glucose Level 154 Calcium Level 8.6 Magnesium Level 2.5 Test 12/17/16 21:25 12/17/16 22:06 12/17/16 23:02 12/17/16 23:06 Bedside Glucose 141 158 156 Blood Gas Specimen Source Blood arterial Arterial Blood Date Drawn 12/17/2016 11:08:49 PM Arterial Blood pH (Temp corrected) 7.322 L Arterial Blood pCO2 (Temp correct) 41.7 Arterial Blood pO2 (Temp corrected) 86.8 Arterial Blood HCO3 21.1 L Arterial Blood Base Excess -4.6 L Arterial Blood Oxygen Saturation 94.5 L [place] Test N/A Arterial Blood Gas Puncture Site A-Line Arterial Blood Carboxyhemoglobin 0.3 Arterial Blood Methemoglobin 0.4 Blood Gas A-a O2 Differential 78.1 H Oxyhemoglobin Percent 93.8 Total Hemoglobin 9.5 L Blood Gas Temperature 37.0 Blood Gas Actual Respiration Rate 17 Blood Gas Modality VENT - CPAP FiO2 30.0 Blood Gas Tidal Volume 360.0 Blood Gas Low PEEP Setting 5.0 Blood Gas Pressure Support 5 Blood Gas Critical Value Read Back Lorne PENA RN Blood Gas Notified Whom BL Blood Gas Notified Time 12/17/2016 11:23:51 PM Test 12/18/16 01:01 12/18/16 03:04 12/18/16 04:00 12/18/16 05:00 Bedside Glucose 137 142 White Blood Count 8.5 # Red Blood Count 2.60 L Hemoglobin 7.8 L Hematocrit 24.5 L Mean Corpuscular Volume 94.2 Mean Corpuscular Hemoglobin 30.0 Mean Corpuscular Hemoglobin Concent 31.8 L Red Cell Distribution Width 15.4 H Platelet Count 136 L Mean Platelet Volume 11.6 H Neutrophils % 72.6 Lymphocytes % 13.7 L Monocytes % 10.7 Eosinophils % 1.6 Basophils % 0.1 Nucleated Red Blood Cells % 0.0 Neutrophils # 6.2 Lymphocytes # 1.2 Monocytes # 0.9 Eosinophils # 0.1 Basophils # 0.0 Nucleated Red Blood Cells # 0.0 Prothrombin Time 14.9 H Prothrombin Time Ratio 1.2 INR International Normalized Ratio 1.16 Activated Partial Thromboplast Time 30.3 Sodium Level 140 Potassium Level 5.4 H Chloride Level 99 Carbon Dioxide Level 23 Anion Gap 23 H Blood Urea Nitrogen 44 H Creatinine 6.64 H Glucose Level 139 Calcium Level 8.5 Magnesium Level 2.5 Blood Gas Specimen Source Blood arterial Arterial Blood Date Drawn 12/18/2016 7:30:23 AM Arterial Blood pH (Temp corrected) 7.434 Arterial Blood pCO2 (Temp correct) 34.2 L Arterial Blood pO2 (Temp corrected) 112.9 H Arterial Blood HCO3 22.4 Arterial Blood Base Excess -1.4 Arterial Blood Oxygen Saturation 97.8 Carlton Test N/A Arterial Blood Gas Puncture Site A-Line Arterial Blood Carboxyhemoglobin 0.3 Arterial Blood Methemoglobin 0.5 Blood Gas A-a O2 Differential 39.2 H Oxyhemoglobin Percent 97.0 Total Hemoglobin 10.6 L Blood Gas Temperature 37.0 Blood Gas Modality NASAL CANNULA FiO2 27.0 Blood Gas Notified Whom JLD Blood Gas Notified Time 12/18/2016 7:45:02 AM Test 12/18/16 05:04 12/18/16 06:49 12/18/16 08:53 12/18/16 10:50 Bedside Glucose 139 148 140 184 Test 12/18/16 12:00 12/18/16 12:55 12/18/16 14:09 Bedside Glucose 156 148 161 Medications Medications Current Medications Ondansetron HCl (Zofran Inj) 4 mg Q6H PRN IV NAUSEA AND/OR VOMITING Last administered on 12/18/16 14:24; Admin Dose 4 MG; Start 12/09/16 at 17:30 Metoprolol Succinate (Toprol Xl) 50 mg BID PO Last administered on 12/16/16 08: 32; Admin Dose 50 MG; Start 12/11/16 at 07:01 Pregabalin (Lyrica) 75 mg BID PO Last administered on 12/18/16 08:21; Admin Dose 75 MG; Start 12/11/16 at 21:00 Eye Lubricant (Artificial Tears Oph) 2 drop Q6H PRN BOTH EYES DRY EYES Last administered on 12/16/16 21:07; Admin Dose 2 DROP; Start 12/11/16 at 20:30 Amikacin Sulfate AMIKACIN PER PHARMACY NOTE XX ; Start 12/15/16 at 12:30 Albumin Human 250 ml @ 500 mls/hr PRN PRN IV CVP< 8, OR SBP<90 Last administered on 12/17/16 21:22; Admin Dose 500 MLS/HR; Start 12/17/16 at 12:00 Hydromorphone HCl (Dilaudid) 0.2 mg Q15M PRN IV PAIN LEVEL 1-5 Last administered on 12/17/16 20:23; Admin Dose 0.2 MG; Start 12/17/16 at 12:00 Hydromorphone HCl (Dilaudid) 0.4 mg Q15M PRN IV PAIN LEVEL 6-10 Last administered on 12/17/16 16:49; Admin Dose 0.4 MG; Start 12/17/16 at 12:00 Oxycodone/ Acetaminophen (Percocet (5/ 325)) 1 tab Q3H PRN PO PAIN LEVEL 1-5; Start 12/17/16 at 12:00 Oxycodone/ Acetaminophen (Percocet (5/ 325)) 2 tab Q3H PRN PO PAIN LEVEL 6-10 Last administered on 12/18/16 11:54; Admin Dose 2 TAB; Start 12/17/16 at 12:00 Famotidine (Pepcid Iv) 20 mg BID@08,20 IV Last administered on 12/18/16 07:57; Admin Dose 20 MG; Start 12/17/16 at 20:00 Acetaminophen (Tylenol Tab) 650 mg Q3H PRN PO ELEVATED TEMPERATURE; Start at 12:00 Diagnostic Test (Pha) (Accu-Chek) 1 ea Q1H XX Last administered on 12/18/16 14: 14; Admin Dose 1 EA; Start 12/17/16 at 12:00 Dextrose (D50w Syringe) 25 ml Q15M PRN IV Till BS 80 mg/dL or above x2 Last administered on 12/17/16 15:01; Admin Dose 25 ML; Start 12/17/16 at 12:00 Dextrose 50 ml 50 ml Q15M PRN IV Till BS 80 mg/dL or above x2; Start 12/17/16 at 12:00 Dextrose/Sodium Chloride (D5-1/2ns) 1,000 ml @ 40 mls/hr Q24H IV Last administered on 12/18/16 12:43; Admin Dose 40 MLS/HR; Start 12/17/16 at 12:30 Aspirin (Aspirin) 81 mg DAILY NGT Last administered on 12/18/16 08:21; Admin Dose 81 MG; Start 12/18/16 at 09:00 Atorvastatin Calcium 40 mg 40 mg HS NGT ; Start 12/17/16 at 21:00 Levofloxacin/ Dextrose (Levaquin 250 Mg/ D5W 50 ml (Pmx)) 50 ml @ 50 mls/hr Q48H IVPB Last administered on 12/18/16 11:44; Admin Dose 50 MLS/HR; Start 12/18 at 11:00 TANIA THAPA MD Dec 18, 2016 15:20
[2016-12-18] MEDS: ATORVASTATIN 40 MG TAB NGT SCH (21:36)
[2016-12-19] VITALS (22 sets, daily range): BP systolic 103–139; BP diastolic 38–57; PULSE 80–88; RESP 12–31
[2016-12-19] MEDS: ACCU-CHEK XX SCH ×8 (01:00→08:40)
[2016-12-19 05:00] LABS: ADD SCAN DIFF NO
[2016-12-19 05:28] LABS: BASOPHILS % 0.4 % (0.0-2.0); EOSINOPHILS # 0.4 10^3/ul (0.0-0.5); EOSINOPHILS % 4.2 % (0.0-7.0); HEMATOCRIT 23.9 % (37.0-47.0); HEMOGLOBIN 7.4 g/dl (12.0-16.0); LYMPHOCYTES # 1.1 10^3/ul (0.8-2.9); LYMPHOCYTES % 12.6 % (15.0-51.0); MEAN CORPUSCULAR HEMOGLOBIN 30.1 pg (29.0-33.0); MEAN CORPUSCULAR VOLUME 97.2 fl (82.0-101.0); MEAN PLATELET VOLUME 11.9 fl (7.4-10.4); MONOCYTES % 11.3 % (0.0-11.0); NEUTROPHILS % 70.7 % (39.0-77.0); PLATELET COUNT 136 10^3/UL (140-415); RED BLOOD COUNT 2.46 10^6/ul (4.20-5.40); RED CELL DISTRIBUTION WIDTH 15.7 % (11.5-14.5); WHITE BLOOD COUNT 8.5 10^3/ul (4.8-10.8)
[2016-12-19 05:29] LABS: POTASSIUM 4.1 mmol/L (3.5-5.1)
[2016-12-19 05:32] LABS: CREATININE 4.9 mg/dl (0.44-1.00)
[2016-12-19 05:33] LABS: CALCIUM 8.5 mg/dl (8.4-10.2)
[2016-12-19 05:34] LABS: INR 1.08; PT RATIO 1.1
[2016-12-19 05:35] LABS: PARTIAL THROMBOPLASTIN TIME 36.2 Sec (25.0-35.0)
[2016-12-19] MEDS: PREGABALIN 75 MG CAP PO SCH ×2 (08:44→20:36)
[2016-12-19] MEDS: FAMOTIDINE 20 MG INJ IV SCH (08:44)
[2016-12-19] MEDS: ASPIRIN 81 MG TAB NGT SCH (08:44)
--- NOTE | 2016-12-19 09:39 | PN ---
Date/Time of Note Date/Time of Note DATE: 12/19/16 TIME: 09:39 Assessment/Plan VTE Prophylaxis VTE Prophylaxis Intervention: SCD's Lines/Catheters IV Catheter Type (from Nrs): Cordis Urinary Cath still in place: Yes Reason Cath still needed: other (indicate) (to be removed ) Assessment/Plan Assessment/Plan 71-year-old female with: 1.Severe CAD, s/p NSTEMI on admission and now POD#2 s/p triple-vessel CABG. Appreciate assistance from Dr Krishna, remains stable Stable, on 2L NC Resume Tradjenta, Lantus, pre meal Novolog and SSI to get off insulin gtt F/u CTS recommendations today 2. Multifocal pneumonia and bronchitis, likely HCAP. Blood cultures negatives Continue current antibiotics, Levaquin and Amikacin per ID, Sputum cx with Enterobacter. Appreciate ID recommendations and continued follow up 3. End-stage renal disease on hemodialysis. On M/W/F Nephrology following. HD in AM with pRBC transfusion 4. Diabetes mellitus, insulin requiring. A1c 7.9. BG stable. On insulin gtt post op so far Resuming Lantus to 5 units subQ bid, premeal insulin and Tradjenta and titrating off Insulin gtt. 5. Chronic Anemia with acute post op anemia, patient to get 2units pRBC with HD tomorrow. Hb 7.4 today, f/u CTS recs 6. Hyperlipidemia. Continue statin therapy. 7. Diabetic neuropathy. Continue Lyrica. Prophylaxis. Pepcid for GI prophylaxis and on heparin gtt now. DISPOSITION: POD#2 s/p CABG, getting off Insulin gtt and plan to downgrade to [facility] afterwards if stable. Subjective 24 Hr Interval Summary Free Text/Dictation Patient remains stable Hb still at 7.4 post HD yesterday, will plan for transfusion 2 units pRBC with HD on 12/19 Afebrile and plan to resume Lantus and get off insulin gtt today Exam/Review of Systems Vital Signs Vitals Vital Signs Date Time Temp Pulse Resp B/P Pulse Ox O2 Delivery O2 Flow Rate FiO2 12/19/16 08:18 Nasal Cannula 2.0 12/19/16 08:00 85 12/19/16 08:00 98.6 19 124/52 100 12/18/16 00:00 30 Intake and Output 4/512/18/16 12/19/16 15:00 23:00 07:00 Intake Total 2172.3 ml 572.0 ml 286.5 ml Output Total 2420 ml 186 ml 134 ml Balance -247.7 ml 386.0 ml 152.5 ml Exam Constitutional: alert, oriented, other (swedish speaking ), well developed Respiratory: diminished breath sounds (bases bilaterally ), normal air movement Cardiovascular: nl pulses, other (chest tubes x 2 and mid sternal dressing in place ), regular rate and rhythm Gastrointestinal: non-tender, soft Extremities: normal pulses, other (no edema, clubbing or cyanosis ) 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: PROFESSIONAL DRIVER II-XII 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, nl mental status, nl speech Results Result Diagram: 12/19/16 03312/19/16 0330 Results 24 hrs Laboratory Tests Test 12/18/16 10:50 12/18/16 12:00 12/18/16 12:55 12/18/16 14:09 Bedside Glucose 184 156 148 161 Test 12/18/16 16:26 12/18/16 18:26 12/18/16 19:54 12/18/16 22:03 Bedside Glucose 144 148 120 133 Test 12/18/16 23:47 12/19/16 02:09 12/19/16 03:30 12/19/16 03:50 Bedside Glucose 117 97 103 White Blood Count 8.5 Red Blood Count 2.46 L Hemoglobin 7.4 L Hematocrit 23.9 L Mean Corpuscular Volume 97.2 Mean Corpuscular Hemoglobin 30.1 Mean Corpuscular Hemoglobin Concent 31.0 L Red Cell Distribution Width 15.7 H Platelet Count 136 L Mean Platelet Volume 11.9 H Neutrophils % 70.7 Lymphocytes % 12.6 L Monocytes % 11.3 H Eosinophils % 4.2 Basophils % 0.4 Nucleated Red Blood Cells % 0.0 Neutrophils # 6.0 Lymphocytes # 1.1 Monocytes # 1.0 H Eosinophils # 0.4 Basophils # 0.0 Nucleated Red Blood Cells # 0.0 Prothrombin Time 14.0 Prothrombin Time Ratio 1.1 INR International Normalized Ratio 1.08 Activated Partial Thromboplast Time 36.2 H Sodium Level 142 Potassium Level 4.1 Chloride Level 100 Carbon Dioxide Level 25 Anion Gap 21 H Blood Urea Nitrogen 27 #H Creatinine 4.90 #H Glucose Level 123 Calcium Level 8.5 Magnesium Level 2.2 Test 12/19/16 05:42 12/19/16 08:39 Bedside Glucose 128 141 Medications Medications Current Medications Ondansetron HCl (Zofran Inj) 4 mg Q6H PRN IV NAUSEA AND/OR VOMITING Last administered on 12/18/16 14:24; Admin Dose 4 MG; Start 12/09/16 at 17:30 Metoprolol Succinate (Toprol Xl) 50 mg BID PO Last administered on 12/16/16 08: 32; Admin Dose 50 MG; Start 12/11/16 at 07:01 Pregabalin (Lyrica) 75 mg BID PO Last administered on 12/19/16 08:44; Admin Dose 75 MG; Start 12/11/16 at 21:00 Eye Lubricant (Artificial Tears Oph) 2 drop Q6H PRN BOTH EYES DRY EYES Last administered on 12/16/16 21:07; Admin Dose 2 DROP; Start 12/11/16 at 20:30 Amikacin Sulfate AMIKACIN PER PHARMACY NOTE XX ; Start 12/15/16 at 12:30 Albumin Human 250 ml @ 500 mls/hr PRN PRN IV CVP< 8, OR SBP<90 Last administered on 12/17/16 21:22; Admin Dose 500 MLS/HR; Start 12/17/16 at 12:00 Hydromorphone HCl (Dilaudid) 0.2 mg Q15M PRN IV PAIN LEVEL 1-5 Last administered on 12/17/16 20:23; Admin Dose 0.2 MG; Start 12/17/16 at 12:00 Hydromorphone HCl (Dilaudid) 0.4 mg Q15M PRN IV PAIN LEVEL 6-10 Last administered on 12/17/16 16:49; Admin Dose 0.4 MG; Start 12/17/16 at 12:00 Oxycodone/ Acetaminophen (Percocet (5/ 325)) 1 tab Q3H PRN PO PAIN LEVEL 1-5; Start 12/17/16 at 12:00 Oxycodone/ Acetaminophen (Percocet (5/ 325)) 2 tab Q3H PRN PO PAIN LEVEL 6-10 Last administered on 12/18/16 19:48; Admin Dose 2 TAB; Start 12/17/16 at 12:00 Famotidine (Pepcid Iv) 20 mg BID@08,20 IV Last administered on 12/19/16 08:44; Admin Dose 20 MG; Start 12/17/16 at 20:00 Acetaminophen (Tylenol Tab) 650 mg Q3H PRN PO ELEVATED TEMPERATURE; Start at 12:00 Diagnostic Test (Pha) (Accu-Chek) 1 ea Q1H XX Last administered on 12/19/16 08: 40; Admin Dose 1 EA; Start 12/17/16 at 12:00 Dextrose (D50w Syringe) 25 ml Q15M PRN IV Till BS 80 mg/dL or above x2 Last administered on 12/17/16 15:01; Admin Dose 25 ML; Start 12/17/16 at 12:00 Dextrose 50 ml 50 ml Q15M PRN IV Till BS 80 mg/dL or above x2; Start 12/17/16 at 12:00 Dextrose/Sodium Chloride (D5-1/2ns) 1,000 ml @ 40 mls/hr Q24H IV Last administered on 12/18/16 12:43; Admin Dose 40 MLS/HR; Start 12/17/16 at 12:30 Aspirin (Aspirin) 81 mg DAILY NGT Last administered on 12/19/16 08:44; Admin Dose 81 MG; Start 12/18/16 at 09:00 Atorvastatin Calcium 40 mg 40 mg HS NGT Last administered on 12/18/16 21:36; Admin Dose 40 MG; Start 12/17/16 at 21:00 Levofloxacin/ Dextrose (Levaquin 250 Mg/ D5W 50 ml (Pmx)) 50 ml @ 50 mls/hr Q48H IVPB Last administered on 12/18/16 11:44; Admin Dose 50 MLS/HR; Start 12/18 at 11:00 JOSHUA MATSON Dec 19, 2016 09:39
[2016-12-19] MEDS: HYDROmorphONE 1 MG/ML SYG IV PRN (10:42)
--- NOTE | 2016-12-19 10:53 | PN ---
Date/Time of Note Date/Time of Note DATE: 12/19/16 TIME: 10:44 Assessment/Plan Lines/Catheters IV Catheter Type (from Nrsg): Cordis Ross in Place (from Nrsg): Yes Cont'd ross catheter reason: urinary retention Assessment/Plan Chief Complaint/Hosp Course s/p cabg esrd d/c pacer d/c mediastinal tube transfer tele d/c ivfs Problems: Subjective 24 Hr Interval Summary Constitutional: improved Feeding: advancing diet Pain Control: moderate Exam/Review of Systems Vital Signs Vitals Vital Signs Date Time Temp Pulse Resp B/P Pulse Ox O2 Delivery O2 Flow Rate FiO2 12/19/16 10:00 88 20 125/46 100 Nasal Cannula 12/19/16 08:18 2.0 12/19/16 08:00 98.6 12/18/16 00:00 30 Intake and Output 12/18/16 12/18/16 12/19/16 15:00 23:00 07:00 Intake Total 2172.3 ml 572.0 ml 286.5 ml Output Total 2420 ml 186 ml 134 ml Balance -247.7 ml 386.0 ml 152.5 ml Exam Constitutional: alert, well developed Psych: no complaints Head: normocephalic Eyes: EOMI ENMT: mucosa pink and moist Neck: supple Respiratory: clear to auscultation, other (oxygen pleural tubes 20 cc total 2 liters n/c) Cardiovascular: regular rate and rhythm Musculoskeletal: other (minimal edema) 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: RAILROAD CARMAN II-XII intact Results Result Diagram: 12/19/16 0330 12/19/16 0330 HUSSEIN MASCORRO MD Dec 19, 2016 10:53
--- NOTE | 2016-12-19 10:59 | RADRPT ---
PROCEDURE: XR Chest. CLINICAL INDICATION: Status post open heart surgery. TECHNIQUE: A single AP view of the chest was obtained. COMPARISON: Chest x-ray dated 12/18/2016 FINDINGS: There are postoperative changes with sternotomy wires. The Coward-Kendra catheter has been removed. The re is a right internal jugular central venous catheter. There are bilateral chest tubes and a media stinal drain in place. Lung volumes are low. There is diffuse prominence of the interstitial markings and pulmonary vascul ar markings. There is a small left pleural effusion. No pneumothorax is seen. The cardiomediastinal silhouette is mildly enlarged. Calcifications are seen within the aortic arch. The osseous structu res are unremarkable. IMPRESSION: 1. Low lung volumes with pulmonary vascular congestion/interstitial edema and small left pleural ef fusion. lung aeration is mildly improved when compared to the prior examination. 2. Expected post cardiac surgery changes. 3. Mild cardiomegaly and aortic atherosclerosis. 4. Tubes and lines, as described above. RPTAT: .Gunjan Hernandez MD, Date Time Electronically viewed and signed by .Gunjan Hernandez MD, on 12/19/2016 10:59 .G/
[2016-12-19] MEDS ORDERED: GLUCAGON 1 MG INJ IM PRN (11:00)
[2016-12-19] MEDS ORDERED: DEXTROSE 50% 50 ML SYRINGE IV PRN ×2 (11:00)
[2016-12-19] MEDS ORDERED: PANTOPRAZOLE (EC) 40 MG TAB PO ONE (11:00)
[2016-12-19] MEDS ORDERED: GLUCOSE GEL 15 GRAM TUBE BUCCAL PRN (11:00)
[2016-12-19] MEDS ORDERED: GLUCOSE GEL 15 GRAM TUBE PO PRN ×2 (11:00)
[2016-12-19] MEDS: LINAGLIPTIN 5 MG TABLET PO SCH (11:31)
[2016-12-19] MEDS: INSULIN GLARGINE [LANtus] 3 ML PEN SC SCH ×2 (11:34→20:35)
[2016-12-19] MEDS: INSULIN ASPART [NOVOLOG] 3 ML PEN SC SCH ×5 (11:37→20:36)
--- NOTE | 2016-12-19 13:44 | PN ---
DATE: 12/19/2016 SUBJECTIVE: No acute changes. The patient is alert, looks comfortable, eating lunch. Family at be dside. No fevers. VITAL SIGNS: Temperature 98.7, pulse 84, respirations 18, blood pressure 111/46, saturation 100 on nasal cannula. WBC 8.5, H and H 7.4 and 23.9, platelets 136, neutrophils 70.7. INDWELLINGS: Chest tube, left upper extremity AV fistula and right IJ triple-lumen catheter. ANTIMICROBIALS: 1. Amikacin. 2. Levaquin. PHYSICAL EXAMINATION: GENERAL: This is a fragile, well-developed, elderly woman who is alert, in no distress. HEENT: Head atraumatic, normocephalic. Sclerae anicteric. Buccal mucosa dry. NECK: Supple. CHEST: Rise symmetrical. Breath sounds diminished to bases with scattered crackles. HEART: S1, S2. ABDOMEN: Soft, bowel tones present. EXTREMITIES: Without cyanosis. ASSESSMENT: 1. Resolving pneumonia. 2. Coronary artery disease, status post acute myocardial infarction and status post coronary artery bypass graft, postop day #2. 3. End-stage renal disease, hemodialysis dependent. 4. Diabetes. PLAN: The patient remains stable postoperatively. We will continue her on current regimen in [facility] to her antibiotics. Follow cardiothoracic surgery recommendations. Dictated By: ED OWENS FLEXOGRAPHIC PRESS HELPER for CLIFFORD HONG/DEEPALI Conf#: [id number] DID#: [id number]
--- NOTE | 2016-12-19 17:27 | CONS ---
Date/Time of Note Date/Time of Note DATE: 12/19/16 TIME: 17:25 Assessment/Plan Assessment/Plan Chief Complaint/Hosp Course - ESRD Hemodialysis dependent - ANEMIA - HYPERTENSION - NSTEMI - PNEMONIA - DIABETES - CAD PLAN: Bedside dialysis was done yesterday In ICU , post CABG HEMODYNAMICALLY STABLE WILL MONITOR : H/H & POTASSIUM & VOLUME STATUS POST SURGERY EPOGEN to keep Hgb ~ [address] surgery agrees , will give 2 units of PRBC on dialysis in AM Problems: Consultation Date/Type/Reason Admit Date/Time Dec 09, 2016 at 11:49 Type of Consultation: NEPHROLOGY Reason for Consultation ESRD 24 HR Interval Summary Constitutional: improved, no complaints Exam/Review of Systems Vital Signs Vitals Vital Signs Date Time Temp Pulse Resp B/P Pulse Ox O2 Delivery O2 Flow Rate FiO2 12/19/16 16:31 3.0 12/19/16 16:00 98.1 84 18 122/40 Nasal Cannula 12/19/16 13:00 100 12/18/16 00:00 30 Intake and Output 12/18/16 12/18/16 12/19/16 15:00 23:00 07:00 Intake Total 2172.3 ml 572.0 ml 286.5 ml Output Total 2420 ml 186 ml 171 ml Balance -247.7 ml 386.0 ml 115.5 ml Exam Constitutional: alert, oriented Psych: no complaints Head: normocephalic Neck: jvd Respiratory: crackles/rales Cardiovascular: regular rate and rhythm, systolic murmur Gastrointestinal: soft Results Result Diagram: 12/19/16 0330 12/19/16 0330 Results 24 hrs Laboratory Tests Test 12/18/16 18:26 12/18/16 19:54 12/18/16 22:03 12/18/16 23:47 Bedside Glucose 148 120 133 117 Test 12/19/16 02:09 12/19/16 03:30 12/19/16 03:50 12/19/16 05:42 Bedside Glucose 97 103 128 White Blood Count 8.5 Red Blood Count 2.46 L Hemoglobin 7.4 L Hematocrit 23.9 L Mean Corpuscular Volume 97.2 Mean Corpuscular Hemoglobin 30.1 Mean Corpuscular Hemoglobin Concent 31.0 L Red Cell Distribution Width 15.7 H Platelet Count 136 L Mean Platelet Volume 11.9 H Neutrophils % 70.7 Lymphocytes % 12.6 L Monocytes % 11.3 H Eosinophils % 4.2 Basophils % 0.4 Nucleated Red Blood Cells % 0.0 Neutrophils # 6.0 Lymphocytes # 1.1 Monocytes # 1.0 H Eosinophils # 0.4 Basophils # 0.0 Nucleated Red Blood Cells # 0.0 Prothrombin Time 14.0 Prothrombin Time Ratio 1.1 INR International Normalized Ratio 1.08 Activated Partial Thromboplast Time 36.2 H Sodium Level 142 Potassium Level 4.1 Chloride Level 100 Carbon Dioxide Level 25 Anion Gap 21 H Blood Urea Nitrogen 27 #H Creatinine 4.90 #H Glucose Level 123 Calcium Level 8.5 Magnesium Level 2.2 Test 12/19/16 08:39 12/19/16 11:32 Bedside Glucose 141 211 Medications Medications Current Medications Ondansetron HCl (Zofran Inj) 4 mg Q6H PRN IV NAUSEA AND/OR VOMITING Last administered on 12/18/16 14:24; Admin Dose 4 MG; Start 12/09/16 at 17:30 Pregabalin (Lyrica) 75 mg BID PO Last administered on 12/19/16 08:44; Admin Dose 75 MG; Start 12/11/16 at 21:00 Eye Lubricant (Artificial Tears Oph) 2 drop Q6H PRN BOTH EYES DRY EYES Last administered on 12/16/16 21:07; Admin Dose 2 DROP; Start 12/11/16 at 20:30 Amikacin Sulfate (Amikacin Iv Per Pharmacy) AMIKACIN PER PHARMACY NOTE XX ; Start 12/15/16 at 12:30 Oxycodone/ Acetaminophen (Percocet (5/ 325)) 1 tab Q3H PRN PO PAIN LEVEL 1-5; Start 12/17/16 at 12:00 Oxycodone/ Acetaminophen (Percocet (5/ 325)) 2 tab Q3H PRN PO PAIN LEVEL 6-10 Last administered on 12/18/16 19:48; Admin Dose 2 TAB; Start 12/17/16 at 12:00 Acetaminophen (Tylenol Tab) 650 mg Q3H PRN PO ELEVATED TEMPERATURE; Start at 12:00 Aspirin (Aspirin) 81 mg DAILY NGT Last administered on 12/19/16 08:44; Admin Dose 81 MG; Start 12/18/16 at 09:00 Atorvastatin Calcium 40 mg 40 mg HS NGT Last administered on 12/18/16 21:36; Admin Dose 40 MG; Start 12/17/16 at 21:00 Levofloxacin/ Dextrose (Levaquin 250 Mg/ D5W 50 ml (Pmx)) 50 ml @ 50 mls/hr Q48H IVPB Last administered on 12/18/16 11:44; Admin Dose 50 MLS/HR; Start 12/18 at 11:00 Insulin Glargine (Lantus) 5 unit BID@08,20 SC Last administered on 12/19/16 11: 34; Admin Dose 5 UNIT; Start 12/19/16 at 10:00 Linagliptin (Tradjenta) 5 mg DAILY PO Last administered on 12/19/16 11:31; Admin Dose 5 MG; Start 12/19/16 at 10:00 Miscellaneous Information 1 ea NOTE XX ; Start 12/19/16 at 11:00 Glucose (Glutose) 15 gm Q15M PRN PO DECREASED GLUCOSE; Start 12/19/16 at 11:00 Glucose (Glutose) 22.5 gm Q15M PRN PO DECREASED GLUCOSE; Start 12/19/16 at 11:00 Dextrose (D50w Syringe) 25 ml Q15M PRN IV DECREASED GLUCOSE; Start 12/19/16 at 11:00 Dextrose (D50w Syringe) 50 ml Q15M PRN IV DECREASED GLUCOSE; Start 12/19/16 at 11:00 Glucagon (Glucagen) 1 mg Q15M PRN IM DECREASED GLUCOSE; Start 12/19/16 at 11:00 Glucose (Glutose) 15 gm Q15M PRN BUCCAL DECREASED GLUCOSE; Start 12/19/16 at 11: 00 Metoprolol Tartrate (Lopressor) 25 mg BID PO ; Start 12/19/16 at 21:00 TANIA THAPA MD Dec 19, 2016 17:27
--- NOTE | 2016-12-19 17:45 | CONS ---
Date/Time of Note Date/Time of Note DATE: 12/19/16 TIME: 17:43 Assessment/Plan Assessment/Plan Additional Assessment/Plan Non-ST elevation [place] Triple-vessel coronary artery disease including distal left main s/p CABG 12/17/16 Preserved ejection fraction Diabetes Hypertension Pneumonia End-stage renal disease on hemodialysis Anemia -Anemia worsening, consider blood transfusion if hemoglobin continues to decrease. Continue aspirin and statin therapy. Blood pressure remains borderline low and would hold off initiation of beta-rob or GAYLA inhibitor at the current time. Fluid management via hemodialysis as per our nephrology colleagues. Encourage incentive spirometry. Consultation Date/Type/Reason Admit Date/Time Dec 09, 2016 at 11:49 Type of Consultation: cv 24 HR Interval Summary Free Text/Dictation Feeling better, underwent physical therapy, shortness of breath has improved Exam/Review of Systems Vital Signs Vitals Vital Signs Date Time Temp Pulse Resp B/P Pulse Ox O2 Delivery O2 Flow Rate FiO2 12/19/16 16:31 3.0 12/19/16 16:00 98.1 84 18 122/40 Nasal Cannula 12/19/16 13:00 100 12/18/16 00:00 30 Intake and Output 12/18/16 12/18/16 12/19/16 15:00 23:00 07:00 Intake Total 2172.3 ml 572.0 ml 286.5 ml Output Total 2420 ml 186 ml 171 ml Balance -247.7 ml 386.0 ml 115.5 ml Exam Undergoing physical therapy, no apparent distress Constitutional: alert, oriented Head: normocephalic Respiratory: other (Coarse breath sounds bilaterally, minimal scattered crackles, no wheezing) Cardiovascular: other (S1-S2 heard), regular rate and rhythm Gastrointestinal: bowel sounds, non-tender, other (No guarding), soft Extremities: edema, other (No cyanosis) Results Result Diagram: 12/19/16 0330 12/19/16 0330 Results 24 hrs Laboratory Tests Test 12/18/16 18:26 12/18/16 19:54 12/18/16 22:03 12/18/16 23:47 Bedside Glucose 148 120 133 117 Test 12/19/16 02:09 12/19/16 03:30 12/19/16 03:50 12/19/16 05:42 Bedside Glucose 97 103 128 White Blood Count 8.5 Red Blood Count 2.46 L Hemoglobin 7.4 L Hematocrit 23.9 L Mean Corpuscular Volume 97.2 Mean Corpuscular Hemoglobin 30.1 Mean Corpuscular Hemoglobin Concent 31.0 L Red Cell Distribution Width 15.7 H Platelet Count 136 L Mean Platelet Volume 11.9 H Neutrophils % 70.7 Lymphocytes % 12.6 L Monocytes % 11.3 H Eosinophils % 4.2 Basophils % 0.4 Nucleated Red Blood Cells % 0.0 Neutrophils # 6.0 Lymphocytes # 1.1 Monocytes # 1.0 H Eosinophils # 0.4 Basophils # 0.0 Nucleated Red Blood Cells # 0.0 Prothrombin Time 14.0 Prothrombin Time Ratio 1.1 INR International Normalized Ratio 1.08 Activated Partial Thromboplast Time 36.2 H Sodium Level 142 Potassium Level 4.1 Chloride Level 100 Carbon Dioxide Level 25 Anion Gap 21 H Blood Urea Nitrogen 27 #H Creatinine 4.90 #H Glucose Level 123 Calcium Level 8.5 Magnesium Level 2.2 Test 12/19/16 08:39 12/19/16 11:32 Bedside Glucose 141 211 Medications Medications Current Medications Ondansetron HCl (Zofran Inj) 4 mg Q6H PRN IV NAUSEA AND/OR VOMITING Last administered on 12/18/16 14:24; Admin Dose 4 MG; Start 12/09/16 at 17:30 Pregabalin (Lyrica) 75 mg BID PO Last administered on 12/19/16 08:44; Admin Dose 75 MG; Start 12/11/16 at 21:00 Eye Lubricant (Artificial Tears Oph) 2 drop Q6H PRN BOTH EYES DRY EYES Last administered on 12/16/16 21:07; Admin Dose 2 DROP; Start 12/11/16 at 20:30 Amikacin Sulfate (Amikacin Iv Per Pharmacy) AMIKACIN PER PHARMACY NOTE XX ; Start 12/15/16 at 12:30 Oxycodone/ Acetaminophen (Percocet (5/ 325)) 1 tab Q3H PRN PO PAIN LEVEL 1-5; Start 12/17/16 at 12:00 Oxycodone/ Acetaminophen (Percocet (5/ 325)) 2 tab Q3H PRN PO PAIN LEVEL 6-10 Last administered on 12/18/16 19:48; Admin Dose 2 TAB; Start 12/17/16 at 12:00 Acetaminophen (Tylenol Tab) 650 mg Q3H PRN PO ELEVATED TEMPERATURE; Start at 12:00 Aspirin (Aspirin) 81 mg DAILY NGT Last administered on 12/19/16 08:44; Admin Dose 81 MG; Start 12/18/16 at 09:00 Atorvastatin Calcium 40 mg 40 mg HS NGT Last administered on 12/18/16 21:36; Admin Dose 40 MG; Start 12/17/16 at 21:00 Levofloxacin/ Dextrose (Levaquin 250 Mg/ D5W 50 ml (Pmx)) 50 ml @ 50 mls/hr Q48H IVPB Last administered on 12/18/16 11:44; Admin Dose 50 MLS/HR; Start 12/18 at 11:00 Insulin Glargine (Lantus) 5 unit BID@08,20 SC Last administered on 12/19/16 11: 34; Admin Dose 5 UNIT; Start 12/19/16 at 10:00 Linagliptin (Tradjenta) 5 mg DAILY PO Last administered on 12/19/16 11:31; Admin Dose 5 MG; Start 12/19/16 at 10:00 Miscellaneous Information 1 ea NOTE XX ; Start 12/19/16 at 11:00 Glucose (Glutose) 15 gm Q15M PRN PO DECREASED GLUCOSE; Start 12/19/16 at 11:00 Glucose (Glutose) 22.5 gm Q15M PRN PO DECREASED GLUCOSE; Start 12/19/16 at 11:00 Dextrose (D50w Syringe) 25 ml Q15M PRN IV DECREASED GLUCOSE; Start 12/19/16 at 11:00 Dextrose (D50w Syringe) 50 ml Q15M PRN IV DECREASED GLUCOSE; Start 12/19/16 at 11:00 Glucagon (Glucagen) 1 mg Q15M PRN IM DECREASED GLUCOSE; Start 12/19/16 at 11:00 Glucose (Glutose) 15 gm Q15M PRN BUCCAL DECREASED GLUCOSE; Start 12/19/16 at 11: 00 Metoprolol Tartrate (Lopressor) 25 mg BID PO ; Start 12/19/16 at 21:00 Xiang Krishna DO Dec 19, 2016 17:45
[2016-12-19] MEDS: OXYCODONE/ACETAMINOPHEN (5/325) TAB PO PRN (20:10)
[2016-12-19] MEDS: ATORVASTATIN 40 MG TAB NGT SCH (20:36)
[2016-12-19] MEDS ORDERED: METOPROLOL 25 MG TAB PO SCH (21:00)
[2016-12-20] VITALS (33 sets, daily range): BP systolic 97–152; BP diastolic 38–66; PULSE 77–91; RESP 12–24
[2016-12-20 05:28] LABS: ADD SCAN DIFF NO
[2016-12-20 05:32] LABS: ABNORMAL IP MESSAGE 1; BASOPHILS % 0.2 % (0.0-2.0); EOSINOPHILS # 0.4 10^3/ul (0.0-0.5); EOSINOPHILS % 4.9 % (0.0-7.0); HEMATOCRIT 21.4 % (37.0-47.0); LYMPHOCYTES # 1.3 10^3/ul (0.8-2.9); LYMPHOCYTES % 15.4 % (15.0-51.0); MEAN CORPUSCULAR HEMOGLOBIN 31.2 pg (29.0-33.0); MEAN CORPUSCULAR HGB CONC 31.8 g/dl (32.0-37.0); MEAN CORPUSCULAR VOLUME 98.2 fl (82.0-101.0); MEAN PLATELET VOLUME 11.6 fl (7.4-10.4); MONOCYTE # 1.1 10^3/ul (0.3-0.9); MONOCYTES % 12.5 % (0.0-11.0); NEUTROPHIL # 5.5 10^3/ul (1.6-7.5); PLATELET COUNT 159 10^3/UL (140-415); RED BLOOD COUNT 2.18 10^6/ul (4.20-5.40); RED CELL DISTRIBUTION WIDTH 15.8 % (11.5-14.5); WHITE BLOOD COUNT 8.4 10^3/ul (4.8-10.8)
[2016-12-20 05:55] LABS: MAGNESIUM 2.3 mg/dl (1.7-2.5); PHOSPHORUS 7.8 mg/dl (2.5-4.9)
[2016-12-20 05:58] LABS: POTASSIUM 4.8 mmol/L (3.5-5.1)
[2016-12-20 06:01] LABS: CALCIUM 8.2 mg/dl (8.4-10.2); CREATININE 6.38 mg/dl (0.44-1.00)
[2016-12-20 06:02] LABS: HEMOGLOBIN 6.8 g/dl (12.0-16.0)
[2016-12-20] MEDS: OXYCODONE/ACETAMINOPHEN (5/325) TAB PO PRN ×2 (07:52→18:04)
[2016-12-20] MEDS: INSULIN ASPART [NOVOLOG] 3 ML PEN SC SCH ×7 (07:55→21:05)
[2016-12-20] MEDS: INSULIN GLARGINE [LANtus] 3 ML PEN SC SCH ×2 (07:56→21:05)
[2016-12-20] MEDS: PREGABALIN 75 MG CAP PO SCH ×2 (09:00→21:00)
[2016-12-20] MEDS: ASPIRIN 81 MG TAB NGT SCH (09:00)
[2016-12-20] MEDS: LINAGLIPTIN 5 MG TABLET PO SCH (09:00)
--- NOTE | 2016-12-20 09:15 | PN ---
Date/Time of Note Date/Time of Note DATE: 12/20/16 TIME: 09:13 Assessment/Plan Lines/Catheters IV Catheter Type (from Nrsg): Cordis Leroy in Place (from Nrsg): Yes Assessment/Plan Chief Complaint/Hosp Course s/p cabg esrd acute blood loss anemia hgb 6-7 transfuse d/c cvp, fpley transfer tele Problems: Subjective 24 Hr Interval Summary Constitutional: no complaints Feeding: advancing diet Pain Control: well controlled Exam/Review of Systems Vital Signs Vitals Vital Signs Date Time Temp Pulse Resp B/P Pulse Ox O2 Delivery O2 Flow Rate FiO2 12/20/16 06:00 88 19 126/48 100 Nasal Cannula 2.0 12/20/16 04:00 98.0 12/18/16 00:00 30 Intake and Output 12/19/16 12/19/16 12/20/16 15:00 23:00 07:00 Intake Total 414.5 ml 120 ml Output Total 158 ml 333 ml 238 ml Balance 256.5 ml -213 ml -238 ml Exam Constitutional: alert, oriented Head: normocephalic Eyes: EOMI ENMT: nl lips & teeth Neck: supple Respiratory: other (2 liters n/c chest tube 120 cc total) Cardiovascular: regular rate and rhythm Musculoskeletal: nl extremities to inspection 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: WATERSHED TENDER II-XII intact Results Result Diagram: 12/20/16 0340 12/20/16 034 HUSSEIN MASCORRO MD Dec 20, 2016 09:15
--- NOTE | 2016-12-20 09:28 | RADRPT ---
PROCEDURE: XR Chest. CLINICAL INDICATION: Shortness of breath. TECHNIQUE: Single frontal view. COMPARISON: 12/19/2016. FINDINGS: There is a right internal jugular vein catheter with the tip in the upper superior vena cava. There are sternal wires and mediastinal clips. Bilateral chest tubes remain in position. Mild atelectas is in the right upper lobe is unchanged. Air space disease throughout the left mid and lower lung z ones is slightly worse. The heart is enlarged. There is calcification in the aorta consistent with atherosclerosis. There is no pleural effusion. There is no pneumothorax. IMPRESSION: 1. Worse appearance of the left lung. 2. No other change from 12/19/2016. RPTAT: QQ .Ventura Long MD, MD Date Time Electronically viewed and signed by .Ventura Long MD, MD on 12/20/2016 09:28 .R/
--- NOTE | 2016-12-20 09:34 | PN ---
Date/Time of Note Date/Time of Note DATE: 12/20/16 TIME: 09:04 Assessment/Plan VTE Prophylaxis VTE Prophylaxis Intervention: SCD's Lines/Catheters IV Catheter Type (from [facility]): Cordis Urinary Cath still in place: Yes Assessment/Plan Assessment/Plan 71-year-old female with: 1.Severe CAD, s/p NSTEMI on admission and now POD#3 s/p triple-vessel CABG. Appreciate assistance from Dr Krishna, remains stable Stable, on 2L NC Resume Tradjenta, Lantus, pre meal Novolog and SSI and now off insulin gtt 2 units pRBC today with HD Appreciate CTS recommendations today 2. Multifocal pneumonia and bronchitis, likely HCAP. Blood cultures negatives Continue current antibiotics, Levaquin and Amikacin per ID, Sputum cx with Enterobacter. Appreciate ID recommendations and continued follow up 3. End-stage renal disease on hemodialysis. On M/W/F Nephrology following. HD in today with 2 units pRBC 4. Diabetes mellitus, insulin requiring. A1c 7.9. BG stable. On insulin gtt post op so far Resuming Lantus to 5 units subQ bid, premeal insulin and Tradjenta Off Insulin gtt now. 5. Chronic Anemia with acute post op anemia, patient to get 2units pRBC with HD today. Hb 6.8 today. 6. Hyperlipidemia. Continue statin therapy. 7. Diabetic neuropathy. Continue Lyrica. Prophylaxis. Pepcid for GI prophylaxis and on heparin gtt now. DISPOSITION: POD#3 s/p CABG, off Insulin gtt, 2units pRBC with HD today and d/c central line and Leroy today Transfer to Tele . Subjective 24 Hr Interval Summary Free Text/Dictation Patient awake and alert To receive 2 units pRBC with HD today Removing central line and Leroy today Transfer to Tele Exam/Review of Systems Vital Signs Vitals Vital Signs Date Time Temp Pulse Resp B/P Pulse Ox O2 Delivery O2 Flow Rate FiO2 12/20/16 06:00 88 19 126/48 100 Nasal Cannula 2.0 12/20/16 04:00 98.0 12/18/16 00:00 30 Intake and Output 12/19/16 12/19/16 12/20/16 15:00 23:00 07:00 Intake Total 414.5 ml 120 ml Output Total 158 ml 333 ml 238 ml Balance 256.5 ml -213 ml -238 ml Exam Constitutional: alert, oriented, other (paraguayan speaking ), well developed Respiratory: normal air movement, other (chest tube, chest wall pain) Cardiovascular: nl pulses, regular rate and rhythm Gastrointestinal: non-tender, soft Musculoskeletal: nl extremities to inspection Extremities: normal pulses, other (no edema, clubbing or cyanosis ) 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: DOOR MANAGER II-XII intact, lethargic, nl mental status, nl speech, other (paragu[place] speaking ) Results Result Diagram: 12/20/16 0340 12/20/16 0340 Results 24 hrs Laboratory Tests Test 12/19/16 11:32 12/19/16 17:39 12/19/16 20:33 12/20/16 03:40 Bedside Glucose 211 177 187 White Blood Count 8.4 Red Blood Count 2.18 L Hemoglobin 6.8 *L Hematocrit 21.4 L Mean Corpuscular Volume 98.2 Mean Corpuscular Hemoglobin 31.2 Mean Corpuscular Hemoglobin Concent 31.8 L Red Cell Distribution Width 15.8 H Platelet Count 159 Mean Platelet Volume 11.6 H Neutrophils % 66.0 Lymphocytes % 15.4 Monocytes % 12.5 H Eosinophils % 4.9 Basophils % 0.2 Nucleated Red Blood Cells % 0.0 Neutrophils # 5.5 Lymphocytes # 1.3 Monocytes # 1.1 H Eosinophils # 0.4 Basophils # 0.0 Nucleated Red Blood Cells # 0.0 Sodium Level 137 Potassium Level 4.8 Chloride Level 98 Carbon Dioxide Level 22 Anion Gap 22 H Blood Urea Nitrogen 39 #H Creatinine 6.38 H Glucose Level 167 Calcium Level 8.2 L Phosphorus Level 7.8 H Magnesium Level 2.3 Test 12/20/16 07:50 Bedside Glucose 179 Medications Medications Current Medications Ondansetron HCl (Zofran Inj) 4 mg Q6H PRN IV NAUSEA AND/OR VOMITING Last administered on 12/18/16 14:24; Admin Dose 4 MG; Start 12/09/16 at 17:30 Pregabalin (Lyrica) 75 mg BID PO Last administered on 12/19/16 20:36; Admin Dose 75 MG; Start 12/11/16 at 21:00 Eye Lubricant (Artificial Tears Oph) 2 drop Q6H PRN BOTH EYES DRY EYES Last administered on 12/16/16 21:07; Admin Dose 2 DROP; Start 12/11/16 at 20:30 Amikacin Sulfate (Amikacin Iv Per Pharmacy) AMIKACIN PER PHARMACY NOTE XX ; Start 12/15/16 at 12:30 Oxycodone/ Acetaminophen (Percocet (5/ 325)) 1 tab Q3H PRN PO PAIN LEVEL 1-5; Start 12/17/16 at 12:00 Oxycodone/ Acetaminophen (Percocet (5/ 325)) 2 tab Q3H PRN PO PAIN LEVEL 6-10 Last administered on 12/20/16 07:52; Admin Dose 2 TAB; Start 12/17/16 at 12:00 Acetaminophen (Tylenol Tab) 650 mg Q3H PRN PO ELEVATED TEMPERATURE; Start at 12:00 Aspirin (Aspirin) 81 mg DAILY NGT Last administered on 12/19/16 08:44; Admin Dose 81 MG; Start 12/18/16 at 09:00 Atorvastatin Calcium 40 mg 40 mg HS NGT Last administered on 12/19/16 20:36; Admin Dose 40 MG; Start 12/17/16 at 21:00 Levofloxacin/ Dextrose (Levaquin 250 Mg/ D5W 50 ml (Pmx)) 50 ml @ 50 mls/hr Q48H IVPB Last administered on 12/18/16 11:44; Admin Dose 50 MLS/HR; Start 12/18 at 11:00 Insulin Glargine (Lantus) 5 unit BID@08,20 SC Last administered on 12/20/16 07: 56; Admin Dose 5 UNIT; Start 12/19/16 at 10:00 Linagliptin (Tradjenta) 5 mg DAILY PO Last administered on 12/19/16 11:31; Admin Dose 5 MG; Start 12/19/16 at 10:00 Miscellaneous Information 1 ea NOTE XX ; Start 12/19/16 at 11:00 Glucose (Glutose) 15 gm Q15M PRN PO DECREASED GLUCOSE; Start 12/19/16 at 11:00 Glucose (Glutose) 22.5 gm Q15M PRN PO DECREASED GLUCOSE; Start 12/19/16 at 11:00 Dextrose (D50w Syringe) 25 ml Q15M PRN IV DECREASED GLUCOSE; Start 12/19/16 at 11:00 Dextrose (D50w Syringe) 50 ml Q15M PRN IV DECREASED GLUCOSE; Start 12/19/16 at 11:00 Glucagon (Glucagen) 1 mg Q15M PRN IM DECREASED GLUCOSE; Start 12/19/16 at 11:00 Glucose (Glutose) 15 gm Q15M PRN BUCCAL DECREASED GLUCOSE; Start 12/19/16 at 11: 00 Metoprolol Tartrate (Lopressor) 25 mg BID PO ; Start 12/19/16 at 21:00 JOSHUA MATSON Dec 20, 2016 09:22
--- NOTE | 2016-12-20 10:10 | CONS ---
Date/Time of Note Date/Time of Note DATE: 12/20/16 TIME: 10:09 Assessment/Plan Assessment/Plan Chief Complaint/Hosp Course - ESRD Hemodialysis dependent - ANEMIA - HYPERTENSION - NSTEMI - PNEMONIA - DIABETES - CAD PLAN: Bedside dialysis In ICU , post CABG HEMODYNAMICALLY STABLE EPOGEN to keep Hgb ~ 10 Will give 2 units of PRBC on dialysis Start 5 doses of IV Iron Problems: Consultation Date/Type/Reason Admit Date/Time Dec 09, 2016 at 11:49 Type of Consultation: NEPHROLOGY Reason for Consultation - ESRD 24 HR Interval Summary Constitutional: improved, no complaints Exam/Review of Systems Vital Signs Vitals Vital Signs Date Time Temp Pulse Resp B/P Pulse Ox O2 Delivery O2 Flow Rate FiO2 12/20/16 06:00 88 19 126/48 100 Nasal Cannula 2.0 12/20/16 04:00 98.0 12/18/16 00:00 30 Intake and Output 12/19/16 12/19/16 12/20/16 15:00 23:00 07:00 Intake Total 414.5 ml 120 ml Output Total 158 ml 333 ml 238 ml Balance 256.5 ml -213 ml -238 ml Exam Constitutional: alert, oriented Psych: no complaints Head: normocephalic Respiratory: crackles/rales Cardiovascular: regular rate and rhythm, systolic murmur Gastrointestinal: soft Results Result Diagram: 12/20/16 0340 12/20/16 0340 Results 24 hrs Laboratory Tests Test 12/19/16 11:32 12/19/16 17:39 12/19/16 20:33 12/20/16 03:40 Bedside Glucose 211 177 187 White Blood Count 8.4 Red Blood Count 2.18 L Hemoglobin 6.8 *L Hematocrit 21.4 L Mean Corpuscular Volume 98.2 Mean Corpuscular Hemoglobin 31.2 Mean Corpuscular Hemoglobin Concent 31.8 L Red Cell Distribution Width 15.8 H Platelet Count 159 Mean Platelet Volume 11.6 H Neutrophils % 66.0 Lymphocytes % 15.4 Monocytes % 12.5 H Eosinophils % 4.9 Basophils % 0.2 Nucleated Red Blood Cells % 0.0 Neutrophils # 5.5 Lymphocytes # 1.3 Monocytes # 1.1 H Eosinophils # 0.4 Basophils # 0.0 Nucleated Red Blood Cells # 0.0 Sodium Level 137 Potassium Level 4.8 Chloride Level 98 Carbon Dioxide Level 22 Anion Gap 22 H Blood Urea Nitrogen 39 #H Creatinine 6.38 H Glucose Level 167 Calcium Level 8.2 L Phosphorus Level 7.8 H Magnesium Level 2.3 Test 12/20/16 07:50 Bedside Glucose 179 Medications Medications Current Medications Ondansetron HCl (Zofran Inj) 4 mg Q6H PRN IV NAUSEA AND/OR VOMITING Last administered on 12/18/16 14:24; Admin Dose 4 MG; Start 12/09/16 at 17:30 Pregabalin (Lyrica) 75 mg BID PO Last administered on 12/19/16 20:36; Admin Dose 75 MG; Start 12/11/16 at 21:00 Eye Lubricant (Artificial Tears Oph) 2 drop Q6H PRN BOTH EYES DRY EYES Last administered on 12/16/16 21:07; Admin Dose 2 DROP; Start 12/11/16 at 20:30 Amikacin Sulfate (Amikacin Iv Per Pharmacy) AMIKACIN PER PHARMACY NOTE XX ; Start 12/15/16 at 12:30 Oxycodone/ Acetaminophen (Percocet (5/ 325)) 1 tab Q3H PRN PO PAIN LEVEL 1-5; Start 12/17/16 at 12:00 Oxycodone/ Acetaminophen (Percocet (5/ 325)) 2 tab Q3H PRN PO PAIN LEVEL 6-10 Last administered on 12/20/16 07:52; Admin Dose 2 TAB; Start 12/17/16 at 12:00 Acetaminophen (Tylenol Tab) 650 mg Q3H PRN PO ELEVATED TEMPERATURE; Start at 12:00 Aspirin (Aspirin) 81 mg DAILY NGT Last administered on 12/19/16 08:44; Admin Dose 81 MG; Start 12/18/16 at 09:00 Atorvastatin Calcium 40 mg 40 mg HS NGT Last administered on 12/19/16 20:36; Admin Dose 40 MG; Start 12/17/16 at 21:00 Levofloxacin/ Dextrose (Levaquin 250 Mg/ D5W 50 ml (Pmx)) 50 ml @ 50 mls/hr Q48H IVPB Last administered on 12/18/16 11:44; Admin Dose 50 MLS/HR; Start 12/18 at 11:00 Insulin Glargine (Lantus) 5 unit BID@08,20 SC Last administered on 12/20/16 07: 56; Admin Dose 5 UNIT; Start 12/19/16 at 10:00 Linagliptin (Tradjenta) 5 mg DAILY PO Last administered on 12/19/16 11:31; Admin Dose 5 MG; Start 12/19/16 at 10:00 Miscellaneous Information 1 ea NOTE XX ; Start 12/19/16 at 11:00 Glucose (Glutose) 15 gm Q15M PRN PO DECREASED GLUCOSE; Start 12/19/16 at 11:00 Glucose (Glutose) 22.5 gm Q15M PRN PO DECREASED GLUCOSE; Start 12/19/16 at 11:00 Dextrose (D50w Syringe) 25 ml Q15M PRN IV DECREASED GLUCOSE; Start 12/19/16 at 11:00 Dextrose (D50w Syringe) 50 ml Q15M PRN IV DECREASED GLUCOSE; Start 12/19/16 at 11:00 Glucagon (Glucagen) 1 mg Q15M PRN IM DECREASED GLUCOSE; Start 12/19/16 at 11:00 Glucose (Glutose) 15 gm Q15M PRN BUCCAL DECREASED GLUCOSE; Start 12/19/16 at 11: 00 Metoprolol Tartrate 25 mg 25 mg BID PO ; Start 12/19/16 at 21:00 Ferric Sodium Gluconate Complex/ Sodium Chloride (Ferrlecit/NS) 110 ml @ 110 mls/hr Q24H IVPB ; Start 12/20/16 at 11:00; Stop 12/24/16 at 11:59 TANIA THAPA MD Dec 20, 2016 10:10
[2016-12-20] MEDS ORDERED: EPOETIN 4000 UNITS/1 ML INJ (ESRD) SC SCH (10:30)
[2016-12-20] MEDS: LEVOFLOXACIN 250MG/D5W (PMX) 50 ML IVPB SCH (11:00)
[2016-12-20] MEDS ORDERED: SOD FERRIC GLUC COMPLX 125 MG in SOD CHLORIDE 0.9% 100 ML IVPB SCH (11:00)
[2016-12-20] MEDS: CALCIUM ACETATE 667 MG CAP PO SCH ×2 (11:30→18:09)
--- NOTE | 2016-12-20 12:57 | PN ---
DATE: 12/20/2016 SUBJECTIVE: Patient is alert, lying comfortably in bed. Complaining of sternal pain. She is in no distress. No fevers. VITAL SIGNS: Temperature 98, pulse 79, respirations 18, blood pressure 118/46, saturation 97% on 2 liters. INDWELLINGS: Right IJ triple-lumen catheter with introducer, chest tube, Leroy catheter, left upper extremity AV fistula. LABORATORY DATA: WBC 8.4, H and H 6.8 and 21, platelets 159, neutrophils 66. DIAGNOSTICS: Chest x-ray this morning revealed worse appearance of the left lung. ANTIMICROBIALS: The patient is on: 1. Amikacin. 2. Levaquin. PHYSICAL EXAMINATION: GENERAL: This is a fragile, elderly woman who is alert, in no distress. HEENT: Head atraumatic, normocephalic. Sclerae anicteric. Buccal mucosa dry. NECK: Supple. CHEST: Rise symmetrical. Breath sounds diminished at the bases. HEART: S1, S2. ABDOMEN: Soft, bowel tones present. EXTREMITIES: With trace edema. ASSESSMENT: 1. Resolving pneumonia. 2. Severe coronary artery disease status post CABG, postop day #3. 3. Diabetes. 4. End-stage renal disease, hemodialysis dependent. 5. Acute on chronic anemia. PLAN: The patient remains hemodynamically stable. She is completing antibiotics for pneumonia. Sp utum culture grew Enterobacter species on 12/11/2016. She is being followed by multiple consultants . Possible transfer to telemetry after hemodialysis today. Blood transfusion per primary team. Dictated By: ED OWENS ENGAGEMENT MANAGER for CLIFFORD HONG/DEEPALI Conf#: [id number] DID#: [id number]
--- NOTE | 2016-12-20 12:59 | CONS ---
Date/Time of Note Date/Time of Note DATE: 12/20/16 TIME: 12:56 Assessment/Plan Assessment/Plan Additional Assessment/Plan Non-ST elevation IN Triple-vessel coronary artery disease including distal left main s/p CABG 12/17/16 Preserved ejection fraction Diabetes Hypertension Pneumonia End-stage renal disease on hemodialysis Acute blood loss anemia -Anemia worsening, will order 2 units PRBCs to be given during hemodialysis. Continue aspirin and statin therapy. Blood pressure remains borderline low and would hold off initiation of GAYLA inhibitor at the current time. Fluid management via hemodialysis as per our nephrology colleagues. Encourage incentive spirometry. Consultation Date/Type/Reason Admit Date/Time Dec 09, 2016 at 11:49 Type of Consultation: cv 24 HR Interval Summary Free Text/Dictation Shortness of breath is slowly better, more tired today, having cough with mild phlegm production Exam/Review of Systems Vital Signs Vitals Vital Signs Date Time Temp Pulse Resp B/P Pulse Ox O2 Delivery O2 Flow Rate FiO2 12/20/16 12:00 78 18 118/46 12/20/16 08:00 98.0 97 Nasal Cannula 2.0 12/18/16 00:00 30 Intake and Output 12/19/16 12/19/16 12/20/16 15:00 23:00 07:00 Intake Total 414.5 ml 120 ml Output Total 158 ml 333 ml 238 ml Balance 256.5 ml -213 ml -238 ml Exam No apparent distress, family at bedside Constitutional: alert, oriented Head: normocephalic Respiratory: other (Coarse breath sounds bilaterally, no wheezing) Cardiovascular: other (S1-S2 heard), regular rate and rhythm Gastrointestinal: bowel sounds, non-tender, other (No guarding), soft Extremities: edema, other (No cyanosis) Results Result Diagram: 12/20/16 0340 12/20/16 0340 Results 24 hrs Laboratory Tests Test 12/19/16 17:39 12/19/16 20:33 12/20/16 03:40 12/20/16 07:50 Bedside Glucose 177 187 179 White Blood Count 8.4 Red Blood Count 2.18 L Hemoglobin 6.8 *L Hematocrit 21.4 L Mean Corpuscular Volume 98.2 Mean Corpuscular Hemoglobin 31.2 Mean Corpuscular Hemoglobin Concent 31.8 L Red Cell Distribution Width 15.8 H Platelet Count 159 Mean Platelet Volume 11.6 H Neutrophils % 66.0 Lymphocytes % 15.4 Monocytes % 12.5 H Eosinophils % 4.9 Basophils % 0.2 Nucleated Red Blood Cells % 0.0 Neutrophils # 5.5 Lymphocytes # 1.3 Monocytes # 1.1 H Eosinophils # 0.4 Basophils # 0.0 Nucleated Red Blood Cells # 0.0 Sodium Level 137 Potassium Level 4.8 Chloride Level 98 Carbon Dioxide Level 22 Anion Gap 22 H Blood Urea Nitrogen 39 #H Creatinine 6.38 H Glucose Level 167 Calcium Level 8.2 L Phosphorus Level 7.8 H Magnesium Level 2.3 Medications Medications Current Medications Ondansetron HCl (Zofran Inj) 4 mg Q6H PRN IV NAUSEA AND/OR VOMITING Last administered on 12/18/16 14:24; Admin Dose 4 MG; Start 12/09/16 at 17:30 Pregabalin (Lyrica) 75 mg BID PO Last administered on 12/19/16 20:36; Admin Dose 75 MG; Start 12/11/16 at 21:00 Eye Lubricant (Artificial Tears Oph) 2 drop Q6H PRN BOTH EYES DRY EYES Last administered on 12/16/16 21:07; Admin Dose 2 DROP; Start 12/11/16 at 20:30 Amikacin Sulfate (Amikacin Iv Per Pharmacy) AMIKACIN PER PHARMACY NOTE XX ; Start 12/15/16 at 12:30 Oxycodone/ Acetaminophen (Percocet (5/ 325)) 1 tab Q3H PRN PO PAIN LEVEL 1-5; Start 12/17/16 at 12:00 Oxycodone/ Acetaminophen (Percocet (5/ 325)) 2 tab Q3H PRN PO PAIN LEVEL 6-10 Last administered on 12/20/16 07:52; Admin Dose 2 TAB; Start 12/17/16 at 12:00 Acetaminophen (Tylenol Tab) 650 mg Q3H PRN PO ELEVATED TEMPERATURE; Start at 12:00 Aspirin (Aspirin) 81 mg DAILY NGT Last administered on 12/19/16 08:44; Admin Dose 81 MG; Start 12/18/16 at 09:00 Atorvastatin Calcium 40 mg 40 mg HS NGT Last administered on 12/19/16 20:36; Admin Dose 40 MG; Start 12/17/16 at 21:00 Levofloxacin/ Dextrose (Levaquin 250 Mg/ D5W 50 ml (Pmx)) 50 ml @ 50 mls/hr Q48H IVPB Last administered on 12/18/16 11:44; Admin Dose 50 MLS/HR; Start 12/18 at 11:00 Insulin Glargine (Lantus) 5 unit BID@08,20 SC Last administered on 12/20/16 07: 56; Admin Dose 5 UNIT; Start 12/19/16 at 10:00 Linagliptin (Tradjenta) 5 mg DAILY PO Last administered on 12/19/16 11:31; Admin Dose 5 MG; Start 12/19/16 at 10:00 Miscellaneous Information 1 ea NOTE XX ; Start 12/19/16 at 11:00 Glucose (Glutose) 15 gm Q15M PRN PO DECREASED GLUCOSE; Start 12/19/16 at 11:00 Glucose (Glutose) 22.5 gm Q15M PRN PO DECREASED GLUCOSE; Start 12/19/16 at 11:00 Dextrose (D50w Syringe) 25 ml Q15M PRN IV DECREASED GLUCOSE; Start 12/19/16 at 11:00 Dextrose (D50w Syringe) 50 ml Q15M PRN IV DECREASED GLUCOSE; Start 12/19/16 at 11:00 Glucagon (Glucagen) 1 mg Q15M PRN IM DECREASED GLUCOSE; Start 12/19/16 at 11:00 Glucose (Glutose) 15 gm Q15M PRN BUCCAL DECREASED GLUCOSE; Start 12/19/16 at 11: 00 Metoprolol Tartrate 25 mg 25 mg BID PO ; Start 12/19/16 at 21:00 Ferric Sodium Gluconate Complex/ Sodium Chloride (Ferrlecit/NS) 110 ml @ 110 mls/hr Q24H IVPB ; Start 12/20/16 at 11:00; Stop 12/24/16 at 11:59 Xiang Krishna DO Dec 20, 2016 12:59
--- NOTE | 2016-12-20 15:22 | RADRPT ---
Vent Rate: 89 bpm RR Interval: 0 msec [place] Interval: 140 msec QRS Duration: 96 msec QT Interval: 426 msec QTC Interval: 518 msec P-R-T [place]: 73 - -9 - 81 degrees Sinus rhythm with occasional premature ventricular complexes Nonspecific ST and T wave abnormality Prolonged QT Abnormal ECG Electronically Signed By: Seymour Rasmussen [id number]
--- NOTE | 2016-12-20 15:26 | RADRPT ---
Vent Rate: 84 bpm RR Interval: 0 msec [place] Interval: 148 msec QRS Duration: 92 msec QT Interval: 394 msec QTC Interval: 465 msec P-R-T [place]: 69 - -35 - 111 degrees Normal sinus rhythm Left axis deviation Nonspecific T wave abnormality Abnormal ECG Electronically Signed By: Lalo Blackwood [id number]
[2016-12-20] MEDS: AMIKACIN 275 MG in SOD CHLORIDE 0.9% 100 ML IVPB SCH (17:06)
[2016-12-20] MEDS: ATORVASTATIN 40 MG TAB NGT SCH (21:00)
[2016-12-20] MEDS: METOPROLOL 25 MG TAB PO SCH (21:01)
[2016-12-21] VITALS (12 sets, daily range): BP systolic 104–166; BP diastolic 43–71; PULSE 69–80; RESP 17–19
[2016-12-21 07:36] LABS: ADD SCAN DIFF NO
[2016-12-21 07:46] LABS: BASOPHIL # 0.1 10^3/ul (0.0-0.1); BASOPHILS % 0.7 % (0.0-2.0); EOSINOPHILS # 0.4 10^3/ul (0.0-0.5); EOSINOPHILS % 4.9 % (0.0-7.0); HEMATOCRIT 27.8 % (37.0-47.0); LYMPHOCYTES # 0.9 10^3/ul (0.8-2.9); LYMPHOCYTES % 12.9 % (15.0-51.0); MEAN CORPUSCULAR HEMOGLOBIN 30.4 pg (29.0-33.0); MEAN CORPUSCULAR HGB CONC 32.7 g/dl (32.0-37.0); MONOCYTE # 1.1 10^3/ul (0.3-0.9); NEUTROPHIL # 4.8 10^3/ul (1.6-7.5); NEUTROPHILS % 65.5 % (39.0-77.0); PLATELET COUNT 170 10^3/UL (140-415); RED BLOOD COUNT 2.99 10^6/ul (4.20-5.40); RED CELL DISTRIBUTION WIDTH 16.6 % (11.5-14.5); WHITE BLOOD COUNT 7.3 10^3/ul (4.8-10.8)
[2016-12-21 08:00] LABS: POTASSIUM 3.9 mmol/L (3.5-5.1)
[2016-12-21 08:03] LABS: CREATININE 5.28 mg/dl (0.44-1.00)
[2016-12-21 08:04] LABS: CALCIUM 8.2 mg/dl (8.4-10.2)
[2016-12-21] MEDS: LINAGLIPTIN 5 MG TABLET PO SCH (08:06)
[2016-12-21] MEDS: ASPIRIN 81 MG TAB NGT SCH (08:06)
[2016-12-21] MEDS: PREGABALIN 75 MG CAP PO SCH ×2 (08:07→21:55)
[2016-12-21] MEDS: METOPROLOL 25 MG TAB PO SCH ×2 (08:08→21:55)
[2016-12-21 08:13] LABS: HEMOGLOBIN 9.1 g/dl (12.0-16.0)
[2016-12-21] MEDS: CALCIUM ACETATE 667 MG CAP PO SCH ×4 (08:15→17:45)
[2016-12-21 08:25] LABS: MAGNESIUM 2.1 mg/dl (1.7-2.5)
[2016-12-21] MEDS: INSULIN ASPART [NOVOLOG] 3 ML PEN SC SCH ×4 (08:26→17:48)
[2016-12-21] MEDS: INSULIN GLARGINE [LANtus] 3 ML PEN SC SCH (08:28)
--- NOTE | 2016-12-21 08:56 | PN ---
Date/Time of Note Date/Time of Note DATE: 12/21/16 TIME: 08:44 Assessment/Plan VTE Prophylaxis VTE Prophylaxis Intervention: SCD's Lines/Catheters IV C[facility]ter Type (from [facility]): Peripheral IV Urinary Cath still in place: No Assessment/Plan Assessment/Plan [facility] 1. Hospital day 13 for this 71-year-old woman who is POD 4 s/p 3-vessel bypass surgery. S/p NSTEMI on admission. CXR yesterday showed larger left effusion yesterday. Oxygenation stable on 2L NC. No fever. * Discussed with Dr. Lawrence. Will arrange Interventional Radiology US-guided drainage of left pleural effusion * Dulcolax suppository this morning. 2. Diabetes. Insulin drip discontinued. * Continue Tradjenta * Lantus 5u BID SQ * Pre-prandial Novolog and SSI 3. ESRD, with severe anemia. Dialysis yesterday with transfusion with 2 units pRBC. 4. Pneumonia and bronchitis, likely health care-acquired. Blood cultures still negative. Sputum culture (12/11/16) grew Enterobacter sensitive to Levaquin. * Continue Levaquin (day 4) and Amikacin per ID 5. Hyperlipidemia. * Continue atorvastatin 6. Diabetic neuropathy. * Continue Lyrica. 7. Prophylaxis. Pepcid for GI prophylaxis and on heparin gtt now. 8. DISPOSITION: POD#4 s/p CABG; central line and Leroy discontinued and patient transferred from ICU to telemetry yesterday. Chest tubes now discontinued. * Full-code * I discussed post-hospitalization rehabilitation today with her son Eric, who agrees that cardiac rehab is very appropriate. Will initiate research to identify the best facility. Deborah Hi MD PhD [phone] Subjective 24 Hr Interval Summary Free Text/Dictation Son Eric at bedside. Generally comfortable, slightly somnolent this morning. Eating 50% of her breakfast. No bowel movement yet since surgery. Mild post- operative incisional pain. Exam/Review of Systems Vital Signs Vitals Vital Signs Date Time Temp Pulse Resp B/P Pulse Ox O2 Delivery O2 Flow Rate FiO2 12/21/16 08:19 74 12/21/16 07:40 98.3 19 118/60 95 12/20/16 20:24 2.0 27 12/20/16 20:15 Nasal Cannula Intake and Output 12/20/16 12/20/16 12/21/16 15:00 23:00 07:00 Intake Total 1300 ml 400 ml Output Total 465 ml 3045 ml 10 ml Balance -465 ml -1745 ml 390 ml Exam Constitutional: Sleepy, understands both Swedish and some Lithuanian, well- nourished-appearing and comfortable. Respiratory: Good air movement, left chest tube removed this morning. Cardiovascular: Regular rhythm, normal rate, no murmur. Incision healing well. Gastrointestinal: non-tender, soft, bowel sounds positive. Musculoskeletal: nl extremities to inspection, with trace ankle edema. Extremities: Symmetric pulses, no edema, clubbing or cyanosis 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: Alert and oriented, intact executive function and memory. [employer] II -XII intact, normal speech. Moving all extremities. Toes downgoing. Results Result Diagram: 12/21/16 0611 12/21/16 0611 Results 24 hrs Laboratory Tests Test 12/20/16 13:21 12/20/16 18:11 12/20/16 20:55 12/21/16 06:11 Bedside Glucose 181 181 223 H White Blood Count 7.3 Red Blood Count 2.99 #L Hemoglobin 9.1 #L Hematocrit 27.8 #L Mean Corpuscular Volume 93.0 Mean Corpuscular Hemoglobin 30.4 Mean Corpuscular Hemoglobin Concent 32.7 Red Cell Distribution Width 16.6 H Platelet Count 170 Mean Platelet Volume 11.0 H Neutrophils % 65.5 Lymphocytes % 12.9 L Monocytes % 15.0 H Eosinophils % 4.9 Basophils % 0.7 Nucleated Red Blood Cells % 0.0 Neutrophils # 4.8 Lymphocytes # 0.9 Monocytes # 1.1 H Eosinophils # 0.4 Basophils # 0.1 Nucleated Red Blood Cells # 0.0 Sodium Level 135 Potassium Level 3.9 Chloride Level 94 L Carbon Dioxide Level 27 Anion Gap 18 H Blood Urea Nitrogen 34 H Creatinine 5.28 H Glucose Level 182 Calcium Level 8.2 L Phosphorus Level 7.0 H Magnesium Level 2.1 Test 12/21/16 07:50 Bedside Glucose 214 Medications Medications Current Medications Ondansetron HCl (Zofran Inj) 4 mg Q6H PRN IV NAUSEA AND/OR VOMITING Last administered on 12/18/16t 14:24; Admin Dose 4 MG; Start 12/09/16 at 17:30 Pregabalin (Lyrica) 75 mg BID PO Last administered on 12/21/16 08:07; Admin Dose 75 MG; Start 12/11/16 at 21:00 Eye Lubricant (Artificial Tears Oph) 2 drop Q6H PRN BOTH EYES DRY EYES Last administered on 12/16/16 21:07; Admin Dose 2 DROP; Start 12/11/16 at 20:30 Amikacin Sulfate (Amikacin Iv Per Pharmacy) AMIKACIN PER PHARMACY NOTE XX ; Start 12/15/16 at 12:30 Oxycodone/ Acetaminophen (Percocet (5/ 325)) 1 tab Q3H PRN PO PAIN LEVEL 1-5; Start 12/17/16 at 12:00 Oxycodone/ Acetaminophen (Percocet (5/ 325)) 2 tab Q3H PRN PO PAIN LEVEL 6-10 Last administered on 12/20/16 18:04; Admin Dose 2 TAB; Start 12/17/16 at 12:00 Acetaminophen (Tylenol Tab) 650 mg Q3H PRN PO ELEVATED TEMPERATURE; Start at 12:00 Aspirin (Aspirin) 81 mg DAILY NGT Last administered on 12/21/16 08:06; Admin Dose 81 MG; Start 12/18/16 at 09:00 Atorvastatin Calcium 40 mg 40 mg HS NGT Last administered on 12/20/16 21:00; Admin Dose 40 MG; Start 12/17/16 at 21:00 Levofloxacin/ Dextrose (Levaquin 250 Mg/ D5W 50 ml (Pmx)) 50 ml @ 50 mls/hr Q48H IVPB Last administered on 12/18/16 11:44; Admin Dose 50 MLS/HR; Start 12/18 at 11:00 Insulin Glargine (Lantus) 5 unit BID@08,20 SC Last administered on 12/21/16 08: 28; Admin Dose 5 UNIT; Start 12/19/16 at 10:00 Linagliptin (Tradjenta) 5 mg DAILY PO Last administered on 12/21/16 08:06; Admin Dose 5 MG; Start 12/19/16 at 10:00 Miscellaneous Information 1 ea NOTE XX ; Start 12/19/16 at 11:00 Glucose (Glutose) 15 gm Q15M PRN PO DECREASED GLUCOSE; Start 12/19/16 at 11:00 Glucose (Glutose) 22.5 gm Q15M PRN PO DECREASED GLUCOSE; Start 12/19/16 at 11:00 Dextrose (D50w Syringe) 25 ml Q15M PRN IV DECREASED GLUCOSE; Start 12/19/16 at 11:00 Dextrose (D50w Syringe) 50 ml Q15M PRN IV DECREASED GLUCOSE; Start 12/19/16 at 11:00 Glucagon (Glucagen) 1 mg Q15M PRN IM DECREASED GLUCOSE; Start 12/19/16 at 11:00 Glucose 15 gm 15 gm Q15M PRN BUCCAL DECREASED GLUCOSE; Start 12/19/16 at 11:00 Ferric Sodium Gluconate Complex/ Sodium Chloride (Ferrlecit/NS) 110 ml @ 110 mls/hr Q24H IVPB Last administered on 12/20/16 15:11; Admin Dose 110 MLS/HR; Start 12/20/16 at 11:00; Stop 12/24/16 at 11:59 Metoprolol Tartrate (Lopressor) 12.5 mg BID PO Last administered on 12/21/16 08 :08; Admin Dose 12.5 MG; Start 12/20/16 at 21:00 STEFFI HI M.D. Dec 21, 2016 08:54
--- NOTE | 2016-12-21 09:55 | PN ---
Date/Time of Note Date/Time of Note DATE: 12/21/16 TIME: 09:52 Assessment/Plan VTE Prophylaxis VTE Prophylaxis Intervention: ambulation, anti-embolic stocking Lines/Catheters IV Catheter Type (from Nrs): Peripheral IV Urinary Cath still in place: No Assessment/Plan Assessment/Plan Doing well. Incision OK. L pleural effusion probably bloody. crit now better. Minimal chest drainage. DC chest tubes and pacing wire. Thoracentesis today. Then probable discharge tomorrow. See Dr. Trinh on Exam/Review of Systems Vital Signs Vitals Vital Signs Date Time Temp Pulse Resp B/P Pulse Ox O2 Delivery O2 Flow Rate FiO2 12/21/16 08:19 74 12/21/16 07:40 98.3 19 118/60 95 12/20/16 20:24 2.0 27 12/20/16 20:15 Nasal Cannula Intake and Output 12/20/16 12/20/16 12/21/16 15:00 23:00 07:00 Intake Total 1300 ml 400 ml Output Total 465 ml 3045 ml 10 ml Balance -465 ml -1745 ml 390 ml Results Result Diagram: 12/21/16 0611 12/21/16 0611 Results 24 hrs Laboratory Tests Test 12/20/16 13:21 12/20/16 18:11 12/20/16 20:55 12/21/16 06:11 Bedside Glucose 181 181 223 H White Blood Count 7.3 Red Blood Count 2.99 #L Hemoglobin 9.1 #L Hematocrit 27.8 #L Mean Corpuscular Volume 93.0 Mean Corpuscular Hemoglobin 30.4 Mean Corpuscular Hemoglobin Concent 32.7 Red Cell Distribution Width 16.6 H Platelet Count 170 Mean Platelet Volume 11.0 H Neutrophils % 65.5 Lymphocytes % 12.9 L Monocytes % 15.0 H Eosinophils % 4.9 Basophils % 0.7 Nucleated Red Blood Cells % 0.0 Neutrophils # 4.8 Lymphocytes # 0.9 Monocytes # 1.1 H Eosinophils # 0.4 Basophils # 0.1 Nucleated Red Blood Cells # 0.0 Sodium Level 135 Potassium Level 3.9 Chloride Level 94 L Carbon Dioxide Level 27 Anion Gap 18 H Blood Urea Nitrogen 34 H Creatinine 5.28 H Glucose Level 182 Calcium Level 8.2 L Phosphorus Level 7.0 H Magnesium Level 2.1 Test 12/21/16 07:50 Bedside Glucose 214 Medications Medications Current Medications Ondansetron HCl (Zofran Inj) 4 mg Q6H PRN IV NAUSEA AND/OR VOMITING Last administered on 12/18/16 14:24; Admin Dose 4 MG; Start 12/09/16 at 17:30 Pregabalin (Lyrica) 75 mg BID PO Last administered on 12/21/16 08:07; Admin Dose 75 MG; Start 12/11/16 at 21:00 Eye Lubricant (Artificial Tears Oph) 2 drop Q6H PRN BOTH EYES DRY EYES Last administered on 12/16/16 21:07; Admin Dose 2 DROP; Start 12/11/16 at 20:30 Amikacin Sulfate (Amikacin Iv Per Pharmacy) AMIKACIN PER PHARMACY NOTE XX ; Start 12/15/16 at 12:30 Oxycodone/ Acetaminophen (Percocet (5/ 325)) 1 tab Q3H PRN PO PAIN LEVEL 1-5; Start 12/17/16 at 12:00 Oxycodone/ Acetaminophen (Percocet (5/ 325)) 2 tab Q3H PRN PO PAIN LEVEL 6-10 Last administered on 12/20/16 18:04; Admin Dose 2 TAB; Start 12/17/16 at 12:00 Acetaminophen (Tylenol Tab) 650 mg Q3H PRN PO ELEVATED TEMPERATURE; Start at 12:00 Aspirin (Aspirin) 81 mg DAILY NGT Last administered on 12/21/16 08:06; Admin Dose 81 MG; Start 12/18/16 at 09:00 Atorvastatin Calcium 40 mg 40 mg HS NGT Last administered on 12/20/16 21:00; Admin Dose 40 MG; Start 12/17/16 at 21:00 Levofloxacin/ Dextrose (Levaquin 250 Mg/ D5W 50 ml (Pmx)) 50 ml @ 50 mls/hr Q48H IVPB Last administered on 12/18/16 11:44; Admin Dose 50 MLS/HR; Start 12/18 at 11:00 Insulin Glargine (Lantus) 5 unit BID@08,20 SC Last administered on 12/21/16 08: 28; Admin Dose 5 UNIT; Start 12/19/16 at 10:00 Linagliptin (Tradjenta) 5 mg DAILY PO Last administered on 12/21/16 08:06; Admin Dose 5 MG; Start 12/19/16 at 10:00 Miscellaneous Information 1 ea NOTE XX ; Start 12/19/16 at 11:00 Glucose (Glutose) 15 gm Q15M PRN PO DECREASED GLUCOSE; Start 12/19/16 at 11:00 Glucose (Glutose) 22.5 gm Q15M PRN PO DECREASED GLUCOSE; Start 12/19/16 at 11:00 Dextrose (D50w Syringe) 25 ml Q15M PRN IV DECREASED GLUCOSE; Start 12/19/16 at 11:00 Dextrose (D50w Syringe) 50 ml Q15M PRN IV DECREASED GLUCOSE; Start 12/19/16 at 11:00 Glucagon (Glucagen) 1 mg Q15M PRN IM DECREASED GLUCOSE; Start 12/19/16 at 11:00 Glucose 15 gm 15 gm Q15M PRN BUCCAL DECREASED GLUCOSE; Start 12/19/16 at 11:00 Ferric Sodium Gluconate Complex/ Sodium Chloride (Ferrlecit/NS) 110 ml @ 110 mls/hr Q24H IVPB Last administered on 12/20/16 15:11; Admin Dose 110 MLS/HR; Start 12/20/16 at 11:00; Stop 12/24/16 at 11:59 Metoprolol Tartrate (Lopressor) 12.5 mg BID PO Last administered on 12/21/16 08 :08; Admin Dose 12.5 MG; Start 12/20/16 at 21:00 SONU DOMÍNGUEZ MD Dec 21, 2016 09:55
[2016-12-21] MEDS ORDERED: LEVOFLOXACIN 250 MG TAB PO SCH (10:30)
--- NOTE | 2016-12-21 12:05 | RADRPT ---
PROCEDURE: XR Chest. CLINICAL INDICATION: Shortness of breath. TECHNIQUE: Single frontal view. COMPARISON: 12/20/2016. FINDINGS: The right internal jugular vein sheath catheter has been removed. There are sternal wires and media stinal clips. Bilateral chest tubes remain in position. Mild atelectasis in the right upper lobe i s slightly improved. Air space disease throughout the left mid and lower lung zones is slightly wor se. The heart is enlarged. There is calcification in the aorta consistent with atherosclerosis. There is no right pleural effusion. There may be a moderate left pleural effusion. There is no pneumothorax. IMPRESSION: 1. Worse appearance of the left lung. Possible left pleural effusion. 2. Right IJ catheter removed. 3. No other change from 12/20/2016. RPTAT: QQ .Ventura Long MD, MD Date Time Electronically viewed and signed by .Ventura Lnog MD, MD on 12/21/2016 12:05 .R/
[2016-12-21] MEDS: BISACODYL 10 MG SUPP PR ONE ×2 (12:14→21:54)
--- NOTE | 2016-12-21 12:25 | CONS ---
Date/Time of Note Date/Time of Note DATE: 12/21/16 TIME: 12:25 Assessment/Plan Assessment/Plan Chief Complaint/Hosp Course ID PROGRESS NOTE CURRENT ABX=> 1. Amikacin #7. 2. Levaquin. 24H INTERVAL SUMMARY * Siting up in chair, NAD, VSS, family present, sternal wound well-approximated , no fevers, no new issues * O2 via NC, breathing easy, no cough, FC removed, pacer wire/CT removed * CXR 12/21/16 IMPRESSION: 1. Worse appearance of the left lung. Possible left pleural effusion. 2. Right IJ catheter removed. 3. No other change from 12/20/2016. PHYSICAL EXAMINATION: GENERAL: VSS, NAD, Afebrile HEENT: Unremarkable NECK: Supple, trachea midline. CHEST: Rise symmetrical, without dyspnea on observation HEART: Pulse RRR ABDOMEN: Soft EXTREMITIES: Warm ID ASSESSMENT 71 yo F admit with: 1. CAD=> S/p NSTEMI on admission followed by CABG 2. SIRS w/Resolving pneumonia. * Sputum culture grew Enterobacter species on 12/11/2016. 3. Chest x-ray revealed worse appearance of the left lung 4. End-stage renal disease, hemodialysis dependent. 5. 3. Diabetes. 6. Acute on chronic anemia. (-) MRSA Nares INVASIVES: PIV, LUEXT AVF ABX ALLERGY: NKDA CURRENT ABX: 1. Amikacin #7. 2. Levaquin. ID RECOMMENDATIONS * 1. Continue current ABX => sputum grew Scant GNR -- now Day #7 ABX, if no concern of PNA per Thora, anticipate DC off ABX when cleared by primary for DC home * 2. Thora today * 4. DC planning . . Problems: Consultation Date/Type/Reason Admit Date/Time Dec 09, 2016 at 11:49 Initial Consult Date Type of Consultation: ID Exam/Review of Systems Vital Signs Vitals Vital Signs Date Time Temp Pulse Resp B/P Pulse Ox O2 Delivery O2 Flow Rate FiO2 12/21/16 12:13 69 12/21/16 11:32 98.3 19 108/43 98 12/21/16 08:20 Nasal Cannula 2.0 12/20/16 20:24 27 Intake and Output 12/20/16 12/20/16 12/21/16 15:00 23:00 07:00 Intake Total 1300 ml 400 ml Output Total 465 ml 3045 ml 10 ml Balance -465 ml -1745 ml 390 ml Results Result Diagram: 12/21/16 0611 12/21/16 0611 Results 24 hrs Laboratory Tests Test 12/20/16 13:21 12/20/16 18:11 12/20/16 20:55 12/21/16 06:11 Bedside Glucose 181 181 223 H White Blood Count 7.3 Red Blood Count 2.99 #L Hemoglobin 9.1 #L Hematocrit 27.8 #L Mean Corpuscular Volume 93.0 Mean Corpuscular Hemoglobin 30.4 Mean Corpuscular Hemoglobin Concent 32.7 Red Cell Distribution Width 16.6 H Platelet Count 170 Mean Platelet Volume 11.0 H Neutrophils % 65.5 Lymphocytes % 12.9 L Monocytes % 15.0 H Eosinophils % 4.9 Basophils % 0.7 Nucleated Red Blood Cells % 0.0 Neutrophils # 4.8 Lymphocytes # 0.9 Monocytes # 1.1 H Eosinophils # 0.4 Basophils # 0.1 Nucleated Red Blood Cells # 0.0 Sodium Level 135 Potassium Level 3.9 Chloride Level 94 L Carbon Dioxide Level 27 Anion Gap 18 H Blood Urea Nitrogen 34 H Creatinine 5.28 H Glucose Level 182 Calcium Level 8.2 L Phosphorus Level 7.0 H Magnesium Level 2.1 Test 12/21/16 07:50 12/21/16 11:48 Bedside Glucose 214 205 Medications Medications Current Medications Pregabalin (Lyrica) 75 mg BID PO Last administered on 12/21/16 08:07; Admin Dose 75 MG; Start 12/11/16 at 21:00 Eye Lubricant (Artificial Tears Oph) 2 drop Q6H PRN BOTH EYES DRY EYES Last administered on 12/16/16 21:07; Admin Dose 2 DROP; Start 12/11/16 at 20:30 Amikacin Sulfate (Amikacin Iv Per Pharmacy) AMIKACIN PER PHARMACY NOTE XX ; Start 12/15/16 at 12:30 Oxycodone/ Acetaminophen (Percocet (5/ 325)) 1 tab Q3H PRN PO PAIN LEVEL 1-5; Start 12/17/16 at 12:00 Oxycodone/ Acetaminophen (Percocet (5/ 325)) 2 tab Q3H PRN PO PAIN LEVEL 6-10 Last administered on 12/20/16 18:04; Admin Dose 2 TAB; Start 12/17/16 at 12:00 Acetaminophen (Tylenol Tab) 650 mg Q3H PRN PO ELEVATED TEMPERATURE; Start at 12:00 Linagliptin (Tradjenta) 5 mg DAILY PO Last administered on 12/21/16 08:06; Admin Dose 5 MG; Start 12/19/16 at 10:00 Miscellaneous Information 1 ea NOTE XX ; Start 12/19/16 at 11:00 Glucose (Glutose) 15 gm Q15M PRN PO DECREASED GLUCOSE; Start 12/19/16 at 11:00 Glucose (Glutose) 22.5 gm Q15M PRN PO DECREASED GLUCOSE; Start 12/19/16 at 11:00 Dextrose (D50w Syringe) 25 ml Q15M PRN IV DECREASED GLUCOSE; Start 12/19/16 at 11:00 Dextrose (D50w Syringe) 50 ml Q15M PRN IV DECREASED GLUCOSE; Start 12/19/16 at 11:00 Glucagon (Glucagen) 1 mg Q15M PRN IM DECREASED GLUCOSE; Start 12/19/16 at 11:00 Glucose (Glutose) 15 gm Q15M PRN BUCCAL DECREASED GLUCOSE; Start 12/19/16 at 11: 00 Metoprolol Tartrate (Lopressor) 12.5 mg BID PO Last administered on 12/21/16 08 :08; Admin Dose 12.5 MG; Start 12/20/16 at 21:00 Levofloxacin (Levaquin) 250 mg Q48H PO ; Start 12/21/16 at 10:30 Aspirin (Aspirin) 81 mg DAILY PO ; Start 12/22/16 at 09:00 Atorvastatin Calcium (Lipitor) 40 mg HS PO ; Start 12/21/16 at 21:00 Insulin Glargine (Lantus) 10 unit QHS SC ; Start 12/21/16 at 21:00 BUSTER LONG NP Dec 21, 2016 12:25
--- NOTE | 2016-12-21 14:02 | PN ---
DATE: 12/21/2016 CARDIOLOGY FOLLOWUP SUBJECTIVE: The patient remains in sinus rhythm. No chest pain or pressure. No palpitation. Bloo d pressure has remained stable. MEDICATIONS: Reviewed. PHYSICAL EXAMINATION: VITAL SIGNS: Temperature 98.3, heart rate of 69, blood pressure 108/43, respiratory rate 19, satura ting 98%. HEENT: Normocephalic, atraumatic. No acute distress. Pupils are equal. CARDIOVASCULAR: Regular rate and rhythm. PULMONARY: With no wheezes. GASTROINTESTINAL: Soft, nontender. EXTREMITIES: With trivial edema. NEUROLOGIC: Awake, alert, responds appropriately. PSYCHIATRIC: Appears to be calm. LABORATORY DATA: WBC of 7.3, hemoglobin 9.1, platelets of 170. Sodium 135, potassium 3.9, BUN of 3 4, creatinine 5.28, glucose 182. ASSESSMENT AND PLAN: 1. [id number] myocardial infarction. 2. Multivessel coronary artery disease, status post coronary bypass graft on 12/17/2016. 3. Diabetes. 4. Hypertension. 5. Renal failure, on dialysis. 6. Anemia. RECOMMENDATIONS: We will continue with the current cardiac care. Blood pressure currently stable. Aspirin will be continued. Statin will be continued. Diabetic management as per internal medicine . Beta rob as tolerated will be continued as well. Continue postop care. Dictated By: CLAUDIA IVY/DEEPALI Conf#: [id number] DID#: [id number] CC: ;*EndCC*
[2016-12-21] MEDS ORDERED: INSULIN GLARGINE [LANtus] 3 ML PEN SC SCH (21:00)
[2016-12-21] MEDS ORDERED: ATORVASTATIN 40 MG TAB PO SCH (21:00)
[2016-12-22] VITALS (17 sets, daily range): BP systolic 114–157; BP diastolic 56–71; PULSE 80–90; RESP 18–19
[2016-12-22] MEDS: INSULIN ASPART [NOVOLOG] 3 ML PEN SC SCH ×3 (07:55→17:54)
[2016-12-22] MEDS: CALCIUM ACETATE 667 MG CAP PO SCH ×3 (07:55→17:49)
[2016-12-22] MEDS: METOPROLOL 25 MG TAB PO SCH (08:50)
[2016-12-22] MEDS: PREGABALIN 75 MG CAP PO SCH (08:50)
[2016-12-22] MEDS: LINAGLIPTIN 5 MG TABLET PO SCH (08:50)
[2016-12-22] MEDS ORDERED: ASPIRIN 81 MG TAB PO SCH (09:00)
--- NOTE | 2016-12-22 09:41 | CONS ---
Date/Time of Note Date/Time of Note DATE: 12/22/16 TIME: 09:38 Consult Date/Type/Reason Admit Date/Time Dec 09, 2016 at 11:49 Initial Consult Date Type of Consultation: ID Subjective overnight events noted Objective Vital Signs Date Time Temp Pulse Resp B/P Pulse Ox O2 Delivery O2 Flow Rate FiO2 12/22/16 08:14 88 12/22/16 07:19 98.2 19 145/66 98 12/22/16 01:13 2.0 12/21/16 21:30 Nasal Cannula 12/20/16 20:24 27 Intake and Output 12/21/16 12/21/16 12/22/16 15:00 23:00 07:00 Intake Total 300 ml Balance 300 ml Results/Medications Result Diagram: 12/21/1661012/21/16610 Results 24 hrs Laboratory Tests Test 12/21/16 11:48 12/21/16 17:11 12/21/16 21:52 12/22/16 07:50 Bedside Glucose 205 184 138 153 Medications Current Medications Pregabalin (Lyrica) 75 mg BID PO Last administered on 12/22/16 08:50; Admin Dose 75 MG; Start 12/11/16 at 21:00 Eye Lubricant (Artificial Tears Oph) 2 drop Q6H PRN BOTH EYES DRY EYES Last administered on 12/16/16 21:07; Admin Dose 2 DROP; Start 12/11/16 at 20:30 Amikacin Sulfate (Amikacin Iv Per Pharmacy) AMIKACIN PER PHARMACY NOTE XX ; Start 12/15/16 at 12:30 Oxycodone/ Acetaminophen (Percocet (5/ 325)) 1 tab Q3H PRN PO PAIN LEVEL 1-5; Start 12/17/16 at 12:00 Oxycodone/ Acetaminophen (Percocet (5/ 325)) 2 tab Q3H PRN PO PAIN LEVEL 6-10 Last administered on 12/20/16 18:04; Admin Dose 2 TAB; Start 12/17/16 at 12:00 Acetaminophen (Tylenol Tab) 650 mg Q3H PRN PO ELEVATED TEMPERATURE; Start at 12:00 Linagliptin (Tradjenta) 5 mg DAILY PO Last administered on 12/22/16 08:50; Admin Dose 5 MG; Start 12/19/16 at 10:00 Miscellaneous Information 1 ea NOTE XX ; Start 12/19/16 at 11:00 Glucose (Glutose) 15 gm Q15M PRN PO DECREASED GLUCOSE; Start 12/19/16 at 11:00 Glucose (Glutose) 22.5 gm Q15M PRN PO DECREASED GLUCOSE; Start 12/19/16 at 11:00 Dextrose (D50w Syringe) 25 ml Q15M PRN IV DECREASED GLUCOSE; Start 12/19/16 at 11:00 Dextrose (D50w Syringe) 50 ml Q15M PRN IV DECREASED GLUCOSE; Start 12/19/16 at 11:00 Glucagon (Glucagen) 1 mg Q15M PRN IM DECREASED GLUCOSE; Start 12/19/16 at 11:00 Glucose (Glutose) 15 gm Q15M PRN BUCCAL DECREASED GLUCOSE; Start 12/19/16 at 11: 00 Metoprolol Tartrate (Lopressor) 12.5 mg BID PO Last administered on 12/22/16 08 :50; Admin Dose 12.5 MG; Start 12/20/16 at 21:00 Levofloxacin (Levaquin) 250 mg Q48H PO Last administered on 12/21/16 13:46; Admin Dose 250 MG; Start 12/21/16 at 10:30 Aspirin (Aspirin) 81 mg DAILY PO Last administered on 12/22/16 08:49; Admin Dose 81 MG; Start 12/22/16 at 09:00 Atorvastatin Calcium (Lipitor) 40 mg HS PO Last administered on 12/21/16 21:54 ; Admin Dose 40 MG; Start 12/21/16 at 21:00 Insulin Glargine (Lantus) 10 unit QHS SC Last administered on 12/21/16 21:58; Admin Dose 10 UNIT; Start 12/21/16 at 21:00 Assessment/Plan Chief Complaint/Hosp Course This patient has ESRD on dialysis and we did dialysis today and removed 3000 cc fluid and she had cardiac cath yesterday she feels ok [facility]/p cardiac cath yesterday next dialysis will be friday renal diet Problems: Additional Assessment/Plan ESRD on dialysis Plan #K today is normal #Last dialysis was FRIDAY and next dialysis is tomorrow #Please call me if you have any questions ARNULFO GIORDANO MD Dec 22, 2016 09:41
--- NOTE | 2016-12-22 11:39 | RADRPT ---
PROCEDURE: XR Chest. CLINICAL INDICATION: shortness of breath TECHNIQUE: Single AP view of the chest were obtained COMPARISON: 12/19/2016 FINDINGS: The heart is stable and moderately enlarged with sternotomy changes again seen. Right-sided cathete r has been removed. The pulmonary vasculature are prominent. The aorta demonstrates atherosclerotic calcifications. There is left lower lung consolidation with a layering left effusion. No right-s ided effusion is present. There is no pneumothorax. Degenerative changes are seen within the thora cic spine. There is no acute osseous abnormality. IMPRESSION: Moderate cardiomegaly. Pulmonary vascular congestion and edema is present there is stable left lower lung consolidation and effusion. RPTAT: AA .Teja Jacob MD, MD Date Time Electronically viewed and signed by .Teja Jacob MD, on 12/22/2016 11:38 .J/
[2016-12-22] MEDS: AMIKACIN 275 MG in SOD CHLORIDE 0.9% 100 ML IVPB SCH (14:53)
--- NOTE | 2016-12-22 15:52 | RADRPT ---
PROCEDURE: Ultrasound chest CLINICAL INDICATION: Assess for pleural effusion TECHNIQUE: Left thoracic sonography was performed COMPARISON: Chest x-ray from the same day FINDINGS: There is a minimal, complicated, debris filled left pleural effusion with adjacent septations, just superior to collapsed lung. The maximal thickness of the fluid is 1.3 cm. At this time, there is not an of fluid, for safe left ultrasound-guided thoracentesis to be performed. IMPRESSION: Minimal, complicated, septated, layering left pleural effusion just superior to collapsed left lung with a maximal thickness of 1.3 cm. At this time, it is not safe for left ultrasound-guided thorace ntesis to be performed. These findings were discussed with the patient's family at the completion of the exam. RPTAT: PP .Kelly Parisi MD, Date Time Electronically viewed and signed by .Kelly Parisi MD, on 12/22/2016 13:34 .F/
--- NOTE | 2016-12-22 17:18 | DS ---
Date/Time of Note Date/Time of Note DATE: 12/22/16 TIME: 17:09 Discharge Summary Admission/Discharge Info Admit Date/Time Dec 09, 2016 at 11:49 Discharge Date/Time Dec 22, 2016 Final Diagnosis NSTEMI, s/p 3v CABG, ESRD on hemodialysis Patient Condition: Good Consults Cardiology, cardiothoracic surgery, infectious disease, nephrology Procedures Coronary bypass surgery (3-vessel) Cardiac catheterization Hemodialysis Chest CT and CT angiogram Chest ultrasound Hx of Present Illness 71-year-old woman with a history of end-stage renal disease on hemodialysis for the past 2 years, with a left upper extremity fistula; diabetes mellitus, insulin requiring; diabetic neuropathy; coronary artery disease and hyperlipidemia who presented in the emergency department with reported fevers. She had been having upper respiratory infection symptoms for the preceding 3 to 5 days, and then developed hemoptysis. In retrospect, she also complained of intermittent episodes of shortness of breath. Chest pain had been worsening over the 24 hours prior to admission. ALLERGIES: NO KNOWN ALLERGIES. PAST MEDICAL HISTORY: 1. End-stage renal disease on hemodialysis. 2. Diabetes mellitus, insulin requiring. 3. Diabetic neuropathy. 4. Likely diabetic nephropathy. 5. Coronary artery disease. 6. Hyperlipidemia. PAST SURGICAL HISTORY: Status post left upper extremity fistula placement 2 years ago. SOCIAL HISTORY: The patient lives with her son. No history of alcohol or tobacco use. Hospital Course In the ER, her potassium was 6.5, and her time lock expert was contacted for urgent dialysis. She was admitted to telemetry with diagnosis of pneumonia and bronchitis on chest CT scan. Lab studies showed white blood cell count of 13.1 , hemoglobin 10.5, hematocrit 31.4, platelet count of 208. She had a slight left shift with a neutrophil percentage of 83.2. Chemistry with sodium of 134, potassium 6.5, chloride 98, bicarbonate 23, BUN 88, creatinine 6.89, glucose of 240. Lactic acid is up to 4.0. Calcium 8.4. Total bilirubin 0.2, AST 32, ALT 19, alkaline phosphatase 146. Troponin 0.109. Total protein of 7.3, albumin 4.0, amylase 108, lipase 127. INR is 1.01, PT 13.3, PTT 26.9. Urinalysis was grossly mostly negative. EKG on admission showed sinus rhythm with possible PACs. No acute ST or T-wave abnormalities. Chest x-ray showed right upper lobe infiltrate; possible mild right lower lobe infiltrate; ill-defined nodular opacity, left mid lung. Subsequent CT angiogram of the chest showed no evidence of pulmonary embolus. Multifocal patchy and confluent opacity bilaterally consistent with multifocal pneumonia. Status post cholecystectomy and heterogenous thyroid gland with subcentimeter hypodensity in the left lobe. Recommendation for thyroid sonogram on a nonurgent basis. She was started on vancomycin and Zosyn for broad spectrum coverage since she is a dialysis patient and in light of lactic acid of 4.0. The initial troponin was normal range. But she had progressive rise to 18.2ng/ml peak on the second hospital day, consistent with NSTEMI. She underwent cardiac catheterization showing triple-vessel disease including distal left main. In discussion with patient's son, patient was recommended bypass surgery a few years ago but never followed up for further care. She was continued on aspirin, atorvastatin therapy, beta-rob as blood pressure and heart rate permitted, and IV heparin. Dr. Lakeisha Muro was consulted for CT surgery, and the patient subsequently underwent triple vessel CABG on the ninth hospital day with good recovery. Blood cultures were negative, but sputum culture (12/11/16) grew Enterobacter sensitive to Levaquin. She was started on Levaquin (day 4) and Amikacin per ID (Dr. Brannon Snyder). Oxana Wyatt ICER MACHINE OPERATOR indicated earlier today that she had completed an adequate course of antibiotics, with no need for additional antibiotics after discharge. She had a complex loculated left pleural effusion that could not be tapped earlier today by interventional radiology, and they felt she was safe for discharge to the [facility] to initiate cardiac rehabilitation. Patient had her last hemodialysis this morning, Thursday December 22, 2016. She had only minor post-operative chest pain complaints, with no visual change or headache. Constitutional: Sleepy, oelo-kssfmtrmu-kkjxzpves and comfortable. Respiratory: Good air movement, diminished breath sounds left posterior lung regan but no crackles or wheezing. Cardiovascular: Regular rhythm, normal rate, no murmur. Incision healing well. Gastrointestinal: non-tender, soft, bowel sounds positive. Musculoskeletal: nl extremities to inspection, with trace ankle edema. Extremities: Symmetric pulses, no edema, clubbing or cyanosis 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: Alert and oriented, intact executive function and memory. ENVIRONMENTAL CONSERVATION OFFICER II -XII intact, normal speech. Moving all extremities. Toes downgoing. Her HgbA1c was 7.9% on admission. She was started on Tradjenta by mouth. I modified her insulin regimen yesterday to Lantus 10u at bedtime, and Novolog 5u before each meal. Blood sugars today were between 180 and 200, and there may be additional room for a higher dose of pre-prandial insulin in the rehab facility. Home Meds Active Scripts Insulin Aspart* (Novolog Insulin Pen*) 100 Unit/Ml Soln, 5 UNIT SC WITH MEALS for 30 Days Hold for blood sugar < 70 mg/dl Prov:STEFFI LEES M.D. 12/22/16 Linagliptin (TRADJENTA) 5 Mg Tablet, 5 MG PO DAILY for 30 Days, TAB Prov:STEFFI LEES M.D. 12/22/16 Insulin Glargine* (Lantus*) 100 Unit/Ml Soln, 10 UNIT SC QHS for 30 Days Prov:STEFFI LEES M.D. 12/22/16 Calcium Acetate* (Calcium Acetate*) 667 Mg Capsule, 1334 MG PO WITH MEALS for 30 Days, CAP Prov:STEFFI LEES M.D. 12/22/16 Reported Medications Docusate Sodium* (Docusate Sodium*) 100 Mg Capsule, 100 MG PO BID, #60 CAP 12/09/16 Cyanocobalamin* (Vitamin B-12*) 1,000 Mcg Tablet.sa, 1000 MCG PO DAILY, TAB 12/09/16 Multivitamin* (Daily Value*) 1 Each Tablet, 1 TAB PO DAILY, TAB 12/09/16 Cholecalciferol* (Vitamin D3*) 1,000 Unit Tablet, 2000 UNIT PO DAILY, TAB 12/09/16 Aspirin* (Aspirin* Chew) 81 Mg Tab.chew, 81 MG PO DAILY, TAB.CHEW 12/09/16 Tramadol Hcl* (Ultram*) 50 Mg Tablet, 50 MG PO QHS Y for PAIN, TAB 12/09/16 Pregabalin* (Lyrica*) 75 Mg Capsule, 75 MG PO BID, #60 09/24/16 Allopurinol* (Allopurinol*) 100 Mg Tablet, 100 MG PO QHS, #90 09/24/16 Atorvastatin* (Atorvastatin*) 40 Mg Tablet, 40 MG PO QHS, #60 09/24/16 Discontinued Reported Medications Insulin Glargine* (Lantus*) 100 Unit/Ml Soln, 10-30 UNIT SC DAILY, #1 VIAL 12/09/16 Insulin Human Nph (Novolin-N) 100 Units/Ml Susp, 0-30 UNIT SQ AC MEALS 12/09/16 Follow-up Plan Follow-up with Dr. Lakeisha Muro on December. Post-discharge clinic follow-up to be arranged in the next week. Dialysis three days per week. Pending Labs Laboratory Tests Test 12/21/16 17:11 12/21/16 21:52 12/22/16 07:50 12/22/16 11:41 Bedside Glucose 184mg/dL (70-220) 138mg/dL (70-220) 153mg/dL (70-220) 184mg/dL (70-220) Test 12/22/16 14:41 Bedside Glucose 202mg/dL (70-220) Copies To: CC: LAKEISHA MURO MD; BRANNON SNYDER MD; Xiang Krishna DO; JOSHUA MATSON JOHN P. M.D. Dec 22, 2016 17:18
--- NOTE | 2016-12-22 18:06 | PDOCDIS ---
Discharge Instructions DIAGNOSIS Discharge Diagnosis: NSTEMI, s/p 3v-CABG, pneumonia, diabetes CONDITION Patient Condition: Good HOME CARE INSTRUCTIONS: Diet Instructions: Special Diet: Renal, diabetic diet ACTIVITY: Activity Restrictions: Slowly Increase Activity FOLLOW UP/APPOINTMENTS Appointments Follow-up with Dr. Chaitanya Trinh on , December 26, 2016. Post-discharge clinic follow-up to be arranged in the next week. Dialysis three days per week. STEFFI LEES M.D. Dec 22, 2016 18:06
[2016-12-22] MEDS ORDERED: CALC667C PO (18:10)
[2016-12-22] MEDS ORDERED: LINA5TAB PO (18:10)
[2016-12-22] MEDS ORDERED: LANT3I SC (18:10)
[2016-12-22] MEDS ORDERED: NOVO3I SC (18:10)
--- NOTE | 2016-12-22 20:03 | CONS ---
Date/Time of Note Date/Time of Note DATE: 12/22/16 TIME: 19:57 Assessment/Plan Assessment/Plan Chief Complaint/Hosp Course ID PROGRESS NOTE CURRENT ABX=> 1. Amikacin #8. 2. Levaquin. 24H INTERVAL SUMMARY * Seen earlier today during dinner time -- she was siting up in chair, NAD, VSS , family present, sternal wound well-approximated, no fevers, no new issues * CXR 12/22/16 IMPRESSION:Pulmonary vascular congestion and edema is present there is stable left lower lung consolidation and effusion. * 12/22/16 THORA deferred: Minimal, complicated, septated, layering left pleural effusion just superior to collapsed left lung with a maximal thickness of 1.3 cm. At this time, it is not safe for left ultrasound-guided thoracentesis to be performed. PHYSICAL EXAMINATION: GENERAL: VSS, NAD, Afebrile HEENT: Unremarkable NECK: Supple, trachea midline. CHEST: Rise symmetrical, without dyspnea on observation -- Sternal incision healing, well-approximated HEART: Pulse RRR ABDOMEN: Soft EXTREMITIES: Warm ID ASSESSMENT 71 yo F admit with: 1. CAD=> S/p NSTEMI on admission followed by CABG 2. SIRS w/Resolving pneumonia. * Sputum culture grew Enterobacter species on 12/11/2016. 3. Chest x-ray revealed worse appearance of the left lung on -> 12/22/16 w / LLL stable consolidation/effusion 4. End-stage renal disease, hemodialysis dependent. 5. Diabetes. 6. Acute on chronic anemia. (-) MRSA Nares INVASIVES: PIV, LUEXT AVF ABX ALLERGY: NKDA CURRENT ABX: 1. Amikacin #8 2. Levaquin. ID RECOMMENDATIONS * 1. Continue current ABX => sputum grew Scant GNR -- now Day #8 ABX, She is OFF empiric HCAP GPC coverage * 2. 12/22/16 THORA deferred: Minimal, complicated, septated, layering left pleural effusion just superior to collapsed left lung with a maximal thickness of 1.3 cm. At this time, it is not safe for left ultrasound-guided thoracentesis to be performed. * 3. Further recs per pulmonary .. . . . Problems: Consultation Date/Type/Reason Admit Date/Time Dec 09, 2016 at 11:49 Type of Consultation: ID Exam/Review of Systems Vital Signs Vitals Vital Signs Date Time Temp Pulse Resp B/P Pulse Ox O2 Delivery O2 Flow Rate FiO2 12/22/16 16:16 81 12/22/16 15:41 97.4 19 140/63 98 12/22/16 15:23 2.0 12/22/16 08:15 Nasal Cannula 12/20/16 20:24 27 Intake and Output 12/21/16 12/21/16 12/22/16 15:00 23:00 07:00 Intake Total 300 ml Balance 300 ml Results Result Diagram: 12/21/16 0611 12/21/16 0611 Results 24 hrs Laboratory Tests Test 12/21/16 21:52 12/22/16 07:50 12/22/16 11:41 12/22/16 14:41 Bedside Glucose 138 153 184 202 Test 12/22/16 16:47 Bedside Glucose 182 Medications Medications Current Medications Pregabalin (Lyrica) 75 mg BID PO Last administered on 12/22/16 08:50; Admin Dose 75 MG; Start 12/11/16 at 21:00 Eye Lubricant (Artificial Tears Oph) 2 drop Q6H PRN BOTH EYES DRY EYES Last administered on 12/16/16 21:07; Admin Dose 2 DROP; Start 12/11/16 at 20:30 Amikacin Sulfate (Amikacin Iv Per Pharmacy) AMIKACIN PER PHARMACY NOTE XX ; Start 12/15/16 at 12:30 Oxycodone/ Acetaminophen (Percocet (5/ 325)) 1 tab Q3H PRN PO PAIN LEVEL 1-5; Start 12/17/16 at 12:00 Oxycodone/ Acetaminophen (Percocet (5/ 325)) 2 tab Q3H PRN PO PAIN LEVEL 6-10 Last administered on 12/20/16 18:04; Admin Dose 2 TAB; Start 12/17/16 at 12:00 Acetaminophen (Tylenol Tab) 650 mg Q3H PRN PO ELEVATED TEMPERATURE; Start at 12:00 Linagliptin (Tradjenta) 5 mg DAILY PO Last administered on 12/22/16 08:50; Admin Dose 5 MG; Start 12/19/16 at 10:00 Miscellaneous Information 1 ea NOTE XX ; Start 4/6/17 at 11:00 Glucose (Glutose) 15 gm Q15M PRN PO DECREASED GLUCOSE; Start 12/19/16 at 11:00 Glucose (Glutose) 22.5 gm Q15M PRN PO DECREASED GLUCOSE; Start 12/19/16 at 11:00 Dextrose (D50w Syringe) 25 ml Q15M PRN IV DECREASED GLUCOSE; Start 12/19/16 at 11:00 Dextrose (D50w Syringe) 50 ml Q15M PRN IV DECREASED GLUCOSE; Start 12/19/16 at 11:00 Glucagon (Glucagen) 1 mg Q15M PRN IM DECREASED GLUCOSE; Start 12/19/16 at 11:00 Glucose (Glutose) 15 gm Q15M PRN BUCCAL DECREASED GLUCOSE; Start 12/19/16 at 11: 00 Metoprolol Tartrate (Lopressor) 12.5 mg BID PO Last administered on 12/22/16 08 :50; Admin Dose 12.5 MG; Start 12/20/16 at 21:00 Levofloxacin (Levaquin) 250 mg Q48H PO Last administered on 12/21/16 13:46; Admin Dose 250 MG; Start 12/21/16 at 10:30 Aspirin (Aspirin) 81 mg DAILY PO Last administered on 12/22/16 08:49; Admin Dose 81 MG; Start 12/22/16 at 09:00 Atorvastatin Calcium (Lipitor) 40 mg HS PO Last administered on 12/21/16 21:54 ; Admin Dose 40 MG; Start 12/21/16 at 21:00 Insulin Glargine (Lantus) 10 unit QHS SC Last administered on 12/21/16 21:58; Admin Dose 10 UNIT; Start 12/21/16 at 21:00 BUSTRE LONG NP Dec 22, 2016 20:03
--- NOTE | 2016-12-23 07:43 | PN ---
DATE: 12/22/2016 CARDIOLOGY FOLLOWUP SUBJECTIVE: Reviewed as the staff, discussed with his son. Rhythm strip was reviewed. The patient remains in sinus rhythm. Complained of chest wall tenderness. MEDICATIONS: Reviewed. PHYSICAL EXAMINATION: VITAL SIGNS: Temperature 98, heart rate of 80, blood pressure 113/69, respiration 19, saturating 98 %. HEENT: Normocephalic, atraumatic. Pupils are equal. Status post sternotomy. NECK: Soft, nontender. PULMONARY: With mild rhonchi, diffuse. GASTROINTESTINAL: Soft. EXTREMITIES: Trivial edema. NEUROLOGIC: Awake and alert. PSYCHIATRIC: Appeared to be calm. LABORATORY: WBC of 7.3, hemoglobin 9.1 as of yesterday. Glucose is 184. Chest x-ray shows cardiomegaly, pulmonary vascular congestion and edema present, stable. Left lower lung consolidation and effusion. ASSESSMENT AND PLAN: 1. [id number] myocardial infarction with multivessel coronary artery disease, status post cor onary bypass graft. 2. Diabetes. 3. Hypertension. 4. Pneumonia. 5. Anemia, status post transfusion. RECOMMENDATIONS: We will continue with the current cardiac care. Aspirin will be continued. as tolerated. Antibiotic as per internal medicine. Dictated By: CLAUDIA SANDOVAL MD AV/DEEPALI Conf#: [id number] DID#: [id number] CC: STEFFI LEES MD;*End*
== END 2016-12-22 20:15 | DRG 233 ==
LOC: E/R 09:17 → MS4 11:49 → ICU 12-10 22:08 → TEL 12-12 18:46 → ICU 12-17 10:20 → TEL 12-20 20:22
PROVIDERS: ADMIT Internal Medicine; ATTEND Internal Medicine
PROC: 5A1D60Z (ICD-10-PCS; 2016-12-09)
PROC: B211YZZ Fluoroscopy of Multiple Coronary Arteries using Other Contrast (ICD-10-PCS; 2016-12-10)
PROC: 4A023N7 Measurement of Cardiac Sampling and Pressure, Left Heart, Percutaneous Approach (ICD-10-PCS; 2016-12-10 14:00)
PROC: 02100Z9 Bypass Coronary Artery, One Artery from Left Internal Mammary, Open Approach (ICD-10-PCS; 2016-12-17)
PROC: 06BP0ZZ Excision of Right Saphenous Vein, Open Approach (ICD-10-PCS; 2016-12-17)
PROC: 5A1221Z Performance of Cardiac Output, Continuous (ICD-10-PCS; 2016-12-17)
PROC: 021109W Bypass Coronary Artery, Two Arteries from Aorta with Autologous Venous Tissue, Open Approach (ICD-10-PCS; principal; 2016-12-17 07:30)
DX: I21.4 Non-ST elevation (NSTEMI) myocardial infarction (principal); J18.9 Pneumonia, unspecified organism; J90 Pleural effusion, not elsewhere classified; N18.6 End stage renal disease; I12.0 Hypertensive chronic kidney disease with stage 5 chronic kidney disease or end stage renal disease; D62 Acute posthemorrhagic anemia; R04.2 Hemoptysis; E11.22 Type 2 diabetes mellitus with diabetic chronic kidney disease; I25.10 Atherosclerotic heart disease of native coronary artery without angina pectoris; E11.40 Type 2 diabetes mellitus with diabetic neuropathy, unspecified; E78.5 Hyperlipidemia, unspecified; E87.5 Hyperkalemia; J40 Bronchitis, not specified as acute or chronic; Z79.4 Long term (current) use of insulin; Z99.2 Dependence on renal dialysis
CPT/HCPCS: 36430; 36592; 36600; 71010; 71250; 71275; 76604; 80048; 80053; 80061; 80202; 81001; 81003; 82150; 82550; 82553; 82803; 82962; 83036; 83605; 83690; 83735; 84100; 84484; 85025; 85610; 85730; 86644; 86850; 86900; 86901; 86920; 86945; 87040; 87070; 87081; 87086; 90935; 93005; 93306; 93312; 93458; 94002; 94003; 94664; 94770; 96372; 96374; 96375; 97116; 97161; 97530; J1940; C1769; C1887; C9113; J0171; J0278; J0690; J0886; J1170; J1265; J1644; J1815; J1956; J2001; J2150; J2250; J2260; J2370; J2405; J2440; J2543; J2720; J2916; J3010; J3370; J3475; J3480; J7030; J7042; J7050; J7070; P9016; P9035; P9045; P9047; P9059; Q9967

== ENCOUNTER 2017-01-23 07:31 | Day surgery (SDC) | payer MEDICARE, OTHER ==
[~2017-01-23] VITALS: Ht 157.5 cm; Wt 65.0 kg
[~2017-01-23 07:31] MED LIST changes: +ASPI81TA3 PO; +CALC667C PO; +CHOL100062 PO; +CYAN100080 PO; +DOCU-159 PO; -IBUP-1542 PO; +LINA5TAB PO; +MULT-542 PO; +NOVO3I SC; +TRAM-40 PO
[2017-01-23 09:16] VITALS: Ht 157.5 cm; Wt 65.0 kg
[2017-01-23 09:25] VITALS: BP 180/76; PULSE 78; RESP 18
[2017-01-23] MEDS ORDERED: LIDOCAINE 1% (MPF) 5 ML VIAL ONE (10:55)
--- NOTE | 2017-01-23 11:12 | RADRPT ---
PROCEDURE: US guided left thoracentesis. CLINICAL INDICATION: Shortness of breath. Left pleural effusion. TECHNIQUE: Prior to the procedure, informed consent was obtained. The risks, benefits, and alternatives were e xplained to the patient or the patient's family, including but not limited to bleeding, infection, p ain, visceral or vascular damage, shock, pneumothorax, chest tube placement, air embolism, and . The patient or the patient's family understood the risks and the alternatives and wished to proce ed with the study. Informed written consent was obtained. A procedural pause was performed. The patient's name, date of , and procedure to be performed were verified. Ultrasound of the left hemithorax was performed in the axial and sagittal planes. A left pleural eff usion is noted. Utilizing ultrasound guidance, optimal location for entry to the pleural cavity was ascertained. The overlying skin was prepped and draped in the usual sterile fashion. Approximately 10 ml of 1% Xylocaine was injected locally for pain control. Using ultrasound guidance, a 5-Thai Yueh catheter was introduced into the left pleural space without difficulty. Fluid was aspirated. COMPARISON: None. FINDINGS: Initial ultrasound demonstrates fluid in the left pleural space. Approximately 0.425 liters of sero sanguineous fluid was aspirated and discarded. IMPRESSION: 1. Satisfactory ultrasound-guided left thoracentesis. RPTAT: QQ .Ventura Long MD, Date Time Electronically viewed and signed by .Ventura Long MD, on 01/23/2017 11:12 .R/
[2017-01-23 11:20] VITALS: BP 167/72; PULSE 78; RESP 16
--- NOTE | 2017-01-23 11:20 | RADRPT ---
PROCEDURE: XR Chest. CLINICAL INDICATION: Shortness of breath. Post left thoracentesis. TECHNIQUE: Single frontal view. COMPARISON: 12/22/2016. FINDINGS: The right lung is clear. There is a small left pleural effusion and mild left basilar atelectasis. The heart size is normal. There is no right pleural effusion. There are sternal wires. Calcification is present in the aorta consistent with atherosclerosis. There is no pneumothorax. IMPRESSION: 1. No pneumothorax following left thoracentesis. RPTAT: QQ .Ventura Long MD, MD Date Time Electronically viewed and signed by .Ventura Long MD, MD on 01/23/2017 11:19 .R/
== END 2017-01-23 12:00 | disposition home or self-care (01) ==
LOC: SDS 07:31
PROVIDERS: ATTEND Thoracic Surgery (Cardiothoracic Vascular Surgery)
DX: J90 Pleural effusion, not elsewhere classified (principal)
CPT/HCPCS: 32555; 71010; 82962; 84132

== ENCOUNTER 2017-04-22 20:14 | Emergency (ER) | payer MEDICARE, OTHER ==
[~2017-04-22] VITALS: Ht 193 cm; Wt 71.0 kg
[2017-04-22 20:21] VITALS: Ht 193 cm; Wt 71.0 kg
[2017-04-23 00:50] LABS: ABNORMAL IP MESSAGE 1; BASOPHILS % 0.6 % (0.0-2.0); EOSINOPHILS # 0.1 10^3/ul (0.0-0.5); EOSINOPHILS % 2.1 % (0.0-7.0); HEMOGLOBIN 12.2 g/dl (12.0-16.0); LYMPHOCYTES # 1.4 10^3/ul (0.8-2.9); LYMPHOCYTES % 22.1 % (15.0-51.0); MEAN CORPUSCULAR HEMOGLOBIN 31.3 pg (29.0-33.0); MEAN CORPUSCULAR VOLUME 94.9 fl (82.0-101.0); MEAN PLATELET VOLUME 12.8 fl (7.4-10.4); MONOCYTE # 0.8 10^3/ul (0.3-0.9); MONOCYTES % 11.8 % (0.0-11.0); NEUTROPHIL # 4.1 10^3/ul (1.6-7.5); NEUTROPHILS % 62.8 % (39.0-77.0); PLATELET COUNT 95 10^3/UL (140-415); RED CELL DISTRIBUTION WIDTH 15.7 % (11.5-14.5); WHITE BLOOD COUNT 6.5 10^3/ul (4.8-10.8)
[2017-04-23 01:04] LABS: POSITIVE DIFF @See below
[2017-04-23 01:06] LABS: INR 1.03; PARTIAL THROMBOPLASTIN TIME 27.8 Sec (25.0-35.0); PROTIME 13.5 Sec (12.2-14.2); PT RATIO 1.1
[2017-04-23 01:08] LABS: ALBUMIN 4.2 g/dl (3.3-4.9); ALBUMIN/GLOBULIN RATIO 1.23; BILIRUBIN,INDIRECT 0.2 mg/dl (0-1.1); BILIRUBIN,TOTAL 0.2 mg/dl (0.2-1.3); CALCIUM 8.7 mg/dl (8.4-10.2); CREATININE 5.68 mg/dl (0.44-1.00); POTASSIUM 4.9 mmol/L (3.5-5.1); TOTAL PROTEIN 7.6 g/dl (6.1-8.1)
[2017-04-23] MEDS ORDERED: PIPER-TAZO 3.375 GM IV (PMX) 100 ML IVPB STA (01:23)
[2017-04-23] MEDS ORDERED: VANCOMYCIN 1 GM (PMX) 250 ML IVPB ONE (01:30)
--- NOTE | 2017-04-23 02:32 | ERD ---
ER Documentation Chief Complaint Date/Time DATE: 04/23/17 TIME: 02:31 Chief Complaint left leg pain/swelling/redness/warm to touch, dialysis pt HPI This is a 72-year-old female comes of left leg pain swelling redness for the past 2-3 days. Says warm to the touch. She also has in her right leg. Patient on multiple episodes of cellulitis in the past. No fevers no chills no nausea no vomiting no other current complaints. ROS All systems reviewed and are negative except as per history of present illness. Medications Home Meds Active Scripts Insulin Aspart* (Novolog Insulin Pen*) 100 Unit/Ml Soln, 5 UNIT SC WITH MEALS for 30 Days Hold for blood sugar < 70 mg/dl Prov:STEFFI LEES M.D. 12/22/16 Insulin Glargine* (Lantus*) 100 Unit/Ml Soln, 10 UNIT SC QHS for 30 Days Prov:STEFFI LEES M.D. 12/22/16 Reported Medications Docusate Sodium* (Docusate Sodium*) 100 Mg Capsule, 100 MG PO BID, #60 CAP 12/09/16 Cyanocobalamin* (Vitamin B-12*) 1,000 Mcg Tablet.sa, 1000 MCG PO DAILY, TAB 12/09/16 Multivitamin* (Daily Value*) 1 Each Tablet, 1 TAB PO DAILY, TAB 12/09/16 Cholecalciferol* (Vitamin D3*) 1,000 Unit Tablet, 2000 UNIT PO DAILY, TAB 12/09/16 Aspirin* (Aspirin* Chew) 81 Mg Tab.chew, 81 MG PO DAILY, TAB.CHEW 12/09/16 Pregabalin* (Lyrica*) 75 Mg Capsule, 75 MG PO BID, #60 09/24/16 Allopurinol* (Allopurinol*) 100 Mg Tablet, 100 MG PO QHS, #90 09/24/16 Atorvastatin* (Atorvastatin*) 40 Mg Tablet, 40 MG PO QHS, #60 09/24/16 Discontinued Reported Medications Tramadol Hcl* (Ultram*) 50 Mg Tablet, 50 MG PO QHS Y for PAIN, TAB 12/09/16 Discontinued Scripts Linagliptin (TRADJENTA) 5 Mg Tablet, 5 MG PO DAILY for 30 Days, TAB Prov:STEFFI LEES M.D. 12/22/16 Calcium Acetate* (Calcium Acetate*) 667 Mg Capsule, 1334 MG PO WITH MEALS for 30 Days, CAP Prov:STEFFI LEES M.D. 12/22/16 Allergies Allergies: Coded Allergies: No Known Allergy (Unverified , 01/23/17) PMhx/Soc History of Surgery: Yes (SEE H AND P COMPLEX) Anesthesia Reaction: No Hx 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 Disorder: Yes (DIABETIC NEUROPATHY) Hx Respiratory Disorders: Yes (PNUEMONIA NOW AND LPEURAL EFFUSIONS -) Hx Cardiac Disorders: Yes (CAD, HTN, TN, 3 VESSEL BYPASS) Hx Psychiatric Problems: No Hx Miscellaneous Medical Probl: Yes (HD) Hx Alcohol Use: No Hx Substance Use: No Hx Tobacco Use: No Smoking Status: Never smoker Physical Exam Vitals Vital Signs Date Time Temp Pulse Resp B/P Pulse Ox O2 Delivery O2 Flow Rate FiO2 04/23/17 00:38 98.7 73 23 171/73 99 Room Air 04/22/17 20:21 98.1 80 20 184/76 96 Physical Exam Const: [] Head: Atraumatic Eyes: Normal Conjunctiva ENT: Normal External Ears, Nose and Mouth. Neck: Full range of motion..~ No meningismus. Resp: Clear to auscultation bilaterally Cardio: Regular rate and rhythm, no murmurs Abd: Soft, non tender, non distended. Normal bowel sounds Skin: No petechiae or rashes Back: No midline or flank tenderness Ext: No cyanosis, or edema Neur: Awake and alert Psych: Normal Mood and Affect Result Diagram: 04/23/17 0030 04/23/17 0030 Results 24 hrs Laboratory Tests Test 04/23/17 00:30 White Blood Count 6.510^3/ul Red Blood Count 3.9010^6/ul Hemoglobin 12.2g/dl Hematocrit 37.0% Mean Corpuscular Volume 94.9fl Mean Corpuscular Hemoglobin 31.3pg Mean Corpuscular Hemoglobin Concent 33.0g/dl Red Cell Distribution Width 15.7% Platelet Count 9510^3/UL Mean Platelet Volume 12.8fl Neutrophils % 62.8% Lymphocytes % 22.1% Monocytes % 11.8% Eosinophils % 2.1% Basophils % 0.6% Nucleated Red Blood Cells % 0.0/100WBC Neutrophils # 4.110^3/ul Lymphocytes # 1.410^3/ul Monocytes # 0.810^3/ul Eosinophils # 0.110^3/ul Basophils # 0.010^3/ul Nucleated Red Blood Cells # 0.010^3/ul Prothrombin Time 13.5Sec Prothrombin Time Ratio 1.1 INR International Normalized Ratio 1.03 Activated Partial Thromboplast Time 27.8Sec Sodium Level 144mmol/L Potassium Level 4.9mmol/L Chloride Level 95mmol/L Carbon Dioxide Level 31mmol/L Anion Gap 23 Blood Urea Nitrogen 73mg/dl Creatinine 5.68mg/dl Glucose Level 188mg/dl Calcium Level 8.7mg/dl Total Bilirubin 0.2mg/dl Direct Bilirubin 0.00mg/dl Indirect Bilirubin 0.2mg/dl Aspartate Amino Transf (AST/SGOT) 36IU/L Alanine Aminotransferase (ALT/SGPT) 36IU/L Alkaline Phosphatase 250IU/L Total Protein 7.6g/dl Albumin 4.2g/dl Globulin 3.40g/dl Albumin/Globulin Ratio 1.23 Lipase 212U/L Current Medications Medications (Trade) Dose Ordered Sig/Zaynab Route PRN Reason Start Time Stop Time Status Last Admin Dose Admin Vancomycin HCl 250 ml @ 125 mls/hr ONCE ONCE IVPB 04/23/17 01:30 04/23/17 03:29 04/23/17 02:15 Piperacillin Sod/ Tazobactam Sod (Zosyn 3.375gm/ 100 ml (Pmx)) 100 ml @ 200 mls/hr ONCE STAT IVPB 04/23/17 01:23 04/23/17 01:52 DC 04/23/17 01:37 Procedures/MDM Blood cultures pending. Medical decision-makin-year-old female bilateral lower extremity cellulitis. Spoken to the on-call physician for the patient's insurance. Home health will be set up for IV antibiotics as an outpatient. Patient given dose of antibiotics here. Departure Diagnosis: Primary Impression: Bilateral cellulitis of lower leg Condition: Stable SHAYNA GREWAL Apr 23, 2017 02:32
[2017-04-23 04:12] VITALS: BP 149/69; PULSE 69; RESP 20; TEMP 98.3
== END 2017-04-23 04:36 | disposition home or self-care (01) ==
LOC: E/R 20:14
DX: L03.116 Cellulitis of left lower limb (principal); L03.115 Cellulitis of right lower limb; I10 Essential (primary) hypertension; I25.10 Atherosclerotic heart disease of native coronary artery without angina pectoris; E11.9 Type 2 diabetes mellitus without complications; Z79.84 Long term (current) use of oral hypoglycemic drugs; Z79.4 Long term (current) use of insulin; Z79.82 Long term (current) use of aspirin
CPT/HCPCS: 36415; 80053; 83690; 85025; 85610; 85730; 87040; 96374; 96375; 99284; J2543; J3370